=== PATIENT | male | born 1950 | race Caucasian/White ===

== ENCOUNTER 2023-01-21 19:43 | Outpatient (OUT) | payer MEDICARE, SELFPAY | END 2023-01-21 19:44 | PROVIDERS: PCP Family Medicine; Visit Provider Family Medicine | DX: G47.33 Obstructive sleep apnea (adult) (pediatric) (principal); I48.92 Unspecified atrial flutter | CPT/HCPCS: 95811 ==

== ENCOUNTER 2023-03-18 14:09 | Outpatient (OUT) | payer MEDICARE, SELFPAY ==
[2023-03-18 14:37] LABS: Anion Gap 11.2; BUN Creatinine Ratio 10.2; Carbon Dioxide 25.9 mmol/L (21.0-32.0); Chloride 101 mmol/L (98-107); Estimated GFR (African America >60 (>=60); Estimated GFR (Non-African Ame 55 (>=60); Glucose 219 mg/dL (74-106); Potassium 4.1 mmol/L (3.5-5.1); Sodium 134 mmol/L (136-145)
== END 2023-03-18 14:10 | disposition home or self-care (01) ==
LOC: LAB 14:12
PROVIDERS: PCP Family Medicine; Visit Provider Nurse Practitioner
DX: I48.0 Paroxysmal atrial fibrillation (principal)
CPT/HCPCS: 36415; 80048

== ENCOUNTER 2023-04-30 10:40 | Emergency (ER) | payer MEDICARE, SELFPAY ==
[2023-04-30 10:44] VITALS: BP 166/87; PULSE 102; RESP 20; TEMP 37.1; O2SAT 96; BMI 32.3
--- NOTE | 2023-04-30 10:47 | XR_ITS ---
The [address] [address] Patient Name: MELVI DAVIES MRN: [id number] date: 1950 Sex: M Assigned Patient Location: ER Current Patient Location: ER Accession/Order Number: [id number] Exam Date: 04/30/2023 10:55 Report Date: 04/30/2023 11:30 At the request of: YFN SARKAR Procedure: XR ribs LT min 3V w CXR1V EXAMINATION: XR ribs LT min 3V w CXR1V HISTORY: fall ; left rib pain since falling 5 days ago COMPARISON: No relevant comparison available. FINDINGS: LUNGS: No significant pulmonary parenchymal abnormalities. PLEURA: No pneumothorax, effusion, or pleural thickening. MEDIASTINUM: No visible mass or adenopathy. CARDIAC: No cardiomegaly or cardiac silhouette abnormality. RIBS: No appreciable fracture or lesion. OTHER: Negative. XR/XR ribs LT min 3V w CXR1V IMPRESSION: 1. No appreciable rib fracture. 2. No acute cardiopulmonary process. Electronically authenticated by: FUAD TYLER Date: 04/30/2023 11:30
--- NOTE | 2023-04-30 10:50 | ED.GENADUL1 ---
HPI - General Adult General Chief complaint: Extremity Injury, Upper Stated complaint: POSS BROKEN/BRUISED RIBS ON L SIDE Time Seen by Provider: 04/30/23 10:42 Source: patient Mode of arrival: walk-in History of Present Illness HPI narrative: 72-year-old male presents for left-sided rib pain. Five days ago he fell and landed on this area. He didn't hit his head and has no shoulder or arm pain. He points to the inferior anterior lateral rib region. No abdominal pain. He is not short of breath. Related Data Home Medications Medication Instructions Recorded Confirmed diltiazem HCl 120 mg 120 mg PO QAM 04/30/23 04/30/23 capsule,extended release 24 hr empagliflozin 10 mg tablet 10 mg PO DAILY 04/30/23 04/30/23 (Jardiance) flecainide 50 mg tablet 50 mg PO BID 04/30/23 04/30/23 glimepiride 4 mg tablet 4 mg PO DAILY 04/30/23 04/30/23 hydralazine 50 mg tablet 100 mg PO BID 04/30/23 04/30/23 isosorbide mononitrate 30 mg 30 mg PO QAM 04/30/23 04/30/23 tablet,extended release 24 hr olmesartan 20 mg tablet 20 mg PO DAILY 04/30/23 04/30/23 pantoprazole 40 mg tablet,delayed 40 mg PO DAILY 04/30/23 04/30/23 release sitagliptin phosphate 100 mg 100 mg PO DAILY 04/30/23 04/30/23 tablet (Januvia) warfarin 5 mg tablet 5 mg PO .COMPLEX 04/30/23 04/30/23 warfarin 7.5 mg tablet 7.5 mg PO QWEEK 04/30/23 04/30/23 Allergies Allergy/AdvReac Type Severity Reaction Status Date / Time ciprofloxacin [From Cipro] Allergy Severe Verified 04/30/23 10:43 Qhzwsbc-DTU-ZqW Reductase Allergy Severe Verified 04/30/23 10:43 Inhibitor Review of Systems ROS Narrative A ten point review of systems is negative except as noted above. Exam Narrative Exam Narrative: Nurses note and vital signs reviewed and patient is not hypoxic. General: The patient appears well and in no apparent distress. Patient is resting comfortably on cart. Skin: Warm, dry, no pallor noted. There is no rash noted. Head: Normocephalic, atraumatic Eye: Normal conjunctiva, no drainage Ears, Nose, Mouth, and Throat: oral mucosa is moist. Nares patent. Cardiovascular: irregularly irregular Respiratory: Patient is in no distress, no accessory muscle use, lungs are clear to auscultation, no wheezing, rales or rhonchi Back: non-tender, including cervical thoracic and lumbar spines GI: nontender including left upper quadrant Musculoskeletal: he has tenderness to the inferior anterolateral chest area. No crepitus bruise or abrasion. Neurological: A&O, normal speech Psychiatric: Cooperative Constitutional Vital Signs, click to edit/add: Last Vital Signs Temp 98.7 F 04/30/23 10:44 Pulse 102 H 04/30/23 10:44 Resp 04/30/23 10:44 BP 166/87 H 04/30/23 10:44 Pulse Ox 96 04/30/23 10:44 O2 Del Method Room Air 04/30/23 10:44 Course Vital Signs Vital signs: Vital Signs Temperature 98.7 F 04/30/23 10:44 Pulse Rate 102 H 04/30/23 10:44 Respiratory Rate 04/30/23 10:44 Blood Pressure 166/87 H 04/30/23 10:44 Pulse Oximetry 96 04/30/23 10:44 Oxygen Delivery Method Room Air 04/30/23 10:44 Temperature 98.7 F 04/30/23 10:44 Pulse Rate 102 H 04/30/23 10:44 Respiratory Rate 04/30/23 10:44 Blood Pressure 166/87 H 04/30/23 10:44 Pulse Oximetry 96 04/30/23 10:44 Oxygen Delivery Method Room Air 04/30/23 10:44 Medical Decision Making MDM Narrative Medical decision making narrative: x-rays per radiologist showed no rib fracture or pneumothorax and he is discharged home. He was instructed to take Tylenol for pain. Treatment diagnosis and follow-up were discussed with the patient. Differential Diagnosis Differential Diagnosis: rib fracture, rib contusion, pneumothorax Imaging Data rib x-rays: Radiologist's impression: Procedure: XR ribs LT min 3V w CXR1V EXAMINATION: XR ribs LT min 3V w CXR1V HISTORY: fall ; left rib pain since falling 5 days ago COMPARISON: No relevant comparison available. FINDINGS: LUNGS: No significant pulmonary parenchymal abnormalities. PLEURA: No pneumothorax, effusion, or pleural thickening. MEDIASTINUM: No visible mass or adenopathy. CARDIAC: No cardiomegaly or cardiac silhouette abnormality. RIBS: No appreciable fracture or lesion. OTHER: Negative. IMPRESSION: 1. No appreciable rib fracture. 2. No acute cardiopulmonary process. Electronically authenticated by: FUAD TYLER Date: 04/30/2023 11:30 Discharge Plan Discharge Chief Complaint: Extremity Injury, Upper Clinical Impression: Contusion of rib Patient Disposition: Home, Self-Care Time of Disposition Decision: 11:37 Condition: Good Mode of Transportation: Private Vehicle Prescriptions / Home Meds: No Action diltiazem HCl 120 mg capsule,extended release 24hr 120 mg PO QAM Jardiance 10 mg tablet 10 mg PO DAILY flecainide 50 mg tablet 50 mg PO BID glimepiride 4 mg tablet 4 mg PO DAILY hydralazine 50 mg tablet 100 mg PO BID isosorbide mononitrate 30 mg tablet extended release 24 hr 30 mg PO QAM olmesartan 20 mg tablet 20 mg PO DAILY pantoprazole 40 mg tablet,delayed release (DR/EC) 40 mg PO DAILY Januvia 100 mg tablet 100 mg PO DAILY warfarin 5 mg tablet 5 mg PO .COMPLEX Rx Instructions: 5 mg orally 6 days a week; Sun, Mon, Tu, Wed, Fri, Sat warfarin 7.5 mg tablet 7.5 mg PO QWEEK Patient Comments: every Rx Instructions: every Instructions: Rib Contusion (ED) Stand Alone Forms: Portal Instructions Referrals: Robin Estevez MD [Primary Care Provider] - 1 week
== END 2023-04-30 11:48 | disposition home or self-care (01) ==
PROVIDERS: Emergency Provider Emergency Medicine; PCP Family Medicine
DX: S20.212A Contusion of left front wall of thorax, initial encounter (principal); W19.XXXA Unspecified fall, initial encounter; Z79.899 Other long term (current) drug therapy; Z79.01 Long term (current) use of anticoagulants
CPT/HCPCS: 71101; 99283

== ENCOUNTER 2023-08-27 04:20 | Observation (INO) | payer MEDICARE, SELFPAY ==
[2023-08-27] VITALS (89 sets, daily range): BP systolic 87–147; BP diastolic 56–91; PULSE 68–148; RESP 9–28; TEMP 36.4–37.1; O2SAT 89–100; BMI 35.7; BMI 36.6
--- NOTE | 2023-08-27 04:30 | PC.NURSE ---
Pt presents to ER for a racing heart Pt states this started around midnight-1am Pt states he has a history of a-fib and believes he is in a-fib Pt is pink, warm, and dry A&Ox4 , laughing, joking, and appears in no distress When placed on the monitor pt shows sinus tach in the 140's Pt does not believe that he is not in a-fib, pt states when he was at home he wore a pulse ox that went from 144-26 Vagal maneuvers perfomed with no success EKG, IV, and labs obtained
--- NOTE | 2023-08-27 05:02 | XR_ITS ---
The [address] [address] Patient Name: MELVI DAVIES MRN: [id number] date: 1950 Sex: M Assigned Patient Location: ED.MAIN Current Patient Location: ED.MAIN Accession/Order Number: [id number] Exam Date: 08/27/2023 05:30 Report Date: 08/27/2023 06:29 At the request of: AYANNA SHAFER Procedure: XR chest 1V EXAM: XR chest 1V HISTORY: tachycardia COMPARISON: Chest x-ray, 08/21/2022. TECHNIQUE: AP upright portable chest x-ray. FINDINGS: The heart, mediastinum and pulmonary vascularity are within normal limits. The lungs are well expanded and clear. The bony thorax is intact. XR/XR chest 1V IMPRESSION: Nonacute chest. No significant change. Electronically authenticated by: BETTINA PHILLIPS Date: 08/27/2023 06:29
--- NOTE | 2023-08-27 05:02 | ECG_ITS ---
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
--- NOTE | 2023-08-27 05:16 | ED.GENADUL1 ---
HPI - General Adult General Chief complaint: Chest Pain Stated complaint: chest pain light headed Time Seen by Provider: 08/27/23 04:46 Source: patient Mode of arrival: Wheelchair Limitations: no limitations History of Present Illness HPI narrative: patient has past history of A. Fib. Presents complaining of feeling light headed and rapid heart beat since around midnight. He felt it was A. Fib and decided to come in . States one time at home his device recorded a slow heart rate in the 20s. No LOC, chest pain or nausea. Has mild headache. Can feel his heart racing in his chest . Does have history of TIA and CAD Related Data Home Medications Medication Instructions Recorded Confirmed diltiazem HCl 120 mg 120 mg PO QAM 04/30/23 08/27/23 capsule,extended release 24 hr empagliflozin 10 mg tablet 10 mg PO DAILY 04/30/23 08/27/23 (Jardiance) flecainide 50 mg tablet 50 mg PO BID 04/30/23 08/27/23 glimepiride 4 mg tablet 4 mg PO DAILY 04/30/23 08/27/23 hydralazine 50 mg tablet 100 mg PO BID 04/30/23 08/27/23 isosorbide mononitrate 30 mg 30 mg PO QAM 04/30/23 04/30/23 tablet,extended release 24 hr olmesartan 20 mg tablet 20 mg PO DAILY 04/30/23 08/27/23 pantoprazole 40 mg tablet,delayed 40 mg PO DAILY 04/30/23 04/30/23 release sitagliptin phosphate 100 mg 100 mg PO DAILY 04/30/23 08/27/23 tablet (Januvia) rivaroxaban 2.5 mg tablet (Xarelto) 2.5 mg PO BID 08/27/23 08/27/23 Allergies Allergy/AdvReac Type Severity Reaction Status Date / Time ciprofloxacin [From Cipro] Allergy Severe Verified 08/27/23 04:34 Ywhqoqj-WGS-VzB Reductase Allergy Severe Verified 08/27/23 04:34 Inhibitor Review of Systems ROS Status of ROS 10 or more systems reviewed and unremarkable except as noted in history and below PFSH PFSH Social History Smoking status: Former smoker Exam Constitutional Vital Signs, click to edit/add: Last Vital Signs Temp 98.7 F 08/27/23 04:29 Pulse 145 H 08/27/23 06:20 Resp 14 08/27/23 06:20 BP 88/56 L 08/27/23 06:15 Pulse Ox 95 08/27/23 06:20 O2 Del Method Room Air 08/27/23 04:29 Common normals: no apparent distress, average body habitus, oriented x3, no limitations, healthy appearing, alert and well nourished [facility] Common normals: normocephalic and head/scalp atraumatic Eye Common normals: EOMs intact bilaterally and conjunctivae normal Respiratory Common normals: normal respiratory effort, no retractions, no use of accessory muscles and clear to auscultation bilaterally Cardio Common normals: S1 normal heart sound Rate: tachycardic GI Common normals: Normal to inspection, nondistended, normoactive bowel sounds present, soft to palpation and non-tender Extremity Common normals: normal to inspection and full ROM Neuro Common normals: oriented x3, CN's II-XII intact bilaterally, moves all extremities and no focal motor deficits Psych Appearance: grossly normal Course Vital Signs Vital signs: Vital Signs Temperature 98.7 F 08/27/23 04:29 Pulse Rate 141 H 08/27/23 04:29 Respiratory Rate 18 08/27/23 04:29 Blood Pressure 121/75 08/27/23 04:29 Pulse Oximetry 96 08/27/23 04:29 Oxygen Delivery Method Room Air 08/27/23 04:29 Temperature 98.7 F 08/27/23 04:29 Pulse Rate 145 H 08/27/23 06:20 Respiratory Rate 14 08/27/23 06:20 Blood Pressure 88/56 L 08/27/23 06:15 Pulse Oximetry 95 08/27/23 06:20 Oxygen Delivery Method Room Air 08/27/23 04:29 Medical Decision Making [facility] Narrative Medical decision making narrative: patient presents complaining of tachycardia. Concerned he might be in A. fib again. Past history of diabetes, A. Fib, TIA and CAD. Denies chest pain. States he feels a little light headed. EKG and monitor with sinus tach. cxray per my preliminary review is unremarkable. D-dimer and first troponin neg. Did order metoprolol for his tachycardia but was held because his BP declined to 88 systolic. Patient asymptomatic other than sense of his heart racing. IV saline ordered. Discussed with Dr Back and will plan obs admission as long as 2nd Troponin is neg. Lab Data Labs: Lab Results 08/27/23 Range/Units 04:40 WBC 10.6 (4.0-11.0) 10^3/uL RBC 5.80 (4.70-6.10) 10^6/uL Hgb 16.9 (14.0-18.0) g/dL Hct 52.0 (42.0-54.0) % MCV 89.7 (80.0-94.0) fL MCH 29.1 (25.9-34.0) pg MCHC 32.5 (29.9-35.2) g/dL RDW 14.9 (11.0-15.0) % Plt Count 244 (150-450) 10^3/uL MPV 11.3 (9.5-13.5) fL Neut % (Auto) 80.0 H (43.0-75.0) % Lymph % (Auto) 9.9 L (20.5-60.0) % [place] % (Auto) 6.3 (1.7-12.0) % Eos % (Auto) 2.2 (0.9-7.0) % Baso % (Auto) 0.7 (0.2-2.0) % Neut # (Auto) 8.5 H (1.4-6.5) 10^3/uL Lymph # (Auto) 1.1 L (1.2-3.8) 10^3/uL [place] # (Auto) 0.7 (0.3-0.8) 10^3/uL Eos # (Auto) 0.2 (0.0-0.7) 10^3/uL Baso # (Auto) 0.1 (0.0-0.1) 10^3/uL Abs Immat Gran (auto) 0.10 H (0.00-0.03) 10^3/uL Imm/Tot Granulo (auto) 0.9 H (0.0-0.5) % D-Dimer <0.19 (<=0.59) mg/L FEU Sodium 135 L (136-145) mmol/L Potassium 4.2 (3.5-5.1) mmol/L Chloride 100 (98-107) mmol/L Carbon Dioxide 22.5 (21.0-32.0) mmol/L Anion Gap 16.7 BUN 21.0 H (7.0-18.0) mg/dL Creatinine 1.64 H (0.70-1.30) mg/dL Est GFR ( Amer) 50 L (>=60) Est GFR (Non-Af Amer) 41 L (>=60) BUN/Creatinine Ratio 12.8 Glucose 238 H (74-106) mg/dL Calcium 9.2 (8.5-10.1) mg/dL Troponin I High Sens 12.1 (4.0-76.1) pg/mL Discharge Plan Discharge Chief Complaint: Chest Pain Clinical Impression: Tachycardia, Hypotension, Dehydration Patient Disposition: Admitted as Observation Prescriptions / Home Meds: No Action diltiazem HCl 120 mg capsule,extended release 24hr 120 mg PO QAM Jardiance 10 mg tablet 10 mg PO DAILY flecainide 50 mg tablet 50 mg PO BID glimepiride 4 mg tablet 4 mg PO DAILY hydralazine 50 mg tablet 100 mg PO BID isosorbide mononitrate 30 mg tablet extended release 24 hr 30 mg PO QAM olmesartan 20 mg tablet 20 mg PO DAILY pantoprazole 40 mg tablet,delayed release (DR/EC) 40 mg PO DAILY Januvia 100 mg tablet 100 mg PO DAILY Xarelto 2.5 mg tablet 2.5 mg PO BID Referrals: Robin Estevez MD [Primary Care Provider] - 1 week
[2023-08-27 05:33] LABS: Basophils Absolute Auto 0.1 10^3/uL (0.0-0.1); Basophils Percent Auto 0.7 % (0.2-2.0); Eosinophils Absolute Auto 0.2 10^3/uL (0.0-0.7); Eosinophils Percent Auto 2.2 % (0.9-7.0); Hemoglobin 16.9 g/dL (14.0-18.0); Immature Granulocytes Pct Auto 0.9 % (0.0-0.5); Lymphocytes Absolute Auto 1.1 10^3/uL (1.2-3.8); Lymphocytes Percent Auto 9.9 % (20.5-60.0); Mean Corpuscular HGB Conc 32.5 g/dL (29.9-35.2); Mean Corpuscular Hemoglobin 29.1 pg (25.9-34.0); Mean Corpuscular Volume 89.7 fL (80.0-94.0); Mean Platelet Volume 11.3 fL (9.5-13.5); Monocytes Absolute Auto 0.7 10^3/uL (0.3-0.8); Monocytes Percent Auto 6.3 % (1.7-12.0); Neutrophils Absolute Auto 8.5 10^3/uL (1.4-6.5); Platelet Count 244 10^3/uL (150-450); Red Cell Distribution Width 14.9 % (11.0-15.0); White Blood Count 10.6 10^3/uL (4.0-11.0)
[2023-08-27 05:58] LABS: Anion Gap 16.7; BUN Creatinine Ratio 12.8; Calcium 9.2 mg/dL (8.5-10.1); Carbon Dioxide 22.5 mmol/L (21.0-32.0); Chloride 100 mmol/L (98-107); Estimated GFR (African America 50 (>=60); Estimated GFR (Non-African Ame 41 (>=60); Glucose 238 mg/dL (74-106); Potassium 4.2 mmol/L (3.5-5.1); Sodium 135 mmol/L (136-145); Troponin I High Sensitivity 12.1 pg/mL (4.0-76.1)
[2023-08-27 06:05] LABS: D Dimer <0.19 mg/L FEU (<=0.59)
--- NOTE | 2023-08-27 06:23 | PC.NURSE ---
Per Dr. Bray via phone, this nurse is to hold the Metoprolol and give the pt 1 liter fluid bolus
[2023-08-27] MEDS: 0.9 % SODIUM CHLORIDE 1,000 ML 1000 ML IV (06:35)
--- NOTE | 2023-08-27 07:38 | P.HP_ITS ---
H&P: HPI History of Present Illness Chief complaint: chest pain light headed Narrative: Patient presented to the emergency room with increasing heart rate. [place] like he was in a is atrial fibrillation like he has been in the past. He was not to undergo stopped on his flecainide. In ER patient is resting fairly comfortably. No dyspnea. Denies chest pain or shortness of breath. Is tachycardic. Fairly regular some looks either more sinus or could be a flutter. Patient will be admitted to ICU Review of Systems ROS Status of ROS 10 or more systems reviewed and unremark able except as noted in h istory and below PFSH PFS Social History Smoking status: Former smoker Meds Home Medications and Allergies Home Medications Medication Instructions Recorded Confirmed Type diltiazem HCl 120 mg 120 mg PO QAM 04/30/23 08/27/23 History capsule,extended release 24 hr empagliflozin 10 mg tablet 10 mg PO DAILY 04/30/23 08/27/23 History (Jardiance) flecainide 50 mg tablet 50 mg PO BID 04/30/23 08/27/23 History glimepiride 4 mg tablet 4 mg PO DAILY 04/30/23 08/27/23 History hydralazine 50 mg tablet 100 mg PO BID 04/30/23 08/27/23 History isosorbide mononitrate 30 mg 30 mg PO QAM 04/30/23 04/30/23 History tablet,extended release 24 hr olmesartan 20 mg tablet 20 mg PO DAILY 04/30/23 08/27/23 History pantoprazole 40 mg tablet,delayed 40 mg PO DAILY 04/30/23 04/30/23 History release sitagliptin phosphate 100 mg 100 mg PO DAILY 04/30/23 08/27/23 History tablet (Januvia) rivaroxaban 2.5 mg tablet (Xarelto) 2.5 mg PO BID 08/27/23 08/27/23 History Allergies Allergy/AdvReac Type Severity Reaction Status Date / Time ciprofloxacin [From Cipro] Allergy Severe Verified 08/27/23 04:34 Cwuckpo-DGT-GxK Reductase Allergy Severe Verified 08/27/23 04:34 Inhibitor Exam Constitutional Vital Signs, click to edit/add: Last Vital Signs Temp 98.7 F 08/27/23 04:29 Pulse 134 H 08/27/23 07:00 Resp 24 08/27/23 07:00 BP 100/76 08/27/23 07:00 Pulse Ox 100 08/27/23 07:00 O2 Del Method Room Air 08/27/23 04:29 Documenting provider has reviewed patient's vital signs: yes Common normals: no apparent distress Respiratory Common normals: normal respiratory effort, no retractions and clear to auscultation bilaterally Cardio Common normals: regular rhythm; irregular rate Rate: tachycardic GI Common normals: Normal to inspection, nondistended, normoactive bowel sounds present Extremity Common normals: normal to inspection and full ROM Results Labs Labs: Short CBC 08/27/23 Range/Units 04:40 WBC 10.6 (4.0-11.0) 10^3/uL Hgb 16.9 (14.0-18.0) g/dL Hct 52.0 (42.0-54.0) % Plt Count 244 (150-450) 10^3/uL BMP 08/27/23 04:40 Sodium 135 L Potassium 4.2 Chloride 100 Carbon Dioxide 22.5 BUN 21.0 H Creatinine 1.64 H Glucose 238 H Calcium 9.2 Assessment and Plan Assessment and Plan (1) Dehydration: (2) Tachycardia: Plan Tachycardia in a patient with pain history of atrial fibrillation. Anticoagulated with Xarelto. Plan is to give Cardizem IV bolus in ER and see if his heart rate slows down with that but admit patient to ICU. Consult to cardiology. Check echocardiogram. Start patient on his flecainide from before as well as short acting Cardizem 4 times daily. Check cardiac markers. Needs him, thyroid pending. Acg-crsqdfl-gklvljtbi diabetes mellitus-insulin sliding scale GERD-continue with home medication Hypertension-continue with home medications Mild dehydration with acute elevation in BUN and creatinine and mild hyponatremia-IV fluids. Monitor closely. Watch for any signs of fluid overload Greater than 50% chance patient be discharged tomorrow so maintain patient observation status.
[2023-08-27 07:42] LABS: Troponin I High Sensitivity 24.7 pg/mL (4.0-76.1)
[2023-08-27] MEDS: DILTIAZEM HCL 25 MG/5 ML VIAL 10 MG IV (07:42)
[2023-08-27] MEDS: LACTATED RINGER'S SOLUTION 1,000 ML 100 ML IV ×2 (07:43→17:52)
--- NOTE | 2023-08-27 07:46 | CA_ITS ---
Patient Name: MELVI DAVIES MR#: [id number] : 1950 Exam Date: 08/27/2023 Ordering Doctor: DR Robin Estevez . ECHOCARDIOGRAM REPORT PROCEDURE: CA ECHO DOPPLER COMPLETE INDICATIONS: palpitations, Tachycardia COMPARISON: None. DESCRIPTION: COMPLETE ECHOCARDIOGRAM Real-time transthoracic echocardiography with 2D, M-mode, spectral and color flow Doppler performed. QUALITY: Technical quality was adequate. LEFT VENTRICLE: Normal chamber size. Mild concentric left ventricular hypertrophy. LV EF: Global left ventricular systolic function is hyperdynamic; visually estimated ejection fraction 65 to 70%. No wall motion abnormalities. DIASTOLIC: Diastolic function is indeterminate. ATRIAL SEPTUM: Poorly seen. LEFT ATRIUM: Mild dilatation. RIGHT ATRIUM: Mild dilatation. RIGHT VENTRICLE: Normal chamber size. Normal right ventricular systolic function. TRICUSPID VALVE: Normal mobility and thickness. No stenosis with trivial regurgitation. No evidence of pulmonary hypertension. RVSP 17mmHg MITRAL VALVE: Normal mobility and thickness. No evidence of mitral valve stenosis. There is no mitral annular calcification. Trivial mitral regurgitation. AORTIC VALVE: Normal trileaflet appearance. Mildly calcified aortic valve. Mildly diminished mobility. No evidence of aortic valve stenosis. No aortic regurgitation. AORTIC ROOT: Normal diameter and appearance. PULMONIC VALVE: Normal thickness and mobility. No stenosis. Trivial regurgitation. PERICARDIUM: Anterior free space; trivial effusion versus fat pad. IVC: Collapses with inspirations. Normal size. CONCLUSION: 1. Global left ventricular systolic function is hyperdynamic; visually estimated ejection fraction is 65 to 70% 2. Mildly increased left ventricular wall thickness 3. The right ventricle is normal in size and systolic function 4. Biatrial enlargement 5. Diastolic function is indeterminate 6. No significant valvular abnormalities 7. Anterior free space; trivial effusion versus fat pad Adult Echocardiography Procedure Report Left Ventricle LVEDD (3.7 - 5.6 cm): 4.43 cm LVESD (2.2 - 4.0 cm): 2.94 cm LVIVS thickness (0.6 - 1.2 cm): 1.29 cm LVPW thickness (0.5 - 1.0 cm): 1.21 cm e': 0.09 m/s E - e': 7.03 LVOT Max Gradient: 3.31 mm[Hg] LVOT Area (cm2): 0.91 m/s Peak Velocity (LVOT): 0.91 m/s Mean Velocity (LVOT): 0.60 m/s LVOT Diameter 1.94 cm Left Ventricular Ejection Fraction: 66.09 % Left Atrium LA Volume Index (2D A2C): 37.27 ml/m2 Left Atrium Systolic Dimension: 2.87 cm Mitral Valve MV E to A Ratio: 1.29 Mitral Valve A-Wave Peak Velocity: 0.50 m/s Mitral Valve E-Wave Peak Velocity: 0.64 m/s Right Ventricle RV Internal Diastolic Dimension: 3.49 cm Aorta AO Root Diam: 2.49 cm Ascending Ao Diam: 3.61 cm Aortic Valve AoV Area (Peak Santhosh): 2.16 cm2, 2.16 cm2 AoV Area (VTI): 2.23 cm2, 2.23 cm2 Peak Velocity(Antegrade Flow): 1.25 m/s Peak Gradient(Antegrade Flow): 6.23 mm[Hg] Mean Velocity(Antegrade Flow): 0.97 m/s Mean Gradient(Antegrade Flow): 3.94 mm[Hg] Velocity Time Integral: 24.07 cm Tricuspid Valve Peak Velocity (Regurgitant Flow): 1.35 m/s, 1.57 m/s, 1.84 m/s Pulmonic Valve Peak Velocity: 0.90 m/s Peak Gradient: 3.23 mm[Hg] Right Atrium Right Atrium Systolic Pressure: 55.03 ml, 55.03 ml Dictated by: Flory Jerez M.D. on 08/27/2023 at 17:17 Approved by: Flory Jerez M.D. on 08/27/2023 at 17:20
[2023-08-27] MEDS: ACETAMINOPHEN 500 MG TABLET 1000 MG PO (07:49)
[2023-08-27 08:25] LABS: Free T3 2.91 pg/mL (2.18-3.98)
[2023-08-27 08:26] LABS: Alanine Aminotransferase 23 U/L (16-63); Albumin Globulin Ratio 0.7; Albumin Level 2.9 g/dL (3.4-5.0); Alkaline Phosphatase 48 U/L (46-116); Aspartate Amino Transferase 11 U/L (15-37); Bilirubin Direct 0.2 mg/dL (0.0-0.2); Bilirubin Total 0.5 mg/dL (0.2-1.0); Globulin 4.3 g/dL; Magnesium 2.2 mg/dL (1.8-2.4); Thyroid Stimulating Hormone 3.985 uIU/mL (0.358-3.740); Total Protein 7.2 g/dL (6.4-8.2)
--- NOTE | 2023-08-27 09:02 | ECG_ITS ---
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
[2023-08-27 09:21] LABS: Glucometer 165 mg/dL (74-106)
[2023-08-27] MEDS: DILTIAZEM HCL 60 MG TABLET PO ×4 (10:07→22:00)
--- NOTE | 2023-08-27 10:36 | PC.NURSE ---
This nurse called by ICU nurse and asked to chart off the normal saline ordered at 0635 and metoprolol. this nurse witnessed rn shift mgr nurse scan and hang normal saline bolus and metoprolol was not given due to blood pressures being too low. this nurse signed off the metoprolol not being given as it was held and signed off saline bolus. pharmacy did not verify medications prior to rn shift mgr nurses leaving, regardless of multiple calls to pharmacy made by night nurses
--- NOTE | 2023-08-27 10:45 | SWNOTE1 ---
SW met with pt to review medicare observation, [place], form. Pt voiced understanding and did not have any questions. Pt signed form, original given to pt and copy placed on chart. Pt has no needs at discharge. Pt's daughter was in room during assessment as well.
[2023-08-27] MEDS: OMEPRAZOLE 40 MG CAPSULE.DR PO (11:42)
[2023-08-27 11:43] LABS: Glucometer 229 mg/dL (74-106)
[2023-08-27] MEDS: INSULIN ASPART 300 UNIT/3 ML PEN SUBQ ×2 (12:00→22:05)
[2023-08-27 12:22] LABS: Troponin I High Sensitivity 57.3 pg/mL (4.0-76.1)
[2023-08-27 12:52] LABS: Bilirubin Urine NEGATIVE (NEGATIVE); Blood Urine NEGATIVE (NEGATIVE); Clarity Urine CLEAR (CLEAR); Color Urine LT. YELLOW (YELLOW); Glucose Urine UA >=1000 mg/dL (NEGATIVE); Ketones Urine TRACE mg/dL (NEGATIVE); Leukocyte Esterase Urine TRACE (NEGATIVE); Nitrite Urine NEGATIVE (NEGATIVE); Protein Urine NEGATIVE (NEG/TRACE); Urobilinogen Urine 0.2 EU/dL (0.2-1.0)
[2023-08-27 13:19] LABS: Urine Microscopic Indicated YES
[2023-08-27 13:24] LABS: Bacteria Urine TRACE #/HPF (NONE SEEN)
[2023-08-27 13:25] LABS: Cast Seen? NONE SEEN #/LPF (NONE SEEN); Crystals Seen? None Seen #/HPF (None Seen); Mucus Urine NONE SEEN (NONE SEEN); Squamous Epithelial Cell Urine RARE #/LPF (NONE/RARE); Urine Culture Indicated NO
--- NOTE | 2023-08-27 15:05 | P.CN_ITS ---
<Statement entered by CIRILO ROTH - 09/03/23 07:06> This documentation has been reviewed and approved. Consult Note: HPI Data of Consult Patient: known to practice within the last 3 years Consult date: 08/27/23 Requesting Physician: Robin Estevez MD Primary Care Provider: Robin Estevez MD Consult Narrative Reason for consult: Intermittent SVT, Known h/o A fib Narrative: 72 yo male well known to Cardiology for PMH: Paroxysmal A fib on Xarelto anticoagulation, HTN, MELVIN with Cpap, Prostate CA, TIA, and CKD- CR typically remains baseline 1.3-1.4. Pt presented to ED for fast heart rate, dizziness that felt like a fib. Pt was given IV fluid bolus and cardizem IV in ED of which he converted into sinus rhythm. RN at bedside states that he has remained in SR since arriving to the unit, vitals remain stable. Currently pt denied chest pain, SOB, orthopnea, or any recent illness, fever, chills. Daughter and son are at bedside. Pt is KALISPEL. cc:: CC: Robin Estevez MD Review of Systems ROS Status of ROS 10 or more systems reviewed and unremark able except as noted in history and below Constitutional Denies: fever or chills Cardiovascular Denies: chest pain, edema, lightheadedness, shortness of breath with exertion or shortness of breath when lying down Respiratory Denies: shortness of breath or cough [facility] Medical History (Updated 08/27/23 @ 15:54 by REBECCA BLACK) Hypertension ?I10 - Essential (primary) hypertension (ICD-10) Diabetes ?E11.9 - Type 2 diabetes mellitus without complications (ICD-10) History of radiation therapy ?Z92.3 - Personal history of irradiation (ICD-10) Prostate cancer ?C61 - Malignant neoplasm of prostate (ICD-10) Afib ?I48.91 - Unspecified atrial fibrillation (ICD-10) TIA (transient ischemic attack) ?G45.9 - Transient cerebral ischemic attack, unspecified (ICD-10) Surgical History (Updated 08/27/23 @ 08:38 by Rina Aguilar RN) H/O prostatectomy ?Z90.79 - Acquired absence of other genital organ(s) (ICD-10) Social History Smoking status: Former smoker Highest level of school completed/degree received: Associate degree: occupational, technical, vocational program Meds Home Medications and Allergies Home Medications Medication Instructions Recorded Confirmed Type diltiazem HCl 120 mg 120 mg PO QAM 04/30/23 08/27/23 History capsule,extended release 24 hr empagliflozin 10 mg tablet 10 mg PO DAILY 04/30/23 08/27/23 History (Jardiance) flecainide 50 mg tablet 50 mg PO BID 04/30/23 08/27/23 History glimepiride 4 mg tablet 4 mg PO DAILY 04/30/23 08/27/23 History hydralazine 50 mg tablet 100 mg PO BID 04/30/23 08/27/23 History olmesartan 20 mg tablet 20 mg PO DAILY 04/30/23 08/27/23 History sitagliptin phosphate 100 mg 100 mg PO DAILY 04/30/23 08/27/23 History tablet (Januvia) rivaroxaban 20 mg tablet (Xarelto) 20 mg PO QPM 08/27/23 08/27/23 History Allergies Allergy/AdvReac Type Severity Reaction Status Date / Time ciprofloxacin [From Cipro] Allergy Severe Verified 08/27/23 08:36 Bacmciu-RQT-NuZ Reductase Allergy Severe Verified 08/27/23 08:36 Inhibitor adhesive tape Allergy Mild Redness of Verified 08/27/23 08:36 Skin Exam Constitutional Vital Signs, click to edit/add: Last Vital Signs Temp 97.8 F 08/27/23 11:37 Pulse 89 08/27/23 12:30 Resp 18 08/27/23 12:02 BP 121/85 08/27/23 12:02 Pulse Ox 95 08/27/23 12:00 O2 Del Method Room Air 08/27/23 08:10 Common normals: no apparent distress, oriented x3, no limitations, healthy appearing and alert General appearance: cooperative and comfortable Orientation/consciousness: Yes awake HENMT Common normals: normocephalic and head/scalp atraumatic Respiratory Common normals: normal respiratory effort, no use of accessory muscles and clear to auscultation bilaterally Effort & inspection: able to speak in complete sentences Auscultation: clear to auscultation bilaterally Cardio Common normals: no JVD, regular rate, regular rhythm, S1 normal heart sound, S2 normal heart sound, no gallops, no murmurs, no rub and peripheral pulses 2+ throughout Peripheral pulses: radial pulses present, posterior tibial pulses present and dorsalis pedis pulses present Extremity Common normals: normal to inspection, normal capillary refill and no clubbing, cyanosis or edema Neuro Common normals: oriented x3, CN's II-XII intact bilaterally and moves all extremities Psych Common normals: mental status grossly normal, thought process normal, cooperative, affect normal and speech normal Insight: insight good Judgement: judgment good Other: Pt is KALISPEL Results Labs Labs: Short CBC 08/27/23 Range/Units 04:40 WBC 10.6 (4.0-11.0) 10^3/uL Hgb 16.9 (14.0-18.0) g/dL Hct 52.0 (42.0-54.0) % Plt Count 244 (150-450) 10^3/uL BMP 08/27/23 04:40 Sodium 135 L Potassium 4.2 Chloride 100 Carbon Dioxide 22.5 BUN 21.0 H Creatinine 1.64 H Glucose 238 H Calcium 9.2 Liver Function 08/27/23 Range/Units 07:15 Total Bilirubin 0.5 (0.2-1.0) mg/dL Direct Bilirubin 0.2 (0.0-0.2) mg/dL AST 11 L (15-37) U/L ALT 23 (16-63) U/L Alkaline Phosphatase 48 (46-116) U/L Albumin 2.9 L (3.4-5.0) g/dL Urine 08/27/23 Range/Units 12:25 Urine Color Lt. yellow (YELLOW) Urine Clarity Clear (CLEAR) Urine pH 6.0 (5.0-9.0) Ur Specific [place] 1.010 (1.005-1.025) Urine Protein Negative (NEG/TRACE) mg/dL Urine Glucose (UA) >=1000 A (NEGATIVE) mg/dL Pulse Oximetry Attestation: I have reviewed the pertinent pulse oximetry results. ECG Attestation: ?I have reviewed the pertinent ECG results. ECG interpretation date: 08/27/23 Interpretation: Intervals [place] Rate: 86 P: 54 MD: 188 QRS: 13 QRSD: 86 T: 23 QT: 378 QTc: 421 Interpretive Statements 1100 Sinus rhythm 9110 normal ECG No previous ECG available for comparison Imaging Echocardiogram: Attestation: I have reviewed the pertinent imaging results. My impression: 12/03/22 Echo LVSF is hyperdynamic- EF 65-70% No significant wall motion abnormalities RV size and systolic function normal No significant valvulkar abnormalities Lexiscan stress test: Attestation: I have reviewed the pertinent imaging results. My impression: 12/24/2022 Lexiscan Normal lexiscan stress test without EKG evidence of ischemia. Myocardial perfusion is normal. Assessment and Plan Assessment and Plan (1) Dehydration: Assessment and Plan: managed by primary service (2) Tachycardia: Assessment and Plan: Currently resolved after IV fluid bolus and IV cardizem bolus Remains on Cardizem 60 mg qid Was on Cardizem 120 mg daily at home (3) Paroxysmal A-fib: Assessment and Plan: [id number]= 5 Age, HTN, DM, Stroke Remains on xarelto anticoagulation- Reduce dose to Xarelto 15 mg (if Cr Cl < 51 for renal dosing.)Pts Cr Clearance modified for overweight pt = 46 ml/min- Recommend continue cardizem 120 mg daily tomorrow, stop short acting cardizem and resume flecanide 50 mg po bid Monitor renal function F/U with Dr Shannon- EP as scheduled outpt. (4) Acute kidney injury superimposed on CKD: Assessment and Plan: Primary service managing (5) Hypertension: Assessment and Plan: Currently well controlled Renal function slightly elevated today- continue to monitor Continue all medications- olmesartan, hydralazine and cardizem Qualifiers: Hypertension type: renovascular hypertension Qualified Code(s): I15.0 - Renovascular hypertension Plan as above in Assessment Rebecca Black [facility] Cardiology
[2023-08-27] MEDS: FLECAINIDE ACETATE 50 MG TABLET PO (16:05)
[2023-08-27 16:18] LABS: Troponin I High Sensitivity 49.2 pg/mL (4.0-76.1)
[2023-08-27 17:04] LABS: Glucometer 120 mg/dL (74-106)
[2023-08-27] MEDS: RIVAROXABAN 10 MG TABLET 15 MG PO (21:59)
[2023-08-27 22:10] LABS: Glucometer 262 mg/dL (74-106)
[2023-08-28] VITALS (28 sets, daily range): BP systolic 108–150; BP diastolic 67–93; PULSE 65–87; RESP 10–45; TEMP 36.4–36.6; O2SAT 91–98
[2023-08-28] MEDS: LACTATED RINGER'S SOLUTION 1,000 ML 100 ML IV (03:28)
[2023-08-28 05:14] LABS: Basophils Absolute Auto 0.1 10^3/uL (0.0-0.1); Basophils Percent Auto 0.7 % (0.2-2.0); Eosinophils Absolute Auto 0.2 10^3/uL (0.0-0.7); Eosinophils Percent Auto 2.3 % (0.9-7.0); Hematocrit 44.6 % (42.0-54.0); Hemoglobin 14.3 g/dL (14.0-18.0); Immature Granulocytes Abs Auto 0.06 10^3/uL (0.00-0.03); Immature Granulocytes Pct Auto 0.8 % (0.0-0.5); Lymphocytes Absolute Auto 0.6 10^3/uL (1.2-3.8); Lymphocytes Percent Auto 8.3 % (20.5-60.0); Mean Corpuscular HGB Conc 32.1 g/dL (29.9-35.2); Mean Corpuscular Hemoglobin 28.5 pg (25.9-34.0); Mean Corpuscular Volume 88.8 fL (80.0-94.0); Monocytes Absolute Auto 0.5 10^3/uL (0.3-0.8); Monocytes Percent Auto 6.4 % (1.7-12.0); Neutrophils Absolute Auto 6.1 10^3/uL (1.4-6.5); Neutrophils Percent Auto 81.5 % (43.0-75.0); Platelet Count 174 10^3/uL (150-450); Red Blood Count 5.02 10^6/uL (4.70-6.10); Red Cell Distribution Width 14.9 % (11.0-15.0); White Blood Count 7.5 10^3/uL (4.0-11.0)
[2023-08-28 05:49] LABS: Alanine Aminotransferase 23 U/L (16-63); Albumin Globulin Ratio 0.6; Albumin Level 2.7 g/dL (3.4-5.0); Alkaline Phosphatase 45 U/L (46-116); Anion Gap 13.3; Aspartate Amino Transferase 13 U/L (15-37); BUN Creatinine Ratio 12.8; Bilirubin Total 0.5 mg/dL (0.2-1.0); Calcium 8.3 mg/dL (8.5-10.1); Carbon Dioxide 22.6 mmol/L (21.0-32.0); Chloride 98 mmol/L (98-107); Estimated GFR (African America >60 (>=60); Estimated GFR (Non-African Ame 56 (>=60); Globulin 4.2 g/dL; Glucose 208 mg/dL (74-106); Potassium 3.9 mmol/L (3.5-5.1); Sodium 130 mmol/L (136-145); Total Protein 6.9 g/dL (6.4-8.2)
[2023-08-28] MEDS: FLECAINIDE ACETATE 50 MG TABLET PO (05:53)
[2023-08-28] MEDS: DILTIAZEM HCL 60 MG TABLET PO (05:55)
[2023-08-28] MEDS: OMEPRAZOLE 40 MG CAPSULE.DR PO (05:55)
--- NOTE | 2023-08-28 07:19 | ECG_ITS ---
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
--- NOTE | 2023-08-28 07:36 | P.DS_ITS ---
DS: Providers Provider Date of admission: 08/27/23 06:34 Primary care physician: Robin Estevez MD Consults: 08/27/23 07:08 Occupational Therapy Eval and Treat Routine Reason for consultation: Ambulatory dysfunction/weakness Physical Therapy Eval and Treat Routine Reason for consultation: Ambulatory dysfunction/weakness 08/27/23 07:46 Consult to Cardiology Routine Reason for consultation: tachycardia Has provider been notified: No DS: Diagnosis Discharge Diagnosis (1) Dehydration: (2) Tachycardia: (3) Paroxysmal A-fib: (4) Acute kidney injury superimposed on CKD: (5) Hypertension: Qualifiers: Hypertension type: renovascular hypertension Qualified Code(s): I15.0 - Renovascular hypertension Plan Tachycardia in a patient with pain history of atrial fibrillation. Eal-hoxnrcd-puekzfoaf diabetes mellitus - poorly controilled GERD Hypertension mild Protein calorie malnutrition DS: Summary Hospital Course Hospital Course: Patient presented to the emergency room with increasing heart rate. In ER found to have sinus tachycardia. Could have been underlying flutter with a rate but it was not consistent with atrial fibrillation with the consistency of the QRS interval. Unable to control in ER with IV fluid resuscitation. Metoprolol. Patient was admitted to the ICU. Given IV dose of Cardizem. And started on p.o. Cardizem. Patient tolerated that well and did improve his heart rate into the 70s to 80s. He was stable overnight other than some mild sleep apnea hypoxia. Echocardiogram was unremarkable. Recommendation from cardiology was to restart his flecainide. Will maintain a consistent dose of the Cardizem at 120. Patient stable this morning we will discharge patient home improving condition. Medications see list. Follow-up with me in the office next week for his poorly controlled diabetes mellitus and moderate protein calorie malnutrition. See cardiology next week as well. Time Spent with Patient Time attestation: Total time spent providing and/or coordinating discharge services: Exam Constitutional Vital Signs, click to edit/add: Last Vital Signs Temp 97.8 F 08/28/23 03:40 Pulse 73 08/28/23 06:00 Resp 16 08/28/23 03:48 BP 150/93 H 08/28/23 05:55 Pulse Ox 94 L 08/28/23 06:00 O2 Del Method Nasal Cannula 08/28/23 04:28 O2 Flow Rate 1 08/28/23 04:28 Common normals: no apparent distress, oriented x3, no limitations, healthy appearing and alert General appearance: cooperative and comfortable Orientation/consciousness: Yes awake HENMS Common normals: normocephalic and head/scalp atraumatic Respiratory Common normals: normal respiratory effort, no use of accessory muscles and clear to auscultation bilaterally Effort & inspection: able to speak in complete sentences Auscultation: clear to auscultation bilaterally Cardio Common normals: no JVD, regular rate, regular rhythm and no murmurs Peripheral pulses: radial pulses present GI Common normals: Normal to inspection, nondistended, normoactive bowel sounds present Extremity Common normals: normal to inspection Neuro Common normals: oriented x3, CN's II-XII intact bilaterally and moves all extremities Psych Common normals: mental status grossly normal, thought process normal, cooperative, affect normal and speech normal Insight: insight good Judgement: judgment good Other: Pt is U[place]ER [place] DS: Data Data Completed and Pending Labs on day of discharge: Labs from last 24 hours 08/28/23 08/27/23 08/27/23 03:52 22:04 17:03 WBC 7.5 RBC 5.02 Hgb 14.3 Hct 44.6 MCV 88.8 MCH 28.5 MCHC 32.1 RDW 14.9 Plt Count 174 MPV 11.0 Neut % (Auto) 81.5 H Lymph % (Auto) 8.3 L [place] % (Auto) 6.4 Eos % (Auto) 2.3 Baso % (Auto) 0.7 Neut # (Auto) 6.1 Lymph # (Auto) 0.6 L [place] # (Auto) 0.5 Eos # (Auto) 0.2 Baso # (Auto) 0.1 Abs Immat Gran (auto) 0.06 H Imm/Tot Granulo (auto) 0.8 H Sodium 130 L Potassium 3.9 Chloride 98 Carbon Dioxide 22.6 Anion Gap 13.3 BUN 16.0 Creatinine 1.25 Est GFR ( Amer) >60 Est GFR (Non-Af Amer) 56 L BUN/Creatinine Ratio 12.8 Glucose 208 H Calcium 8.3 L Magnesium Total Bilirubin 0.5 Direct Bilirubin AST 13 L ALT 23 Alkaline Phosphatase 45 L Troponin I High Sens NT-Pro-B Natriuret Pep Total Protein 6.9 Albumin 2.7 L Globulin 4.2 Albumin/Globulin Ratio 0.6 TSH Thyroxine (T4) Free T3 Urine Color Urine Clarity Urine pH Ur Specific [place] Urine Protein Urine Glucose (UA) Urine Ketones Urine Occult Blood Urine Nitrite Urine Bilirubin Urine Urobilinogen Ur Leukocyte Esterase Urine RBC Urine WBC Ur Squamous Epith Cells Urine Crystals Urine Bacteria Urine Casts Urine Mucus Ur Culture Indicated? POC Glucose 262 H 120 H 08/27/23 08/27/23 08/27/23 15:55 12:25 12:00 WBC RBC Hgb Hct MCV MCH MCHC RDW Plt Count MPV Neut % (Auto) Lymph % (Auto) [place] % (Auto) Eos % (Auto) Baso % (Auto) Neut # (Auto) Lymph # (Auto) [place] # (Auto) Eos # (Auto) Baso # (Auto) Abs Immat Gran (auto) Imm/Tot Granulo (auto) Sodium Potassium Chloride Carbon Dioxide Anion Gap BUN Creatinine Est GFR ( Amer) Est GFR (Non-Af Amer) BUN/Creatinine Ratio Glucose Calcium Magnesium Total Bilirubin Direct Bilirubin AST ALT Alkaline Phosphatase Troponin I High Sens 49.2 57.3 NT-Pro-B Natriuret Pep Total Protein Albumin Globulin Albumin/Globulin Ratio TSH Thyroxine (T4) Free T3 Urine Color Lt. yellow Urine Clarity Clear Urine pH 6.0 Ur Specific [place] 1.010 Urine Protein Negative Urine Glucose (UA) >=1000 A Urine Ketones Trace A Urine Occult Blood Negative Urine Nitrite Negative Urine Bilirubin Negative Urine Urobilinogen 0.2 Ur Leukocyte Esterase Trace A Urine RBC 2-5 A Urine WBC 2-5 A Ur Squamous Epith Cells Rare Urine Crystals None seen Urine Bacteria Trace A Urine Casts None seen Urine Mucus None seen Ur Culture Indicated? No POC Glucose 08/27/23 08/27/23 08/27/23 11:41 09:20 07:15 WBC RBC Hgb Hct MCV MCH MCHC RDW Plt Count MPV Neut % (Auto) Lymph % (Auto) [place] % (Auto) Eos % (Auto) Baso % (Auto) Neut # (Auto) Lymph # (Auto) [place] # (Auto) Eos # (Auto) Baso # (Auto) Abs Immat Gran (auto) Imm/Tot Granulo (auto) Sodium Potassium Chloride Carbon Dioxide Anion Gap BUN Creatinine Est GFR ( Amer) Est GFR (Non-Af Amer) BUN/Creatinine Ratio Glucose Calcium Magnesium 2.2 Total Bilirubin 0.5 Direct Bilirubin 0.2 AST 11 L ALT 23 Alkaline Phosphatase 48 Troponin I High Sens 24.7 NT-Pro-B Natriuret Pep 569.0 Total Protein 7.2 Albumin 2.9 L Globulin 4.3 Albumin/Globulin Ratio 0.7 TSH 3.985 H Thyroxine (T4) 9.40 Free T3 2.91 Urine Color Urine Clarity Urine pH Ur Specific [place] Urine Protein Urine Glucose (UA) Urine Ketones Urine Occult Blood Urine Nitrite Urine Bilirubin Urine Urobilinogen Ur Leukocyte Esterase Urine RBC Urine WBC Ur Squamous Epith Cells Urine Crystals Urine Bacteria Urine Casts Urine Mucus Ur Culture Indicated? POC Glucose 229 H 165 H Discharge Plan Discharge Disposition: Home, Self-Care Condition: Fair Discharge Medications: Continued diltiazem HCl 120 mg capsule,extended release 24hr 120 mg PO QAM Jardiance 10 mg tablet 10 mg PO DAILY flecainide 50 mg tablet 50 mg PO BID glimepiride 4 mg tablet 4 mg PO DAILY hydralazine 50 mg tablet 100 mg PO BID olmesartan 20 mg tablet 20 mg PO DAILY Januvia 100 mg tablet 100 mg PO DAILY Xarelto 20 mg tablet 20 mg PO QPM Rx Instructions: must administer with evening meal Activity Restrictions/Additional Instructions: Check to see if additional labs should be ordered with upcoming blood work. Forms: Portal Instructions Follow Up Appointments: Follow up with Dr. Fawn Ayala 09/30/2023 at 1420.
[2023-08-28] MEDS: DILTIAZEM HCL 120 MG CAP.ER.24H PO (08:00)
--- NOTE | 2023-08-28 08:00 | ECG_ITS ---
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
[2023-08-28] MEDS: INSULIN ASPART 300 UNIT/3 ML PEN SUBQ (08:02)
--- NOTE | 2023-08-29 10:11 | CM.DCFOLLOWU ---
Person spoke with: patient How are you feeling? well How is your pain? no pain Did you understand your discharge instructions? yes Do you have any questions about your discharge instructions? no Were you given any prescriptions at discharge? no Were you able to get your prescriptions filled? N/A Do you understand how to take your medications as ordered? yes Do you have any questions about your follow up appointment and do you plan to keep your follow up appointment? no questios, reviewed f/u appointments with pt Is there anything else that you would like to discuss? no Questions/Comments/Concerns/Other: n/a
== END 2023-08-28 10:24 | disposition home or self-care (01) ==
LOC: ER 06:38 → ICU 08:02
PROVIDERS: Internal Medicine; Admitting Provider Family Medicine; Emergency Provider Internal Medicine; PCP Family Medicine; Visit Provider Family Medicine
DX: R00.0 Tachycardia, unspecified (principal); E86.0 Dehydration; I48.0 Paroxysmal atrial fibrillation; I25.10 Atherosclerotic heart disease of native coronary artery without angina pectoris; E11.65 Type 2 diabetes mellitus with hyperglycemia; E11.22 Type 2 diabetes mellitus with diabetic chronic kidney disease; N17.9 Acute kidney failure, unspecified; E44.0 Moderate protein-calorie malnutrition; Z68.36 Body mass index [BMI] 36.0-36.9, adult; I12.9 Hypertensive chronic kidney disease with stage 1 through stage 4 chronic kidney disease, or unspecified chronic kidney disease; N18.2 Chronic kidney disease, stage 2 (mild); K21.9 Gastro-esophageal reflux disease without esophagitis; E87.1 Hypo-osmolality and hyponatremia; R79.89 Other specified abnormal findings of blood chemistry; G47.33 Obstructive sleep apnea (adult) (pediatric); I95.9 Hypotension, unspecified; Z86.73 Personal history of transient ischemic attack (TIA), and cerebral infarction without residual deficits; Z79.899 Other long term (current) drug therapy; Z79.01 Long term (current) use of anticoagulants; Z87.891 Personal history of nicotine dependence; Z85.46 Personal history of malignant neoplasm of prostate; Z92.3 Personal history of irradiation; Z90.79 Acquired absence of other genital organ(s)
CPT/HCPCS: 36415; 71045; 80048; 80053; 80076; 81001; 82948; 83735; 83880; 84436; 84443; 84481; 84484; 85025; 85378; 93005; 93306; 94761; 96361; 96374; 97165; 99285; G0378

== ENCOUNTER 2023-10-08 09:31 | Outpatient (OUT) | payer MEDICARE, SELFPAY ==
[2023-10-08 09:56] LABS: Basophils Percent Auto 0.5 % (0.2-2.0); Eosinophils Absolute Auto 0.3 10^3/uL (0.0-0.7); Eosinophils Percent Auto 3.8 % (0.9-7.0); Hematocrit 51.1 % (42.0-54.0); Hemoglobin 16.3 g/dL (14.0-18.0); Immature Granulocytes Abs Auto 0.09 10^3/uL (0.00-0.03); Lymphocytes Absolute Auto 0.8 10^3/uL (1.2-3.8); Lymphocytes Percent Auto 9.6 % (20.5-60.0); Mean Corpuscular HGB Conc 31.9 g/dL (29.9-35.2); Mean Corpuscular Hemoglobin 28.9 pg (25.9-34.0); Mean Corpuscular Volume 90.6 fL (80.0-94.0); Mean Platelet Volume 10.2 fL (9.5-13.5); Monocytes Absolute Auto 0.6 10^3/uL (0.3-0.8); Monocytes Percent Auto 6.7 % (1.7-12.0); Neutrophils Absolute Auto 6.9 10^3/uL (1.4-6.5); Neutrophils Percent Auto 78.4 % (43.0-75.0); Platelet Count 229 10^3/uL (150-450); Red Blood Count 5.64 10^6/uL (4.70-6.10); Red Cell Distribution Width 14.6 % (11.0-15.0); White Blood Count 8.8 10^3/uL (4.0-11.0)
[2023-10-08 13:20] LABS: Estimated Average Glucose 194 mg/dL; Glycohemoglobin A1C 8.4 % (4.5-6.2)
[2023-10-08 13:28] LABS: Alanine Aminotransferase 42 U/L (16-63); Albumin Globulin Ratio 0.7; Albumin Level 3.4 g/dL (3.4-5.0); Alkaline Phosphatase 57 U/L (46-116); Anion Gap 13.2; Aspartate Amino Transferase 22 U/L (15-37); BUN Creatinine Ratio 11.8; Bilirubin Total 0.6 mg/dL (0.2-1.0); Calcium 9.2 mg/dL (8.5-10.1); Carbon Dioxide 24.6 mmol/L (21.0-32.0); Chloride 99 mmol/L (98-107); Chol HDL Ratio 4.2; Cholesterol 148 mg/dL (<=200); Estimated GFR (African America 54 (>=60); Estimated GFR (Non-African Ame 45 (>=60); Globulin 4.9 g/dL; Glucose 151 mg/dL (74-106); HDL Cholesterol 35 mg/dL (40-60); Potassium 3.8 mmol/L (3.5-5.1); Sodium 133 mmol/L (136-145); Thyroid Stimulating Hormone 2.435 uIU/mL (0.358-3.740); Total Protein 8.3 g/dL (6.4-8.2); Triglycerides 93 mg/dL (<=150); VLDL CHOLESTEROL 18.6 mg/dL
[2023-10-09 04:07] LABS: PSA, Free <0.02 ng/mL; Prostate Specific Ag <0.1 ng/mL (0.0-4.0)
== END 2023-10-08 09:32 | disposition home or self-care (01) ==
LOC: LAB 09:32
PROVIDERS: PCP Family Medicine; Visit Provider Family Medicine
DX: G47.33 Obstructive sleep apnea (adult) (pediatric) (principal); I48.0 Paroxysmal atrial fibrillation; E11.9 Type 2 diabetes mellitus without complications; E78.5 Hyperlipidemia, unspecified; Z12.12 Encounter for screening for malignant neoplasm of rectum; Z12.5 Encounter for screening for malignant neoplasm of prostate; I11.0 Hypertensive heart disease with heart failure
CPT/HCPCS: 36415; 80053; 80061; 83036; 83880; 84153; 84154; 84436; 84443; 84481; 85025

== ENCOUNTER 2023-10-15 07:53 | Outpatient (OUT) | payer MEDICARE, SELFPAY ==
--- OUTSIDE RECORDS SUMMARY | 2023-10-15 07:56 | XMS_ITS | CCD ---
Author Name Unknown Address [address] [place] [address] Organization [facility] Care Team Providers Care Intermediate Frame Tender Name Role Phone Unavailable Primary Care Provider Unavailabl e DEVINETTOlivia, SUBRAHMANYAM Consulting Unavail able OSKAR PINA Attending Unavailable VAUGHN KAYE Consulting Unavailable Pearl Estevez MD Primary Care Provider [phone] Melvi Kulkarni Jr. Unavailable Adrienne Mckoy MD, Surinder Unavailable Pearl Estevez MD Primary Care Provider [phone] Melvi Kulkarni Jr. Unavailable Adrienne Mckoy MD, Surinder Unavailable MALLORIE Hay, DR KANG Admitting Unavailable HOY ., DR KANG Attending Unavailable HOY ., DR KANG Consulting Unavailable HOY ., DR KANG Primary Care Unavailable HOY ., DR KANG Primary Care Unavailable HOY ., DR KANG Admitting Unavailable HOY ., DR KANG Attending Unavailable HOY ., DR KANG Consulting Unavailable HOY ., DR KANG Primary Care Unavailable HOY ., DR KANG Admitting Unavailable HOY ., DR KANG Attending Unavailable HOY ., DR KANG Consulting Unavailable MARKER ., DR RODRIGUEZ Attending Unavailable MARKER ., DR RODRIGUEZ Consulting Unavailable MARKER ., DR RODRIGUEZ Admitting Unavailable HOY ., DR KANG Primary Care Unavailable XAVIER .JONATHAN Admitting Unavailable JAYSON, DR FUAD Mariee Consulting Unavailable HOY ., DR KANG Primary Care Unavailable XAVIER ., JONATHAN Attending Unavailable XAVIER ., JONATHAN Consulting Unavailable AYLINY ., DR KANG Primary Care Unavailable HOY ., DR KANG Admitting Unavailable HOY ., DR KANG Attending Unavailable HOY ., DR KANG Consulting Unavailable Pearl Estevez MD Primary Care Provider Shad Carrington, Melvi Tramaine Unavailable Surinder Llanos MD Unavailable SERVICE, JOBST Referring Unavailable PEARL ESTEVEZ Primary Care Unavailable SARABJIT TURNER Attending Unavailable SARABJIT TURNER Attending Unavailable SILVIA NASH Attending Unavailable SILVIA NASH Attending Unavailable PEARL ESTEVEZ M Primary Care Unavailable PEARL ESTEVEZ M Primary Care Unavailable SURINDER MCKOY Attending Unavailable SURINDER MCKOY Referring Unavailable PEARL ESTEVEZ M Primary Care Unavailable BROOKLYNSURINDER MCKEON Referring Unavailable MINDA FORRESTEK Attending Unavailable PEARL ESTEVEZ M Primary Care Unavailable PEARL ESTEVEZ Primary Care Unavailable ADRIANE APOLINAR Attending Unavailable PEARL ESTEVEZ Primary Care Unavailable Allergies Allergy Classification Reported Allergen(s) Allergy Type Date of Onset Reaction(s) Facility (9 sources) Ciprofloxacin; Translations: [CIPROFLOXACIN] Drug Allergy 8 Mental Status Change [facility] (10 sources) Desonide; Translations: [DESONIDE] Drug Allergy 6 Unknown [facility] (5 sources) HMG-CoA reductase inhibitor; Translations: [GVASSZC-IQP-NHE REDUCTASE INHIBITORS] Drug Allergy 6 Other: See Comments [facility] (9 sources) Lactose; Translations: [LACTOSE] Drug Allergy 6 Unknown [facility] (4 sources) HMG-CoA reductase inhibitor Drug Allergy 6 Other: See Comments [facility] (1 source) black walnut pollen extract Drug Allergy 6 [facility] (1 source) Ciprofloxacin Drug Allergy 3 [facility] (1 source) Lactose Drug Allergy 6 [facility] (1 source) atorvastatin; Translations: [ATORVASTATIN] Drug Allergy 1 [facility] Medications Current Medications Medication Drug Class(es) Dates Sig (Normalized) Sig (Original) aspirin 81 mg chewable tablet (1 source) Platelet Aggregation Inhibitor, Nonsteroidal Anti-inflammatory Drug Start: 07-03-2019 aspirin chewable tablet 81 mg lisinopril 10 mg oral tablet (1 source) Angiotensin Converting Enzyme Inhibitor take 1 tablet by mouth once daily lisinopril (PRINIVIL;ZESTRIL ) 10 MG tablet Take 10 mg by mouth daily 0 Active 1000 ml sodium chloride 9 mg/ml injection (2 sources) Start: 07-03-2019 0.9 % sodium chloride infusion Start: 07-03-2019 End: 07-03-2019 0.9 % sodium chloride bolus Completed/Discontinued Medications Medication Drug Class(es) Dates Sig (Normalized) Sig (Original) acetaminophen 32 mg/ml / chlorpheniramine maleate 0.2 mg/ml / dextromethorphan hydrobromide 1 mg/ml oral suspension (5 sources) Histamine-1 Receptor Antagonist, Uncompetitive L-nkljvt-S-aspartat e Receptor Antagonist, Sigma-1 Agonist End: 01-28-2023 Chlorpheniram-DM- Acetaminophen 1-5-160 mg/5 mL susp Take by mouth at bedtime as needed. 0 01/28/2023 Discontinued (Course of therapy completed) Comment on above: Take by mouth at bed time as needed. cholecalciferol 0.025 mg oral capsule (5 sources) Vitamin D End: 01-28-2023 take 1 capsule by mouth once daily Cholecalciferol, Vitamin D3, 25 mcg (1,000 unit) cap Indications: Prostate cancer (HCC) Take 2,000 Units by mouth once daily. 0 01/28/2023 Discontinued (Course of therapy completed) Cholecalciferol, Vitamin D3, (VITAMIN D) 1,000 unit cap Indications: Prostate cancer (HCC) Take 2,000 Units by mouth once daily. 0 Active Comment on above: Take 2,000 Units by mouth once daily. dilTIAZem hydrochloride 30 mg oral tablet (7 sources) Calcium Channel Roxana Start: 05-04-2019 take 2 tablets by mouth three times daily diltiazem (CARDIZEM) 30 mg tablet Take 60 mg by mouth three times daily. 0 05/04/2019 Active take 1 tablet by mouth four time s daily diltiazem (CARDIZEM) 30 MG tablet Take 30 mg by mouth 4 times daily 0 Active Comment on above: Take 60 mg by mouth three times daily. empagliflozin 10 mg oral tablet (6 sources) Sodium-Glucose Cotransporter 2 Inhibitor take 1 tablet by mouth once daily at breakfast empagliflozin (JARDIANCE) 10 mg tablet Take 10 mg by mouth daily with breakfast. 0 Active Comment on above: Take 10 mg by mouth daily with breakfast. flecainide acetate 50 mg oral tablet (2 sources) Antiarrhythmic take 1 tablet by mouth twice daily flecainide (TAMBOCOR) 50 mg tablet Take 50 mg by mouth twice daily. 0 Active Comment on above: Take 50 mg by mouth twice daily. glimepiride 4 mg oral tablet (6 sources) Sulfonylurea Start: glimepiride (AMARYL) 4 mg tablet hydrALAZINE hydrochloride 50 mg oral tablet (6 sources) Arteriolar Vasodilator take 1 tablet by mouth three times daily hydrALAZINE (APRESOLINE) 50 mg tablet Indications: Prostate cancer (HCC) Take 50 mg by mouth three times daily. 0 Active Comment on above: Take 50 mg by mouth three times daily. hyoscyamine sulfate 0.125 mg sublingual tablet (5 sources) Start: End: take 1 tablet under the tongue four times daily as needed hyoscyamine sublingual (LEVSIN SL) 0.[address] 1 (ONE) TABLET UNDER THE TONGUE FOUR TIMES DAILY NEEDED 0 02/20/2021 01/28/2023 Discontinued (Course of therapy completed) Comment on above: PLACE 1 (ONE) TABLET UNDER THE TONGUE FOUR TIMES DAILY NEEDED Iohexol (1 source) Radiographic Contrast Agent Start: End: iohexol (OMNIPAQUE 350) solution 90 mL 24 hr isosorbide mononitrate 30 mg extended release oral tablet (6 sources) Nitrate Vasodilator take 1 tablet by mouth once daily, then take 1 tablet by mouth every twenty-four hours isosorbide mononitrate ER (IMDUR) 30 mg 24 hr tablet Take 30 mg by mouth once daily. 0 Active Comment on above: Take 30 mg by mouth once daily. Loperamide (5 sources) Opioid Agonist End: loperamide HCl (IMODIUM A-D ORAL) Take by mouth as needed. 0 01/28/2023 Discontinued (Course of therapy completed) loperamide HCl ( IMODIUM A-D ORAL) Take by mouth as needed. 0 Active Comment on above: Take by mouth as nee ded. 100 ml magnesium sulfate 10 mg/ml injection (1 source) Start: End: magnesium sulfate 1 g in dextrose 5% 100 mL IVPB metFORMIN hydrochloride 500 mg oral tablet (5 sources) Biguanide Start: End: metFORMIN (GLUCOPHAGE) 500 mg tablet Indications: Prostate cancer (HCC) 0 07/26/2018 01/28/2023 Discontinued (Discontinued by another Health Care Provider) olmesartan medoxomil 20 mg oral tablet (6 sources) Angiotensin 2 Receptor Roxana Start: take 1 tablet by mouth once daily olmesartan (BENICAR) 20 mg tablet Take 20 mg by mouth once daily. 0 04/25/2021 Active Comment on above: Take 20 mg by mouth once daily. pioglitazone 15 mg oral tablet (5 sources) Peroxisome Proliferator Receptor alpha Agonist, Peroxisome Proliferator Receptor gamma Agonist, Thiazolidinedione Start: End: 023 take 1 tablet by mouth once daily pioglitazone (ACTOS) 15 mg tablet Take 15 mg by mouth once daily. 0 04/30/2019 01/28/2023 Discontinued (Course of therapy completed) Comment on above: Take 15 mg by mouth once daily. SITagliptin 100 mg oral tablet (6 sources) Dipeptidyl Peptidase 4 Inhibitor Start: JANUVIA 100 mg tablet warfarin sodium 5 mg oral tablet (6 sources) Vitamin K Antagonist Start: take 1-1.5 tablets by mouth once daily warfarin (COUMADIN) 5 mg tablet TAKE 1-1.5 TABLETS BY MOUTH DAILY As directed by Gomez APPLE.] 0 05/04/2021 Active Comment on above: TAKE 1-1.5 TABLETS B Y MOUTH DAILY As directed by Gomez VALADEZ.] Problems Active Problems Problem Classification Problem Date Documented Da te Episodic/Chronic Cancer of prostate (11 sources) Malignant tumor of prostate; Translations: [Malignant neoplasm of prostate] Onset: 07-30-2018 Chronic Cancer of prostate (1 source) Personal history of malignant neoplasm of prostate; Translations: [PERSONAL HX MALIG NEOPLASM PROSTATE] Onset: 11-18-2022 Episodic Cardiac dysrhythmias (11 sources) Paroxysmal atrial fibrillation; Translations: [Unspecified atrial fibrillation] Onset: 08-23-2022 Chronic Cardiac dysrhythmias (7 sources) Tachycardia, unspecified; Translations: [Palpitations] Onset: 08-21-2022 Episodic Diabetes mellitus without complication (1 source) Type 2 diabetes mellitus without complications; Translations: [TYPE 2 DM WITHOUT COMPLICATIONS] Onset: 11-18-2022 Chronic Disorders of lipid metabolism (1 source) Hyperlipidemia, unspecified; Translations: [HYPERLIPIDEMIA UNSPECIFIED] Onset: 09-17-2022 Chronic Essential hypertension (3 sources) Essential (primary) hypertension; Translations: [ESSENTIAL PRIMARY HYPERTENSION] Onset: 11-18-2022 Chronic Hyperplasia of prostate (1 source) Benign prostatic hyperplasia without lower urinary tract symptoms; Translations: [BENIGN PROSTATIC HYPRPLASIA WO LUTS] Onset: 09-17-2022 Chronic Other aftercare (2 sources) intermediate frame tender (current) use of anticoagulants; Translations: [INTERMEDIATE CURRNT USE ANTICOAGULANTS] Onset: 11-18-2022 Episodic Other aftercare (1 source) Other senior living (current) drug therapy; Translations: [OTH INTERMEDIATE CURRENT DRUG THERAPY] Onset: 11-18-2022 Episodic Other aftercare (1 source) Encounter for therapeutic drug level monitoring; Translations: [Encounter for therapeutic drug level monitoring] Onset: 08-29-2023 Episodic Other gastrointestinal disorders (1 source) Irritable bowel syndrome without diarrhea; Translations: [IRRITABLE BOWEL SYND W/O DIARRHEA] Onset: 11-18-2022 Chronic Other hematologic conditions (1 source) Secondary polycythemia; Translations: [Secondary polycythemia] 06-23-2023 Episodic Residual codes; unclassified (1 source) Obstructive sleep apnea syndrome; Translations: [Obstructive sleep apnea (adult) (pediatric)] 06-23-2023 Chronic Residual codes; unclassified (1 source) Acquired absence of other genital organ(s); Translations: [ACQUIRED ABSENCE OTH GENITAL ORGANS] Onset: 11-18-2022 Episodic Syncope (1 source) Syncope and collapse; Translations: [Syncope and collapse] Episodic Transient cerebral ischemia (2 sources) Transient cerebral ischemic attack, unspecified; Translations: [Transient cerebral ischemic attack, unspecified] Onset: 12-27-2022 Chronic Unclassified (1 source) CONTACT W/AND (SUSP) EXPOS COVID-19; Translations: [CONTACT W/AND (SUSP) EXPOS COVID-19] Onset: 08-23-2022 Unclassified (2 sources) Other persistent atrial fibrillation; Translations: [Other persistent atrial fibrillation] Onset: 01-09-2023 Past or Other Problems Problem Classification Problem Date Documented Da te Episodic/Chronic Diabetes mellitus without complication (1 source) Other abnormal glucose; Translations: [OTHER ABNORMAL GLUCOSE] Onset: 09-17-2022 Episodic Other aftercare (1 source) intermediate frame tender (current) use of aspirin; Translations: [FIELD SERVICE TECH CURRENT USE OF ASPIRIN] Onset: 08-23-2022 Episodic Other aftercare (1 source) intermediate frame tender (current) use of oral hypoglycemic drugs; Translations: [INTERMEDIATE USE ORAL HYPOGLYCEMIC DX] Onset: 08-23-2022 Episodic Other liver diseases (1 source) Abnormal levels of other serum enzymes; Translations: [ABNORMAL LEVELS OTHER SERUM ENZYMES] Onset: 08-23-2022 Episodic Other lower respiratory disease (5 sources) Dyspnea, unspecified; Translations: [DYSPNEA UNSPECIFIED] Onset: 07-10-2022 Episodic Other screening for suspected conditions (not mental disorders or infectious disease) (7 sources) Raised prostate specific antigen; Translations: [Rising PSA following treatment for malignant neoplasm of prostate] Onset: 06-12-2020 06-12-2020 Episodic Screening and history of mental health and substance abuse codes (1 source) Personal history of nicotine dependence; Translations: [PERSONAL HISTORY OF NICOTINE DEPEND] Onset: 08-23-2022 Episodic Results Test Name Value Interpretation Reference Range Facility CBC W Auto Differential pane l (Bld)on 10-10-2023 Basophils (Bld) [#/Vol] 0.05 10*3/uL Normal <0.11 [facility] Comment on above: Order Comment: Speci men Type: BLOOD SPECIMEN Ordering Facility: [facility] Address: [address] [place] [address] Performed By: #### 5 7021-8, 12683-9 #### [facility] CLIA [id number] [address] [place] [address] 32417 Basophils/100 WBC (Bld) 0.6 % Normal [facility] Comment on above: Order Comment: Speci men Type: BLOOD SPECIMEN Ordering Facility: [facility] Address: [address] [place] [address] Performed By: #### 5 7021-8, 74565-5 #### [facility] CLIA [id number] [address] [place] [address] 23375 Differential cell count method Nom (Bld) Auto Normal [facility] Comment on above: Order Comment: Speci men Type: BLOOD SPECIMEN Ordering Facility: [facility] Address: [address] [place] [address] Performed By: #### 5 7021-8, 11740-3 #### [facility] CLIA [id number] [address] [place] [address] 62597 Eosinophils (Bld) [#/Vol] 0.37 10*3/uL Normal <0.46 [facility] Comment on above: Order Comment: Speci men Type: BLOOD SPECIMEN Ordering Facility: [facility] Address: [address] [place] [address] Performed By: #### 5 7021-8, 87679-1 #### [facility] CLIA [id number] [address] [place] [address] 23611 Eosinophils/100 WBC (Bld) 4.6 % Normal [facility] Comment on above: Order Comment: Speci men Type: BLOOD SPECIMEN Ordering Facility: [facility] Address: [address] [place] [address] Performed By: #### 5 7021-8, 33527-9 #### [facility] CLIA [id number] [address] [place] [address] 49550 Erythrocyte distribution width (RBC) [Ratio] 15.0 % Normal 11.5-15.0 [facility] Comment on above: Order Comment: Speci men Type: BLOOD SPECIMEN Ordering Facility: [facility] Address: [address] [place] [address] Performed By: #### 5 7021-8, 07685-8 #### [facility] CLIA [id number] [address] [place] [address] 95821 Hematocrit (Bld) [Volume fraction] 50.4 % Normal 39.0-51.0 [facility] Comment on above: Order Comment: Speci men Type: BLOOD SPECIMEN Ordering Facility: [facility] Address: [address] [id number] Performed By: #### 5 7021-8, 18213-3 #### [facility] CLIA [id number] [address] [place] [address] 51855 Hemoglobin (Bld) [Mass/Vol] 16.5 g/dL Normal 13.0-17.0 [facility] Comment on above: Order Comment: Speci men Type: BLOOD SPECIMEN Ordering Facility: [facility] Address: [address] [place] [address] Performed By: #### 5 7021-8, 72529-4 #### [facility] CLIA [id number] [address] [place] [address] 87106 Immature granulocytes (Bld) [#/Vol] 0.05 10*3/uL Normal <0.10 [facility] Comment on above: Order Comment: Speci men Type: BLOOD SPECIMEN Ordering Facility: [facility] Address: [address] [place] [address] Performed By: #### 5 7021-8, 93342-1 #### [facility] CLIA [id number] [address] [place] [address] 02944 Immature granulocytes/100 WBC (Bld) 0.6 % Normal [facility] Comment on above: Order Comment: Speci men Type: BLOOD SPECIMEN Ordering Facility: [facility] Address: [address] [place] [address] Performed By: #### 5 7021-8, 34465-4 #### [facility] CLIA [id number] [address] [place] [address] 22095 Lymphocytes (Bld) [#/Vol] 0.86 10*3/uL Low 1.00-4.00 [facility] Comment on above: Order Comment: Speci men Type: BLOOD SPECIMEN Ordering Facility: [facility] Address: [address] [place] [address] Performed By: #### 5 7021-8, 16711-4 #### [facility] CLIA [id number] [address] [place] [address] 61669 Lymphocytes/100 WBC (Bld) 10.7 % Normal [facility] Comment on above: Order Comment: Speci men Type: BLOOD SPECIMEN Ordering Facility: [facility] Address: [address] [place] [address] Performed By: #### 5 7021-8, 63566-4 #### [facility] CLIA [id number] [address] [place] [address] 99654 MCH (RBC) [Entitic mass] 29.1 pg Normal 26.0-34.0 [facility] Comment on above: Order Comment: Speci men Type: BLOOD SPECIMEN Ordering Facility: [facility] Address: [address] [place] [address] Performed By: #### 5 7021-8, 65063-9 #### [facility] CLIA [id number] [address] [place] [address] 32718 MCHC (RBC) [Mass/Vol] 32.7 g/dL Normal 30.5-36.0 [facility] Comment on above: Order Comment: Speci men Type: BLOOD SPECIMEN Ordering Facility: [facility] Address: [address] [place] [address] Performed By: #### 5 7021-8, 51961-1 #### [facility] CLIA [id number] [address] [place] [address] 69462 MCV (RBC) [Entitic vol] 88.9 fL Normal 80.0-100.0 [facility] Comment on above: Order Comment: Speci men Type: BLOOD SPECIMEN Ordering Facility: [facility] Address: [address] [place] [address] Performed By: #### 5 7021-8, 72925-5 #### [facility] CLIA [id number] [address] [place] [address] 14766 Monocytes (Bld) [#/Vol] 0.55 10*3/uL Normal <0.87 [facility] Comment on above: Order Comment: Speci men Type: BLOOD SPECIMEN Ordering Facility: [facility] Address: [address] [place] [address] Performed By: #### 5 7021-8, 82776-1 #### [facility] CLIA [id number] [address] [place] [address] 83898 Monocytes/100 WBC (Bld) 6.8 % Normal [facility] Comment on above: Order Comment: Speci men Type: BLOOD SPECIMEN Ordering Facility: [facility] Address: [address] [place] [address] Performed By: #### 5 7021-8, 10309-5 #### [facility] CLIA [id number] [address] [place] [address] 64623 Neutrophils (Bld) [#/Vol] 6.16 10*3/uL Normal 1.45-7.50 [facility] Comment on above: Order Comment: Speci men Type: BLOOD SPECIMEN Ordering Facility: [facility] Address: [address] [place] [address] Performed By: #### 5 7021-8, 68871-7 #### [facility] CLIA [id number] [address] [place] [address] 04872 Neutrophils/100 WBC (Bld) 76.7 % Normal [facility] Comment on above: Order Comment: Speci men Type: BLOOD SPECIMEN Ordering Facility: [facility] Address: [address] [place] [address] Performed By: #### 5 7021-8, 73322-5 #### [facility] CLIA [id number] [address] [place] [address] 73031 Nucleated RBC (Bld) [#/Vol] 10*3/uL Normal <0.01 [facility] Comment on above: Order Comment: Speci men Type: BLOOD SPECIMEN Ordering Facility: [facility] Address: [address] [place] [id number] Performed By: #### 5 7021-8, 50283-1 #### [facility] CLIA [id number] [address] [place] [address], [place] [address] Nucleated RBC/100 WBC (Bld) [Ratio] 0.0 /100 WBC Normal [facility] Comment on above: Order Comment: Speci men Type: BLOOD SPECIMEN Ordering Facility: [facility] Address: [address] [place] [address] Performed By: #### 5 7021-8, 05286-1 #### [facility] CLIA [id number] [address] [place] [address] 42561 Platelet mean volume (Bld) [Entitic vol] 10.9 fL Normal 9.0-12.7 [facility] Comment on above: Order Comment: Speci men Type: BLOOD SPECIMEN Ordering Facility: [facility] Address: [address] [place] [address] Performed By: #### 5 7021-8, 10969-4 #### [facility] CLIA [id number] [address] [place] [address] 08967 Platelets (Bld) [#/Vol] 210 10*3/uL Normal 150-400 [facility] Comment on above: Order Comment: Speci men Type: BLOOD SPECIMEN Ordering Facility: [facility] Address: [address] [place] [address] Performed By: #### 5 7021-8, 57408-3 #### [facility] CLIA [id number] [address] [place] [address] 17126 RBC (Bld) [#/Vol] 5.67 10*6/uL Normal 4.20-6.00 [facility] Comment on above: Order Comment: Speci men Type: BLOOD SPECIMEN Ordering Facility: [facility] Address: [address] [place] [address] Performed By: #### 5 7021-8, 05459-5 #### [facility] CLIA [id number] [address] [place] [address] 01439 WBC (Bld) [#/Vol] 8.04 10*3/uL Normal 3.70-11.00 [facility] Comment on above: Order Comment: Speci men Type: BLOOD SPECIMEN Ordering Facility: [facility] Address: [address] [place] [address] Performed By: #### 5 7021-8, 20914-0 #### [facility] CLIA [id number] [address] [place] [address] 52505 CNOVSPon 10-10-2023 CNOVSP Visit (SP) Office (H EMASA) MELVI DAVIES ([id number]) 1950 M Date Time Provider Department 10/10/23 9:30 AM APOLINAR FORREST During your visit today, we recorded the following information about you: Temperature Pulse Respiration Blood pressure 97.4 degrees 95/minute 18/minute 101/58 Weight Height 102.7 kg 1.702 m Apolinar Forrest MD 10/11/2023 6:05 AM Signed NAME: Melvi Davies CLINIC NO.: [id number] DATE OF SERVICE: [facility] 20[facility] Some elements in this clinic note that are critical to medical decision making have been carefully reviewed and included from a prior clinic note dated: June 23, 2023 (Adriane) Referring Provider: Pearl Estevez MD Additional Clinicians involved in Melvi Davies's care: CC: here for follow up ASSESSMENT: 72 year old gentleman with Prostatectomy for [place] 7 (4+3) prostate cancer 05/2016. Began Lupron in June 2018 for rising PSA to 1.57. CT imaging of the time showed concern for L1 and/or L2 bony disease. Not conclusive though. Continued Lupron through August 2019. I do not have good PSA documentation except in January 2019 seems his PSA was responding nicely with a value of 0.10. Unfortunately, he was unable to tolerate Lupron and is reluctant to try it again. 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 Noted that his H/H was increasing saw him 3 months to reassess - which now shows improvement and reflects regular use of CPAP. PLAN: Labs in 6 months, include PSA RTC same day to assess polycythemia Patient is not interested in Lupron due to side effects. - Would consider Orgovyx in future if needed. - ____ HPI: CASE HISTORY: Reverse Chronological Order 03/2021 - current: Coumadin 03/2021 - Mild CVA - recovered 02/02/2021 - Completed salvage RT 06/2018 - 08/2018 Lupron - stopped due to intolerance caused by arrhythmias and syncope. 06/2018 - PSA Rising 1.57 05/2016 - prostatectomy GL 7 (4+3) Updated Visit, October 10, 2023: Raulito returns today. He is due to have ablation, but is trying to find a [facility] location that works for him. He had PSA done on 2 days ago at [place], they called him to report it looks good. Daily CPAP use is apparent on his labs. 2 of his younger brothers have , another just had an MT. His nephew also passed of heart issues. He also spoke about his late 's passing many years ago but appreciated her care at [facility]. Updated Visit, June 23, 2023: Raulito returns today for a follow up. He is feeling tired because of his intolerance to his current CPAP settings. Has sleep apnea and has a CPAP, but is having trouble with the mask, because of that it appears it is affecting his oxygenation reflecting in his elevated H/H. No evidence of recurrent prostate cancer. PSA is 0. He reports a prior hx of smoking. He is still taking coumadin for his prior stroke. Updated Visit, June 24, 2022: 06/17/2022 PSA < 0.02. No complaints. No needs for intervention. Follows with Dr. Estevez for kidney disease Continues coumadin - for CVA in 03/2021 Updated Visit, December 24, 2021: Doing well. Still on coumadin and has no issues with his prior CVA Kidneys may need evaluation - defer to PCP Started Jardiance - blood sugars are better PSA remains suppressed. Updated Visit, August 23, 2021: Feels well and is doing well overall. PSA continues to decline. No other issues. PSA remains suppressed. Updated Visit, May 17, 2021: Raulito is 70 yo returns today for prostate cancer with rising PSA s/p radiation for local control. Patient is intolerant to androgen suppression and so we elected RT for disease control. PSA is responding very well. PSA is reduced to 0.04 ng/mL. Completed Radiaiton 02/02/2021. Recovering from a mild stroke in March 2021 and has fully recovered. Is now anticoagulated with Coumadin and is managed at a coumadin clinic. Updated Visit, December 14, 2020: Raulito is doing well and has started Radiation to the prostatic bed for rising PSA. Has completed both COVID-19 vaccination. Is doing alright. He has completed 4 doses of 39 scheduled fractions. Updated Visit, June 12, 2020: Raulito is 69 yo and really struggled with his prior treatment with Lupron Depot. He describes having issues with accelerated heart rate and passing out. His blood pressure s now normalized and he is doing well after discontinuing his Lupron. 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 Updated Visit, March 13, 2020: Raulito is 69 years old and presents today to transition his care to my service. He has prostate cancer [place]'s 4+3 = 7. He has had a prostatectomy in May 2016 and had a PSA rise in June 2018. He was started on (more content not included)... Normal [facility] Comprehensive metabolic 2000 panelon 10-10-2023 Albumin [Mass/Vol] 4.1 g/dL Normal 3.9-4.9 [facility] Comment on above: Order Comment: Speci men Type: BLOOD SPECIMEN Ordering Facility: [facility] Address: [address] [place] [address] Performed By: #### 2 4323-8 #### [facility] CLIA [id number] [address] [place] [address]269 ALP [Catalytic activity/Vol] 62 U/L Normal 38-113 [facility] Comment on above: Order Comment: Speci men Type: BLOOD SPECIMEN Ordering Facility: [facility] Address: [address] [id number] Performed By: #### 2 4323-8 #### [facility] CLIA [id number] [address] [place] [address] ALT [Catalytic activity/Vol] 27 U/L Normal 10-54 [facility] Comment on above: Order Comment: Speci men Type: BLOOD SPECIMEN Ordering Facility: [facility] Address: [address] [id number] Performed By: #### 2 4323-8 #### [facility] CLIA [id number] [address] [place] [address]377 Anion gap [Moles/Vol] 13 mmol/L Normal 9-18 [facility] Comment on above: Order Comment: Speci men Type: BLOOD SPECIMEN Ordering Facility: [facility] Address: [address] [place] [address] Performed By: #### 2 4323-8 #### [facility] CLIA [id number] [address] [place] [address]43 AST [Catalytic activity/Vol] 15 U/L Normal 14-40 [facility] Comment on above: Order Comment: Speci men Type: BLOOD SPECIMEN Ordering Facility: [facility] Address: [address] [place] [address] Performed By: #### 2 4323-8 #### [facility] CLIA [id number] [address] [place] [address]462 Bilirubin [Mass/Vol] 0.6 mg/dL Normal 0.2-1.3 [facility] Comment on above: Order Comment: Speci men Type: BLOOD SPECIMEN Ordering Facility: [facility] Address: [address] [place] [address] Performed By: #### 2 4323-8 #### [facility] CLIA [id number] [address] [place] [address]682 Calcium [Mass/Vol] 10.0 mg/dL Normal 8.5-10.2 [facility] Comment on above: Order Comment: Speci men Type: BLOOD SPECIMEN Ordering Facility: [facility] Address: [address] [place] [address] Performed By: #### 2 4323-8 #### [facility] CLIA [id number] [address] [place] [address] Chloride [Moles/Vol] 101 mmol/L Normal 97-105 [facility] Comment on above: Order Comment: Speci men Type: BLOOD SPECIMEN Ordering Facility: [facility] Address: [address] [place] [address] Performed By: #### 2 4323-8 #### [facility] CLIA [id number] [address] [place] [address] 21801 CO2 [Moles/Vol] 24 mmol/L Normal 22-30 [facility] Comment on above: Order Comment: Speci men Type: BLOOD SPECIMEN Ordering Facility: [facility] Address: [address] [place] [address] Performed By: #### 2 4323-8 #### [facility] CLIA [id number] [address] [place] [address]63 Creatinine [Mass/Vol] 1.62 mg/dL High 0.73-1.22 [facility] Comment on above: Order Comment: Speci men Type: BLOOD SPECIMEN Ordering Facility: [facility] Address: [address] [place] [address] Performed By: #### 2 4323-8 #### [facility] CLIA [id number] [address] [place] [address] Creatinine and Glomerular filtration rate.predicted panel (S/P/Bld) 44 mL/min/1.73m??? Low >=60 [facility] Comment on above: Order Comment: Speci men Type: BLOOD SPECIMEN Ordering Facility: [facility] Address: [address] [place] [address] Result Comment: Bren mated Glomerular Filtration Rate (eGFR) is calculated using the 2020 CKD-EPI creatinine equation. This equation utilizes serum creatinine, sex, and age as parameters. The creatinine assay has traceable calibration to isotope dilution-mass spectrometry. Refer to KDIGO guidelines for clinical interpretation. In patients with unstable renal function, e.g. those with acute kidney injury, the eGFR may not accurately reflect actual GFR. Performed By: #### 2 4323-8 #### [facility] CLIA [id number] [address] [place] [address] 10421 Glucose [Mass/Vol] 248 mg/dL High 74-99 [facility] Comment on above: Order Comment: Specepifanio cassidy Type: BLOOD SPECIMEN Ordering Facility: [facility] Address: [address] [place] [address] Result Comment: The [place] Diabetes Association (ADA) provides guidance for cutoff values for fasting glucose and random glucose. The ADA defines fasting as no caloric intake for at least 8 hours. Fasting plasma glucose results between 100 to 125 mg/dL indicate increased risk for diabetes (prediabetes). Fasting plasma glucose results greater than or equal to 126 mg/dL meet the criteria for diagnosis of diabetes. In the absence of unequivocal hyperglycemia, results should be confirmed by repeat testing. In a patient with classic symptoms of hyperglycemia or hyperglycemic crisis, random plasma glucose results greater than or equal to 200 mg/dL meet the criteria for diagnosis of diabetes. Reference: Standards of Medical Care in Diabetes 2016, [place] [employer] Association. Diabetes Care. 2016.39(Suppl 1). Performed By: #### 2 4323-8 #### [facility] CLIA [id number] [address] [place] [address]322 Potassium [Moles/Vol] 4.9 mmol/L Normal 3.7-5.1 [facility] Comment on above: Order Comment: Delmar cassidy Type: BLOOD SPECIMEN Ordering Facility: [facility] Address: [address] [place] [address] Performed By: #### 2 4323-8 #### [facility] CLIA [id number] [address] [place] [address] Protein [Mass/Vol] 7.8 g/dL Normal 6.3-8.0 [facility] Comment on above: Order Comment: Speci men Type: BLOOD SPECIMEN Ordering Facility: [facility] Address: [address] [place] [address] Performed By: #### 2 4323-8 #### [facility] CLIA [id number] [address] [place] [address] Sodium [Moles/Vol] 138 mmol/L Normal 136-144 [facility] Comment on above: Order Comment: Speci men Type: BLOOD SPECIMEN Ordering Facility: [facility] Address: [address] [place] [address] Performed By: #### 2 4323-8 #### [facility] CLIA [id number] [address] [place] [address]1127 Urea nitrogen [Mass/Vol] 13 mg/dL Normal 9-24 [facility] Comment on above: Order Comment: Speci men Type: BLOOD SPECIMEN Ordering Facility: [facility] Address: [address] [place] [address] Performed By: #### 2 4323-8 #### [facility] CLIA [id number] [address] [place] [address]26 EPO SerPl-aCncon 10-10-2023 Erythropoietin (EPO) Qn 19.5 mIU/mL High 2.6-18.5 [facility] Comment on above: Order Comment: Speci men Type: BLOOD SPECIMEN Ordering Facility: [facility] Address: [address] [place] [address] Performed By: #### 1 5061-5 #### [facility] CLIA [id number] [address] [place], [place] [address]K [id number] [place] [address] [place] Retics #on 10-10-2023 Reticulocytes (Bld) [#/Vol] 0.29468 10*3/uL High 0.018-0.100 [facility] Comment on above: Order Comment: Speci men Type: BLOOD SPECIMEN Ordering Facility: [facility] Address: [address] [place] [address] Performed By: #### 5 7021-8, 70755-9 #### [facility] CLIA [id number] [address] [place] [address] Reticulocytes (Bld) [#/Vol]o n 10-10-2023 Reticulocytes/100 RBC (Bld) 2.5 % High 0.4-2.0 [facility] Comment on above: Order Comment: Speci men Type: BLOOD SPECIMEN Ordering Facility: [facility] Address: [facility] [place] [address] Performed By: #### 5 7021-8, 49087-1 #### [facility] CLIA [id number] [address] [place] [address] Prep for Procedureon 024 Prep for Procedure [id number] Ghassan Davies 1950 Date Provider Department Center 10/03/2023 Marielena-[facility] LAB OR HeartVAS Family History Problem Relation Age of Onset Heart attack Brother Family Status - Relation Status Age at Brother Normal [facility] Office Visiton 09-30-2023 Follow-up visit [id number] Ghassan Davies E 1950 Date Provider Department Center 09/30/2023 SARABJIT TOSCANO Family History Problem Relation Age of Onset Heart attack Brother Family Status - Relation Status Age at Brother Level of Service:73403 [place] OFFICE/OUTPATIENT ESTABLISHED HIGH MDM 40 MIN Normal [facility] Office Visiton 07-15-2023 Follow-up visit [id number] Ghassan Davies E 1950 M Date Provider Department Center 07/15/2023 SARABJIT TOSCANO Family History Problem Relation Age of Onset Heart attack Brother Family Status - Relation Status Age at Brother Level of Service:13878 [place] OFFICE/OUTPATIENT NEW MODERATE MDM 45-59 MINUTES Normal [facility] CNOVSPon 06-23-2023 CNOVSP Visit (SP) Office (H EMASA) MELVI DAVIES ([id number]) 1950 M Date Time Provider Department 06/23/23 2:00 PM APOLINAR FORREST During your visit today, we recorded the following information about you: Temperature Pulse Respiration Blood pressure 97 degrees 98/minute 16/minute 133/81 Weight Height 104.9 kg 1.702 m Apolinar Forrest MD 06/23/2023 7:48 PM Signed NAME: Melvi Davies CLINIC NO.: [id number] DATE OF SERVICE: June 23, 2023 (bradyalta) Some elements in this clinic note that are critical to medical decision making have been carefully reviewed and included from a prior clinic note dated: June 24, 2022 (Adriane) Referring Provider: Pearl Estevez MD Additional Clinicians involved in Melvi Davies's care: CC: here for follow up ASSESSMENT: 72 year old gentleman with Prostatectomy for Carlos 7 (4+3) prostate cancer 05/2016. Began Lupron in June 2018 for rising PSA to 1.57. CT imaging of the time showed concern for L1 and/or L2 bony disease. Not conclusive though. Continued Lupron through August 2019. I do not have good PSA documentation except in January 2019 seems his PSA was responding nicely with a value of 0.10. Unfortunately, he was unable to tolerate Lupron and is reluctant to try it again. 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 Noted that his H/H is increasing would like to see him in 3 months to reassess. PLAN: 1. Labs in 3 months 2. RTC same day to assess polycythemia 3. Patient is not interested in Lupron due to side effects. - Would consider Orgovyx in future if needed. CASE HISTORY: 03/2021 - current: Coumadin 03/2021 Mild CVA - recovered 02/02/2021 Completed salvage RT 06/2018 - 08/2018 Lupron - stopped due to intolerance caused by arrhythmias and syncope. 06/2018 PSA Rising 1.57 05/2016 prostatectomy GL 7 (4+3) HPI: Updated Visit, June 23, 2023: Raulito returns today for a follow up. He is feeling tired because of his intolerance to his current CPAP settings. Has sleep apnea and has a CPAP, but is having trouble with the mask, because of that it appears it is affecting his oxygenation reflecting in his elevated H/H. No evidence of recurrent prostate cancer. PSA is 0. He reports a prior hx of smoking. He is still taking coumadin for his prior stroke. Updated Visit, June 24, 2022: 06/17/2022 PSA < 0.02. No complaints. No needs for intervention. Follows with Dr. Estevez for kidney disease Continues coumadin - for CVA in 03/2021 Updated Visit, December 24, 2021: Doing well. Still on coumadin and has no issues with his prior CVA Kidneys may need evaluation - defer to PCP Started Jardiance - blood sugars are better PSA remains suppressed. Updated Visit, August 23, 2021: Feels well and is doing well overall. PSA continues to decline. No other issues. PSA remains suppressed. Updated Visit, May 17, 2021: Raulito is 70 yo returns today for prostate cancer with rising PSA s/p radiation for local control. Patient is intolerant to androgen suppression and so we elected RT for disease control. PSA is responding very well. PSA is reduced to 0.04 ng/mL. Completed Radiaiton 02/02/2021. Recovering from a mild stroke in March 2021 and has fully recovered. Is now anticoagulated with Coumadin and is managed at a coumadin clinic. Updated Visit, December 14, 2020: Raulito is doing well and has started Radiation to the prostatic bed for rising PSA. Has completed both COVID-19 vaccination. Is doing alright. He has completed 4 doses of 39 scheduled fractions. Updated Visit, June 12, 2020: Raulito is 69 yo and really struggled with his prior treatment with Lupron Depot. He describes having issues with accelerated heart rate and passing out. His blood pressure s now normalized and he is doing well after discontinuing his Lupron. 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 Updated Visit, March 13, 2020: Raulito is 69 years old and presents today to transition his care to my service. He has prostate cancer Carlos's 4+3 = 7. He has had a prostatectomy in May 2016 and had a PSA rise in June 2018. He was started on Lupron and had been on Lupron which he couldn't tolerate lupron due to arrhythmias - so he stopped in August after he fainted and needed to be hospitalized. Continue monitoring. He is open to taking lupron again in the future if needed but in smaller doses using a monthly Depo instead of a longer-term depot. Now he is on cardizem for Aflutter. Having some hot flashes and shotrness of breath. He is on eloquis as well but he is switching to pradaxa. REVIEW OF SYSTEMS Per HPI and otherwise negative by full review of organ systems. ECOG PERFORMANCE STATUS: 0 PHYSICAL EXAMINATION: Vitals: BP 133/81[recheck[ Pulse 98 Tem (more content not included)... Normal [facility] CBC W Auto Differential pane l (Bld)on 06-16-2023 Basophils (Bld) [#/Vol] 0.05 10*3/uL Normal <0.11 [facility] Comment on above: Order Comment: Speci men Type: BLOOD SPECIMEN Ordering Facility: [facility] Address: [address] [place] [address] Performed By: #### 5 7021-8 #### [facility] CLIA [id number] [address] [place] [address]8913 Basophils/100 WBC (Bld) 0.6 % Normal [facility] Comment on above: Order Comment: Speci men Type: BLOOD SPECIMEN Ordering Facility: [facility] Address: [address] [place] [address] Performed By: #### 5 7021-8 #### [facility] CLIA [id number] [address] [place] [address]35 Differential cell count method Nom (Bld) Auto Normal [facility] Comment on above: Order Comment: Speci men Type: BLOOD SPECIMEN Ordering Facility: [facility] Address: [address] [place] [address] Performed By: #### 5 7021-8 #### [facility] CLIA [id number] [address] [place] [address]1251 Eosinophils (Bld) [#/Vol] 0.24 10*3/uL Normal <0.46 [facility] Comment on above: Order Comment: Speci men Type: BLOOD SPECIMEN Ordering Facility: [facility] Address: [address] [place] [address] Performed By: #### 5 7021-8 #### [facility] CLIA [id number] [address] [place] [address]5561 Eosinophils/100 WBC (Bld) 2.9 % Normal [facility] Comment on above: Order Comment: Speci men Type: BLOOD SPECIMEN Ordering Facility: [facility] Address: [address] [place] [address] Performed By: #### 5 7021-8 #### [facility] CLIA [id number] [address] [place] [address]31 Erythrocyte distribution width (RBC) [Ratio] 15.5 % High 11.5-15.0 [facility] Comment on above: Order Comment: Speci men Type: BLOOD SPECIMEN Ordering Facility: [facility] Address: [address] [place] [address] Performed By: #### 5 7021-8 #### [facility] CLIA [id number] [address] [place] [address] 15963 Hematocrit (Bld) [Volume fraction] 53.9 % High 39.0-51.0 [facility] Comment on above: Order Comment: Speci men Type: BLOOD SPECIMEN Ordering Facility: [facility] Address: [address] [place] [address] Performed By: #### 5 7021-8 #### [facility] CLIA [id number] [address] [place] [address]56 Hemoglobin (Bld) [Mass/Vol] 17.2 g/dL High 13.0-17.0 [facility] Comment on above: Order Comment: Speci men Type: BLOOD SPECIMEN Ordering Facility: [facility] Address: [address] [place] [address] Performed By: #### 5 7021-8 #### [facility] CLIA [id number] [address] [place] [address] Immature granulocytes (Bld) [#/Vol] 0.07 10*3/uL Normal <0.10 [facility] Comment on above: Order Comment: Speci men Type: BLOOD SPECIMEN Ordering Facility: [facility] Address: [address] [place] [address] Performed By: #### 5 7021-8 #### [facility] CLIA [id number] [address] [place] [address]131 Immature granulocytes/100 WBC (Bld) 0.9 % Normal [facility] Comment on above: Order Comment: Speci men Type: BLOOD SPECIMEN Ordering Facility: [facility] Address: [address] [place] [address] Performed By: #### 5 7021-8 #### [facility] CLIA [id number] [address] [place] [address] 68816 Lymphocytes (Bld) [#/Vol] 0.85 10*3/uL Low 1.00-4.00 [facility] Comment on above: Order Comment: Speci men Type: BLOOD SPECIMEN Ordering Facility: [facility] Address: [address] [place] [address] Performed By: #### 5 7021-8 #### [facility] CLIA [id number] [address] [place] [address] 14931 Lymphocytes/100 WBC (Bld) 10.4 % Normal [facility] Comment on above: Order Comment: Speci men Type: BLOOD SPECIMEN Ordering Facility: [facility] Address: [address] [place] [address] Performed By: #### 5 7021-8 #### [facility] CLIA [id number] [address] [place] [address] 93971 MCH (RBC) [Entitic mass] 28.5 pg Normal 26.0-34.0 [facility] Comment on above: Order Comment: Speci men Type: BLOOD SPECIMEN Ordering Facility: [facility] Address: [address] [place] [address] Performed By: #### 5 7021-8 #### [facility] CLIA [id number] [address] [place] [address] 21934 MCHC (RBC) [Mass/Vol] 31.9 g/dL Normal 30.5-36.0 [facility] Comment on above: Order Comment: Speci men Type: BLOOD SPECIMEN Ordering Facility: [facility] Address: [address] [place] [address] Performed By: #### 5 7021-8 #### [facility] CLIA [id number] [address] [place] [address] 97754 MCV (RBC) [Entitic vol] 89.4 fL Normal 80.0-100.0 [facility] Comment on above: Order Comment: Speci men Type: BLOOD SPECIMEN Ordering Facility: [facility] Address: [address] [place] [address] Performed By: #### 5 7021-8 #### [facility] CLIA [id number] [address] [place] [address] 72345 Monocytes (Bld) [#/Vol] 0.50 10*3/uL Normal <0.87 [facility] Comment on above: Order Comment: Speci men Type: BLOOD SPECIMEN Ordering Facility: [facility] Address: [address] [place] [address] Performed By: #### 5 7021-8 #### [facility] CLIA [id number] [address] [place] [address] 09131 Monocytes/100 WBC (Bld) 6.1 % Normal [facility] Comment on above: Order Comment: Speci men Type: BLOOD SPECIMEN Ordering Facility: [facility] Address: [address] [place] [address] Performed By: #### 5 7021-8 #### [facility] CLIA [id number] [address] [place] [address] 28943 Neutrophils (Bld) [#/Vol] 6.50 10*3/uL Normal 1.45-7.50 [facility] Comment on above: Order Comment: Speci men Type: BLOOD SPECIMEN Ordering Facility: [facility] Address: [address] [place] [address] Performed By: #### 5 7021-8 #### [facility] CLIA [id number] [address] [place] [address] 29432 Neutrophils/100 WBC (Bld) 79.1 % Normal [facility] Comment on above: Order Comment: Speci men Type: BLOOD SPECIMEN Ordering Facility: [facility] Address: [address] [place] [address] Performed By: #### 5 7021-8 #### [facility] CLIA [id number] [address] [place] [address] 98052 Nucleated RBC (Bld) [#/Vol] 10*3/uL Normal <0.01 [facility] Comment on above: Order Comment: Speci men Type: BLOOD SPECIMEN Ordering Facility: [facility] Address: [address] [place] [address] Performed By: #### 5 7021-8 #### [facility] CLIA [id number] [address] [place] [address] 93168 Nucleated RBC/100 WBC (Bld) [Ratio] 0.0 /100 WBC Normal [facility] Comment on above: Order Comment: Speci men Type: BLOOD SPECIMEN Ordering Facility: [facility] Address: [address] [place] [address] Performed By: #### 5 7021-8 #### [facility] CLIA [id number] [address] [place] [address] 28884 Platelet mean volume (Bld) [Entitic vol] 10.6 fL Normal 9.0-12.7 [facility] Comment on above: Order Comment: Speci men Type: BLOOD SPECIMEN Ordering Facility: [facility] Address: [address] [place] [address] Performed By: #### 5 7021-8 #### [facility] CLIA [id number] [address] [place] [address] 12873 Platelets (Bld) [#/Vol] 193 10*3/uL Normal 150-400 [facility] Comment on above: Order Comment: Speci men Type: BLOOD SPECIMEN Ordering Facility: [facility] Address: [address] [place], [place] [address] Performed By: #### 5 7021-8 #### [facility] CLIA [id number] [address] [place] [address] 81104 RBC (Bld) [#/Vol] 6.03 10*6/uL High 4.20-6.00 [facility] Comment on above: Order Comment: Speci men Type: BLOOD SPECIMEN Ordering Facility: [facility] Address: [address] [place] [address] Performed By: #### 5 7021-8 #### [facility] CLIA [id number] [address] [place] [address] 84523 WBC (Bld) [#/Vol] 8.21 10*3/uL Normal 3.70-11.00 [facility] Comment on above: Order Comment: Speci men Type: BLOOD SPECIMEN Ordering Facility: [facility] Address: [address] [place] [address] Performed By: #### 5 7021-8 #### [facility] CLIA [id number] [address] [place] [address] 08349 Comprehensive metabolic 2000 panelon 06-16-2023 Albumin [Mass/Vol] 4.3 g/dL Normal 3.9-4.9 [facility] Comment on above: Order Comment: Speci men Type: BLOOD SPECIMEN Ordering Facility: [facility] Address: [address] [place] [address] Performed By: #### 2 4323-8 #### [facility] CLIA [id number] [address] [place] [address] 45245 ALP [Catalytic activity/Vol] 65 U/L Normal 38-113 [facility] Comment on above: Order Comment: Speci men Type: BLOOD SPECIMEN Ordering Facility: [facility] Address: [address] [id number] Performed By: #### 2 4323-8 #### [facility] CLIA [id number] [address] [place] [address] 54895 ALT [Catalytic activity/Vol] 19 U/L Normal 10-54 [facility] Comment on above: Order Comment: Speci men Type: BLOOD SPECIMEN Ordering Facility: [facility] Address: [address] [place] [address] Performed By: #### 2 4323-8 #### [facility] CLIA [id number] [address] [place] [address] 88415 Anion gap [Moles/Vol] 15 mmol/L Normal 9-18 [facility] Comment on above: Order Comment: Speci men Type: BLOOD SPECIMEN Ordering Facility: [facility] Address: [address] [place] [address] Performed By: #### 2 4323-8 #### [facility] CLIA [id number] [address] [place] [address] 24873 AST [Catalytic activity/Vol] 14 U/L Normal 14-40 [facility] Comment on above: Order Comment: Speci men Type: BLOOD SPECIMEN Ordering Facility: [facility] Address: [address] [place] [address] Performed By: #### 2 4323-8 #### [facility] CLIA [id number] [address] [place] [address] 49830 Bilirubin [Mass/Vol] 0.4 mg/dL Normal 0.2-1.3 [facility] Comment on above: Order Comment: Speci men Type: BLOOD SPECIMEN Ordering Facility: [facility] Address: [address] [place] [address] Performed By: #### 2 4323-8 #### [facility] CLIA [id number] [address] [place] [address] 13299 Calcium [Mass/Vol] 9.7 mg/dL Normal 8.5-10.2 [facility] Comment on above: Order Comment: Speci men Type: BLOOD SPECIMEN Ordering Facility: [facility] Address: [address] [place] [address] Performed By: #### 2 4323-8 #### [facility] CLIA [id number] [address] [place] [address] 52108 Chloride [Moles/Vol] 101 mmol/L Normal 97-105 [facility] Comment on above: Order Comment: Speci men Type: BLOOD SPECIMEN Ordering Facility: [facility] Address: [address] [place] [address] Performed By: #### 2 4323-8 #### [facility] CLIA [id number] [address] [place] [address] 59875 CO2 [Moles/Vol] 19 mmol/L Low 22-30 [facility] Comment on above: Order Comment: Speci men Type: BLOOD SPECIMEN Ordering Facility: [facility] Address: [address] [place] [address] Performed By: #### 2 4323-8 #### [facility] CLIA [id number] [address] [place] [address] 34354 Creatinine [Mass/Vol] 1.46 mg/dL High 0.73-1.22 [facility] Comment on above: Order Comment: Speci men Type: BLOOD SPECIMEN Ordering Facility: [facility] Address: [address] [place] [address] Performed By: #### 2 4323-8 #### [facility] CLIA [id number] [address] [place] [address] 56948 Creatinine and Glomerular filtration rate.predicted panel (S/P/Bld) 50 mL/min/1.73m??? Low >=60 [facility] Comment on above: Order Comment: Speci men Type: BLOOD SPECIMEN Ordering Facility: [facility] Address: [address] [place] [address] Result Comment: Bren mated Glomerular Filtration Rate (eGFR) is calculated using the 2020 CKD-EPI creatinine equation. This equation utilizes serum creatinine, sex, and age as parameters. The creatinine assay has traceable calibration to isotope dilution-mass spectrometry. Refer to KDIGO guidelines for clinical interpretation. In patients with unstable renal function, e.g. those with acute kidney injury, the eGFR may not accurately reflect actual GFR. Performed By: #### 2 4323-8 #### [facility] CLIA [id number] [address] [place] [address] 56950 Glucose [Mass/Vol] 267 mg/dL High 74-99 [facility] Comment on above: Order Comment: Speci men Type: BLOOD SPECIMEN Ordering Facility: [facility] Address: [address] [place] [address] Result Comment: The [place] Diabetes Association (ADA) provides guidance for cutoff values for fasting glucose and random glucose. The ADA defines fasting as no caloric intake for at least 8 hours. Fasting plasma glucose results between 100 to 125 mg/dL indicate increased risk for diabetes (prediabetes). Fasting plasma glucose results greater than or equal to 126 mg/dL meet the criteria for diagnosis of diabetes. In the absence of unequivocal hyperglycemia, results should be confirmed by repeat testing. In a patient with classic symptoms of hyperglycemia or hyperglycemic crisis, random plasma glucose results greater than or equal to 200 mg/dL meet the criteria for diagnosis of diabetes. Reference: Standards of Medical Care in Diabetes 2016, [place] [employer]. Diabetes Care. 2016.39(Suppl 1). Performed By: #### 2 4323-8 #### [facility] CLIA [id number] [address] [place] [address] 59853 Potassium [Moles/Vol] 4.8 mmol/L Normal 3.7-5.1 [facility] Comment on above: Order Comment: Delmar cassidy Type: BLOOD SPECIMEN Ordering Facility: [facility] Address: [address] [place] [address] Performed By: #### 2 4323-8 #### [facility] CLIA [id number] [address] [place] [address] 75659 Protein [Mass/Vol] 7.9 g/dL Normal 6.3-8.0 [facility] Comment on above: Order Comment: Delmar cassidy Type: BLOOD SPECIMEN Ordering Facility: [facility] Address: [address] [place] [address] Performed By: #### 2 4323-8 #### [facility] CLIA [id number] [address] [place] [address] Sodium [Moles/Vol] 135 mmol/L Low 136-144 [facility] Comment on above: Order Comment: Speci men Type: BLOOD SPECIMEN Ordering Facility: [facility] Address: [address] [place] [address] Performed By: #### 2 4323-8 #### [facility] CLIA [id number] [address] [place] [address] 36777 Urea nitrogen [Mass/Vol] 15 mg/dL Normal 9-24 [facility] Comment on above: Order Comment: Speci men Type: BLOOD SPECIMEN Ordering Facility: [facility] Address: [address] [place] [address] Performed By: #### 2 4323-8 #### [facility] CLIA [id number] [address] [place], [place] [id number] PSA [facility] 06-16-2023 Prostate specific Ag [Mass/Vol] ng/mL Normal <2.60 [facility] Comment on above: Order Comment: Speci men Type: BLOOD SPECIMEN Ordering Facility: [facility] Address: [address] [place] [address] Result Comment: Tota l PSA test methodology used is the Electrochemiluminescence Immunoassay by [employer]. Total PSA values by differing methodologies cannot be interchanged. Performed By: #### 2 857-1 #### [facility] CLIA [id number] [address] [address] [address] [id number] [address] [place] Office Visiton 03-11-2023 Follow-up visit [id number] Ghassan Davies 1950 M Date Provider Department Center 03/11/2023 Yon-SILVIA [facility] Family History Problem Relation Age of Onset Heart attack Brother Family Status - Relation Status Age at Brother Level of Service:72270 [place] OFFICE/OUTPATIENT ESTABLISHED MOD MDM 30-39 MIN Normal [facility] CNOVon 01-20-2023 CNOV Office Visit (RADTSA ) MELVI DAVIES ([id number]) 1950 M Date Time Provider Department 01/20/23 10:00 AM SURINDER MCKOY During your visit today, we recorded the following information about you: Temperature Pulse Respiration Blood pressure 97.6 degrees 103/minute 18/minute 122/84 Weight 100.8 kg Surinder Mckoy MD 01/28/2023 1:25 PM Signed Radiation Oncology - Follow Up Note PATIENT NAME: Melvi Davies PATIENT DIAGNOSIS/PATIENT IDENTIFICATION: Mr. Davies is a 71 year gentleman diagnosed with Stage IIC, [id number], adenocarcinoma of the prostate s/p RP; GS 4+3=7, PSA 10.6 ng/mL (+SM, -EPE, -SVI, -LVSI/LN, + PNI) after RP and LN biopsy on 06/05/[address] Kulkarni. Post prostatectomy PSA remained detectable and denia to a value of 1.68 ng/mL on 07/13/2018. At that point staging work-up with CT abdomen pelvis and bone scan was negative and he met with Dr. Zarco and was placed on androgen deprivation therapy with Lupron. There was biochemical response and his PSA decreased to undetectable however Lupron was discontinued after one year due to poor tolerance including possible arrhythmia (afib?). His PSA has since been rising to a current value of 0.30 ng/mL on 09/07/2020 with negative staging workup and was referred for salvage radiation therapy by Dr. Forrest for an attempt at local control prior to consideration of re-initiating systemic therapy. He completed course of salvage radiation therapy to to the prostate bed and pelvic lymph nodes on 02/02/2021 (7020 cGy in 39 fractions). INTERVAL HISTORY/ROS: Mr. Davies returns to clinic today for routine follow-up approximately two years after the completion of his radiation treatments and one year since his last visit on 12/24/2021. In the interim, he has been following with Dr. Forrest for his ADT as well as PSA surveillance. Today he denies any burning/discomfort with urination and notes nocturia 2-3 times. He has occasional leakage which is unchanged and is not using any pads. He reports no difficulty with straining or starting his stream and feels that his stream is overall stronger. He reports regular bowel movements without diarrhea or pain or blood. He does note fatigue with good appetite and hydration and stable weight. His IPSS score today is 6/35 and LUCIA score of NA/25. His most recent PSA drawn 06/2022 continues to remain undetectable at <0.02 ng/mL. He does note having some discomfort in the area of his right testicle for the past few days and recalls no injury or trauma to the area. He does not feel that they are swollen or hard. He has also been following with his cardiology team regarding his A-fib. He notes occasional shortness of breath but otherwise denies any recent fevers, chills, headaches, difficulty with speech/swallowing, abdominal pain, nausea, vomiting, change in bowel/urinary habits, difficulty with gait/balance, recent falls, etc. The remainder of the review of systems was performed and was otherwise noncontributory. ALLERGIES ALLERGIES Allergen Reactions Ciprofloxacin Mental Status Change Desonide Unknown Lactose Unknown Pftrsty-Wlk-Bdq Red* Other: See Comments MEDICATIONS: Current Outpatient Medications: flecainide (TAMBOCOR) 50 mg tablet empagliflozin (JARDIANCE) 10 mg tablet isosorbide mononitrate ER (IMDUR) 30 mg 24 hr tablet JANUVIA 100 mg tablet warfarin (COUMADIN) 5 mg tablet olmesartan (BENICAR) 20 mg tablet diltiazem (CARDIZEM) 30 mg tablet glimepiride (AMARYL) 4 mg tablet hydrALAZINE (APRESOLINE) 50 mg tablet Fzpyesnsnxpue-ER-Rrugdzqtry hen 1-5-160 mg/5 mL susp hyoscyamine sublingual (LEVSIN SL) 0.125 mg loperamide HCl (IMODIUM A-D ORAL) pioglitazone (ACTOS) 15 mg tablet metFORMIN (GLUCOPHAGE) 500 mg tablet Cholecalciferol, Vitamin D3, 25 mcg (1,000 unit) cap PHYSICAL EXAM: GENERAL: elderly gentleman sitting in chair in no acute distress. VITALS: BP 122/84 Pulse 103 Temp 97.6 Resp 18 Wt 222 lb 3.2 oz (100.8kg) SpO2 97% KPS: 80 HEENT: NC/AT, anicteric sclera HEART: S1S2 LUNGS: non-labored breathing ABDOMEN: soft MUSCULOSKELETAL: no peripheral edema, moves all extremities. NEURO: no focal deficit; AANDO X3. PELVIC: declined ASSESSMENT AND PLAN: Mr. Daveis is a 71 year gentleman diagnosed with Stage IIC, [id number], adenocarcinoma of the prostate s/p RP; GS 4+3=7, PSA 10.6 ng/mL (+SM, -EPE, -SVI, -LVSI/LN, + PNI) after RP and LN biopsy on 06/05/[address] Kulkarni. Post prostatectomy PSA remained detectable and denia to a value of 1.68 ng/mL on 07/13/2018. At that point staging work-up with CT abdomen pelvis and bone scan was negative and he met with Dr. Zarco and was placed on androgen deprivation therapy with Lupron. There was biochemical response and his PSA decreased to undetectable however Lupron was discontinued after one year due to poor lissette (more content not included)... Normal [facility] 01-01-2023 Refill [id number] SholaGhassan wilkins 1950 M Date Provider Department Center 01/01/2023 SILVIA BRYAN No family history on file Reason for Visit and Comments: Med Refill [[id number]] Normal [facility] Office Visiton 12-27-2022 Follow-up visit [id number] Ghassan Davies 1950 M Date Provider Department Center 12/27/2022 SILVIA BRYAN No family history on file Level of Service:74615 [place] OFFICE/OUTPATIENT NEW MODERATE MDM 45-59 MINUTES Reason for Visit and Comments: Establish Care [42] Normal [facility] ECHOCARDIO M/2D COMPLETEon 0 12-03-2022 ECHOCARDIO M/2D COMPLETE Patient: MELVI DAVIES Exam Date: 12/03/2022 : 1950 Gender:M Ordering : DR PEARL ESTEVEZ . Admission #: [id number] Family : Order #: [id number] CLICK HERE TO VIEW EXAM ECHOCARDIOGRAM REPORT PROCEDURE: CARDIO PULMONARY ECHOCARDIO M/2D COMP INDICATIONS: Paroxysmal Atrial fibrillation COMPARISON: None. DESCRIPTION: COMPLETE ECHOCARDIOGRAM Real-time transthoracic echocardiography with 2D, M-mode, spectral and color flow Doppler performed. QUALITY: Technical quality was adequate. LEFT VENTRICLE: Normal chamber size. Thickened septal wall. LV EF: Global left ventricular systolic function is hyperdynamic; visually estimated ejection fraction 65 to 70%. No significant wall motion abnormalities. DIASTOLIC: Normal diastolic function. ATRIAL SEPTUM: Inadequately seen. LEFT ATRIUM: Normal chamber size. RIGHT ATRIUM: Normal chamber size. RIGHT VENTRICLE: Normal chamber size. Normal right ventricular systolic function. TRICUSPID VALVE: Normal mobility and thickness. No stenosis with trivial regurgitation. No evidence of pulmonary hypertension. RVSP 18mmHg MITRAL VALVE: Normal mobility and thickness. No mitral valve prolapse. No evidence of mitral valve stenosis. There is no mitral annular calcification. Trivial mitral regurgitation. AORTIC VALVE: Normal trileaflet appearance. Mildly calcified aortic valve. Normal leaflet mobility. No evidence of aortic valve stenosis. No aortic regurgitation. AORTIC ROOT: Normal diameter and appearance. PULMONIC VALVE: Normal thickness and mobility. No stenosis. No regurgitation. PERICARDIUM: Anterior free space; trivial effusion versus fat pad. IVC: Collapses with inspirations. Normal size. CONCLUSION: Global left ventricular systolic function is hyperdynamic; visually estimated ejection fraction is 65 to 70%. No significant wall motion abnormalities. The right ventricle is normal in size and systolic function. No significant valvular abnormalities. Anterior free space; trivial effusion versus fat pad. Adult Echocardiography Procedure Report Left Ventricle LVEDD (3.7 - 5.6 cm): 4.11 cm LVESD (2.2 - 4.0 cm): 2.60 cm LVIVS thickness (0.6 - 1.2 cm): 1.42 cm LVPW thickness (0.5 - 1.0 cm): 1.05 cm e': 0.08 m/s E - e': 5.45 LVOT Max Gradient: 3.20 mm[Hg] Peak Velocity (LVOT): 0.89 m/s Mean Velocity (LVOT): 0.69 m/s LVOT Diameter 2.58 cm Left Ventricular Ejection Fraction: 67.06 %, 67.06 % Left Atrium LA Volume Index (2D A2C): 49.61 ml, 49.61 ml Left Atrium Systolic Dimension: 3.17 cm Mitral Valve MV E to A Ratio: 0.58 Mitral Valve A-Wave Peak Velocity: 0.80 m/s Mitral Valve E-Wave Peak Velocity: 0.46 m/s Right Ventricle RV Internal Diastolic Dimension: 3.69 cm Aorta AO Root Diam: 3.30 cm Ascending Ao Diam: 3.09 cm Aortic Valve AoV Area (Peak Tavo): 3.32 cm2, 3.32 cm2 AoV Area (VTI): 3.38 cm2, 3.38 cm2 Peak Velocity(Antegrade Flow): 1.40 m/s Peak Gradient(Antegrade Flow): 7.89 mm[Hg] Mean Velocity(Antegrade Flow): 0.95 m/s Mean Gradient(Antegrade Flow): 4.09 mm[Hg] Velocity Time Integral: 26.64 cm Tricuspid Valve Peak Velocity (Regurgitant Flow): 1.92 m/s, 1.75 m/s Peak Velocity: 0.54 m/s Pulmonic Valve Mean Gradient: 2.25 mm[Hg] Mean Velocity: 0.70 m/s Peak Velocity: 1.05 m/s, 0.89 m/s Peak Gradient: 3.13 mm[Hg], 4.38 mm[Hg] Right Atrium Right Atrium Systolic Pressure: 41.35 ml, 41.35 ml Dictated by: Flory Jerez M.D. on 12/04/2022 at 09:51 Approved by: Flory Jerez M.D. on 12/04/2022 at 09:55 Normal [facility] CBC AUTO DIFFon 11-15-2022 BASO # 0.1 103/ul Normal 0.0-0.1 [facility] Comment on above: Performed By: #### [facility] #### [facility] [address] [place] [address] Dr. Jack Sapp Basophils/100 WBC (Bld) 0.6 % Normal 0.2-2.0 [facility] Comment on above: Performed By: #### C VDTBH #### [facility] [address] [place] [address] Dr. Jack Sapp EO # 0.5 103/ul Normal 0.0-0.7 [facility] Comment on above: Performed By: #### C VDTBH #### [facility] [address] [place] [address] Dr. Jack Sapp Eosinophils/100 WBC (Bld) 4.0 % Normal 0.9-7.0 [facility] Comment on above: Performed By: #### C VDTBH #### [facility] [address] [place] [address] Dr. Jack Sapp Erythrocyte distribution width (RBC) [Ratio] 16.6 % Critically high 11.0-15.0 [facility] Comment on above: Performed By: #### C VDTBH #### [facility] [address] [place] [address] Dr. Jack Sapp Hematocrit (Bld) [Volume fraction] 54.3 % Critically high 42.0-54.0 [facility] Comment on above: Performed By: #### C VDTBH #### [facility] [address] [place] [address] Dr. Jack Sapp Hemoglobin (Bld) [Mass/Vol] 18.2 g/dL Critically high 14.0-18.0 [facility] Comment on above: Performed By: #### C VDTBH #### [facility] [address] [place] [address] Dr. Jack Sapp IG # 0.07 10e3/ul Critically high 0.00-0.03 [facility] Comment on above: Performed By: #### C VDTBH #### [facility] [address] [place] [address] Dr. Jack Sapp IG % 0.6 % Critically high 0.0-0.5 [facility] Comment on above: Performed By: #### C VDTBH #### [facility] [address] [place] [address] Dr. Jack Sapp LYMPH # 1.3 103/ul Normal 1.2-3.8 [facility] Comment on above: Performed By: #### C VDTBH #### [facility] [address] [place] [address] Dr. Jack Sapp Lymphocytes/100 WBC (Bld) 10.9 % Critically low 20.5-60.0 [facility] Comment on above: Performed By: #### C VDTBH #### [facility] [address] [place] [address] Dr. Jack Sapp MANUAL DIFF REQ NO Normal [facility] Comment on above: Performed By: #### C VDTBH #### [facility] [address] [place] [address] Dr. Jack Sapp MCH (RBC) [Entitic mass] 29.3 pg Normal 25.9-34.0 [facility] Comment on above: Performed By: #### C VDTBH #### [facility] [address] [place] [address] Dr. Jack Sapp MCHC (RBC) [Mass/Vol] 33.5 g/dL Normal 29.9-35.2 [facility] Comment on above: Performed By: #### C VDTBH #### [facility] [address] [place] [address] Dr. Jack Sapp MCV (RBC) [Entitic vol] 87.4 fL Normal 80.0-94.0 [facility] Comment on above: Performed By: #### C VDTBH #### [facility] [address] [place] [address] Dr. Jack Sapp MONO # 0.9 103/ul Critically high 0.3-0.8 [facility] Comment on above: Performed By: #### C VDTBH #### [facility] [address] [place] [address] Dr. Jack Sapp Monocytes/100 WBC (Bld) 7.5 % Normal 1.7-12.0 [facility] Comment on above: Performed By: #### C VDTBH #### [facility] [address] [place] [address] Dr. Jack Sapp NEUT # 9.4 103/ul Critically high 1.4-6.5 [facility] Comment on above: Performed By: #### C VDTBH #### [facility] [address] [place] [address] Dr. Jack Sapp Neutrophils/100 WBC (Bld) 76.4 % Critically high 43.0-75.0 [facility] Comment on above: Performed By: #### C VDTBH #### [facility] [address] [place] [address] Dr. Jack Sapp Platelet mean volume (Bld) [Entitic vol] 10.7 fL Normal 9.5-13.5 [facility] Comment on above: Performed By: #### C VDTBH #### [facility] [address] [place] [address] Dr. Jack Sapp PLT 273 103/ul Normal 150-450 [facility] Comment on above: Performed By: #### C SANDRATBH #### [facility] [address] [place] [address] Dr. Jack Sapp RBC 6.21 106/ul Critically high 4.70-6.10 [facility] Comment on above: Performed By: #### C VDTBH #### [facility] [address] [place] [address] Dr. Jack Sapp WBC 12.3 103/ul Critically high 4.0-11.0 [facility] Comment on above: Performed By: #### C VDTBH #### [facility] [address] [place] [address] Dr. Jack Sapp PROF 14(COMP METB)on 023 Albumin [Mass/Vol] 3.3 g/dL Critically low 3.4-5.0 [facility] Comment on above: Performed By: #### H STROPN #### [facility] [address] [place] [address] Dr. Jack Sapp Albumin/Globulin [Mass ratio] 0.7 {ratio} Normal [facility] Comment on above: Performed By: #### H LAPN #### [facility] [address] [place] [address] Dr. Jack Sapp ALP [Catalytic activity/Vol] 85 U/L Normal 46-116 [facility] Comment on above: Performed By: #### H STROPN #### [facility] [address] [address] [address] Jack Sapp ALT [Catalytic activity/Vol] 21 U/L Normal 16-63 [facility] Comment on above: Performed By: #### H STROPN #### [facility] [address] [address] [address] Jack Sapp Anion gap [Moles/Vol] 19.5 mmol/L Normal [facility] Comment on above: Performed By: #### H STROPN #### [facility] [address] [address] [address] Jack Sapp Bilirubin [Mass/Vol] 0.3 mg/dL Normal 0.2-1.0 [facility] Comment on above: Performed By: #### H STROPN #### [facility] [address] [address] [address] Jack Sapp Calcium [Mass/Vol] 9.1 mg/dL Normal 8.5-10.1 [facility] Comment on above: Performed By: #### H STROPN #### [facility] [address] [address] [address] Jack Sapp Chloride [Moles/Vol] 98 mmol/L Normal 98-107 [facility] Comment on above: Performed By: #### H STROPN #### [facility] [address] [address] [address] Jack Sapp CO2 [Moles/Vol] 20.7 mmol/L Critically low 21.0-32.0 [facility] Comment on above: Performed By: #### H STROPN #### [facility] [address] [address] [address] Jack Sapp Creatinine [Mass/Vol] 1.42 mg/dL Critically high 0.70-1.30 [facility] Comment on above: Performed By: #### H STROPN #### [facility] [address] [address] [address] Jack Sapp EGFR-AF GREEK 59 mL/min/1.73m2 Critically low >=60 [facility] Comment on above: Performed By: #### H STROPN #### [facility] [address] [address] [address] Jack Sapp EGFR-NON AF GREEK 49 mL/min/1.73m2 Critically low >=60 [facility] Comment on above: Performed By: #### H STROPN #### [facility] [address] [address] [address] Jack Sapp Globulin (S) [Mass/Vol] 5.0 g/dL Normal [facility] Comment on above: Performed By: #### H STROPN #### [facility] [address] [address] [address] Jack Sapp Glucose [Mass/Vol] 235 mg/dL Critically high 74-[address] [facility] Comment on above: Performed By: #### H STROPN #### [facility] [address] [address] [address] Jack Sapp Potassium [Moles/Vol] 4.2 mmol/L Normal 3.5-5.1 [facility] Comment on above: Performed By: #### H STROPN #### [facility] [address] [place] [address] Dr. Jack Sapp Protein [Mass/Vol] 8.3 g/dL Critically high 6.4-8.[address] [facility] Comment on above: Performed By: #### H STROPN #### [facility] [address] [place] [address] Dr. Jack Sapp Sodium [Moles/Vol] 134 mmol/L Critically low 136-145 [facility] Comment on above: Performed By: #### H STROPN #### [facility] [address] [address] [address] Jack Sapp Urea nitrogen [Mass/Vol] 11.0 mg/dL Normal 7.0-18.0 [facility] Comment on above: Performed By: #### H STROPN #### [facility] [address] [place] [address] Dr. Jack Sapp Urea nitrogen/Creatinine [Mass ratio] 7.7 mg/mg Normal [facility] Comment on above: Performed By: #### H STROPN #### [facility] [address] [place] [address] Dr. Jack Sapp PROTIMEon 11-15-2022 INR Coag (PPP) [Relative time] 3.08 {INR} Normal [facility] Comment on above: Performed By: #### P T, PTT #### [facility] [address] [place] [address] Dr. Jack Sapp INR GUIDELINES SEE BELOW Normal [facility] Comment on above: Result Comment: MEDARDO RED INR: 2.0 - 3.0 CONDITIONS NOT LISTED BELOW 2.5 - 3.5 FOR PROSTHETIC HEART VALVE REPLACEMENT 2.5 - 3.5 RECURRENT THROMBOSIS Performed By: #### P T, PTT #### [facility] [address] [place] [address] Dr. Jack Sapp PT Coag (PPP) [Time] 30.6 s Critically high 9.0-11.6 [facility] Comment on above: Performed By: #### P T, PTT #### [facility] [address] [place] [address] Dr. Jack Sapp PTTon 11-15-2022 aPTT Coag (Bld) [Time] 44.1 s Critically high 22.3-36.2 [facility] Comment on above: Performed By: #### P T, PTT #### [facility] [address] [place] [address] Dr. Jack Sapp TROPONIN, HIGH SENSITIVITYon 11-15-2022 HSTROP 9.5 pg/mL Normal 4.0-76.1 [facility] Comment on above: Result Comment: CUT- OFF POINTS HAVE BEEN ESTABLISHED BASED ON THE FOURTH UNIVERSAL DEFINITIONS OF MYOCARDIAL INFARCTION. THE UPPER REFERENCE LIMIT (URL) OF TROPONIN, DEFINED THE 99TH PERCENTILE OF cTnI DISTRIBUTION IN A REFERENCE POPULATION, HAS BEEN CONFIRMED THE DECISION THRESHOLD FOR MT DIAGNOSIS. Performed By: #### H STROPN #### [facility] [address] [place] [address] Dr. Jack Sapp INSULINon 09-12-2022 Insulin 69.3 uIU/mL Critically high 2.6-24.9 [facility] Comment on above: Performed By: #### I NSULIN #### [facility] [address] [address] [address] Jack Sapp CBC AUTO DIFFon 09-11-2022 BASO # 0.1 103/ul Normal 0.0-0.1 [facility] Comment on above: Performed By: #### H STROPN #### [facility] [address] [place] [address] Dr. Jack Sapp Basophils/100 WBC (Bld) 0.6 % Normal 0.2-2.0 [facility] Comment on above: Performed By: #### H STROPN #### [facility] [address] [place] [address] Dr. Jack Sapp EO # 0.3 103/ul Normal 0.0-0.7 [facility] Comment on above: Performed By: #### H STROPN #### [facility] [address] [place] [address] Dr. Jack Sapp Eosinophils/100 WBC (Bld) 3.3 % Normal 0.9-7.0 [facility] Comment on above: Performed By: #### H STROPN #### [facility] [address] [place] [address] Dr. Jack Sapp Erythrocyte distribution width (RBC) [Ratio] 16.2 % Critically high 11.0-15.0 [facility] Comment on above: Performed By: #### H STROPN #### [facility] [address] [place] [address] Dr. Jack Sapp Hematocrit (Bld) [Volume fraction] 52.7 % Normal 42.0-54.0 [facility] Comment on above: Performed By: #### H STROPN #### [facility] [address] [place] [address] Dr. Jack Sapp Hemoglobin (Bld) [Mass/Vol] 16.8 g/dL Normal 14.0-18.0 [facility] Comment on above: Performed By: #### H STROPN #### [facility] [address] [address] [address] Jack Sapp IG # 0.06 10e3/ul Critically high 0.00-0.03 [facility] Comment on above: Performed By: #### H STROPN #### [facility] [address] [address] [address] Jack Sapp IG % 0.7 % Critically high 0.0-0.5 [facility] Comment on above: Performed By: #### H STROPN #### [facility] [address] [address] [address] Jack Sapp LYMPH # 0.6 103/ul Critically low 1.2-3.8 [facility] Comment on above: Performed By: #### H STROPN #### [facility] [address] [place] [address] Dr. Jack Sapp Lymphocytes/100 WBC (Bld) 6.9 % Critically low 20.5-60.0 [facility] Comment on above: Performed By: #### H STROPN #### [facility] [address] [place] [address] Dr. Jack Sapp MANUAL DIFF REQ NO Normal [facility] Comment on above: Performed By: #### H STROPN #### [facility] [address] [place] [address] Dr. Jack Sapp MCH (RBC) [Entitic mass] 28.7 pg Normal 25.9-34.0 [facility] Comment on above: Performed By: #### H STROPN #### [facility] [address] [address] [address] Jack Sapp MCHC (RBC) [Mass/Vol] 31.9 g/dL Normal 29.9-35.2 [facility] Comment on above: Performed By: #### H STROPN #### [facility] [address] [place] [address] Dr. Jack Sapp MCV (RBC) [Entitic vol] 89.9 fL Normal 80.0-94.0 [facility] Comment on above: Performed By: #### H STROPN #### [facility] [address] [address] [address] Jack Sapp MONO # 0.5 103/ul Normal 0.3-0.8 [facility] Comment on above: Performed By: #### H STROPN #### [facility] [address] [address] [address] Jack Sapp Monocytes/100 WBC (Bld) 6.0 % Normal 1.7-12.0 [facility] Comment on above: Performed By: #### H STROPN #### [facility] [address] [address] [address] Jack Sapp NEUT # 7.4 103/ul Critically high 1.4-6.5 [facility] Comment on above: Performed By: #### H STROPN #### [facility] [address] [place] [address] Dr. Jack Sapp Neutrophils/100 WBC (Bld) 82.5 % Critically high 43.0-75.0 [facility] Comment on above: Performed By: #### H STROPN #### [facility] [address] [place] [address] Dr. Jack Sapp Platelet mean volume (Bld) [Entitic vol] 10.4 fL Normal 9.5-13.5 [facility] Comment on above: Performed By: #### H STROPN #### [facility] [address] [place] [address] Dr. Jack Sapp PLT 211 103/ul Normal 150-450 [facility] Comment on above: Performed By: #### H STROPN #### [facility] [address] [place] [address] Dr. Jack Sapp RBC 5.86 106/ul Normal 4.70-6.10 [facility] Comment on above: Performed By: #### H STROPN #### [facility] [address] [place] [address] Dr. Jack Sapp WBC 9.0 103/ul Normal 4.0-11.0 [facility] Comment on above: Performed By: #### H STROPN #### [facility] [address] [address] [address] Jack Sapp GLYCOHEMOGLOBIN A1Con 2022 ADA RECOMMENDATION SEE BELOW Normal [facility] Comment on above: Result Comment: ADA RECOMMENDED LIMIT 4.0 - 6.0 ADA THERAPEUTIC TARGET < 7.0 ACTION SUGGESTED > 7.0 Performed By: #### H STROPN #### [facility] [address] [address] [address] Jack Sapp Glucose [Mass/Vol] 163 mg/dL Normal [facility] Comment on above: Performed By: #### H STROPN #### [facility] [address] [address] [address] Jack Sapp HbA1c (Bld) [Mass fraction] 7.3 % Critically high 4.5-6.2 [facility] Comment on above: Performed By: #### H STROPN #### [facility] [address] [place] [address] Dr. Jack Sapp LIPID PROFILEon 09-11-2022 CHOL-HDL RATIO NORM SEE BELOW Normal [facility] Comment on above: Result Comment: 3.3 - 4.4 LOW RISK 4.4 - 7.1 AVERAGE RISK 7.1 - 11.0 MODERATE RISK >11.0 HIGH RISK Performed By: #### C VDTBH #### [facility] [address] [place] [address] Dr. Jack Sapp Cholesterol [Mass/Vol] 163 mg/dL Normal <=200 [facility] Comment on above: Performed By: #### C VDTBH #### [facility] [address] [place] [address] Dr. Jack Sapp Cholesterol in HDL [Mass/Vol] 32 mg/dL Critically low 40-60 [facility] Comment on above: Performed By: #### C VDTBH #### [facility] [address] [place] [address] Dr. Jack Sapp Cholesterol in LDL [Mass/Vol] 109.2 mg/dL Normal [facility] Comment on above: Performed By: #### C VDTBH #### [facility] [address] [place] [address] Dr. Jack Sapp Cholesterol.total/C holesterol in HDL [Mass ratio] 5.1 {ratio} Normal [facility] Comment on above: Performed By: #### C VDTBH #### [facility] [address] [address] [address] Jack Sapp HDL NORMAL > or = 60 mg/dl - LO W CARDIOVASCULAR RISK <40 mg/dl - HIGH CARDIOVASCULAR RISK Normal [facility] Comment on above: Performed By: #### C VDTBH #### [facility] [address] [address] [address] Jack Sapp LDL CALC NORMAL SEE BELOW Normal [facility] Comment on above: Result Comment: <100 mg/dl OPTIMAL 100 - 129 mg/dl NEAR OR ABOVE OPTIMAL 130 - 159 mg/dl BORDERLINE HIGH 160 - 189 mg/dl HIGH >190 mg/dl VERY HIGH Performed By: #### C VDTBH #### [facility] [address] [address] [address] Jack Sapp Triglyceride [Mass/Vol] 109 mg/dL Normal <=150 [facility] Comment on above: Performed By: #### C VDTBH #### [facility] [address] [address] [address] Jack Sapp VLDL CALC 21.8 mg/dL Normal [facility] Comment on above: Performed By: #### C VDTBH #### [facility] [address] [address] [address] Jack Sapp PROF 14(COMP METB)on 023 Albumin [Mass/Vol] 3.4 g/dL Normal 3.4-5.0 [facility] Comment on above: Performed By: #### C VDTBH #### [facility] [address] [address] [address] Jack Sapp Albumin/Globulin [Mass ratio] 0.7 {ratio} Normal [facility] Comment on above: Performed By: #### C VDTBH #### [facility] [address] [address] [address] Jack Sapp ALP [Catalytic activity/Vol] 58 U/L Normal 46-116 [facility] Comment on above: Performed By: #### C VDTBH #### [facility] [address] [address] [address] Jack Sapp ALT [Catalytic activity/Vol] 28 U/L Normal 16-63 [facility] Comment on above: Performed By: #### C VDTBH #### [facility] [address] [address] [address] Jack Sapp Anion gap [Moles/Vol] 15.6 mmol/L Normal [facility] Comment on above: Performed By: #### C VDTBH #### [facility] [address] [address] [address] Jack Sapp AST [Catalytic activity/Vol] 17 U/L Normal 15-37 [facility] Comment on above: Performed By: #### C VDTBH #### [facility] [address] [address] [address] Jack Sapp Bilirubin [Mass/Vol] 0.6 mg/dL Normal 0.2-1.0 [facility] Comment on above: Performed By: #### C VDTBH #### [facility] [address] [address] [address] Jack Sapp Calcium [Mass/Vol] 9.2 mg/dL Normal 8.5-10.1 [facility] Comment on above: Performed By: #### C VDTBH #### [facility] [address] [address] [address] Jack Sapp Chloride [Moles/Vol] 101 mmol/L Normal 98-107 [facility] Comment on above: Performed By: #### C VDTBH #### [facility] [address] [address] [address] Jack Sapp CO2 [Moles/Vol] 23.8 mmol/L Normal 21.0-32.0 [facility] Comment on above: Performed By: #### C VDTBH #### [facility] [address] [address] [address] Jack Sapp Creatinine [Mass/Vol] 1.39 mg/dL Critically high 0.70-1.30 [facility] Comment on above: Performed By: #### C VDTBH #### [facility] [address] [address] [address] Jack Sapp EGFR-AF GREEK >60 Normal >=60 [facility] Comment on above: Performed By: #### C VDTBH #### [facility] [address] [address] [address] Jack Sapp EGFR-NON AF GREEK 50 mL/min/1.73m2 Critically low >=60 [facility] Comment on above: Performed By: #### C VDTBH #### [facility] [address] [address] [address] Jack Sapp Globulin (S) [Mass/Vol] 4.6 g/dL Normal [facility] Comment on above: Performed By: #### C VDTBH #### [facility] [address] [address] [address] Jack Sapp Glucose [Mass/Vol] 142 mg/dL Critically high 74-[address] [facility] Comment on above: Performed By: #### C VDTBH #### [facility] [address] [address] [address] Jack Sapp Potassium [Moles/Vol] 4.4 mmol/L Normal 3.5-5.1 [facility] Comment on above: Performed By: #### C VDTBH #### [facility] [address] [address] [address] Jack Sapp Protein [Mass/Vol] 8.0 g/dL Normal 6.4-8.2 [facility] Comment on above: Performed By: #### C VDTBH #### [facility] [address] [address] [address] Jack Sapp Sodium [Moles/Vol] 136 mmol/L Normal 136-145 [facility] Comment on above: Performed By: #### C VDTBH #### [facility] [address] [address] [address] Jack Sapp Urea nitrogen [Mass/Vol] 16.0 mg/dL Normal 7.0-18.0 [facility] Comment on above: Performed By: #### C VDTBH #### [facility] [address] [place] [address] Dr. Jack Sapp Urea nitrogen/Creatinine [Mass ratio] 11.5 mg/mg Normal [facility] Comment on above: Performed By: #### C VDTBH #### [facility] [address] [place] [address] Dr. Jack Sapp URIC ACID SERUMon 09-11-2022 Urate [Mass/Vol] 6.2 mg/dL Normal 3.5-7.2 [facility] Comment on above: Performed By: #### C VDTBH #### [facility] [address] [place] [address] Dr. Jack Sapp ACETONE SERUMon 08-21-2022 ACETONE Negative Normal NEGATIVE [facility] Comment on above: Performed By: #### H STROPN #### [facility] [address] [place] [address] Dr. Jack Sapp BNPon 08-21-2022 Natriuretic peptide B (Bld) [Mass/Vol] 405.0 pg/mL Normal <=900.0 [facility] Comment on above: Performed By: #### C MP, CMADM, BNP, TSH #### [facility] [address] [place] [address] Dr. Jack Sapp CARDIAC LISSETH ADMITon 023 CK [Catalytic activity/Vol] 57 U/L Normal 39-308 [facility] Comment on above: Performed By: #### C MP, CMADM, BNP, TSH #### [facility] [address] [place] [address] Dr. Jack Sapp CK.MB [Mass/Vol] 1.12 ng/mL Normal <=3.60 [facility] Comment on above: Performed By: #### C MP, CMADM, BNP, TSH #### [facility] [address] [place] [address] Dr. Jack Sapp HSTROP 55.9 pg/mL Normal 4.0-76.1 [facility] Comment on above: Result Comment: CUT- OFF POINTS HAVE BEEN ESTABLISHED BASED ON THE FOURTH UNIVERSAL DEFINITIONS OF MYOCARDIAL INFARCTION. THE UPPER REFERENCE LIMIT (URL) OF TROPONIN, DEFINED THE 99TH PERCENTILE OF cTnI DISTRIBUTION IN A REFERENCE POPULATION, HAS BEEN CONFIRMED THE DECISION THRESHOLD FOR MT DIAGNOSIS. Performed By: #### C MP, CMADM, BNP, TSH #### [facility] [address] [place] [address] Dr. Jack Sapp BELEN 79 ng/mL Normal 16-96 [facility] Comment on above: Performed By: #### C MP, CMADM, BNP, TSH #### [facility] [address] [place] [address] Dr. Jack Sapp CBC AUTO DIFFon 08-21-2022 BASO # 0.1 103/ul Normal 0.0-0.1 [facility] Comment on above: Performed By: #### C VDTBH #### [facility] [address] [place] [address] Dr. Jack Sapp Basophils/100 WBC (Bld) 0.5 % Normal 0.2-2.0 [facility] Comment on above: Performed By: #### C VDTBH #### [facility] [address] [place] [address] Dr. Jack Sapp EO # 0.2 103/ul Normal 0.0-0.7 [facility] Comment on above: Performed By: #### C VDTBH #### [facility] [address] [place] [address] Dr. Jack Sapp Eosinophils/100 WBC (Bld) 1.4 % Normal 0.9-7.0 [facility] Comment on above: Performed By: #### C VDTBH #### [facility] [address] [place] [address] Dr. Jack Sapp Erythrocyte distribution width (RBC) [Ratio] 17.2 % Critically high 11.0-15.0 [facility] Comment on above: Performed By: #### C VDTBH #### [facility] [address] [place] [address] Dr. Jack Sapp Hematocrit (Bld) [Volume fraction] 52.9 % Normal 42.0-54.0 [facility] Comment on above: Performed By: #### C VDTBH #### [facility] [address] [place] [address] Dr. Jack Sapp Hemoglobin (Bld) [Mass/Vol] 17.2 g/dL Normal 14.0-18.0 [facility] Comment on above: Performed By: #### C VDTBH #### [facility] [address] [place] [address] Dr. Jack Sapp IG # 0.10 10e3/ul Critically high 0.00-0.03 [facility] Comment on above: Performed By: #### C VDTBH #### [facility] [address] [place] [address] Dr. Jack Sapp IG % 0.9 % Critically high 0.0-0.5 [facility] Comment on above: Performed By: #### C VDTBH #### [facility] [address] [place] [address] Dr. Jack Sapp LYMPH # 0.9 103/ul Critically low 1.2-3.8 [facility] Comment on above: Performed By: #### C VDTBH #### [facility] [address] [place] [address] Dr. Jack Sapp Lymphocytes/100 WBC (Bld) 8.4 % Critically low 20.5-60.0 [facility] Comment on above: Performed By: #### C VDTBH #### [facility] [address] [place] [address] Dr. Jack Sapp MANUAL DIFF REQ NO Normal [facility] Comment on above: Performed By: #### C VDTBH #### [facility] [address] [place] [address] Dr. Jack Sapp MCH (RBC) [Entitic mass] 28.1 pg Normal 25.9-34.0 [facility] Comment on above: Performed By: #### C VDTBH #### [facility] [address] [place] [address] Dr. Jack Sapp MCHC (RBC) [Mass/Vol] 32.5 g/dL Normal 29.9-35.2 [facility] Comment on above: Performed By: #### C VDTBH #### [facility] [address] [place] [address] Dr. Jack Sapp MCV (RBC) [Entitic vol] 86.4 fL Normal 80.0-94.0 [facility] Comment on above: Performed By: #### C VDTBH #### [facility] [address] [place] [address] Dr. Jack Sapp MONO # 0.7 103/ul Normal 0.3-0.8 [facility] Comment on above: Performed By: #### C VDTBH #### [facility] [address] [place] [address] Dr. Jack Sapp Monocytes/100 WBC (Bld) 5.9 % Normal 1.7-12.0 [facility] Comment on above: Performed By: #### C VDTBH #### [facility] [address] [place] [address] Dr. Jack Sapp NEUT # 9.2 103/ul Critically high 1.4-6.[address] [facility] Comment on above: Performed By: #### C VDTBH #### [facility] [address] [place] [address] Dr. Jack Sapp Neutrophils/100 WBC (Bld) 82.9 % Critically high 43.0-75.0 [facility] Comment on above: Performed By: #### C VDTBH #### [facility] [address] [place] [address] Dr. Jack Sapp Platelet mean volume (Bld) [Entitic vol] 11.3 fL Normal 9.5-13.5 [facility] Comment on above: Performed By: #### C VDTBH #### [facility] [address] [place] [address] Dr. Jack Sapp PLT 243 103/ul Normal 150-450 [facility] Comment on above: Performed By: #### C VDTBH #### [facility] [address] [place] [address] Dr. Jack Sapp RBC 6.12 106/ul Critically high 4.70-6.10 [facility] Comment on above: Performed By: #### C VDTBH #### [facility] [address] [place] [address] Dr. Jack Sapp WBC 11.1 103/ul Critically high 4.0-11.0 [facility] Comment on above: Performed By: #### C VDTBH #### [facility] [address] [place] [address] Dr. Jack Sapp Covid-19 PCR ([facility])on 08-11 SARS-CoV-2 (COVID-19) RNA NADINE+probe Ql (Unsp spec) Not detected Normal NOT DETECTED [facility] Comment on above: Result Comment: When diagnostic testing is negative, the possibility of a false negative should be considered in the context of a patient's recent exposures and the presence of clinical signs and symptoms consistent with SARS-CoV-2. This test is not yet approved or cleared by the [place] FDA. When there are no FDA-approved or cleared tests available, and other criteria are met, FDA can make tests available under an emergency access mechanism called an Emergency Use Authorization (EUA). The EUA for this test is supported by the [place] of Health and Human Service's declaration that circumstances exist to justify the emergency use of in vitro diagnostics for the detection and/or diagnosis of the virus that causes COVID-19. This EUA will remain in effect for the duration of the COVID-19 declaration justifying emergency of IVDs, unless it is terminated or revoked by the FDA (after which the test may no longer be used). Performed By: #### C VDTB #### [facility] [address] [place] [address] Dr. Jack Sapp INFLUENZA A AND B AGon 08-21 INFLUANEGH SEE BELOW Normal [facility] Comment on above: Result Comment: Nega tive for Flu A protein angiten. Infection due to Flu A cannot be ruled out. Flu A angiten in the sample may be below the detection limit of the test. Performed By: #### C VDTBH #### [facility] [address] [place] [address] Dr. Jack Sapp [facility] SEE BELOW Normal [facility] Comment on above: Result Comment: Nega tive for Flu B protein antigen. Infection due to Flu B cannot be ruled out. Flu B antigen in the sample may be below the detection limit of the test. Performed By: #### C VDTBH #### [facility] [address] [place] [address] Dr. Jack Sapp INFLUENZA A AG Negative Normal NEGATIVE SEE COMMENT [facility] Comment on above: Performed By: #### C VDTBH #### [facility] [address] [place] [address] Dr. Jack Sapp INFLUENZA B AG Negative Normal NEGATIVE SEE COMMENT [facility] Comment on above: Performed By: #### C VDTBH #### [facility] [address] [place] [address] Dr. Jack Sapp POINT OF CARE GLUCOSEon 08-11 Glucose [Mass/Vol] 178 mg/dL Critically high 74-[address] [facility] Comment on above: Performed By: #### C VDTBH #### [facility] [address] [place] [address] Dr. Jack Sapp PROF 14(COMP METB)on 023 Albumin [Mass/Vol] 3.3 g/dL Critically low 3.4-5.0 [facility] Comment on above: Performed By: #### C MP, CMADM, BNP, TSH #### [facility] [address] [place] [address] Dr. Jack Sapp Albumin/Globulin [Mass ratio] 0.8 {ratio} Normal [facility] Comment on above: Performed By: #### C MP, CMADM, BNP, TSH #### [facility] [address] [place] [address] Dr. Jack Sapp ALP [Catalytic activity/Vol] 64 U/L Normal 46-116 [facility] Comment on above: Performed By: #### C MP, CMADM, BNP, TSH #### [facility] [address] [place] [address] Dr. Jack Sapp ALT [Catalytic activity/Vol] 25 U/L Normal 16-63 [facility] Comment on above: Performed By: #### C MP, CMADM, BNP, TSH #### [facility] [address] [place] [address] Dr. Jack Sapp Anion gap [Moles/Vol] 17.1 mmol/L Normal [facility] Comment on above: Performed By: #### C MP, CMADM, BNP, TSH #### [facility] [address] [place] [address] Dr. Jack Sapp AST [Catalytic activity/Vol] 20 U/L Normal 15-37 [facility] Comment on above: Performed By: #### C MP, CMADM, BNP, TSH #### [facility] [address] [place] [address] Dr. Jack Sapp Bilirubin [Mass/Vol] 0.7 mg/dL Normal 0.2-1.0 [facility] Comment on above: Performed By: #### C MP, CMADM, BNP, TSH #### [facility] [address] [place] [address] Dr. Jack Sapp Calcium [Mass/Vol] 9.8 mg/dL Normal 8.5-10.1 [facility] Comment on above: Performed By: #### C MP, CMADM, BNP, TSH #### [facility] [address] [place] [address] Dr. Jack Sapp Chloride [Moles/Vol] 99 mmol/L Normal 98-107 [facility] Comment on above: Performed By: #### C MP, CMADM, BNP, TSH #### [facility] [address] [place] [address] Dr. Jack Sapp CO2 [Moles/Vol] 20.2 mmol/L Critically low 21.0-32.0 [facility] Comment on above: Performed By: #### C MP, CMADM, BNP, TSH #### [facility] [address] [place] [address] Dr. Jack Sapp Creatinine [Mass/Vol] 1.46 mg/dL Critically high 0.70-1.30 [facility] Comment on above: Performed By: #### C MP, CMADM, BNP, TSH #### [facility] [address] [place] [address] Dr. Jack Sapp EGFR-AF GREEK 57 mL/min/1.73m2 Critically low >=60 [facility] Comment on above: Performed By: #### C MP, CMADM, BNP, TSH #### [facility] [address] [place] [address] Dr. Jack Sapp EGFR-NON AF GREEK 47 mL/min/1.73m2 Critically low >=60 [facility] Comment on above: Performed By: #### C MP, CMADM, BNP, TSH #### [facility] [address] [place] [address] Dr. Jack Sapp Globulin (S) [Mass/Vol] 4.4 g/dL Normal [facility] Comment on above: Performed By: #### C MP, CMADM, BNP, TSH #### [facility] [address] [place] [address] Dr. Jack Sapp Glucose [Mass/Vol] 184 mg/dL Critically high 74-106 [facility] Comment on above: Performed By: #### C MP, CMADM, BNP, TSH #### [facility] [address] [place] [address] Dr. Jack Sapp Potassium [Moles/Vol] 4.3 mmol/L Normal 3.5-5.1 [facility] Comment on above: Performed By: #### C MP, CMADM, BNP, TSH #### [facility] [address] [place] [address] Dr. Jack Sapp Protein [Mass/Vol] 7.7 g/dL Normal 6.4-8.2 [facility] Comment on above: Performed By: #### C MP, CMADM, BNP, TSH #### [facility] [address] [place] [address] Dr. Jack Sapp Sodium [Moles/Vol] 132 mmol/L Critically low 136-145 [facility] Comment on above: Performed By: #### C MP, CMADM, BNP, TSH #### [facility] [address] [place] [address] Dr. Jack Sapp Urea nitrogen [Mass/Vol] 16.0 mg/dL Normal 7.0-18.0 [facility] Comment on above: Performed By: #### C MP, CMADM, BNP, TSH #### [facility] [address] [place] [address] Dr. Jack Sapp Urea nitrogen/Creatinine [Mass ratio] 11.0 mg/mg Normal [facility] Comment on above: Performed By: #### C MP, CMADM, BNP, TSH #### [facility] [address] [place] [address] Dr. Jack Sapp PROTIMEon 08-21-2022 INR Coag (PPP) [Relative time] 2.34 {INR} Normal [facility] Comment on above: Performed By: #### C VDTBH #### [facility] [address] [place] [address] Dr. Jack Sapp INR GUIDELINES SEE BELOW Normal [facility] Comment on above: Result Comment: MEDARDO RED INR: 2.0 - 3.0 CONDITIONS NOT LISTED BELOW 2.5 - 3.5 FOR PROSTHETIC HEART VALVE REPLACEMENT 2.5 - 3.5 RECURRENT THROMBOSIS Performed By: #### C VDTBH #### [facility] [address] [place] [address] Dr. Jack Sapp PT Coag (PPP) [Time] 23.6 s Critically high 9.0-11.6 [facility] Comment on above: Performed By: #### C VDTBH #### [facility] [address] [place] [address] Dr. Jack Sapp PTTon 08-21-2022 aPTT Coag (Bld) [Time] 41.6 s Critically high 22.3-36.2 [facility] Comment on above: Performed By: #### C VDTBH #### [facility] [address] [place] [address] Dr. Jack Sapp TROPONIN, HIGH SENSITIVITYon 08-21-2022 HSTROP 136.8 pg/mL Critically high 4.0-76.1 [facility] Comment on above: Result Comment: CUT- OFF POINTS HAVE BEEN ESTABLISHED BASED ON THE FOURTH UNIVERSAL DEFINITIONS OF MYOCARDIAL INFARCTION. THE UPPER REFERENCE LIMIT (URL) OF TROPONIN, DEFINED THE 99TH PERCENTILE OF cTnI DISTRIBUTION IN A REFERENCE POPULATION, HAS BEEN CONFIRMED THE DECISION THRESHOLD FOR MT DIAGNOSIS. Performed By: #### H STROPN #### [facility] [address] [place], [place] [address] Dr. Jack Sapp TSHon 08-21-2022 TSH 6.745 uIU/mL Critically high 0.358-3.740 [facility] Comment on above: Performed By: #### C MP, CMADM, BNP, TSH #### [facility] [address] [place], [place] [address] Dr. Jack Sapp XR CHEST 1 Von 08-21-2022 XR CHEST 1 V EXAMINATION: XR CHES T 1 V HISTORY: CHEST PAIN, UNSPECIFIED , weakness, diaphoresis COMPARISON: XR chest 04/20/2021 FINDINGS: LUNGS: No significant pulmonary parenchymal abnormalities. VASCULATURE: No increased pulmonary vasculature. PLEURA: No pneumothorax, effusion, or pleural thickening. CARDIAC: No cardiomegaly or cardiac silhouette abnormality. MEDIASTINUM: No visible mass or adenopathy. BONES: No fracture or visible bone lesion. OTHER: Negative. IMPRESSION: 1. No acute cardiopulmonary process. Stable chest. Electronically authenticated by: FUAD TYLER Date: 2022-08-21 11:46 Normal [facility] Covid-19 PCR (CVDTB)on 06-13 SARS-CoV-2 (COVID-19) RNA NADINE+probe Ql (Unsp spec) Not detected Normal NOT DETECTED [facility] Comment on above: Result Comment: When diagnostic testing is negative, the possibility of a false negative should be considered in the context of a patient's recent exposures and the presence of clinical signs and symptoms consistent with SARS-CoV-2. This test is not yet approved or cleared by the [place] FDA. When there are no FDA-approved or cleared tests available, and other criteria are met, FDA can make tests available under an emergency access mechanism called an Emergency Use Authorization (EUA). The EUA for this test is supported by the [place] of Health and Human Service's declaration that circumstances exist to justify the emergency use of in vitro diagnostics for the detection and/or diagnosis of the virus that causes COVID-19. This EUA will remain in effect for the duration of the COVID-19 declaration justifying emergency of IVDs, unless it is terminated or revoked by the FDA (after which the test may no longer be used). Performed By: #### C VDTB #### [facility] [address] [place] [address] Dr. Jack Sapp INFLUENZA A AND B AGon 07-10 INFLUENZA A AG Negative Normal NEGATIVE SEE COMMENT [facility] Comment on above: Performed By: #### H STROPN #### [facility] [address] [place] [address] Dr. Jack Sapp INFLUENZA B AG Negative Normal NEGATIVE SEE COMMENT [facility] Comment on above: Performed By: #### H STROPN #### [facility] [address] [place] [address] Dr. Jack Sapp INTERNAL CONTROLS Within Normal Limits Normal Wi thin Normal Limits [facility] Comment on above: Performed By: #### H STROPN #### [facility] [address] [place] [address] Dr. Jack Sapp Consultation Noteon 02-21-20 Consultation Note [id number]:127 [facility] Consultation Noteon 11-14-19 Consultation Note [id number]#[id number]:127 [facility] Provider Letteron 11-01-2020 Provider Letter (Inserted Image. Ivana ble to display) November 01, 2020 MELVI DAVIES [address] [place] [address] MELVI DAVIES 1950 Dear Melvi, This letter is to inform you due to non-compliance the providers of [facility], [facility]/ [facility] will no longer be responsible for your routine medical care. Emergency care only will be provided for the thirty (30) days following this letter. During this time period we suggest that you find another physician for your medical needs. A listing of area physicians can be found on [facility]'s website at [email or web address] or you may contact your health plan. We will be glad to forward your records to your new physician as long as we receive a signed release of records form. Sincerely, Dr. Melvi Kulkarni [facility] [address] [place] [address] [facility] Patient Correspondenceon Patient Correspondence [id number]:127 [facility] Patient Letter FTMCon 2020 Patient Letter [facility] (Inserted Image. Ivana ble to display) August 24, 2020 MELVI DAVIES [address] [facility] [address] [facility] [place] [address] MELVI DAVIES 1950 Dear Melvi, I am corresponding to you by certified mail because you have a medical condition known as prostate cancer which requires routine follow up. You did not show for your appointment on 02-21-21. We have made attempts to reach you to reschedule your appointment with no success. Please contact my office at your earliest convenience and we will gladly reschedule your appointment. I cannot be responsible for your uroligical care if you do not follow up with me as recommended. Sincerely, Dr. Melvi Kulkarni [facility] [address] [place] [address] [facility] Consultation Noteon 08-15-19 Consultation Note [id number]#[id number]:127 [facility] Consultation Note [id number]#[id number]:127 [facility] Consultation Noteon 05-15-20 Consultation Note [id number]#[id number]:127 [facility] CBC WITH AUTO DIFFERENTIALon 07-03-2019 Basophils (Bld) [#/Vol] 0.05 10*3/uL [facility] [place] [place] Basophils/100 WBC (Bld) 1 % 0 - 2 % [place] Differential Type NOT REPORTED [place] Eosinophils (Bld) [#/Vol] 0.12 10*3/uL [place] Eosinophils/100 WBC (Bld) 1 % 1 - 4 % [place] Erythrocyte distribution width (RBC) [Ratio] 12.8 % 11.8 - 14.4 % [place] Hematocrit (Bld) [Volume fraction] 46.6 % 40.7 - 50.3 % [place] Hemoglobin (Bld) [Mass/Vol] 15.4 g/dL 13 - 17 g/dL [place] Immature granulocytes (Bld) [#/Vol] 0.07 10*3/uL [place] Immature granulocytes (Bld) [#/Vol] 1 % High 0 [place] Interpretation and review of laboratory results Abnormal [place] Lymphocytes (Bld) [#/Vol] 1.06 10*3/uL Low [place] Lymphocytes/100 WBC (Bld) 10 % Low 24 - 43 % [place] MCH (RBC) [Entitic mass] 30.7 pg 25.2 - 33.5 pg [place] MCHC (RBC) [Mass/Vol] 33.0 g/dL 28.4 - 34.8 g/dL [place] MCV (RBC) [Entitic vol] 92.8 fL 82.6 - 102.9 fL [place] Monocytes (Bld) [#/Vol] 0.84 10*3/uL [place] Monocytes/100 WBC (Bld) 8 % 3 - 12 % [place] Platelet mean volume (Bld) [Entitic vol] 11.8 fL 8.1 - 13.5 fL [place] Platelets (Bld) [#/Vol] 216 10*3/uL [place] Platelets (Bld) [#/Vol] NOT REPORTED [place] RBC (Bld) [#/Vol] 5.02 10*6/uL 4.21 - 5.7 7 m/uL [place] RBC morphology finding Nom (Bld) NOT REPORTED [place] Segmented neutrophils/100 WBC (Bld) 79 % High 36 - 65 % [place] Segs Absolute 8.20 High [place] WBC (Bld) [#/Vol] 0.0 10*3/uL 0.0 per 10 0 WBC [place] WBC (Bld) [#/Vol] 10.3 10*3/uL [place] WBC Morphology NOT REPORTED [place] CBC with Diffon 07-03-2019 Abs. Basophil 0.05 k/uL Normal 0.00-0.20 [facility] Comment on above: Performed By: #### C DP, CP #### [place] [address] Maori Physiotherapist: Tramaine Prcotor MD Abs.Imm.Granulocyte 0.07 k/uL Normal 0.00-0.30 [facility] Comment on above: Performed By: #### C DP, CP #### [place] [address] [place] Physiotherapist: Tramaine Proctor MD Abs.Neutrophil (Seg) 8.20 k/uL High 1.50-8.10 [facility] Comment on above: Performed By: #### C DP, CP #### [place] [address] [place] Physiotherapist: Tramaine Proctor MD Basophils/100 WBC (Bld) 1 % Normal 0-2 [facility] Comment on above: Performed By: #### C DP, CP #### [place] [address] [place] Physiotherapist: Tramaine Proctor MD Eosinophils (Bld) [#/Vol] 0.12 10*3/uL Normal 0.00-0.44 [facility] Comment on above: Performed By: #### C DP, CP #### [place] [address] Maori Physiotherapist: Tramaine Proctor MD Eosinophils/100 WBC (Bld) 1 % Normal 1-4 [facility] Comment on above: Performed By: #### C DP, CP #### [place] [address] Ma[place] Physiotherapist: Tramaine Proctor MD Erythrocyte distribution width (RBC) [Ratio] 12.8 % Normal 11.8-14.4 [facility] Comment on above: Performed By: #### C DP, CP #### [place] [address] [place] Physiotherapist: Tramaine Proctor MD Hematocrit (Bld) [Volume fraction] 46.6 % Normal 40.7-50.3 [facility] Comment on above: Performed By: #### C DP, CP #### [place] [address] [place] Physiotherapist: Tramaine Proctor MD Hemoglobin (Bld) [Mass/Vol] 15.4 g/dL Normal 13.0-17.0 [facility] Comment on above: Performed By: #### C DP, CP #### [place] [address] Ma[place] Physiotherapist: Tramaine Proctor MD Immature granulocytes (Bld) [#/Vol] 1 % High 0 [facility] Comment on above: Performed By: #### C DP, CP #### [place] [address] Ma[place] Physiotherapist: Tramaine Proctor MD Lymphocytes (Bld) [#/Vol] 1.06 10*3/uL Low 1.10-3.70 [facility] Comment on above: Performed By: #### C DP, CP #### [address] [place] [address] [place]ori Physiotherapist: Tramaine Proctor MD Lymphocytes/100 WBC (Bld) 10 % Low 24-43 [facility] Comment on above: Performed By: #### C DP, CP #### [address] [address] [place]ori Physiotherapist: Tramaine Proctor MD MCH (RBC) [Entitic mass] 30.7 pg Normal 25.2-33.5 [facility] Comment on above: Performed By: #### C DP, CP #### [address] [address] [place]ori Physiotherapist: Tramaine Proctor MD MCHC (RBC) [Mass/Vol] 33.0 g/dL Normal 28.4-34.8 [facility] Comment on above: Performed By: #### C DP, CP #### [address] [address] [place]ori Physiotherapist: Tramaine Proctor MD MCV (RBC) [Entitic vol] 92.8 fL Normal 82.6-102.9 [facility] Comment on above: Performed By: #### C DP, CP #### [address] [address] [place]ori Physiotherapist: Tramaine Proctor MD Monocytes (Bld) [#/Vol] 0.84 10*3/uL Normal 0.10-1.20 [facility] Comment on above: Performed By: #### C DP, CP #### [address] [address] [place]ori Physiotherapist: Tramaine Proctor MD Monocytes/100 WBC (Bld) 8 % Normal 3-12 [facility] Comment on above: Performed By: #### C DP, CP #### [address] [address] [place]ori Physiotherapist: Tramaine Proctor MD Neutrophil (Seg) 79 % High 36-65 [facility] Comment on above: Performed By: #### C DP, CP #### [address] [address] [place]ori Physiotherapist: Tramaine Proctor MD NRBC Automated 0.0 per 100 WBC Normal 0.0 [facility] Comment on above: Performed By: #### C DP, CP #### [address] [address] [place]ori Physiotherapist: Tramaine Proctor MD Platelet mean volume (Bld) [Entitic vol] 11.8 fL Normal 8.1-13.5 [facility] Comment on above: Performed By: #### C DP, CP #### [address] [address] [place]ori Physiotherapist: Tramaine Proctor MD Platelets (Bld) [#/Vol] 216 10*3/uL Normal 138-453 [facility] Comment on above: Performed By: #### C DP, CP #### [address] [address] [place]ori Physiotherapist: Tramaine Proctor MD RBC (Bld) [#/Vol] 5.02 10*6/uL Normal 4.21-5.77 [facility] Comment on above: Performed By: #### C DP, CP #### [address] [address] [place]ori Physiotherapist: Tramaine Proctor MD WBC (Bld) [#/Vol] 10.3 10*3/uL Normal 3.5-11.3 [facility] Comment on above: Performed By: #### C DP, CP #### [address] [address] [place]ori Physiotherapist: Tramaine Proctor MD Auto Diff Performed NOT REPORTED Normal [facility] Comment on above: Performed By: #### C DP, CP #### [facility] [address] [place] [address] [place] Physiotherapist: Tramaine Proctor MD Platelets (Bld) [#/Vol] NOT REPORTED Normal [facility] Comment on above: Performed By: #### C DP, CP #### [facility] [address] [place] [address] [place] Physiotherapist: Tramaine Proctor MD RBC morphology finding Nom (Bld) NOT REPORTED Normal [facility] Comment on above: Performed By: #### C DP, CP #### [facility] [address] [place] [address] [place] Physiotherapist: Tramaine Proctor MD WBC Morphology NOT REPORTED Normal [facility] Comment on above: Performed By: #### C DP, CP #### [facility] [address] [place] [address] [place]ori Physiotherapist: Tramaine Proctor MD CT HEAD WO CONTRASTon 2018 CT HEAD WO CONTRAST EXAMINATION: CT OF THE HEAD WITHOUT CONTRAST 07/03/2019 11:00 am TECHNIQUE: CT of the head was performed without the administration of intravenous contrast. Dose modulation, iterative reconstruction, and/or weight based adjustment of the mA/kV was utilized to reduce the radiation dose to as low as reasonably achievable. COMPARISON: None. HISTORY: ORDERING SYSTEM PROVIDED HISTORY: syncope TECHNOLOGIST PROVIDED HISTORY: syncope FINDINGS: BRAIN/VENTRICLES: There is no acute intracranial hemorrhage, mass effect or midline shift. No abnormal extra-axial fluid collection. The burnett-white differentiation is maintained without evidence of an acute infarct. There is no evidence of hydrocephalus. ORBITS: The visualized portion of the orbits demonstrate no acute abnormality. SINUSES: The visualized paranasal sinuses and mastoid air cells demonstrate no acute abnormality. SOFT TISSUES/SKULL: No acute abnormality of the visualized skull or soft tissues. IMPRESSION: No acute intracranial abnormality. Interpreted by: Micki Butler MD Signed by: Micki Butler MD 07/03/19 Final result Normal [facility] No acute intracrania l abnormality. [facility], ID EXAMINATION: CT OF T HE HEAD WITHOUT CONTRAST 07/03/2019 11:00 am TECHNIQUE: CT of the head was performed without the administration of intravenous contrast. Dose modulation, iterative reconstruction, and/or weight based adjustment of the mA/kV was utilized to reduce the radiation dose to as low as reasonably achievable. COMPARISON: None. HISTORY: ORDERING SYSTEM PROVIDED HISTORY: syncope TECHNOLOGIST PROVIDED HISTORY: syncope FINDINGS: BRAIN/VENTRICLES: There is no acute intracranial hemorrhage, mass effect or midline shift. No abnormal extra-axial fluid collection. The burnett-white differentiation is maintained without evidence of an acute infarct. There is no evidence of hydrocephalus. ORBITS: The visualized portion of the orbits demonstrate no acute abnormality. SINUSES: The visualized paranasal sinuses and mastoid air cells demonstrate no acute abnormality. SOFT TISSUES/SKULL: No acute abnormality of the visualized skull or soft tissues. [facility] ID [place], [facility] Incoming R adiant Results From [employer] - 07/03/2019 11:35 AM EST EXAMINATION: CT OF THE HEAD WITHOUT CONTRAST 07/03/2019 11:00 am TECHNIQUE: CT of the head was performed without the administration of intravenous contrast. Dose modulation, iterative reconstruction, and/or weight based adjustment of the mA/kV was utilized to reduce the radiation dose to as low as reasonably achievable. COMPARISON: None. HISTORY: ORDERING SYSTEM PROVIDED HISTORY: syncope TECHNOLOGIST PROVIDED HISTORY: syncope FINDINGS: BRAIN/VENTRICLES: There is no acute intracranial hemorrhage, mass effect or midline shift. No abnormal extra-axial fluid collection. The burnett-white differentiation is maintained without evidence of an acute infarct. There is no evidence of hydrocephalus. ORBITS: The visualized portion of the orbits demonstrate no acute abnormality. SINUSES: The visualized paranasal sinuses and mastoid air cells demonstrate no acute abnormality. SOFT TISSUES/SKULL: No acute abnormality of the visualized skull or soft tissues. IMPRESSION: No acute intracranial abnormality. [employer], ID CTA HEAD NECK W CONTRASTon 1 09-02-2018 EXAMINATION: CTA OF THE HEAD AND NECK WITH CONTRAST 07/03/2019 11:01 am TECHNIQUE: CTA of the head and neck was performed with the administration of intravenous contrast. Multiplanar reformatted images are provided for review. MIP images are provided for review. Stenosis of the internal carotid arteries measured using NASCET criteria. Dose modulation, iterative reconstruction, and/or weight based adjustment of the mA/kV was utilized to reduce the radiation dose to as low as reasonably achievable. COMPARISON: Noncontrast CT head from earlier today HISTORY: ORDERING SYSTEM PROVIDED HISTORY: syncope TECHNOLOGIST PROVIDED HISTORY: syncope Reason for Exam: fall Acuity: Unknown Type of Exam: Unknown FINDINGS: CTA NECK: AORTIC ARCH/ARCH VESSELS: No dissection or arterial injury. No significant stenosis of the brachiocephalic or subclavian arteries. CAROTID ARTERIES: No dissection, arterial injury, or hemodynamically significant stenosis by NASCET criteria. VERTEBRAL ARTERIES: There is left dominance of the vertebral arteries. No dissection, arterial injury, or significant stenosis. SOFT TISSUES: There is bronchial wall thickening, likely related to small airway disease or bronchiolitis. There is mild ground-glass attenuation at the lung apices, likely related to underdistention versus pneumonitis. There are mildly prominent mediastinal lymph nodes, likely reactive. No cervical lymphadenopathy. There is mild prominence of the bilateral palatine tonsils, likely reactive. No acute abnormality of the salivary and thyroid glands. BONES: No acute osseous abnormality. CTA HEAD: ANTERIOR CIRCULATION: No significant stenosis of the intracranial internal carotid, anterior cerebral, or middle cerebral arteries. No aneurysm. POSTERIOR CIRCULATION: There is left dominance of the vertebral arteries. There is hypoplastic right vertebral artery with partial occlusion in the proximal to mid V4 segment. There is 40% focal stenosis at the origin of the left [employer]. There is 30% focal stenosis in the P1 segment of the right [employer]. No significant stenosis of the left vertebral, or basilar cerebral arteries. No aneurysm. OTHER: No dural venous sinus thrombosis on this non-dedicated study. BRAIN: No mass effect or midline shift. No extra-axial fluid collection. 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 The burnett-white differentiation is maintained. [facility] Left dominance of th e vertebral arteries. 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 40% focal stenosis at the origin of the left [employer]. 30% focal stenosis in the P1 segment of the right [employer]. No acute abnormality or flow-limiting stenosis in the remainder of the major arteries of the head and neck. [facility] ID [place], [place] Incoming R adiant Results From [employer] - 07/03/2019 12:15 PM EST EXAMINATION: CTA OF THE HEAD AND NECK WITH CONTRAST 07/03/2019 11:01 am TECHNIQUE: CTA of the head and neck was performed with the administration of intravenous contrast. Multiplanar reformatted images are provided for review. MIP images are provided for review. Stenosis of the internal carotid arteries measured using NASCET criteria. Dose modulation, iterative reconstruction, and/or weight based adjustment of the mA/kV was utilized to reduce the radiation dose to as low as reasonably achievable. COMPARISON: Noncontrast CT head from earlier today HISTORY: ORDERING SYSTEM PROVIDED HISTORY: syncope TECHNOLOGIST PROVIDED HISTORY: syncope Reason for Exam: fall Acuity: Unknown Type of Exam: Unknown FINDINGS: CTA NECK: AORTIC ARCH/ARCH VESSELS: No dissection or arterial injury. No significant stenosis of the brachiocephalic or subclavian arteries. CAROTID ARTERIES: No dissection, arterial injury, or hemodynamically significant stenosis by NASCET criteria. VERTEBRAL ARTERIES: There is left dominance of the vertebral arteries. No dissection, arterial injury, or significant stenosis. SOFT TISSUES: There is bronchial wall thickening, likely related to small airway disease or bronchiolitis. There is mild ground-glass attenuation at the lung apices, likely related to underdistention versus pneumonitis. There are mildly prominent mediastinal lymph nodes, likely reactive. No cervical lymphadenopathy. There is mild prominence of the bilateral palatine tonsils, likely reactive. No acute abnormality of the salivary and thyroid glands. BONES: No acute osseous abnormality. CTA HEAD: ANTERIOR CIRCULATION: No significant stenosis of the intracranial internal carotid, anterior cerebral, or middle cerebral arteries. No aneurysm. POSTERIOR CIRCULATION: There is left dominance of the vertebral arteries. There is hypoplastic right vertebral artery with partial occlusion in the proximal to mid V4 segment. There is 40% focal stenosis at the origin of the left [employer]. There is 30% focal stenosis in the P1 segment of the right [employer]. No significant stenosis of the left vertebral, or basilar cerebral arteries. No aneurysm. OTHER: No dural venous sinus thrombosis on this non-dedicated study. BRAIN: No mass effect or midline shift. No extra-axial fluid collection. 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 The burnett-white differentiation is maintained. IMPRESSION: Left dominance of the vertebral arteries. 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 40% focal stenosis at the origin of the left [employer]. 30% focal stenosis in the P1 segment of the right [employer]. No acute abnormality or flow-limiting stenosis in the remainder of the major arteries of the head and neck. [facility], [place] CTA HEAD W CON AND CTA NECK W CONon 07-03-2019 CTA HEAD W CON AND CTA NECK W CON EXAMINATION: CTA OF THE HEAD AND NECK WITH CONTRAST 07/03/2019 11:01 am TECHNIQUE: CTA of the head and neck was performed with the administration of intravenous contrast. Multiplanar reformatted images are provided for review. MIP images are provided for review. Stenosis of the internal carotid arteries measured using NASCET criteria. Dose modulation, iterative reconstruction, and/or weight based adjustment of the mA/kV was utilized to reduce the radiation dose to as low as reasonably achievable. COMPARISON: Noncontrast CT head from earlier today HISTORY: ORDERING SYSTEM PROVIDED HISTORY: syncope TECHNOLOGIST PROVIDED HISTORY: syncope Reason for Exam: fall Acuity: Unknown Type of Exam: Unknown FINDINGS: CTA NECK: AORTIC ARCH/ARCH VESSELS: No dissection or arterial injury. No significant stenosis of the brachiocephalic or subclavian arteries. CAROTID ARTERIES: No dissection, arterial injury, or hemodynamically significant stenosis by NASCET criteria. VERTEBRAL ARTERIES: There is left dominance of the vertebral arteries. No dissection, arterial injury, or significant stenosis. SOFT TISSUES: There is bronchial wall thickening, likely related to small airway disease or bronchiolitis. There is mild ground-glass attenuation at the lung apices, likely related to underdistention versus pneumonitis. There are mildly prominent mediastinal lymph nodes, likely reactive. No cervical lymphadenopathy. There is mild prominence of the bilateral palatine tonsils, likely reactive. No acute abnormality of the salivary and thyroid glands. BONES: No acute osseous abnormality. CTA HEAD: ANTERIOR CIRCULATION: No significant stenosis of the intracranial internal carotid, anterior cerebral, or middle cerebral arteries. No aneurysm. POSTERIOR CIRCULATION: There is left dominance of the vertebral arteries. There is hypoplastic right vertebral artery with partial occlusion in the proximal to mid V4 segment. There is 40% focal stenosis at the origin of the left [employer]. There is 30% focal stenosis in the P1 segment of the right [employer]. No significant stenosis of the left vertebral, or basilar cerebral arteries. No aneurysm. OTHER: No dural venous sinus thrombosis on this non-dedicated study. BRAIN: No mass effect or midline shift. No extra-axial fluid collection. 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 The burnett-white differentiation is maintained. IMPRESSION: Left dominance of the vertebral arteries. 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 40% focal stenosis at the origin of the left [employer]. 30% focal stenosis in the P1 segment of the right [employer]. No acute abnormality or flow-limiting stenosis in the remainder of the major arteries of the head and neck. Interpreted by: Joselito Wagoner MD Signed by: Joselito Wagoner MD 07/03/19 Final result Normal [facility] Comp Metabolic Profon 2018 (cont.) Normal [facility] Comment on above: Result Comment: Aver age GFR for 70 or more years old: 75 mL/min/1.73sq m Chronic Kidney Disease: <60 mL/min/1.73sq m Kidney failure: <15 mL/min/1.73sq m eGFR calculated using average adult body mass. Additional eGFR calculator available at: http://www.[employer]/multiple_crcl_2011.htm Performed By: #### C DP, CP #### [facility] [address] [place] [address] Maori Physiotherapist: Tramaine Proctor MD Albumin [Mass/Vol] 3.5 g/dL Normal 3.5-5.2 [facility] Comment on above: Performed By: #### C DP, CP #### [facility] [address] [place] [address] Maori Physiotherapist: Tramaine Proctor MD Albumin/Globulin [Mass ratio] 1.0 {ratio} Normal 1.0-2.5 [facility] Comment on above: Performed By: #### C DP, CP #### [facility] [address] [place] [address] Maori Physiotherapist: Tramaine Proctor MD Alkaline Phos 54 U/L Normal 40-129 [facility] Comment on above: Performed By: #### C DP, CP #### [facility] [address] [place] [address] Maori Physiotherapist: Tramaine Proctor MD ALT [Catalytic activity/Vol] 41 U/L Normal 5-41 [facility] Comment on above: Performed By: #### C DP, CP #### [address] [address] Maori Physiotherapist: Tramaine Proctor MD Anion gap [Moles/Vol] 14 mmol/L Normal 9-17 [facility] Comment on above: Performed By: #### C DP, CP #### [address] [address] Maori Physiotherapist: Tramaine Proctor MD AST [Catalytic activity/Vol] 27 U/L Normal <40 [facility] Comment on above: Performed By: #### C DP, CP #### [address] [address] Maori Physiotherapist: Tramaine Proctor MD Bilirubin Ql (U) 0.41 mg/dL Normal 0.3-1.2 [facility] Comment on above: Performed By: #### C DP, CP #### [address] [address] Maori Physiotherapist: Tramaine Proctor MD Calcium [Mass/Vol] 9.2 mg/dL Normal 8.6-10.4 [facility] Comment on above: Performed By: #### C DP, CP #### [address] [address] Maori Physiotherapist: Tramaine Proctor MD Chloride [Moles/Vol] 101 mmol/L Normal 98-107 [facility] Comment on above: Performed By: #### C DP, CP #### [facility] [address] [place] [address] Maori Physiotherapist: Tramaine Proctor MD CO2 [Moles/Vol] 19 mmol/L Low 20-31 [facility] Comment on above: Performed By: #### C DP, CP #### [facility] [address] [place] [address] Maori Physiotherapist: Tramaine Proctor MD Creatinine [Mass/Vol] 1.49 mg/dL High 0.70-1.20 [facility] Comment on above: Performed By: #### C DP, CP #### [facility] [address] [place] [address] Maori Physiotherapist: Tramaine Proctor MD GFR, Amer 57 mL/min Low >60 [facility] Comment on above: Performed By: #### C DP, CP #### [address] [address] Maori Physiotherapist: Tramaine Proctor MD GFR,non Amer 47 mL/min Low >60 [facility] Comment on above: Performed By: #### C DP, CP #### [address] [address] Maori Physiotherapist: Tramaine Proctor MD Glucose [Mass/Vol] 260 mg/dL High 70-99 [facility] Comment on above: Performed By: #### C DP, CP #### [address] [address] Maori Physiotherapist: Tramaine Proctor MD Potassium [Moles/Vol] 4.6 mmol/L Normal 3.7-5.3 [facility] Comment on above: Performed By: #### C DP, CP #### [address] [address] Maori Physiotherapist: Tramaine Proctor MD Protein [Mass/Vol] 7.0 g/dL Normal 6.4-8.3 [facility] Comment on above: Performed By: #### C DP, CP #### [address] [address] Maori Physiotherapist: rTamaine Proctor MD Sodium [Moles/Vol] 134 mmol/L Low 135-144 [facility] Comment on above: Performed By: #### C DP, CP #### [facility] [address] [place] [address] Maori Physiotherapist: Tramaine Proctor MD Urea nitrogen [Mass/Vol] 17 mg/dL Normal 04-02 [facility] Comment on above: Performed By: #### C DP, CP #### [facility] [address] [place] [address] Maori Physiotherapist: Tramaine Proctor MD BUN/CRE Ratio NOT REPORTED Normal 04-30 [facility] Comment on above: Performed By: #### C DP, CP #### [facility] [address] [place] [address] Maori Physiotherapist: Tramaine Proctor MD Staging: NOT REPORTED Normal [facility] Comment on above: Performed By: #### C DP, CP #### [facility] [address] [place] [address] Maori Physiotherapist: Tramaine Proctor MD Comprehensive Metabolic [facility] 07-03-2019 Albumin [Mass/Vol] 3.5 g/dL 3.5 - 5.2 g/dL [place], [place] Albumin/Globulin [Mass ratio] 1.0 {ratio} [place] ALP [Catalytic activity/Vol] 54 U/L 40 - 129 U/L [place] ALT [Catalytic activity/Vol] 41 U/L 5 - 41 U/L [place] Anion gap [Moles/Vol] 14 mmol/L 9 - 17 mmol/L [place] AST [Catalytic activity/Vol] 27 U/L <40 [place] Bilirubin Ql (U) 0.41 mg/dL 0.3 - 1.2 mg/dL [place] Bun/Cre Ratio NOT REPORTED [place] Calcium [Mass/Vol] 9.2 mg/dL 8.6 - 10. 4 mg/dL [place] Chloride [Moles/Vol] 101 mmol/L 98 - 107 mmol/L [place] CO2 [Moles/Vol] 19 mmol/L Low 20 - 31 mmol/L [place] Creatinine [Mass/Vol] 1.49 mg/dL High 0.7 - 1.2 mg/dL [place] GFR 57 mL/min Low >60 [place] GFR Non- 47 mL/min Low >60 [place] GFR/1.73 sq M predicted among non-blacks MDRD (S/P/Bld) [Vol rate/Area] NOT REPORTED [place] GFR/1.73 sq M predicted among non-blacks MDRD (S/P/Bld) [Vol rate/Area] [place] Comment on above: Average GFR for 70 o r more years old: 75 mL/min/1.73sq m Chronic Kidney Disease: <60 mL/min/1.73sq m Kidney failure: <15 mL/min/1.73sq m eGFR calculated using average adult body mass. Additional eGFR calculator available at: http://www.[employer]/multiple_crcl_2012.htm Glucose [Mass/Vol] 260 mg/dL High 70 - 99 mg/dL [place] Interpretation and review of laboratory results Abnormal [place] Potassium [Moles/Vol] 4.6 mmol/L 3.7 - 5.3 mmol/L [place] Protein [Mass/Vol] 7.0 g/dL 6.4 - 8.3 g/dL [place] Sodium [Moles/Vol] 134 mmol/L Low 135 - 144 mmol/L [place] Urea nitrogen [Mass/Vol] 17 mg/dL 8 - 23 mg/dL [place] MRI BRAIN WO CONTRASTon 06-12 MRI BRAIN WO CONTRAST EXAMINATION: MRI OF THE BRAIN WITHOUT CONTRAST 07/03/2019 5:28 pm TECHNIQUE: Multiplanar multisequence MRI of the brain was performed without the administration of intravenous contrast. COMPARISON: CT head neck 07/03/2019 HISTORY: ORDERING SYSTEM PROVIDED HISTORY: r/o posterior stroke TECHNOLOGIST PROVIDED HISTORY: r/o posterior stroke FINDINGS: INTRACRANIAL STRUCTURES/VENTRICLES: There is no acute infarct. No mass effect or midline shift. No evidence of an acute intracranial hemorrhage. Mild generalized involutional change brain parenchyma identified prominence of the ventricles and sulci.. Mild periventricular subcortical T2 prolongation identified nonspecific but suggestive chronic microvascular disease. Chronic linear focus of gliosis identified left cerebellar hemisphere. Chronic lacune infarct identified right lentiform nucleus. The sellar/suprasellar regions appear unremarkable. Loss of flow void right V4 segment of the vertebral artery. ORBITS: The visualized portion of the orbits demonstrate no acute abnormality. SINUSES: The visualized paranasal sinuses and mastoid air cells are well aerated. BONES/SOFT TISSUES: The bone marrow signal intensity appears normal. The soft tissues demonstrate no acute abnormality. IMPRESSION: Mild involutional changes and chronic small ischemic disease. No acute stroke, midline shift or mass effect. 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 Loss of flow void right vertebral artery. Interpreted by: Channing Brown MD Signed by: Channing Brown MD 07/03/19 Final result Normal [facility] Mild involutional ch anges and chronic small ischemic disease. No acute stroke, midline shift or mass effect. 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 Loss of flow void right vertebral artery. [facility]: MRI OF THE BRAIN WITHOUT CONTRAST 07/03/2019 5:28 pm TECHNIQUE: Multiplanar multisequence MRI of the brain was performed without the administration of intravenous contrast. COMPARISON: CT head neck 07/03/2019 HISTORY: ORDERING SYSTEM PROVIDED HISTORY: r/o posterior stroke TECHNOLOGIST PROVIDED HISTORY: r/o posterior stroke FINDINGS: INTRACRANIAL STRUCTURES/VENTRICLES: There is no acute infarct. No mass effect or midline shift. No evidence of an acute intracranial hemorrhage. Mild generalized involutional change brain parenchyma identified prominence of the ventricles and sulci.. Mild periventricular subcortical T2 prolongation identified nonspecific but suggestive chronic microvascular disease. Chronic linear focus of gliosis identified left cerebellar hemisphere. Chronic lacune infarct identified right lentiform nucleus. The sellar/suprasellar regions appear unremarkable. Loss of flow void right V4 segment of the vertebral artery. ORBITS: The visualized portion of the orbits demonstrate no acute abnormality. SINUSES: The visualized paranasal sinuses and mastoid air cells are well aerated. BONES/SOFT TISSUES: The bone marrow signal intensity appears normal. The soft tissues demonstrate no acute abnormality. [facility] [facility] [place], [place] Incoming R adiant Results From [employer] - 07/03/2019 6:07 PM EST EXAMINATION: MRI OF THE BRAIN WITHOUT CONTRAST 07/03/2019 5:28 pm TECHNIQUE: Multiplanar multisequence MRI of the brain was performed without the administration of intravenous contrast. COMPARISON: CT head neck 07/03/2019 HISTORY: ORDERING SYSTEM PROVIDED HISTORY: r/o posterior stroke TECHNOLOGIST PROVIDED HISTORY: r/o posterior stroke FINDINGS: INTRACRANIAL STRUCTURES/VENTRICLES: There is no acute infarct. No mass effect or midline shift. No evidence of an acute intracranial hemorrhage. Mild generalized involutional change brain parenchyma identified prominence of the ventricles and sulci.. Mild periventricular subcortical T2 prolongation identified nonspecific but suggestive chronic microvascular disease. Chronic linear focus of gliosis identified left cerebellar hemisphere. Chronic lacune infarct identified right lentiform nucleus. The sellar/suprasellar regions appear unremarkable. Loss of flow void right V4 segment of the vertebral artery. ORBITS: The visualized portion of the orbits demonstrate no acute abnormality. SINUSES: The visualized paranasal sinuses and mastoid air cells are well aerated. BONES/SOFT TISSUES: The bone marrow signal intensity appears normal. The soft tissues demonstrate no acute abnormality. IMPRESSION: Mild involutional changes and chronic small ischemic disease. No acute stroke, midline shift or mass effect. 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 Loss of flow void right vertebral artery. [facility] [place], [place] Urinalysis w/ Microon 2018 ----- Normal [facility] Comment on above: Performed By: #### U AMIC #### [employer] [address] [place] [address] Maori Physiotherapist: Tramaine Proctor MD Acetoacetic Acid,Ur Negative Normal NEG [facility] Comment on above: Performed By: #### U AMIC #### [employer] [address] [place] [address] Maori Physiotherapist: Tramaine Proctor MD Bilirubin, SemiQt,Ur Negative Normal NEG [facility] Comment on above: Performed By: #### U AMIC #### [employer] [facility] [place] [address] Maori Physiotherapist: Tramaine Madoff, MD Casts LM.LPF (Urine sed) [#/Area] 2 TO 5 HYALINE Normal 0-8 [facility] Comment on above: Result Comment: Refe rence range defined for non-centrifuged specimen. Performed By: #### U AMIC #### [address] [address] Maori Physiotherapist: Tramaine Proctor MD Color (U) YELLOW Normal YEL [facility] Comment on above: Performed By: #### U AMIC #### [address] [address] Maori Physiotherapist: Tramaine Proctor MD Epithelial cells LM.HPF (Urine sed) [#/Area] 0 TO 2 Normal 0-5 [facility] Comment on above: Performed By: #### U AMIC #### [address] [address] Maori Physiotherapist: Tramaine Proctor MD Glucose Ql (U) TRACE Abnormal NEG [facility] Comment on above: Performed By: #### U AMIC #### [address] [address] Maori Physiotherapist: Tramaine Proctor MD Hemoglobin, Ur Negative Normal NEG [facility] Comment on above: Performed By: #### U AMIC #### [address] [address] Maori Physiotherapist: Tramaine Proctor MD Leukocyte esterase Test strip Ql (U) Negative Normal NEG [facility] Comment on above: Performed By: #### U AMIC #### [address] [address] Maori Physiotherapist: Tramaine Proctor MD Nitrite,Ur Negative Normal NEG [facility] Comment on above: Performed By: #### U AMIC #### [address] [address] Maori Physiotherapist: Tramaine Proctor MD pH (U) 5.0 [pH] Normal 5.0-8.0 [facility] Comment on above: Performed By: #### U AMIC #### [address] [address] Maori Physiotherapist: Tramaine Proctor MD Protein Ql (U) Negative Normal NEG [facility] Comment on above: Performed By: #### U AMIC #### [address] [address] Maori Physiotherapist: Tramaine Proctor MD RBC (U) [#/Vol] 2 TO 5 Normal 0-4 [facility] Comment on above: Result Comment: Refe rence range defined for non-centrifuged specimen. Performed By: #### U AMIC #### [address] [address] Maori Physiotherapist: Tramaine Proctor MD Specific gravity (U) [Rel density] 1.043 High 1.005-1.030 [facility] Comment on above: Performed By: #### U AMIC #### [address] [address] Maori Physiotherapist: Tramaine Proctor MD Turbidity CLEAR Normal CLEAR [facility] Comment on above: Performed By: #### U AMIC #### [address] [address] Maori Physiotherapist: Tramaine Proctor MD Urobilinogen,Ur Normal Normal NORM [facility] Comment on above: Performed By: #### U AMIC #### [address] [address] Maori Physiotherapist: Tramaine Proctor MD WBC (U) [#/Vol] 2 TO 5 Normal 0-5 [facility] Comment on above: Performed By: #### U AMIC #### [address] [address] Maori Physiotherapist: Tramaine Proctor MD Amorphous sediment LM Ql (Urine sed) NOT REPORTED Normal NONE [facility] Comment on above: Performed By: #### U AMIC #### [address] [address] Maori Physiotherapist: Tramaine Proctor MD Bacteria LM.HPF (Urine sed) [#/Area] NOT REPORTED Normal [facility] Comment on above: Performed By: #### U AMIC #### [address] [address] Maori Physiotherapist: Tramaine Proctor MD Crystals LM Nom (Urine sed) NOT REPORTED Normal [facility] Comment on above: Performed By: #### U AMIC #### [address] [address] Maori Physiotherapist: Tramaine Proctor MD Epithelial, Renal NOT REPORTED Normal 0 [facility] Comment on above: Performed By: #### U AMIC #### [address] [address] Maori Physiotherapist: Tramaine Proctor MD Mucus Strands NOT REPORTED Normal [facility] Comment on above: Performed By: #### U AMIC #### [address] [address] Maori Physiotherapist: Tramaine Proctor MD Other Observations NOT REPORTED Normal NREQ [facility] Comment on above: Performed By: #### U AMIC #### [address] [address] Maori Physiotherapist: Tramaine Proctor MD Trichomonas NOT REPORTED Normal [facility] Comment on above: Performed By: #### U AMIC #### [address] [address] Maori Physiotherapist: Tramaine Proctor MD Yeast LM Ql (Urine sed) NOT REPORTED Normal NONE [facility] Comment on above: Performed By: #### U [facility] #### [facility] [address] [place] [address] Maori Physiotherapist: Tramaine Proctor MD Urinalysis with microscopico n 07-03-2019 Amorphous, UA NOT REPORTED None [facility], [place] Bacteria, UA NOT REPORTED None [facility], [place] Bilirubin Urine Negative NEGATIVE [facility] [place] Casts UA 2 TO 5 HYALINE Refer ence range defined for non-centrifuged specimen. [facility] [place] Color, UA YELLOW YELLOW [facility] [place] Crystals UA NOT REPORTED None /HPF [facility] [place] Epithelial Cells UA 0 TO 2 [facility] [place] Glucose, Ur TRACE Abnormal NEGATIVE [place], [place] Interpretation and review of laboratory results Abnormal [place] Ketones Ql (U) Negative NEGATIVE [place] Leukocyte esterase Test strip Ql (U) Negative NEGATIVE [facility] [place] Mucus, UA NOT REPORTED None [place] Nitrite, Urine Negative NEGATIVE [place] Other Observations UA NOT REPORTED NOT REQ. [facility] [place] pH, UA 5.0 [place] Protein (U) [Mass/Vol] Negative NEGATIVE [place] RBC (U) [#/Vol] 2 TO 5 [place] Comment on above: Reference range defi john for non-centrifuged specimen. Renal Epithelial, Urine NOT REPORTED 0 /HPF [facility] [place] Specific [place], UA 1.043 High [place] Trichomonas, UA NOT REPORTED None [facility] [place] Turbidity UA CLEAR CLEAR [place] Urine Hgb Negative NEGATIVE [place] Urobilinogen, Urine Normal Normal [facility] [place] WBC, UA 2 TO 5 [facility] [place] Yeast, UA NOT REPORTED None [facility] [place] - [facility] [place] XR CHEST (2 VW)on 07-03-2019 XR CHEST (2 VW) EXAMINATION: TWO XRAY VIEWS OF THE CHEST 07/03/2019 10:10 am COMPARISON: None. HISTORY: ORDERING SYSTEM PROVIDED HISTORY: trauma TECHNOLOGIST PROVIDED HISTORY: trauma Reason for Exam: passed out, no chest complaints FINDINGS: The lungs are without acute focal process. There is no effusion or pneumothorax. The cardiomediastinal silhouette is mildly enlarged. The osseous structures are without acute process. IMPRESSION: No acute process. Mild cardiomegaly. Interpreted by: Micki Butler MD Signed by: Micki Butler MD 07/03/19 Final result Normal [facility] XR CHEST STANDARD (2 VW)on 09-02-2018 No acute process. Mi ld cardiomegaly. [place], [place], [facility] Incoming R adiant Results From [employer] - 07/03/2019 10:24 AM EST EXAMINATION: TWO XRAY VIEWS OF THE CHEST 07/03/2019 10:10 am COMPARISON: None. HISTORY: ORDERING SYSTEM PROVIDED HISTORY: trauma TECHNOLOGIST PROVIDED HISTORY: trauma Reason for Exam: passed out, no chest complaints FINDINGS: The lungs are without acute focal process. There is no effusion or pneumothorax. The cardiomediastinal silhouette is mildly enlarged. The osseous structures are without acute process. IMPRESSION: No acute process. Mild cardiomegaly. [place] EXAMINATION: TWO XRA Y VIEWS OF THE CHEST 07/03/2019 10:10 am COMPARISON: None. HISTORY: ORDERING SYSTEM PROVIDED HISTORY: trauma TECHNOLOGIST PROVIDED HISTORY: trauma Reason for Exam: passed out, no chest complaints FINDINGS: The lungs are without acute focal process. There is no effusion or pneumothorax. The cardiomediastinal silhouette is mildly enlarged. The osseous structures are without acute process. [place] Vital Signs Date Time Vital Sign Value Performing Clinician Facility 06-23-2023 13:51-0500 Diastolic blood pressure 81 mm[Hg] Apolinar Forrest MD Work Phone: [facility] 06-23-2023 13:51-0500 Systolic blood pressure 133 mm[Hg] Apolinar Forrest MD Work Phone: [facility] 06-23-2023 13:47-0500 Body height 170.2 cm Apolinar Forrest MD Work Phone: [facility] 06-23-2023 13:47-0500 Body temperature 97 [degF] Apolinar Forrest MD Work Phone: [facility] 06-23-2023 13:47-0500 Body weight 104.87 kg Apolinar Forrest MD Work Phone: [facility] 06-23-2023 13:47-0500 Heart rate 98 /min Apolinar Forrest MD Work Phone: [facility] 06-23-2023 13:47-0500 Respiratory rate 16 /min Apolinar Forrest MD Work Phone: [facility] 06-23-2023 13:47-0500 SaO2% (BldA) [Mass fraction] 93 % Apolinar Forrets MD Work Phone: [facility] 01-20-2023 09:25-0400 Body temperature 97.59 [degF] Surinder Mckoy MD Work Phone: [facility] 01-20-2023 09:25-0400 Body weight 100.79 kg Surinder Mckoy MD Work Phone: [facility] 01-20-2023 09:25-0400 Diastolic blood pressure 84 mm[Hg] Surinder Mckoy MD Work Phone: [facility] 01-20-2023 09:25-0400 Heart rate 103 /min Surinder Mckoy MD Work Phone: [facility] 01-20-2023 09:25-0400 Respiratory rate 18 /min Surinder Mckoy MD Work Phone: [facility] 01-20-2023 09:25-0400 SaO2% (BldA) [Mass fraction] 97 % Surinder Mckoy MD Work Phone: [facility] 01-20-2023 09:25-0400 Systolic blood pressure 122 mm[Hg] Surinder Mckoy MD Work Phone: [facility] 06-24-2022 14:15-0500 Body height 170.2 cm Apolinar Forrest MD Work Phone: [facility] 06-24-2022 14:15-0500 Body temperature 97 [degF] Apolinar Forrest MD Work Phone: [facility] 06-24-2022 14:15-0500 Body weight 102.69 kg Apolinar Forrest MD Work Phone: [facility] 06-24-2022 14:15-0500 Diastolic blood pressure 96 mm[Hg] Apolinar Forrest MD Work Phone: [facility] 06-24-2022 14:15-0500 Heart rate 111 /min Apolinar Forrest MD Work Phone: [facility] 06-24-2022 14:15-0500 Respiratory rate 16 /min Apolinar Forrest MD Work Phone: [facility] 06-24-2022 14:15-0500 SaO2% (BldA) [Mass fraction] 97 % Apolinar Forrest MD Work Phone: [facility] 06-24-2022 14:15-0500 Systolic blood pressure 140 mm[Hg] Apolinar Forrest MD Work Phone: [facility] 12-24-2021 14:14-0400 Body temperature 97.59 [degF] Surinder Mckoy MD Work Phone: [facility] 12-24-2021 14:14-0400 Body weight 101.15 kg Surinder Mckoy MD Work Phone: [facility] 12-24-2021 14:14-0400 Diastolic blood pressure 78 mm[Hg] Surinder Mckoy MD Work Phone: [facility] 12-24-2021 14:14-0400 Heart rate 105 /min Surinder Mckoy MD Work Phone: [facility] 12-24-2021 14:14-0400 Respiratory rate 18 /min Surinder Mckoy MD Work Phone: [facility] 12-24-2021 14:14-0400 Systolic blood pressure 122 mm[Hg] Surinder Mckoy MD Work Phone: [facility] 12-24-2021 13:24-0400 Body height 170.2 cm Apolinar Forrest MD Work Phone: [facility] 12-24-2021 13:24-0400 Body temperature 97.59 [degF] Apolinar Forrest MD Work Phone: [facility] 12-24-2021 13:24-0400 Body weight 101.15 kg Apolinar Forrest MD Work Phone: [facility] 12-24-2021 13:24-0400 Diastolic blood pressure 78 mm[Hg] Apolinar Forrest MD Work Phone: [facility] 12-24-2021 13:24-0400 Heart rate 105 /min Apolinar Forrest MD Work Phone: [facility] 12-24-2021 13:24-0400 Respiratory rate 18 /min Apolinar Forrest MD Work Phone: [facility] 12-24-2021 13:24-0400 SaO2% (BldA) [Mass fraction] 96 % Apolinar Forrest MD Work Phone: [facility] 12-24-2021 13:24-0400 Systolic blood pressure 122 mm[Hg] Apolinar Forrest MD Work Phone: [facility] 07-03-2019 16:46-0500 BP Diastolic 86 mm[Hg] [place] [facility] [place] 07-03-2019 16:46-0500 BP Systolic 143 mm[Hg] [place] [facility] [place] 07-03-2019 16:46-0500 Pulse (Heart Rate) 87 /min [place] [facility] 07-03-2019 16:46-0500 Pulse Oximetry 96 % [place] [facility] [place] 07-03-2019 09:07-0500 BMI (Body Mass Index) 33.45 kg/m2 Champ Vogel [facility] 07-03-2019 09:07-0500 Body Temperature 98.29 [degF] Champ Vogel [facility] [place] 07-03-2019 09:07-0500 Body weight 99.79 kg Champ Vogel [facility] [place] 07-03-2019 09:07-0500 Height 172.7 cm Champ Vogel [facility] [place] 07-03-2019 09:07-0500 Respiratory Rate 18 /min Champ Vogel [facility] [place] Encounters Encounter Date Encounter Type Care Provider Facility Start: 10-10-2023 End: 10-10-2023 ambulatory APOLINAR FORREST Facility:[facility] Start: 09-30-2023 End: 09-30-2023 ambulatory [facility] Start: 08-29-2023 End: 09-11-2023 ambulatory [facility] Start: 07-15-2023 End: 07-15-2023 ambulatory [facility] Start: 06-23-2023 End: 06-23-2023 ambulatory APOLINAR FORREST Facility:[facility] Start: 06-23-2023 End: 06-23-2023 Office outpatient visit 25 minutes Apolinar Forrest MD Work Phone: Hematology/Oncology Comment on above: Secondary polycythem ia (Primary Dx); MELVIN (obstructive sleep apnea); Prostate cancer (HCC) Start: 06-16-2023 End: 06-16-2023 ambulatory PEARL ESTEVEZ Facility:[facility] Start: 03-11-2023 End: 03-11-2023 ambulatory [facility] Start: 01-20-2023 End: 01-20-2023 ambulatory PEARL Fawn MALLORIE Facility:[facility] Start: 01-20-2023 End: 01-20-2023 Patient encounter procedure Surinder Mckoy MD Work Phone: Radiation Oncology Comment on above: Prostate cancer (HCC ) (Primary Dx) Start: 12-27-2022 End: 12-27-2022 ambulatory [facility] Start: 12-24-2022 End: 12-25-[address] PEARL ESTEVEZ . Facility:[facility] Start: 12-03-2022 End: 12-04-[address] PEARL ESTEVEZ . Facility:[facility] Start: 11-15-2022 End: 11-15-[address] MICHAEL GAMBINO . Facility:[facility] Start: 09-11-2022 End: 09-12-[address] PEARL ESTEVEZ . Facility:[facility] Start: 08-21-2022 End: 08-21-2022 ambulatory JONATHAN PARK . Facility:[facility] Start: 07-10-2022 End: 07-10-[address] PEARL ESTEVEZ . Facility:[facility] Start: 06-24-2022 End: 06-24-2022 ambulatory Apolinar Forrest MD Work Phone: Hematology/Oncology Comment on above: Prostate cancer (HCC ) (Primary Dx) Start: 06-24-2022 End: 06-24-2022 Patient encounter procedure Apolinar Forrest MD Work Phone: [facility] Start: 06-17-2022 Telephone encounter Apolinar massey MD Work Phone: Hematology/Oncology Comment on above: Lab Orders Start: 12-24-2021 End: 12-24-2021 ambulatory Apolinar Forrest MD Work Phone: Hematology/Oncology Comment on above: Prostate cancer (HCC ) (Primary Dx) Start: 12-24-2021 End: 12-24-2021 Patient encounter procedure Apolinar Forrest MD Work Phone: [facility] Comment on above: Prostate cancer (HCC ) (Primary Dx) Start: 07-03-2019 End: 07-03-2019 Emergency department patient visit HENRY HARRIS [facility] Start: 07-03-2019 End: 07-03-2019 Emergency department patient visit Champ Canada [facility] ED Comment on above: Syncope and collapse (Primary Dx) Procedures Date Procedure Procedure Detail Performing Clinician Start: 09-11-[address] MYRNA ESTEVEZ . Comment on above: Performed By: #### H [facility] #### [facility] [address] [address] [address] Jack Sapp Start: 12-24-2021 Adult depression scr eening assessment Apolinar Forrest MD Work Phone: Start: 04-02-2021 Lipid 1996 panel - S jailene or Plasma Apolinar Forrest MD Work Phone: Start: 07-03-2019 Mri brain brain stem w/o contrast material SUBRAHMANYAM CHODISETTY Start: 07-03-2019 ORTHOSTATIC BLOOD NV ESSURE AND PULSE SUBRAHMANYAM CHODISETTY Start: 07-03-2019 IP CONSULT TO SUPERVISOR [employer] [facility] SUBRAHMANYAM CHODISETTY Start: 07-03-2019 Mri brain brain stem w/o contrast material Sunshine Thomas Work Phone: Start: 07-03-2019 Urnls dip stick/tabl et reagent auto microscopy SUBRAHMANYAM CHODISETTY Start: 07-03-2019 ORTHOSTATIC BLOOD NV ESSURE AND PULSE SUBRAHMANYAM CHODISETTY Start: 07-03-2019 Urnls dip stick/tabl et reagent auto microscopy Ren Burger Work Phone: Start: 07-03-2019 IP CONSULT TO NEUROLOGY SUBRAHMANYAM CHODISETTY Start: 07-03-2019 Ct angiography head w/contrast/noncontrast SUBRAHMANYAM CHODISETTY Start: 07-03-2019 Ct head/brain w/o co ntrast material SUBRAHMANYAM CHODISETTY Start: 07-03-2019 Blood count complete auto&auto difrntl wbc SUBRAHMANYAM CHODISETTY Start: 07-03-2019 Comprehensive metabo lic panel SUBRAHMANYAM CHODISETTY Start: 07-03-2019 Ecg routine ecg w/le ast 12 lds w/i&r SUBRAHMANYAM CHODISETTY Start: 07-03-2019 Ct angiography neck w/contrast/noncontrast Ren Burger Work Phone: Start: 07-03-2019 Ct head/brain w/o co ntrast material Ren Burger Work Phone: Start: 07-03-2019 Radiologic exam ches t 2 views Ren Burger Work Phone: Start: 07-03-2019 Blood count complete auto&auto difrntl wbc Ren Burger Work Phone: Start: 07-03-2019 Comprehensive metabo lic panel Ren Burger Work Phone: Plan of Treatment Date Care Activity Detail Author Start: 06-16-2026 Diabetes Screening Diabetes Screenin g [facility] Start: 04-02-2026 Lipid 1996 panel - S jailene or Plasma Lipid Screening [facility] Start: 04-02-2026 LIPID SCREEN LIPID SCREEN [facility] Start: 12-20-2024 DIABETES SCREEN DIABETES SCREEN [facility] Start: 06-23-2024 End: 06-23-2024 CBC W Auto Differential panel - Blood CBC + DIFF Lab Routine Prostate cancer (HCC) Expected: 06/23/2024 (Approximate), Expires: 06/23/2024 [facility] Work Phone: Comment on above: Expected: 06/23/2024 (Approximate), Expires: 06/23/2024 Start: 06-23-2024 End: 06-23-2024 Comprehensive metabolic 2000 panel - Serum or Plasma COMP METABOLIC PANEL Lab Routine Prostate cancer (HCC) Expected: 06/23/2024 (Approximate), Expires: 06/23/2024 [facility] Work Phone: Comment on above: Expected: 06/23/2024 (Approximate), Expires: 06/23/2024 Start: 06-23-2024 End: 09-22-2024 Prostate specific Ag [Mass/volume] in Serum or Plasma PSA/PROSTSPECAG DIAG Lab Routine Prostate cancer (HCC) Expected: 06/23/2024 (Approximate), Expires: 09/22/2024 [facility] Work Phone: Comment on above: Expected: 06/23/2024 (Approximate), Expires: 09/22/2024 Start: 09-23-2023 End: 06-23-2024 CBC W Auto Differential panel - Blood CBC + DIFF Lab Routine Secondary polycythemia MELVIN (obstructive sleep apnea) Expected: 09/23/2023 (Approximate), Expires: 06/23/2024 [facility] Work Phone: Comment on above: Expected: 09/23/2023 (Approximate), Expires: 06/23/2024 Start: 09-23-2023 End: 06-23-2024 Comprehensive metabolic 2000 panel - Serum or Plasma COMP METABOLIC PANEL Lab Routine Secondary polycythemia MELVIN (obstructive sleep apnea) Expected: 09/23/2023 (Approximate), Expires: 06/23/2024 [facility] Work Phone: Comment on above: Expected: 09/23/2023 (Approximate), Expires: 06/23/2024 Start: 09-23-2023 End: 12-23-2023 Erythropoietin (EPO) [Units/volume] in Serum or Plasma ERYTHROPOIETIN/EPO Lab Routine Secondary polycythemia MELVIN (obstructive sleep apnea) Expected: 09/23/2023 (Approximate), Expires: 12/23/2023 [facility] Work Phone: Comment on above: Expected: 09/23/2023 (Approximate), Expires: 12/23/2023 Start: 09-23-2023 End: 12-23-2023 RETIC COUNT RETIC COUNT Lab Routine Secondary polycythemia MELVIN (obstructive sleep apnea) Expected: 09/23/2023 (Approximate), Expires: 12/23/2023 [facility] Work Phone: Comment on above: Expected: 09/23/2023 (Approximate), Expires: 12/23/2023 Start: 06-24-2023 End: 06-24-2023 CBC W Auto Differential panel - Blood CBC + DIFF Lab Routine Prostate cancer (HCC) Expected: 06/24/2023 (Approximate), Expires: 06/24/2023 [facility] Work Phone: Comment on above: Expected: 06/24/2023 (Approximate), Expires: 06/24/2023 Start: 06-24-2023 End: 06-24-2023 Comprehensive metabolic 2000 panel - Serum or Plasma COMP METABOLIC PANEL Lab Routine Prostate cancer (HCC) Expected: 06/24/2023 (Approximate), Expires: 06/24/2023 [facility] Work Phone: Comment on above: Expected: 06/24/2023 (Approximate), Expires: 06/24/2023 Start: 06-24-2023 End: 08-24-2023 Prostate specific Ag [Mass/volume] in Serum or Plasma PSA/PROSTSPECAG DIAG Lab Routine Prostate cancer (HCC) Expected: 06/24/2023 (Approximate), Expires: 08/24/2023 [facility] Work Phone: Comment on above: Expected: 06/24/2023 (Approximate), Expires: 08/24/2023 Start: 04-11-2023 Covid-19 Vaccine () Covid-19 Vaccine () [facility] Start: 04-11-2023 Influenza vaccination Influenza Vacc ine (#1) [facility] Start: 01-31-2023 End: 04-02-2023 Prostate specific Ag [Mass/volume] in Serum or Plasma PSA/PROSTSPECAG DIAG Lab Routine Prostate cancer (HCC) Expected: 01/31/2023 (Approximate), Expires: 04/02/2023 [facility] Work Phone: Comment on above: Expected: 01/31/2023 (Approximate), Expires: 04/02/2023 Start: 12-24-2022 Adult depression screening assessment DEPRESSION SCREENING [facility] Start: 08-11-2022 ADVANCE DIRECTIVE DISCUSSION ADVANCE DIRECTIVE DISCUSSION [facility] Start: 08-11-2022 DEPRESSION ASSESSMENT DEPRESSION ASS ESSMENT [facility] Start: 04-11-2022 Influenza vaccination INFLUENZ A (Season Ended) [facility] Start: 10-23-2021 COVID-19 VACCINE (4 - Booster for Moderna series) COVID-19 VACCINE (4 - Booster for Moderna series) [facility] Start: 08-20-2021 COVID-19 VACCINE (4 - Booster for Moderna series) COVID-19 VACCINE (4 - Booster for Moderna series) [facility] Start: 08-11-2021 ADVANCE DIRECTIVE DISCUSSION ADVANCE DIRECTIVE DISCUSSION [facility] Start: 08-11-2021 DEPRESSION ASSESSMENT DEPRESSION ASS ESSMENT [facility] Start: 07-03-2019 Annual Wellness Visi t (AWV) Annual Wellness Visit (AWV) [place], [place] Start: 04-11-2019 Influenza vaccination Flu vaccine (# 1) [place] Start: 07-23-2018 Pneumococcal Vaccine : 65+ (2 - PPSV23 or PCV20) Pneumococcal Vaccine: 65+ (2 - PPSV23 or PCV20) [facility] Start: 07-23-2018 PNEUMOCOCCAL: 65+ (2 - PPSV23 if available, else PCV20) PNEUMOCOCCAL: 65+ (2 - PPSV23 if available, else PCV20) [facility] Start: 07-23-2018 PNEUMOCOCCAL: 65+ (2 - PPSV23 or PCV20) PNEUMOCOCCAL: 65+ (2 - PPSV23 or PCV20) [facility] Start: 2013 Pneumococcal 65+ yea rs Vaccine (1 of 1 - PPSV23) Pneumococcal 65+ years Vaccine (1 of 1 - PPSV23) [place], [place] Start: 2013 PNEUMOVAX AGE 65 AND OVER WITH 5YR LOOKBACK (#1) PNEUMOVAX AGE 65 AND OVER WITH 5YR LOOKBACK (#1) [facility] Start: 2008 RSV Vaccine (1 - 1-d ose 60+ series) RSV Vaccine (1 - 1-dose 60+ series) [facility] Start: 1998 Colon cancer screen colonoscopy Colon cancer screen colonoscopy [place], [place] Start: 1998 Shingles Vaccine (1 of 2) Shingles Vaccine (1 of 2) [place] Start: 1998 SHINGRIX VACCINE (1 of 2) SHINGRIX VACCINE (1 of 2) [facility] Start: 1993 COLOGUARD (FIT-DNA) COLOGUARD (FIT-D NA) [facility] Start: 1993 Colonoscopy COLONOSCOPY [facility] Start: 1993 COLORECTAL CANCER SCREENING COLORECTAL CANCER SCREENING [facility] Start: [address] COLONOGRAPHY [facility] Start: 1993 FECAL OCCULT BLOOD FECAL OCCULT BLOO D [facility] Start: 1993 [facility] Start: 1988 Diabetes screen Diabetes screen [place], [place] Start: 1988 Lipid screen Lipid screen [place], [place] Start: 11-15-1967 Urine microalbumin profile [facility] Start: 1966 HEPATITIS C SCREENING HEPATITIS C SC DARIUS [facility] Start: 11-15-1959 DTaP/Tdap/Td vaccine (1 - Tdap) DTaP/Tdap/Td vaccine (1 - Tdap) [place] Start: 1948 ABDOMINAL AORTIC ANEURYSM SCREENING ABDOMINAL AORTIC ANEURYSM SCREENING [facility] Start: 1948 Creatinine monitoring Creatinine mon itoring [place], [place] Start: 1948 Hepatitis C screen Hepatitis C mary carmene n [place], [place] Start: 1948 Potassium monitoring Potassium monit oring [facility] Immunizations Immunization Date Immunization Notes Care Provider Fa cili 06-12-2022 influenza virus vacc ine, unspecified formulation Apolinar Forrest MD Work Phone: [facility] 11-01-2020 COVID-19 vaccine, fu ll dose (MODERNA) Apolinar Forrest MD Work Phone: [facility] 10-05-2020 COVID-19 vaccine, fu ll dose (MODERNA) Apolinar Forrest MD Work Phone: [facility] 05-31-2020 Seasonal trivalent influenza vaccine, adjuvanted, preservative free Apolinar Forrest MD Work Phone: [facility] 07-23-2017 influenza virus vacc ine, unspecified formulation Apolinar Forrest MD Work Phone: [facility] 07-23-2017 pneumococcal conjuga te vaccine, 13 valent Apolinar Forrest MD Work Phone: [facility] Payers Date Payer Category Payer Medicare MEDICARE MEDICAR E PART A AND B [id number] 2014-Present [phone] [place] [address] xxxxxxxxxxx [id number] 2013 Medicare MEDICARE MEDICAR E A AND B [id number] 2013-Present [phone] [place] [address] Medicare [id number] 2013 Medicare MEDICARE MEDICAR E A AND B [id number] 2013-Present [phone] [place] [address] Medicare [id number] 1959 Medicare [id number] 1948 Unknown [id number] 1948 Unknown [id number] 1948 Unknown [id number] 1948 Unknown [id number] 1948 Unknown [id number] 1948 Unknown [id number] 1948 Unknown [id number] 1948 Unknown [id number] Social History Date Type Detail Facility Start: 07-03-[facility] [place] Start: 1950 Sex Assigned At Not on file [place] Start: 07-30-2018 End: 06-24-2022 Tobacco smoking status NHIS Ex-smoker [facility] Start: 07-30-2018 End: 06-24-2022 Tobacco use and exposure Smokeless tobacco non-user [facility] Start: 12-24-2021 End: 06-24-2022 Alcohol intake Current non-drinker of alcohol (finding) [facility] Start: 12-14-2021 End: 06-24-2022 Exposure to SARS-CoV-2 (event) Not sure [facility] History of tobacco use Current smoker [facility] History of tobacco use Passive smoker [facility] Start: 06-24-2022 End: 01-20-2023 History of Social function [facility] Start: 06-24-2022 End: 01-20-2023 Tobacco use panel [facility] Adult Depression Screening Assessment 0 [facility] Clinical Notes 12-24-2021 to 10-10-2023 Patient InstructionsApolinar Forrest MD - 06/23/2023 2:00 PM Jennifer Mckoy MD - 01/20/2023 1:15 PM EDTPatient InstructionsApolinar Forrest MD - 06/24/2022 2:00 PM EST Note Date & Type Note Facility 10-10-2023 Note HNO ID: [id number] Author: APOLINAR FORRSET MD Service: ? Author Type: Physician Type: Progress Notes Filed: 10/11/2023 06:05 Note Text: NAME: Melvi Davies CLINIC NO.: [id number] DATE OF SERVICE: October 10, 2023 (Adriane) Some elements in this clinic note that are critical to medical decision making have been carefully reviewed and included from a prior clinic note dated: June 23, 2023 (Adriane) Referring Provider: Pearl Estevez MD Additional Clinicians involved in Melvi Davies's care: CC: here for follow up ASSESSMENT: 72 year old gentleman with Prostatectomy for [place] 7 (4+3) prostate cancer 05/2016. Began Lupron in June 2018 for rising PSA to 1.57. CT imaging of the time showed concern for L1 and/or L2 bony disease. Not conclusive though. Continued Lupron through August 2019. I do not have good PSA documentation except in January 2019 seems his PSA was responding nicely with a value of 0.10. Unfortunately, he was unable to tolerate Lupron and is reluctant to try it again. 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 Noted that his H/H was increasing saw him 3 months to reassess - which now shows improvement and reflects regular use of CPAP. PLAN: Labs in 6 months, include PSA RTC same day to assess polycythemia Patient is not interested in Lupron due to side effects. - Would consider Orgovyx in future if needed. ___ HPI: CASE HISTORY: Reverse Chronological Order 03/2021 - current: Coumadin 03/2021 - Mild CVA - recovered 02/02/2021 - Completed salvage RT 06/2018 - 08/2018 Lupron - stopped due to intolerance caused by arrhythmias and syncope. 06/2018 - PSA Rising 1.57 05/2016 - prostatectomy GL 7 (4+3) Updated Visit, October 10, 2023: Raulito returns today. He is due to have ablation, but is trying to find a [facility] location that works for him. He had PSA done on 2 days ago at [place], they called him to report it looks good. Daily CPAP use is apparent on his labs. 2 of his younger brothers have , another just had an MT. His nephew also passed of heart issues. He also spoke about his late 's passing many years ago but appreciated her care at [facility]. Updated Visit, June 23, 2023: Raulito returns today for a follow up. He is feeling tired because of his intolerance to his current CPAP settings. Has sleep apnea and has a CPAP, but is having trouble with the mask, because of that it appears it is affecting his oxygenation reflecting in his elevated H/H. No evidence of recurrent prostate cancer. PSA is 0. He reports a prior hx of smoking. He is still taking coumadin for his prior stroke. Updated Visit, June 24, 2022: 06/17/2022 PSA < 0.02. No complaints. No needs for intervention. Follows with Dr. Estevez for kidney disease Continues coumadin - for CVA in 03/2021 Updated Visit, December 24, 2021: Doing well. Still on coumadin and has no issues with his prior CVA Kidneys may need evaluation - defer to PCP Started Jardiance - blood sugars are better PSA remains suppressed. Updated Visit, August 23, 2021: Feels well and is doing well overall. PSA continues to decline. No other issues. PSA remains suppressed. Updated Visit, May 17, 2021: Raulito is 70 yo returns today for prostate cancer with rising PSA s/p radiation for local control. Patient is intolerant to androgen suppression and so we elected RT for disease control. PSA is responding very well. PSA is reduced to 0.04 ng/mL. Completed Radiaiton 02/02/2021. Recovering from a mild stroke in March 2021 and has fully recovered. Is now anticoagulated with Coumadin and is managed at a coumadin clinic. Updated Visit, December 14, 2020: Raulito is doing well and has started Radiation to the prostatic bed for rising PSA. Has completed both COVID-19 vaccination. Is doing alright. He has completed 4 doses of 39 scheduled fractions. Updated Visit, June 12, 2020: Raulito is 69 yo and really struggled with his prior treatment with Lupron Depot. He describes having issues with accelerated heart rate and passing out. His blood pressure s now normalized and he is doing well after discontinuing his Lupron. 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 Updated Visit, March 13, 2020: Raulito is 69 years old and presents today to transition his care to my service. He has prostate cancer [place]'s 4+3 = 7. He has had a prostatectomy in May 2016 and had a PSA rise in June 2018. He was started on Lupron and had been on Lupron which he couldn't tolerate lupron due to arrhythmias - so he stopped in August after he fainted and needed to be hospitalized. Continue monitoring. He is open to taking lupron again in the future if needed but in smaller doses using a monthly Depo instead of a longer-term depot. (more content not included)... [facility] 09-30-2023 Note [facility] Electrophysiology Consult Note: [facility] Reason for visit: afib 09/30/23 Patient here to discuss possible afib ablation per Kellen Black CNP. She saw him as inpatient consult recently when he was in Afib/flutter with RVR. Says he's taking flecainide once daily. Denies chest pain, SOB, palpitations, lightheadedness/syncope, and bleeding on Xarelto. HPI: Melvi Davies is a 72 y.o. year old with past medical history of prostate cancer, TIA.with recent A-fib from August 2022 went to [facility] and was treated with Cardizem and started on warfarin. He did not follow-up with his PCP had echo done and stress test ordered. He had a repeat ER visit/03/02 where he was treated again with Cardizem. He has been on max dose of Cardizem 300 mg a day and continues to have breakthrough episodes.He laos has prostate cancer he was given Lupron for Ca 2017, then had afib, stopped lurpon and continued to be on Eliquis but continued to have breakthrough episodes of A-fib. He has never been on an antiarrhythmic and has never been cardioverted. He was seen by [facility] and a stress test was done that was negative. So Flecanide was started at 50mg bid and not uptitrated due to BBB. He states he is actually had no side effects and has been feeling very well. He has no complaints of chest pain, shortness of breath, APARICIO, lightness, dizziness, palpitations, LE edema. ECG 03/11/23 Sinus rhythm QRS 120 01/07/23 SR normal qrs 12/27/22 sinus rhythm. PMH: Past Medical History: Diagnosis Date Abnormal ECG Arrhythmia Atrial fibrillation (CMS/HCC) Cancer (CMS/HCC) Diabetes mellitus (CMS/HCC) Sleep apnea Stroke (CMS/HCC) Patient Active Problem List Diagnosis Increasing prostate specific antigen (PSA) level after treatment for malignant neoplasm of prostate senior care (current) use of anticoagulants Obesity (BMI 30-39.9) Persistent atrial fibrillation (CMS/HCC) Prostate cancer (CMS/HCC) TIA (transient ischemic attack) MELVIN (obstructive sleep apnea) Benign hypertensive heart disease without congestive heart failure Paroxysmal atrial fibrillation (CMS/HCC) Essential hypertension PSH: Past Surgical History: Procedure Laterality Date PROSTATECTOMY SH: Social Determinants of Health Tobacco Use: Medium Risk (03/11/2023) Patient History Smoking Tobacco Use: Former Smokeless Tobacco Use: Never Passive Exposure: Not on file Alcohol Use: Not on file Financial Resource Strain: Not on file Food Insecurity: Not on file Transportation Needs: Not on file Physical Activity: Not on file Stress: Not on file Social Connections: Not on file Intimate Partner Violence: Not on file Depression: Not on file Housing Stability: Not on file Utilities: Not on file Allergies: Allergies Allergen Reactions Ciprofloxacin Other reaction(s): Mental Status Change Desonide Other reaction(s): Unknown Other reaction(s): Unknown Lactose Other reaction(s): Unknown Other reaction(s): Unknown Pbywseb-Jvx-Xrq Reductase Inhibitors Other Other reaction(s): Other (See Comments) Says right leg when numb with all statins Weight: 103kg Visit Vitals BP 116/70 (BP Location: Right arm, Patient Position: Sitting) Pulse 88 Ht 1.702 m (5' 7 ) Wt 103 kg (228 lb) SpO2 95% BMI 35.71 kg/m??? Smoking Status Former BSA 2.21 m??? Meds: Current Outpatient Medications on File Prior to Visit Medication Sig Dispense Refill dilTIAZem CD (Cardizem CD) 180 mg 24 hr capsule Take 180 mg by mouth in the morning. flecainide (Tambocor) 50 mg tablet Take 1 tablet (50 mg) by mouth in the morning and at bedtime. (Patient taking differently: Take 50 mg by mouth once daily as directed.) 60 tablet 11 glimepiride (Amaryl) 4 mg tablet Take 4 mg by mouth in the morning. hydrALAZINE (Apresoline) 50 mg tablet Take 100 mg by mouth in the morning and at bedtime. Januvia 100 mg tablet Take 100 mg by mouth in the morning. Jardiance 10 mg Take 10 mg by mouth in the morning. olmesartan (BENIcar) 20 mg tablet Take 20 mg by mouth in the morning. rivaroxaban (Xarelto) 20 mg tablet Take 1 tablet (20 mg) by mouth once daily as directed. Take with food. 100 tablet 3 dilTIAZem CD (Cardizem CD) 120 mg 24 hr capsule Take 1 capsule (120 mg) by mouth in the morning. 30 capsule 11 warfarin (Coumadin) 5 mg tablet Take 5 mg by mouth 1 (one) time. No current facility-administered medications on file prior to visit. ROS: Review of Systems HENT: Positive for hearing loss. Respiratory: Positive for cough and snoring. All other systems reviewed and are negative. Physical Exam: Constitutional General Appearance: well-nourished, well-developed, appears stated age Level of Distress: comfortable Psychiatric Mental Status: alert, normal affect Orientation: oriented to time, place, and person Insight: good judgement Eyes Lids and Conjunctivae: non-injected, no xanthelasma ENMT Ears: no lesions on external ear (more content not included)... [facility] 07-15-2023 Note [place] Electrophysiology Consult Note: [place] Reason for visit: afib HPI: Melvi Davies is a 72 y.o. year old with past medical history of prostate cancer, TIA.with recent A-fib from August 2022 went to [place] ER and was treated with Cardizem and started on warfarin. He did not follow-up with his PCP had echo done and stress test ordered. He had a repeat ER visit/03/02 where he was treated again with Cardizem. He has been on max dose of Cardizem 300 mg a day and continues to have breakthrough episodes.He laos has prostate cancer he was given Lupron for Ca 2017, then had afib, stopped lurpon and continued to be on Eliquis but continued to have breakthrough episodes of A-fib. He has never been on an antiarrhythmic and has never been cardioverted. He was seen by [facility] and a stress test was done that was negative. So Flecanide was started at 50mg bid and not uptitrated due to BBB. He states he is actually had no side effects and has been feeling very well. He has no complaints of chest pain, shortness of breath, APARICIO, lightness, dizziness, palpitations, LE edema. ECG 03/11/23 Sinus rhythm QRS 120 01/07/23 SR normal qrs 12/27/22 sinus rhythm. PMH: Past Medical History: Diagnosis Date Abnormal ECG Arrhythmia Atrial fibrillation (CMS/HCC) Cancer (CMS/HCC) Diabetes mellitus (CMS/HCC) Sleep apnea Stroke (CMS/HCC) Patient Active Problem List Diagnosis Increasing prostate specific antigen (PSA) level after treatment for malignant neoplasm of prostate intermediate frame tender (current) use of anticoagulants Obesity (BMI 30-39.9) Persistent atrial fibrillation (CMS/HCC) Prostate cancer (CMS/HCC) TIA (transient ischemic attack) MELVIN (obstructive sleep apnea) Benign hypertensive heart disease without congestive heart failure Paroxysmal atrial fibrillation (CMS/HCC) Essential hypertension PSH: Past Surgical History: Procedure Laterality Date PROSTATECTOMY SH: Social Determinants of Health Tobacco Use: Medium Risk (03/11/2023) Patient History Smoking Tobacco Use: Former Smokeless Tobacco Use: Never Passive Exposure: Not on file Alcohol Use: Not on file Financial Resource Strain: Not on file Food Insecurity: Not on file Transportation Needs: Not on file Physical Activity: Not on file Stress: Not on file Social Connections: Not on file Intimate Partner Violence: Not on file Depression: Not on file Housing Stability: Not on file Allergies: Allergies Allergen Reactions Ciprofloxacin Other reaction(s): Mental Status Change Desonide Other reaction(s): Unknown Other reaction(s): Unknown Lactose Other reaction(s): Unknown Other reaction(s): Unknown Njduqdz-Jdx-Tbm Reductase Inhibitors Other Other reaction(s): Other (See Comments) Says right leg when numb with all statins Weight: 102kg Visit Vitals BP 113/76 (BP Location: Left arm, Patient Position: Sitting) Pulse 91 Ht 1.702 m (5' 7 ) Wt 102 kg (224 lb) SpO2 95% BMI 35.08 kg/m??? Smoking Status Former BSA 2.2 m??? Meds: Current Outpatient Medications on File Prior to Visit Medication Sig Dispense Refill dilTIAZem CD (Cardizem CD) 120 mg 24 hr capsule Take 1 capsule (120 mg) by mouth in the morning. 30 capsule 11 flecainide (Tambocor) 50 mg tablet Take 1 tablet (50 mg) by mouth in the morning and at bedtime. 60 tablet 11 glimepiride (Amaryl) 4 mg tablet Take 4 mg by mouth in the morning. hydrALAZINE (Apresoline) 50 mg tablet Take 100 mg by mouth in the morning and at bedtime. Januvia 100 mg tablet Take 100 mg by mouth in the morning. Jardiance 10 mg Take 10 mg by mouth in the morning. olmesartan (BENIcar) 20 mg tablet Take 20 mg by mouth in the morning. warfarin (Coumadin) 5 mg tablet Take 5 mg by mouth 1 (one) time. No current facility-administered medications on file prior to visit. ROS: Review of Systems HENT: Positive for hearing loss. Respiratory: Positive for cough and snoring. All other systems reviewed and are negative. Physical Exam: Constitutional General Appearance: well-nourished, well-developed, appears stated age Level of Distress: comfortable Psychiatric Mental Status: alert, normal affect Orientation: oriented to time, place, and person Insight: good judgement Eyes Lids and Conjunctivae: non-injected, no xanthelasma ENMT Ears: no lesions on external ear Nose: no lesions on external nose Oropharynx: no cyanosis, no pallor Neck Neck: supple, trachea midline Carotid Arteries: bilateral normal upstroke, no bruits Jugular Veins: normal jugular venous pressure Thyroid: not enlarged Lungs Respiratory Effort: unlabored Chest Exam: normal curvature, no thoracic deformity Auscultation: clear, no wheezing, no rales, no rhonchi Cardiovascular Rate And Rhythm: regular Heart Sounds: normal S1, normal s2, no gallop Systolic Murmur: not heard Diastolic Murmur: not heard Extremities: no cyanosis, no edema, no peripheral signs of emboli (more content not included)... [facility] 06-23-2023 Note HNO ID: [id number] Author: Apolinar Forrest MD Service: ? Author Type: Physician Type: Progress Notes Filed: 06/23/2023 7:48 PM Note Text: NAME: Melvi Davies CLINIC NO.: [id number] DATE OF SERVICE: June 23, 2023 (Adriane) Some elements in this clinic note that are critical to medical decision making have been carefully reviewed and included from a prior clinic note dated: June 24, 2022 (Adriane) Referring Provider: Pearl Estevez MD Additional Clinicians involved in Melvi Davies's care: CC: here for follow up ASSESSMENT: 72 year old gentleman with Prostatectomy for [place] 7 (4+3) prostate cancer 05/2016. Began Lupron in June 2018 for rising PSA to 1.57. CT imaging of the time showed concern for L1 and/or L2 bony disease. Not conclusive though. Continued Lupron through August 2019. I do not have good PSA documentation except in January 2019 seems his PSA was responding nicely with a value of 0.10. Unfortunately, he was unable to tolerate Lupron and is reluctant to try it again. 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 Noted that his H/H is increasing would like to see him in 3 months to reassess. PLAN: 1. Labs in 3 months 2. RTC same day to assess polycythemia 3. Patient is not interested in Lupron due to side effects. - Would consider Orgovyx in future if needed. CASE HISTORY: 03/2021 - current: Coumadin 03/2021 Mild CVA - recovered 02/02/2021 Completed salvage RT 06/2018 - 08/2018 Lupron - stopped due to intolerance caused by arrhythmias and syncope. 06/2018 PSA Rising 1.57 05/2016 prostatectomy GL 7 (4+3) HPI: Updated Visit, June 23, 2023: Raulito returns today for a follow up. He is feeling tired because of his intolerance to his current CPAP settings. Has sleep apnea and has a CPAP, but is having trouble with the mask, because of that it appears it is affecting his oxygenation reflecting in his elevated H/H. No evidence of recurrent prostate cancer. PSA is 0. He reports a prior hx of smoking. He is still taking coumadin for his prior stroke. Updated Visit, June 24, 2022: 06/17/2022 PSA < 0.02. No complaints. No needs for intervention. Follows with Dr. Estevez for kidney disease Continues coumadin - for CVA in 03/2021 Updated Visit, December 24, 2021: Doing well. Still on coumadin and has no issues with his prior CVA Kidneys may need evaluation - defer to PCP Started Jardiance - blood sugars are better PSA remains suppressed. Updated Visit, August 23, 2021: Feels well and is doing well overall. PSA continues to decline. No other issues. PSA remains suppressed. Updated Visit, May 17, 2021: Raulito is 70 yo returns today for prostate cancer with rising PSA s/p radiation for local control. Patient is intolerant to androgen suppression and so we elected RT for disease control. PSA is responding very well. PSA is reduced to 0.04 ng/mL. Completed Radiaiton 02/02/2021. Recovering from a mild stroke in March 2021 and has fully recovered. Is now anticoagulated with Coumadin and is managed at a coumadin clinic. Updated Visit, December 14, 2020: Raulito is doing well and has started Radiation to the prostatic bed for rising PSA. Has completed both COVID-19 vaccination. Is doing alright. He has completed 4 doses of 39 scheduled fractions. Updated Visit, June 12, 2020: Raulito is 69 yo and really struggled with his prior treatment with Lupron Depot. He describes having issues with accelerated heart rate and passing out. His blood pressure s now normalized and he is doing well after discontinuing his Lupron. 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 Updated Visit, March 13, 2020: Raulito is 69 years old and presents today to transition his care to my service. He has prostate cancer [place]'s 4+3 = 7. He has had a prostatectomy in May 2016 and had a PSA rise in June 2018. He was started on Lupron and had been on Lupron which he couldn't tolerate lupron due to arrhythmias - so he stopped in August after he fainted and needed to be hospitalized. Continue monitoring. He is open to taking lupron again in the future if needed but in smaller doses using a monthly Depo instead of a longer-term depot. Now he is on cardizem for Aflutter. Having some hot flashes and shotrness of breath. He is on eloquis as well but he is switching to pradaxa. REVIEW OF SYSTEMS Per HPI and otherwise negative by full review of organ systems. ECOG PERFORMANCE STATUS: 0 PHYSICAL EXAMINATION: Vitals: BP 133/81[recheck[ Pulse 98 Temp (Src) 97 (Temporal) Resp 16 Ht 5' 7.008 (1.70m) Wt 231 lb 3.2 oz (104.9kg) SpO2 93% BMI 36.20 kg/(m2). Body surface area is 2.23 meters squared. Exam limited to gross visualization where appropriate. Gen.: This is an age-appropriate patient in no acute distress. Obese Head: Appears at (more content not included)... [facility] 06-23-2023 Instructions Adri Bray - 06/23/2023 2:22 PM EST 1. Labs in 3 months 2. RTC same day to assess polycythemia documented in this encounter [facility] 06-23-2023 History of Present illness Narrative Images from the original note were not included. NAME: Melvi Davies [facility] NO.: [id number] DATE OF SERVICE: June 23, 2023 (Adriane) Some elements in this clinic note that are critical to medical decision making have been carefully reviewed and included from a prior clinic note dated: June 24, 2022 (Adriane) Referring Provider: Pearl Estevez MD Additional Clinicians involved in Melvi Davies's care: CC: here for follow up ASSESSMENT: 72 year old gentleman with Prostatectomy for [place] 7 (4+3) prostate cancer 05/2016. Began Lupron in June 2018 for rising PSA to 1.57. CT imaging of the time showed concern for L1 and/or L2 bony disease. Not conclusive though. Continued Lupron through August 2019. I do not have good PSA documentation except in January 2019 seems his PSA was responding nicely with a value of 0.10. Unfortunately, he was unable to tolerate Lupron and is reluctant to try it again. 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 Noted that his H/H is increasing would like to see him in 3 months to reassess. PLAN: 1. Labs in 3 months 2. RTC same day to assess polycythemia 3. Patient is not interested in Lupron due to side effects. - Would consider Orgovyx in future if needed. CASE HISTORY: 03/2021 - current: Coumadin 03/2021 Mild CVA - recovered 02/02/2021 Completed salvage RT 06/2018 - 08/2018 Lupron - stopped due to intolerance caused by arrhythmias and syncope. 06/2018 PSA Rising 1.57 05/2016 prostatectomy GL 7 (4+3) HPI: Updated Visit, June 23, 2023: Raulito returns today for a follow up. He is feeling tired because of his intolerance to his current CPAP settings. Has sleep apnea and has a CPAP, but is having trouble with the mask, because of that it appears it is affecting his oxygenation reflecting in his elevated H/H. No evidence of recurrent prostate cancer. PSA is 0. He reports a prior hx of smoking. He is still taking coumadin for his prior stroke. Updated Visit, June 24, 2022: 06/17/2022 PSA < 0.02. No complaints. No needs for intervention. Follows with Dr. Estevez for kidney disease Continues coumadin - for CVA in 03/2021 Updated Visit, December 24, 2021: Doing well. Still on coumadin and has no issues with his prior CVA Kidneys may need evaluation - defer to PCP Started Jardiance - blood sugars are better PSA remains suppressed. Updated Visit, August 23, 2021: Feels well and is doing well overall. PSA continues to decline. No other issues. PSA remains suppressed. Updated Visit, May 17, 2021: Raulito is 70 yo returns today for prostate cancer with rising PSA s/p radiation for local control. Patient is intolerant to androgen suppression and so we elected RT for disease control. PSA is responding very well. PSA is reduced to 0.04 ng/mL. Completed Radiaiton 02/02/2021. Recovering from a mild stroke in March 2021 and has fully recovered. Is now anticoagulated with Coumadin and is managed at a coumadin clinic. Updated Visit, December 14, 2020: Raulito is doing well and has started Radiation to the prostatic bed for rising PSA. Has completed both COVID-19 vaccination. Is doing alright. He has completed 4 doses of 39 scheduled fractions. Updated Visit, June 12, 2020: Raulito is 69 yo and really struggled with his prior treatment with Lupron Depot. He describes having issues with accelerated heart rate and passing out. His blood pressure s now normalized and he is doing well after discontinuing his Lupron. 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 Updated Visit, March 13, 2020: Raulito is 69 years old and presents today to transition his care to my service. He has prostate cancer Carlos's 4+3 = 7. He has had a prostatectomy in May 2016 and had a PSA rise in June 2018. He was started on Lupron and had been on Lupron which he couldn't tolerate lupron due to arrhythmias - so he stopped in August after he fainted and needed to be hospitalized. Continue monitoring. He is open to taking lupron again in the future if needed but in smaller doses using a monthly Depo instead of a longer-term depot. Now he is on cardizem for Aflutter. Having some hot flashes and shotrness of breath. He is on eloquis as well but he is switching to pradaxa. REVIEW OF SYSTEMS Per HPI and otherwise negative by full review of organ systems. ECOG PERFORMANCE STATUS: 0 PHYSICAL EXAMINATION: Vitals: BP 133/81[recheck[ Pulse 98 Temp (Src) 97 (Temporal) Resp 16 Ht 5' 7.008 (1.70m) Wt 231 lb 3.2 oz (104.9kg) SpO2 93% BMI 36.20 kg/(m^2). Body surface area is 2.23 meters squared. Exam limited to gross visualization where appropriate. Gen.: This is an age-appropriate patient in no acute distress. Obese Head: Appears atraumatic with no visible lesions. Eyes: Pupils equally round and reactive to light, extraocular muscles are intact. Neck: Supple. Respiratory: Appears to be respiring comfortably. Neurologic: Nonfocal to gross visualization. Alert and oriented 3. Psychiatric: No evidence of inappropriate anxiety or depression. Skin: Visible areas of skin without rash, lesions, wounds or petechiae. ALLERGIES: ALLERGIES Allergen Reactions Ciprofloxacin Mental Status Change Desonide Unknown Lactose Unknown Ztyoqru-Vby-Lkz Red* Other: See Comments MEDICATIONS: flecainide (TAMBOCOR) 50 mg tablet Take 50 mg by mouth twice daily. empagliflozin (JARDIANCE) 10 mg tablet Take 10 mg by mouth daily with breakfast. isosorbide mononitrate ER (IMDUR) 30 mg 24 hr tablet Take 30 mg by mouth once daily. JANUVIA 100 mg tablet warfarin (COUMADIN) 5 mg tablet TAKE 1-1.5 TABLETS BY MOUTH DAILY [facility] olmesartan (BENICAR) 20 mg tablet Take 20 mg by mouth once daily. diltiazem (CARDIZEM) 30 mg tablet Take 60 mg by mouth three times daily. glimepiride (AMARYL) 4 mg tablet hydrALAZINE (APRESOLINE) 50 mg tablet Take 50 mg by mouth three times daily. LABORATORY VALUES: WBC (k/uL) Date Value 06/16/2023 8.21 RBC (m/uL) Date Value 06/16/2023 6.03 (H) Hemoglobin (g/dL) Date Value 06/16/2023 17.2 (H) Hematocrit (%) Date Value 06/16/2023 53.9 (H) MCV (fL) Date Value 06/16/2023 89.4 MCH (pg) Date Value 06/16/2023 28.5 MCHC (g/dL) Date Value 06/16/2023 31.9 RDW-CV (%) Date Value 06/16/2023 15.5 (H) Platelet Count (k/uL) Date Value 06/16/2023 193 MPV (fL) Date Value 06/16/2023 10.6 Glucose (mg/dL) Date Value 06/16/2023 267 (H) BUN (mg/dL) Date Value 06/16/2023 15 Creatinine (mg/dL) Date Value 06/16/2023 1.46 (H) Sodium (mmol/L) Date Value 06/16/2023 135 (L) Potassium (mmol/L) Date Value 06/16/2023 4.8 Chloride (mmol/L) Date Value 06/16/2023 101 CO2 (mmol/L) Date Value 06/16/2023 19 (L) Protein, Total (g/dL) Date Value 06/16/2023 7.9 Albumin (g/dL) Date Value 06/16/2023 4.3 Calcium, Total (mg/dL) Date Value 06/16/2023 9.7 Alkaline Phosphatase (U/L) Date Value 06/16/2023 65 Bilirubin, Total (mg/dL) Date Value 06/16/2023 0.4 AST (U/L) Date Value 06/16/2023 14 ALT (U/L) Date Value 06/16/2023 19 PSA (ng/mL) Date Value 06/16/2023 <0.02 06/17/2022 <0.02 12/20/2021 <0.02 08/17/2021 <0.02 05/10/2021 0.04 12/06/2020 0.64 11/13/2020 0.58 09/07/2020 0.30 DIAGNOSIS: (D75.1) Secondary polycythemia (primary encounter diagnosis) Plan: CBC + DIFF, COMP METABOLIC PANEL, RETIC COUNT, ERYTHROPOIETIN/EPO (G47.33) MELVIN (obstructive sleep apnea) Plan: CBC + DIFF, COMP METABOLIC PANEL, RETIC COUNT, ERYTHROPOIETIN/EPO (C61) Prostate cancer (HCC) Plan: PSA/PROSTSPECAG DIAG, CBC + DIFF, COMP METABOLIC PANEL PAST MEDICAL HISTORY Diagnosis Date Cancer (HCC) Prostate Ca Diabetes (HCC) History of fractured vertebra Lactose intolerance PAST SURGICAL HISTORY Procedure Laterality Date RADICAL PROSTATECTOMY 06/2016 Social History Tobacco Use Smoking status: Former Passive exposure: Past Smokeless tobacco: Never Vaping Use Vaping Use: Never used Substance Use Topics Alcohol use: No Drug use: Not Currently FAMILY HISTORY Problem Relation Age of Onset Cancer Mother from lymphoma Cancer Paternal Uncle stomach cancer- cause of I spent a total of 30 minutes on the date of the service which included preparing to see the patient, [id number] patient care, completing clinical documentation, performing a medically appropriate examination, counseling and educating the patient/family/caregiver, ordering medications, tests, or procedures, independently interpreting results (not separately reported), communicating results to the patient/family/caregiver, and care coordination (not separately reported). Apolinar Forrest MD, [place], [place] Scribe Attestation: This note was scribed by Adri Bray on June 23, 2023 under the direction and supervision of Dr. Apolinar Forrest. I attest that all of the information documented is correct to the best of my knowledge. Provider Attestation: I, Apolinar Forrest MD, attest that all information documented by the above scribe is correct, and was supervised by me and under my direction. CC: MD Surinder Branch MD documented in this encounter [facility] 03-11-2023 Note [place] Electrophysiology Consult Note Reason for visit: afib, on flecainide 50mg bid, questions about med side effects HPI: here for follow up to discuss medication side effects He was recently started on flecainide 50mg BID for afib He states he is actually had no side effects and has been feeling very well. He has no complaints of chest pain, shortness of breath, APARICIO, lightness, dizziness, palpitations, LE edema. ECG 03/11/23 Sinus rhythm QRS 120 01/07/23 SR normal qrs 12/27/22 HPI: Melvi Davies is a 72 y.o. year old with past medical history of prostate cancer, TIA. he has recent A-fib from August 2022 went to [place] [facility] and was treated with Cardizem and started on warfarin. He did not follow-up with his PCP had echo done and stress test ordered. He had a repeat ER visit/03/02 where he was treated again with Cardizem. He has been on max dose of Cardizem 300 mg a day and continues to have breakthrough episodes. prostate cancer he was given Lupron for Ca 2017, then had afib, stopped lurpon and continued to be on Eliquis but continued to have breakthrough episodes of A-fib. He has never been on an antiarrhythmic and has never been cardioverted. ECG today sinus rhythm. PMH: No past medical history on file. Patient Active Problem List Diagnosis Increasing prostate specific antigen (PSA) level after treatment for malignant neoplasm of prostate senior care (current) use of anticoagulants Obesity (BMI 30-39.9) Persistent atrial fibrillation (CMS/HCC) Prostate cancer (CMS/HCC) TIA (transient ischemic attack) MELVIN (obstructive sleep apnea) Benign hypertensive heart disease without congestive heart failure PSH: No past surgical history on file. SH: Social Determinants of Health Tobacco Use: Not on file Alcohol Use: Not on file Financial Resource Strain: Not on file Food Insecurity: Not on file Transportation Needs: Not on file Physical Activity: Not on file Stress: Not on file Social Connections: Not on file Intimate Partner Violence: Not on file Depression: Not on file Housing Stability: Not on file Allergies: Allergies Allergen Reactions Ciprofloxacin Other reaction(s): Mental Status Change Desonide Other reaction(s): Unknown Other reaction(s): Unknown Lactose Other reaction(s): Unknown Other reaction(s): Unknown Letivjg-Tvv-Vwm Reductase Inhibitors Other Other reaction(s): Other (See Comments) Says right leg when numb with all statins Weight: No weight available There were no vitals taken for this visit. Meds: Current Outpatient Medications on File Prior to Visit Medication Sig Dispense Refill cholecalciferol (Vitamin D-3) 25 MCG (1000 UT) capsule Take 2,000 Units by mouth in the morning. dilTIAZem CD (Cardizem CD) 120 mg 24 hr capsule Take 1 capsule (120 mg) by mouth in the morning. 30 capsule 11 flecainide (Tambocor) 50 mg tablet Take 1 tablet (50 mg) by mouth in the morning and at bedtime. 60 tablet 11 glimepiride (Amaryl) 4 mg tablet Take 4 mg by mouth in the morning. hydrALAZINE (Apresoline) 50 mg tablet Take 100 mg by mouth in the morning and at bedtime. isosorbide mononitrate ER (Imdur) 30 mg 24 hr tablet Take 30 mg by mouth in the morning. Januvia 100 mg tablet Take 100 mg by mouth in the morning. Jardiance 10 mg Take 10 mg by mouth in the morning. olmesartan (BENIcar) 20 mg tablet Take 20 mg by mouth in the morning. warfarin (Coumadin) 5 mg tablet Take 5 mg by mouth 1 (one) time. No current facility-administered medications on file prior to visit. ROS: Cardio Basic Cardiovascular Symptoms: no lightheadedness, no leg edema, no syncope, no orthopnea, no PND, no claudication, Constitutional Constitutional: no fever, no night sweats, no significant weight gain, no significant weight loss, no exercise intolerance Eyes Eyes: no dry eyes, no irritation, no vision change ENMT Ears: no difficulty hearing, no ear pain Nose: no frequent nosebleeds, Mouth/Throat: no sore throat, no bleeding gums, no snoring, no dry mouth, no mouth ulcers, no oral abnormalities, no teeth problems Respiratory Respiratory: no cough, no wheezing, no coughing up blood, no sleep apnea Musculoskeletal Musculoskeletal: no muscle aches, no muscle weakness, joint pain+, no back pain, no swelling in the extremities Integumentary Skin no rash, no ulcer, no varicosities, no discoloration, no pruritus Neurologic Neurologic: no loss of consciousness, no weakness, no numbness, no seizures, no dizziness, no headaches Psychiatric Psych: no depression, feeling safe in relationship, no alcohol abuse, Hematologic/Lymphatic Hematologic/Lymphatic no swollen glands, no bruising Physical Exam: Constitutional General Appearance: well-nourished, well-developed, appears stated age Level of Distress: comfortable Psychiatric Mental Status: alert, normal affect Orientation (more content not included)... [facility] 03-11-2023 Note Patient here to disc uss side effects of his medications. He is now using a cpap for MELVIN. Denies chest pain, SOB, lightheadedness, and palpitations. Denies bleeding on warfarin. Says he feels good. Review of Systems HENT: Positive for hearing loss. Respiratory: Positive for cough and snoring. All other systems reviewed and are negative. [facility] 01-20-2023 Note HNO ID: [id number] Author: Surinder Mckoy MD Service: ? Author Type: Physician Type: Progress Notes Filed: 01/28/2023 1:25 PM Note Text: Radiation Oncology - Follow Up Note PATIENT NAME: Melvi Davies PATIENT DIAGNOSIS/PATIENT IDENTIFICATION: Mr. Davies is a 71 year gentleman diagnosed with Stage IIC, [id number], adenocarcinoma of the prostate s/p RP; GS 4+3=7, PSA 10.6 ng/mL (+SM, -EPE, -SVI, -LVSI/LN, + PNI) after RP and LN biopsy on 06/05/[address] Kulkarni. Post prostatectomy PSA remained detectable and ednia to a value of 1.68 ng/mL on 07/13/2018. At that point staging work-up with CT abdomen pelvis and bone scan was negative and he met with Dr. Zarco and was placed on androgen deprivation therapy with Lupron. There was biochemical response and his PSA decreased to undetectable however Lupron was discontinued after one year due to poor tolerance including possible arrhythmia (afib?). His PSA has since been rising to a current value of 0.30 ng/mL on 09/07/2020 with negative staging workup and was referred for salvage radiation therapy by Dr. Forrest for an attempt at local control prior to consideration of re-initiating systemic therapy. He completed course of salvage radiation therapy to to the prostate bed and pelvic lymph nodes on 02/02/2021 (7020 cGy in 39 fractions). INTERVAL HISTORY/ROS: Mr. Davies returns to clinic today for routine follow-up approximately two years after the completion of his radiation treatments and one year since his last visit on 12/24/2021. In the interim, he has been following with Dr. Forrest for his ADT as well as PSA surveillance. Today he denies any burning/discomfort with urination and notes nocturia 2-3 times. He has occasional leakage which is unchanged and is not using any pads. He reports no difficulty with straining or starting his stream and feels that his stream is overall stronger. He reports regular bowel movements without diarrhea or pain or blood. He does note fatigue with good appetite and hydration and stable weight. His IPSS score today is 6/35 and LUCIA score of NA/25. His most recent PSA drawn 06/2022 continues to remain undetectable at <0.02 ng/mL. He does note having some discomfort in the area of his right testicle for the past few days and recalls no injury or trauma to the area. He does not feel that they are swollen or hard. He has also been following with his cardiology team regarding his A-fib. He notes occasional shortness of breath but otherwise denies any recent fevers, chills, headaches, difficulty with speech/swallowing, abdominal pain, nausea, vomiting, change in bowel/urinary habits, difficulty with gait/balance, recent falls, etc. The remainder of the review of systems was performed and was otherwise noncontributory. ALLERGIES ALLERGIES Allergen Reactions Ciprofloxacin Mental Status Change Desonide Unknown Lactose Unknown Brmxait-Fob-Nby Red* Other: See Comments MEDICATIONS: Current Outpatient Medications: flecainide (TAMBOCOR) 50 mg tablet empagliflozin (JARDIANCE) 10 mg tablet isosorbide mononitrate ER (IMDUR) 30 mg 24 hr tablet JANUVIA 100 mg tablet warfarin (COUMADIN) 5 mg tablet olmesartan (BENICAR) 20 mg tablet diltiazem (CARDIZEM) 30 mg tablet glimepiride (AMARYL) 4 mg tablet hydrALAZINE (APRESOLINE) 50 mg tablet Mcgyaluddrpsg-FQ-Olailevonwofg 1-5-160 mg/5 mL susp hyoscyamine sublingual (LEVSIN SL) 0.125 mg loperamide HCl (IMODIUM A-D ORAL) pioglitazone (ACTOS) 15 mg tablet metFORMIN (GLUCOPHAGE) 500 mg tablet Cholecalciferol, Vitamin D3, 25 mcg (1,000 unit) cap PHYSICAL EXAM: GENERAL: elderly gentleman sitting in chair in no acute distress. VITALS: BP 122/84 Pulse 103 Temp 97.6 Resp 18 Wt 222 lb 3.2 oz (100.8kg) SpO2 97% KPS: 80 HEENT: NC/AT, anicteric sclera HEART: S1S2 LUNGS: non-labored breathing ABDOMEN: soft MUSCULOSKELETAL: no peripheral edema, moves all extremities. NEURO: no focal deficit; AANDO X3. PELVIC: declined ASSESSMENT AND PLAN: Mr. Davies is a 71 year gentleman diagnosed with Stage IIC, [id number], adenocarcinoma of the prostate s/p RP; GS 4+3=7, PSA 10.6 ng/mL (+SM, -EPE, -SVI, -LVSI/LN, + PNI) after RP and LN biopsy on 06/05/[address] Kulkarni. Post prostatectomy PSA remained detectable and denia to a value of 1.68 ng/mL on 07/13/2018. At that point staging work-up with CT abdomen pelvis and bone scan was negative and he met with Dr. Zarco and was placed on androgen deprivation therapy with Lupron. There was biochemical response and his PSA decreased to undetectable however Lupron was discontinued after one year due to poor tolerance including possible arrhythmia (afib?). His PSA has since been rising to a current value of 0.30 ng/mL on 09/07/2020 with negative staging workup and was referred for salvage radiation therapy by Dr. Forrest for an attempt at local control prior to consideration of re-initiatin (more content not included)... [facility] 01-20-2023 History of Present illness Narrative Radiation Oncology - Follow Up Note PATIENT NAME: Melvi Davies PATIENT DIAGNOSIS/PATIENT IDENTIFICATION: Mr. Davies is a 71 year gentleman diagnosed with Stage IIC, [id number], adenocarcinoma of the prostate s/p RP; GS 4+3=7, PSA 10.6 ng/mL (+SM, -EPE, -SVI, -LVSI/LN, + PNI) after RP and LN biopsy on 06/05/[address] Kulkarni. Post prostatectomy PSA remained detectable and denia to a value of 1.68 ng/mL on 07/13/2018. At that point staging work-up with CT abdomen pelvis and bone scan was negative and he met with Dr. Zarco and was placed on androgen deprivation therapy with Lupron. There was biochemical response and his PSA decreased to undetectable however Lupron was discontinued after one year due to poor tolerance including possible arrhythmia (afib?). His PSA has since been rising to a current value of 0.30 ng/mL on 09/07/2020 with negative staging workup and was referred for salvage radiation therapy by Dr. Forrest for an attempt at local control prior to consideration of re-initiating systemic therapy. He completed course of salvage radiation therapy to to the prostate bed and pelvic lymph nodes on 02/02/2021 (7020 cGy in 39 fractions). INTERVAL HISTORY/ROS: Mr. Davies returns to clinic today for routine follow-up approximately two years after the completion of his radiation treatments and one year since his last visit on 12/24/2021. In the interim, he has been following with Dr. Forrest for his ADT as well as PSA surveillance. Today he denies any burning/discomfort with urination and notes nocturia 2-3 times. He has occasional leakage which is unchanged and is not using any pads. He reports no difficulty with straining or starting his stream and feels that his stream is overall stronger. He reports regular bowel movements without diarrhea or pain or blood. He does note fatigue with good appetite and hydration and stable weight. His IPSS score today is 6/35 and LUCIA score of NA/25. His most recent PSA drawn 06/2022 continues to remain undetectable at <0.02 ng/mL. He does note having some discomfort in the area of his right testicle for the past few days and recalls no injury or trauma to the area. He does not feel that they are swollen or hard. He has also been following with his cardiology team regarding his A-fib. He notes occasional shortness of breath but otherwise denies any recent fevers, chills, headaches, difficulty with speech/swallowing, abdominal pain, nausea, vomiting, change in bowel/urinary habits, difficulty with gait/balance, recent falls, etc. The remainder of the review of systems was performed and was otherwise noncontributory. ALLERGIES ALLERGIES Allergen Reactions Ciprofloxacin Mental Status Change Desonide Unknown Lactose Unknown Txqiidb-Pdp-Evf Red* Other: See Comments MEDICATIONS: Current Outpatient Medications: flecainide (TAMBOCOR) 50 mg tablet empagliflozin (JARDIANCE) 10 mg tablet isosorbide mononitrate ER (IMDUR) 30 mg 24 hr tablet JANUVIA 100 mg tablet warfarin (COUMADIN) 5 mg tablet olmesartan (BENICAR) 20 mg tablet diltiazem (CARDIZEM) 30 mg tablet glimepiride (AMARYL) 4 mg tablet hydrALAZINE (APRESOLINE) 50 mg tablet Itbqthylqslpb-YH-Yombrbvcqvkpa 1-5-160 mg/5 mL susp hyoscyamine sublingual (LEVSIN SL) 0.125 mg loperamide HCl (IMODIUM A-D ORAL) pioglitazone (ACTOS) 15 mg tablet metFORMIN (GLUCOPHAGE) 500 mg tablet Cholecalciferol, Vitamin D3, 25 mcg (1,000 unit) cap PHYSICAL EXAM: GENERAL: elderly gentleman sitting in chair in no acute distress. VITALS: BP 122/84 Pulse 103 Temp 97.6 Resp 18 Wt 222 lb 3.2 oz (100.8kg) SpO2 97% KPS: 80 HEENT: NC/AT, anicteric sclera HEART: S1S2 LUNGS: non-labored breathing ABDOMEN: soft MUSCULOSKELETAL: no peripheral edema, moves all extremities. NEURO: no focal deficit; A&O X3. PELVIC: declined ASSESSMENT AND PLAN: Mr. Davies is a 71 year gentleman diagnosed with Stage IIC, [id number], adenocarcinoma of the prostate s/p RP; GS 4+3=7, PSA 10.6 ng/mL (+SM, -EPE, -SVI, -LVSI/LN, + PNI) after RP and LN biopsy on 06/05/[address] Kulkarni. Post prostatectomy PSA remained detectable and denia to a value of 1.68 ng/mL on 07/13/2018. At that point staging work-up with CT abdomen pelvis and bone scan was negative and he met with Dr. Zarco and was placed on androgen deprivation therapy with Lupron. There was biochemical response and his PSA decreased to undetectable however Lupron was discontinued after one year due to poor tolerance including possible arrhythmia (afib?). His PSA has since been rising to a current value of 0.30 ng/mL on 09/07/2020 with negative staging workup and was referred for salvage radiation therapy by Dr. Forrest for an attempt at local control prior to consideration of re-initiating systemic therapy. He completed course of salvage radiation therapy to to the prostate bed and pelvic lymph nodes on 02/02/2021 (7020 cGy in 39 fractions). Mr. Davies is doing well from a radiation standpoint approximately 2 years out from the completion of his salvage treatment to the pelvis with stable urinary function. He continues on ADT under the care of Dr. Forrest and his most recent PSA from 06/2022 was undetectable. He has recently noted some right testicular discomfort but declined examination today as he wished to see if would resolve in a few more days. He was instructed to contact his primary care physician should it not improve/resolve. He will continue his ADT and PSA surveillance with Dr. Forrest and have an open follow-up with us here in the radiation medicine clinic. The patient is aware to contact the clinic should any questions or concerns arise. Thank you for allowing us to participate in the care of this patient. Signed by: Surinder Mckoy MD I spent a total of 20 minutes on the date of the service which included preparing to see the patient, ticx-qf-ohre patient care, and counseling and educating the patient/family/caregiver. This document has been created with the use of voice recognition technology. It may contain inaccuracies, misspellings, inaccurate syntax or inappropriate word context that are a result of the inadequacies/shortcomings of said technology/software. documented in this encounter [facility] 01-09-2023 Note - stable, managed pe r PCP - continue medications: Hydralazine 100 mg twice daily, Cardizem to 40 mg, olmesartan 20 mg, Imdur 30 mg [facility] 01-09-2023 Note - noted history from prior to his A-fib diagnosis [facility] 01-09-2023 Note - [id number] 4 for age, hypertension, history of TIA - he is on warfarin which is managed by Sonia - we will start flecainide 50 mg twice daily and reduce dose of Cardizem 120 mg daily - patient will follow-up 2 to 3 days after initiating for EKG to monitor for QRS [facility] 01-09-2023 Note -Used to wear CPAP a nd then had a ruptured eardrum - refuses ever tried again, I did discuss with him now with his A-fib diagnosis he should consider at least revisiting the sleep medicine team to review his CPAP settings and may be they can adjust it to where it is comfortable and less risk of rupture [facility] 12-27-2022 Note [facility] Electrophysiology Consult Note Reason for visit: New patient, referred by Dr. Estevez for A-fib HPI: Melvi Davies is a 72 y.o. year old with past medical history of prostate cancer, TIA. he has recent A-fib from August 2022 went to [place] [facility] and was treated with Cardizem and started on warfarin. He did not follow-up with his PCP had echo done and stress test ordered. He had a repeat ER visit/03/02 where he was treated again with Cardizem. He has been on max dose of Cardizem 300 mg a day and continues to have breakthrough episodes. prostate cancer he was given Lupron for Ca 2017, then had afib, stopped lurpon and continued to be on Eliquis but continued to have breakthrough episodes of A-fib. He has never been on an antiarrhythmic and has never been cardioverted. ECG today sinus rhythm. PMH: History reviewed. No pertinent past medical history. Patient Active Problem List Diagnosis Increasing prostate specific antigen (PSA) level after treatment for malignant neoplasm of prostate intermediate frame tender (current) use of anticoagulants Obesity (BMI 30-39.9) PAF (paroxysmal atrial fibrillation) (CMS/HCC) Prostate cancer (CMS/HCC) TIA (transient ischemic attack) PSH: History reviewed. No pertinent surgical history. SH: Social Determinants of Health Tobacco Use: Not on file Alcohol Use: Not on file Financial Resource Strain: Not on file Food Insecurity: Not on file Transportation Needs: Not on file Physical Activity: Not on file Stress: Not on file Social Connections: Not on file Intimate Partner Violence: Not on file Depression: Not on file Housing Stability: Not on file Allergies: Allergies Allergen Reactions Ciprofloxacin Other reaction(s): Mental Status Change Desonide Other reaction(s): Unknown Other reaction(s): Unknown Lactose Other reaction(s): Unknown Other reaction(s): Unknown Unjlydw-Lsv-Pur Reductase Inhibitors Other Other reaction(s): Other (See Comments) Says right leg when numb with all statins Weight: 101kg Visit Vitals BP 124/83 (BP Location: Left arm, Patient Position: Sitting, BP Cuff Size: Large adult) Pulse 104 Ht 1.702 m (5' 7 ) Wt 101 kg (223 lb) SpO2 96% BMI 34.93 kg/m??? BSA 2.19 m??? Meds: Current Outpatient Medications on File Prior to Visit Medication Sig Dispense Refill cholecalciferol (Vitamin D-3) 25 MCG (1000 UT) capsule Take 2,000 Units by mouth in the morning. dilTIAZem ER (Tiazac) 120 mg 24 hr capsule Take 120 mg by mouth in the morning. glimepiride (Amaryl) 4 mg tablet Take 4 mg by mouth in the morning. hydrALAZINE (Apresoline) 50 mg tablet Take 100 mg by mouth in the morning and at bedtime. isosorbide mononitrate ER (Imdur) 30 mg 24 hr tablet Take 30 mg by mouth in the morning. Januvia 100 mg tablet Take 100 mg by mouth in the morning. Jardiance 10 mg Take 10 mg by mouth in the morning. olmesartan (BENIcar) 20 mg tablet Take 20 mg by mouth in the morning. warfarin (Coumadin) 5 mg tablet Take 5 mg by mouth 1 (one) time. No current facility-administered medications on file prior to visit. ROS: Cardio Basic Cardiovascular Symptoms: no lightheadedness, no leg edema, no syncope, no orthopnea, no PND, no claudication, Constitutional Constitutional: no fever, no night sweats, no significant weight gain, no significant weight loss, no exercise intolerance Eyes Eyes: no dry eyes, no irritation, no vision change ENMT Ears: no difficulty hearing, no ear pain Nose: no frequent nosebleeds, Mouth/Throat: no sore throat, no bleeding gums, no snoring, no dry mouth, no mouth ulcers, no oral abnormalities, no teeth problems Respiratory Respiratory: no cough, no wheezing, no coughing up blood, no sleep apnea Musculoskeletal Musculoskeletal: no muscle aches, no muscle weakness, joint pain+, no back pain, no swelling in the extremities Integumentary Skin no rash, no ulcer, no varicosities, no discoloration, no pruritus Neurologic Neurologic: no loss of consciousness, no weakness, no numbness, no seizures, no dizziness, no headaches Psychiatric Psych: no depression, feeling safe in relationship, no alcohol abuse, Hematologic/Lymphatic Hematologic/Lymphatic no swollen glands, no bruising Physical Exam: Constitutional General Appearance: well-nourished, well-developed, appears stated age Level of Distress: comfortable Psychiatric Mental Status: alert, normal affect Orientation: oriented to time, place, and person Insight: good judgement Eyes Lids and Conjunctivae: non-injected, no xanthelasma ENMT Ears: no lesions on external ear Nose: no lesions on external nose Oropharynx: no cyanosis, no pallor Neck Neck: supple, trachea midline Carotid Arteries: bilateral normal upstroke, no bruits Jugular Veins: normal jugular venous pressure Thyroid: not enlarged Lungs Respiratory Effort: unlabored Chest Exam: normal curvature, no thoracic deformity Auscultation: clear, (more content not included)... [facility] 12-27-2022 Note Patient is here toda y to establish care regarding atrial fibrillation Review of Systems HENT: Positive for hearing loss. Cardiovascular: Positive for irregular heartbeat. Respiratory: Positive for cough and snoring. Neurological: Positive for dizziness and light-headedness. All other systems reviewed and are negative. [facility] 06-24-2022 Instructions Apolinar Forrest MD - 06/24/2022 2:30 PM EST 1. Labs in 12 months 2. RTC 1 week after to review 3. Patient is not interested in Lupron due to side effects. - Would consider Orgovyx in future if needed. documented in this encounter [facility] 06-24-2022 History of Present illness Narrative Images from the original note were not included. NAME: Melvi Davies [facility] NO.: [id number] DATE OF SERVICE: June 24, 2022 (Adriane) Some elements in this clinic note that are critical to medical decision making have been carefully reviewed and included from a prior clinic note dated: December 24, 2021 (Adriane) Referring Provider: Pearl Estevez MD Additional Clinicians involved in Melvi Shola's care: CC: here for follow up ASSESSMENT: 71 year old gentleman with Prostatectomy for [place] 7 (4+3) prostate cancer 05/2016. Began Lupron in June 2018 for rising PSA to 1.57. CT imaging of the time showed concern for L1 and/or L2 bony disease. Not conclusive though. Continued Lupron through August 2019. I do not have good PSA documentation except in January 2019 seems his PSA was responding nicely with a value of 0.10. Unfortunately, he was unable to tolerate Lupron and is reluctant to try it again. 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 PLAN: 1. Labs in 12 months 2. RTC 1 week after to review 3. Patient is not interested in Lupron due to side effects. - Would consider Orgovyx in future if needed. CASE HISTORY: 03/2021 - current: Coumadin 03/2021 Mild CVA - recovered 02/02/2021 Completed salvage RT 06/2018 - 08/2018 Lupron - stopped due to intolerance caused by arrhythmias and syncope. 06/2018 PSA Rising 1.57 05/2016 prostatectomy GL 7 (4+3) HPI: Updated Visit, June 24, 2022: 06/17/2022 PSA < 0.02. No complaints. No needs for intervention. Follows with Dr. Estevez for kidney disease Continues coumadin - for CVA in 03/2021 Updated Visit, December 24, 2021: Doing well. Still on coumadin and has no issues with his prior CVA Kidneys may need evaluation - defer to PCP Started Jardiance - blood sugars are better PSA remains suppressed. Updated Visit, August 23, 2021: Feels well and is doing well overall. PSA continues to decline. No other issues. PSA remains suppressed. Updated Visit, May 17, 2021: Raulito is 70 yo returns today for prostate cancer with rising PSA s/p radiation for local control. Patient is intolerant to androgen suppression and so we elected RT for disease control. PSA is responding very well. PSA is reduced to 0.04 ng/mL. Completed Radiaiton 02/02/2021. Recovering from a mild stroke in March 2021 and has fully recovered. Is now anticoagulated with Coumadin and is managed at a coumadin clinic. Updated Visit, December 14, 2020: Raulito is doing well and has started Radiation to the prostatic bed for rising PSA. Has completed both COVID-19 vaccination. Is doing alright. He has completed 4 doses of 39 scheduled fractions. Updated Visit, June 12, 2020: Raulito is 69 yo and really struggled with his prior treatment with Lupron Depot. He describes having issues with accelerated heart rate and passing out. His blood pressure s now normalized and he is doing well after discontinuing his Lupron. 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 Updated Visit, March 13, 2020: Raulito is 69 years old and presents today to transition his care to my service. He has prostate cancer [place]'s 4+3 = 7. He has had a prostatectomy in May 2016 and had a PSA rise in June 2018. He was started on Lupron and had been on Lupron which he couldn't tolerate lupron due to arrhythmias - so he stopped in August after he fainted and needed to be hospitalized. Continue monitoring. He is open to taking lupron again in the future if needed but in smaller doses using a monthly Depo instead of a longer-term depot. Now he is on cardizem for Aflutter. Having some hot flashes and shotrness of breath. He is on eloquis as well but he is switching to pradaxa. REVIEW OF SYSTEMS Per HPI and otherwise negative by full review of organ systems. ECOG PERFORMANCE STATUS: 0 PHYSICAL EXAMINATION: Vitals: BP 140/96 Pulse 111 Temp (Src) 97 (Temporal) Resp 16 Ht 5' 7.008 (1.70m) Wt 226 lb 6.4 oz (102.7kg) SpO2 97% BMI 35.45 kg/(m^2). Body surface area is 2.2 meters squared. Exam limited to gross visualization where appropriate due to COVID-19. Gen.: This is an age-appropriate patient in no acute distress. Head: Appears atraumatic with no visible lesions. Eyes: Pupils equally round and reactive to light, extraocular muscles are intact. Neck: Supple. Mouth: Masked. Respiratory: Appears to be respiring comfortably. Neurologic: Nonfocal to gross visualization. Alert and oriented 3. Psychiatric: No evidence of inappropriate anxiety or depression. Skin: Visible areas of skin without rash, lesions, wounds or petechiae. ALLERGIES: ALLERGIES Allergen Reactions Ciprofloxacin Mental Status Change Desonide Unknown Lactose Unknown Oqxelwy-Kxo-Byu Red* Other: See Comments MEDICATIONS: empagliflozin (JARDIANCE) 10 mg tablet Take 10 mg by mouth daily with breakfast. isosorbide mononitrate ER (IMDUR) 30 mg 24 hr tablet Take 30 mg by mouth once daily. JANUVIA 100 mg tablet warfarin (COUMADIN) 5 mg tablet TAKE 1-1.5 TABLETS BY MOUTH DAILY As directed by Gomez MT.] Ivprcppkvjuqr-IN-Agedaisdaburl 1-5-160 mg/5 mL susp Take by mouth at bedtime as needed. olmesartan (BENICAR) 20 mg tablet Take 20 mg by mouth once daily. hyoscyamine sublingual (LEVSIN SL) 0.[address] 1 (ONE) TABLET UNDER THE TONGUE FOUR TIMES DAILY NEEDED loperamide HCl (IMODIUM A-D ORAL) Take by mouth as needed. diltiazem (CARDIZEM) 30 mg tablet Take 60 mg by mouth three times daily. pioglitazone (ACTOS) 15 mg tablet Take 15 mg by mouth once daily. metFORMIN (GLUCOPHAGE) 500 mg tablet glimepiride (AMARYL) 4 mg tablet Cholecalciferol, Vitamin D3, (VITAMIN D) 1,000 unit cap Take 2,000 Units by mouth once daily. hydrALAZINE (APRESOLINE) 50 mg tablet Take 50 mg by mouth three times daily. LABORATORY VALUES: WBC (k/uL) Date Value 12/20/2021 6.85 RBC (m/uL) Date Value 12/20/2021 5.52 Hemoglobin (g/dL) Date Value 12/20/2021 16.1 Hematocrit (%) Date Value 12/20/2021 49.9 MCV (fL) Date Value 12/20/2021 90.4 MCH (pg) Date Value 12/20/2021 29.2 MCHC (g/dL) Date Value 12/20/2021 32.3 RDW-CV (%) Date Value 12/20/2021 14.5 Platelet Count (k/uL) Date Value 12/20/2021 209 MPV (fL) Date Value 12/20/2021 10.4 Glucose (mg/dL) Date Value 12/20/2021 155 (H) BUN (mg/dL) Date Value 12/20/2021 14 Creatinine (mg/dL) Date Value 12/20/2021 1.44 (H) Sodium (mmol/L) Date Value 12/20/2021 139 Potassium (mmol/L) Date Value 12/20/2021 4.3 Chloride (mmol/L) Date Value 12/20/2021 102 CO2 (mmol/L) Date Value 12/20/2021 26 Protein, Total (g/dL) Date Value 12/20/2021 7.7 Albumin (g/dL) Date Value 12/20/2021 4.1 Calcium, Total (mg/dL) Date Value 12/20/2021 9.9 Alkaline Phosphatase (U/L) Date Value 12/20/2021 55 Bilirubin, Total (mg/dL) Date Value 12/20/2021 0.3 AST (U/L) Date Value 12/20/2021 21 ALT (U/L) Date Value 12/20/2021 32 PSA (ng/mL) Date Value 06/17/2022 <0.02 12/20/2021 <0.02 08/17/2021 <0.02 05/10/2021 0.04 12/06/2020 0.64 11/13/2020 0.58 09/07/2020 0.30 DIAGNOSIS: (C61) Prostate cancer (HCC) (primary encounter diagnosis) Plan: PSA/PROSTSPECAG DIAG, CBC + DIFF, COMP METABOLIC PANEL PAST MEDICAL HISTORY Diagnosis Date Cancer (HCC) Prostate Ca Diabetes (HCC) History of fractured vertebra Lactose intolerance PAST SURGICAL HISTORY Procedure Laterality Date RADICAL PROSTATECTOMY 06/2016 Social History Tobacco Use Smoking status: Former Smokeless tobacco: Never Vaping Use Vaping Use: Never used Substance Use Topics Alcohol use: No FAMILY HISTORY Problem Relation Age of Onset Cancer Mother from lymphoma Cancer Paternal Uncle stomach cancer- cause of I spent a total of 25 minutes on the date of the service which included preparing to see the patient, [id number] patient care, completing clinical documentation, performing a medically appropriate examination, ordering medications, tests, or procedures, and independently interpreting results (not separately reported). Apolinar Forrest MD, [place], [place] CC: MD Surinder Branch MD documented in this encounter [facility] 06-17-2022 Miscellaneous Notes Patient has a lab appointment today (this afternoon) for his appointment next week, if you would like labs please place orders. It looks like there is a PSA from Dr. Mckoy. Christen Rucker MA documented in this encounter [facility] 12-24-2021 History of Present illness Narrative Images from the original note were not included. Radiation Oncology - Follow Up Note PATIENT NAME: Melvi Davies PATIENT DIAGNOSIS/PATIENT IDENTIFICATION: Mr. Davies is a 71 year gentleman diagnosed with Stage IIC, [id number], adenocarcinoma of the prostate s/p RP; GS 4+3=7, PSA 10.6 ng/mL (+SM, -EPE, -SVI, -LVSI/LN, + PNI) after RP and LN biopsy on 06/05/[address] Kulkarni. Post prostatectomy PSA remained detectable and denia to a value of 1.68 ng/mL on 07/13/2018. At that point staging work-up with CT abdomen pelvis and bone scan was negative and he met with Dr. Zarco and was placed on androgen deprivation therapy with Lupron. There was biochemical response and his PSA decreased to undetectable however Lupron was discontinued after one year due to poor tolerance including possible arrhythmia (afib?). His PSA has since been rising to a current value of 0.30 ng/mL on 09/07/2020 with negative staging workup and was referred for salvage radiation therapy by Dr. Forrest for an attempt at local control prior to consideration of re-initiating systemic therapy. He completed course of salvage radiation therapy to to the prostate bed and pelvic lymph nodes on 02/02/2021 (7020 cGy in 39 fractions). INTERVAL HISTORY/ROS: Mr. Davies returns to clinic today for routine follow-up approximately one year after the completion of his radiation treatments and four months since his last visit on 08/23/2021. In the interim, he reports feeling well clinically denies any burning/discomfort with urination and notes nocturia 1-2 times with no issues with urinary leakage or incontinence. He denies any diarrhea or nausea or skin irritation in the treatment area endorses good energy with fair appetite and hydration and stable weight. His IPSS score today is 2/35 with QOL N/A and LUCIA score of 1/25. His most recent PSA drawn last week on 12/20/2021 continues to remain undetectable at <0.02 ng/mL. He otherwise denies any recent fevers, chills, headaches, difficulty with speech/swallowing, shortness of breath, chest pain/palpitations, abdominal pain, nausea, vomiting, change in bowel/urinary habits, difficulty with gait/balance, recent falls, etc. The remainder of the review of systems was performed and was otherwise noncontributory. ALLERGIES ALLERGIES Allergen Reactions Ciprofloxacin Mental Status Change Desonide Unknown Lactose Unknown Xbkatys-Buf-Xle Red* Other: See Comments MEDICATIONS: Current Outpatient Medications: empagliflozin (JARDIANCE) 10 mg tablet isosorbide mononitrate ER (IMDUR) 30 mg 24 hr tablet JANUVIA 100 mg tablet warfarin (COUMADIN) 5 mg tablet Xkpkeuewkevzo-MF-Jduemkaovfkyh 1-5-160 mg/5 mL susp olmesartan (BENICAR) 20 mg tablet hyoscyamine sublingual (LEVSIN SL) 0.125 mg loperamide HCl (IMODIUM A-D ORAL) diltiazem (CARDIZEM) 30 mg tablet pioglitazone (ACTOS) 15 mg tablet metFORMIN (GLUCOPHAGE) 500 mg tablet glimepiride (AMARYL) 4 mg tablet Cholecalciferol, Vitamin D3, (VITAMIN D) 1,000 unit cap hydrALAZINE (APRESOLINE) 50 mg tablet PHYSICAL EXAM: GENERAL: elderly gentleman sitting in chair in no acute distress. VITALS: BP 122/78 Pulse 105 Temp 97.6 Resp 18 Wt 223 lb (101.2kg) KPS: 80 HEENT: NC/AT, anicteric sclera HEART: S1S2 LUNGS: non-labored breathing ABDOMEN: soft MUSCULOSKELETAL: no peripheral edema, moves all extremities. NEURO: no focal deficit; A&O X3. ASSESSMENT AND PLAN: Mr. Davies is a 71 year gentleman diagnosed with Stage IIC, [id number], adenocarcinoma of the prostate s/p RP; GS 4+3=7, PSA 10.6 ng/mL (+SM, -EPE, -SVI, -LVSI/LN, + PNI) after RP and LN biopsy on 06/05/[address] Kulkarni. Post prostatectomy PSA remained detectable and denia to a value of 1.68 ng/mL on 07/13/2018. At that point staging work-up with CT abdomen pelvis and bone scan was negative and he met with Dr. Zarco and was placed on androgen deprivation therapy with Lupron. There was biochemical response and his PSA decreased to undetectable however Lupron was discontinued after one year due to poor tolerance including possible arrhythmia (afib?). His PSA has since been rising to a current value of 0.30 ng/mL on 09/07/2020 with negative staging workup and was referred for salvage radiation therapy by Dr. Forrest for an attempt at local control prior to consideration of re-initiating systemic therapy. He completed course of salvage radiation therapy to to the prostate bed and pelvic lymph nodes on 02/02/2021 (7020 cGy in 39 fractions). Mr. Davies is doing well clinically approximately 1 year out from the completion of his salvage radiation treatment to the pelvis with stable urinary function. His most recent PSA drawn last week on 12/20/2021 continues to remain undetectable. I will plan to see him back in approximately 1 year with repeat PSA. The patient is aware to contact the clinic in the interim should any questions or concerns arise. Thank you for allowing us to participate in the care of this patient. Signed by: Surinder Mckoy MD I spent a total of 20 minutes on the date of the service which included preparing to see the patient, [id number] patient care and counseling and educating the patient/family/caregiver. This document has been created with the use of voice recognition technology. It may contain inaccuracies, misspellings, inaccurate syntax or inappropriate word context that are a result of the inadequacies/shortcomings of said technology/software. documented in this encounter [facility] 12-24-2021 History of Present illness Narrative Images from the original note were not included. NAME: Melvi Davies [facility] NO.: [id number] DATE OF SERVICE: December 24, 2021 Some elements in this clinic note that are critical to medical decision making have been carefully reviewed and included from a prior clinic note dated: August 25, 2021 Referring Provider: Pearl Estevez MD Additional Clinicians involved in Melvi Davies's care: CC: here for follow up ASSESSMENT: 70 yo gentleman with Prostatectomy for [place] 7 (4+3) prostate cancer 05/2016. Began Lupron in June 2018 for rising PSA to 1.57. CT imaging of the time showed concern for L1 and/or L2 bony disease. Not conclusive though. Continued Lupron through August 2019. I do not have good PSA documentation except in January 2019 seems his PSA was responding nicely with a value of 0.10. Unfortunately, he was unable to tolerate Lupron and is reluctant to try it again. 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 PLAN: 1. Labs in 6 months 2. RTC 1 week after to review 3. Patient is not interested in Lupron due to side effects. -Would consider Orgovyx in future if needed. CASE HISTORY: 03/2021 - current: Coumadin 03/2021 Mild CVA - recovered 02/02/2021 Completed salvage RT 06/2018 - 08/2018 Lupron - stopped due to intolerance caused by arrhythmias and syncope. 06/2018 PSA Rising 1.57 05/2016 prostatectomy GL 7 (4+3) HPI: Updated Visit, December 24, 2021: Doing well. Still on coumadin and has no issues with his prior CVA Kidneys may need evaluation - defer to PCP Started Jardiance - blood sugars are better PSA remains suppressed. Updated Visit, August 23, 2021: Feels well and is doing well overall. PSA continues to decline. No other issues. PSA remains suppressed. Updated Visit, May 17, 2021: Raulito is 70 yo returns today for prostate cancer with rising PSA s/p radiation for local control. Patient is intolerant to androgen suppression and so we elected RT for disease control. PSA is responding very well. PSA is reduced to 0.04 ng/mL. Completed Radiaiton 02/02/2021. Recovering from a mild stroke in March 2021 and has fully recovered. Is now anticoagulated with Coumadin and is managed at a coumadin clinic. Updated Visit, December 14, 2020: Raulito is doing well and has started Radiation to the prostatic bed for rising PSA. Has completed both COVID-19 vaccination. Is doing alright. He has completed 4 doses of 39 scheduled fractions. Updated Visit, June 12, 2020: Raulito is 69 yo and really struggled with his prior treatment with Lupron Depot. He describes having issues with accelerated heart rate and passing out. His blood pressure s now normalized and he is doing well after discontinuing his Lupron. 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 Updated Visit, March 13, 2020: Raulito is 69 years old and presents today to transition his care to my service. He has prostate cancer [place]'s 4+3 = 7. He has had a prostatectomy in May 2016 and had a PSA rise in June 2018. He was started on Lupron and had been on Lupron which he couldn't tolerate lupron due to arrhythmias - so he stopped in August after he fainted and needed to be hospitalized. Continue monitoring. He is open to taking lupron again in the future if needed but in smaller doses using a monthly Depo instead of a longer-term depot. Now he is on cardizem for Aflutter. Having some hot flashes and shotrness of breath. He is on eloquis as well but he is switching to pradaxa. REVIEW OF SYSTEMS Per HPI and otherwise negative by full review of organ systems. ECOG PERFORMANCE STATUS: 0 PHYSICAL EXAMINATION: Vitals: BP 122/78 Pulse 105 Temp (Src) 97.6 (Temporal) Resp 18 Ht 5' 7.008 (1.70m) Wt 223 lb (101.2kg) SpO2 96% BMI 34.92 kg/(m^2). Body surface area is 2.19 meters squared. Exam limited to gross visualization where appropriate due to COVID-19. Gen.: This is an age-appropriate patient in no acute distress. Head: Appears atraumatic with no visible lesions. Eyes: Pupils equally round and reactive to light, extraocular muscles are intact. Neck: Supple. Mouth: Masked. Respiratory: Appears to be respiring comfortably. Neurologic: Nonfocal to gross visualization. Alert and oriented 3. Psychiatric: No evidence of inappropriate anxiety or depression. Skin: Visible areas of skin without rash, lesions, wounds or petechiae. ALLERGIES: ALLERGIES Allergen Reactions Ciprofloxacin Mental Status Change Desonide Unknown Lactose Unknown Yxivahc-Vkb-Ltg Red* Other: See Comments MEDICATIONS: empagliflozin (JARDIANCE) 10 mg tablet Take 10 mg by mouth daily with breakfast. isosorbide mononitrate ER (IMDUR) 30 mg 24 hr tablet Take 30 mg by mouth once daily. JANUVIA 100 mg tablet warfarin (COUMADIN) 5 mg tablet TAKE 1-1.5 TABLETS BY MOUTH DAILY As directed by Gomez VALADEZ.] olmesartan (BENICAR) 20 mg tablet Take 20 mg by mouth once daily. glimepiride (AMARYL) 4 mg tablet Cholecalciferol, Vitamin D3, (VITAMIN D) 1,000 unit cap Take 2,000 Units by mouth once daily. hydrALAZINE (APRESOLINE) 50 mg tablet Take 50 mg by mouth three times daily. Vmeuddklppkmh-IT-Dajbyipgdlwre 1-5-160 mg/5 mL susp Take by mouth at bedtime as needed. hyoscyamine sublingual (LEVSIN SL) 0.[address] (ONE) TABLET UNDER THE TONGUE FOUR TIMES DAILY NEEDED loperamide HCl (IMODIUM A-D ORAL) Take by mouth as needed. diltiazem (CARDIZEM) 30 mg tablet Take 60 mg by mouth three times daily. pioglitazone (ACTOS) 15 mg tablet Take 15 mg by mouth once daily. metFORMIN (GLUCOPHAGE) 500 mg tablet LABORATORY VALUES: Hemoglobin (g/dL) Date Value 12/20/2021 16.1 08/17/2021 15.1 Hematocrit (%) Date Value 12/20/2021 49.9 08/17/2021 45.4 WBC (k/uL) Date Value 12/20/2021 6.85 08/17/2021 6.19 PSA (ng/mL) Date Value 12/20/2021 <0.02 08/17/2021 <0.02 05/10/2021 0.04 12/06/2020 0.64 11/13/2020 0.58 09/07/2020 0.30 DIAGNOSIS: (C61) Prostate cancer (HCC) (primary encounter diagnosis) PAST MEDICAL HISTORY Diagnosis Date Cancer (HCC) Prostate Ca Diabetes (HCC) History of fractured vertebra Lactose intolerance PAST SURGICAL HISTORY Procedure Laterality Date RADICAL PROSTATECTOMY 06/2016 Social History Tobacco Use Smoking status: Former Smoker Smokeless tobacco: Never Used Vaping Use Vaping Use: Never used Substance Use Topics Alcohol use: No Drug use: Not on file FAMILY HISTORY Problem Relation Age of Onset Cancer Mother from lymphoma Cancer Paternal Uncle stomach cancer- cause of Apolinar Forrest MD, CPE [facility] [place], [place] CC: Pearl Estevez MD [address] [facility] [id number] documented in this encounter [facility] Evaluation note Diagnosis Prostate cancer (HCC)- Primary Malignant neoplasm of prostate [facility] Prostate cancer (HCC)- Primary Malignant neoplasm of prostate documented [facility] Prostate cancer (HCC)- Primary Malignant neoplasm of prostate documented in this encounter [facility] Diagnosis Secondary polycythemia- Primary Polycythemia, secondary MELVIN (obstructive sleep apnea) Obstructive sleep apnea (adult) (pediatric) Prostate cancer (HCC) Malignant neoplasm of prostate documented in this encounter [facility] Discharge Instructions * Instructions* Ren Burger MD - 07/03/2019 Call today or tomorrow to follow up with PCP in 1 day Get up slowly; dangle your feet over the bed before standing up, do not stand up quickly. Return to the Emergency Department for blacking out, any headache, slurring of speech, loss of strength, excessive nausea or vomiting, any other care or concern. * Attachments The following attachments cannot be sent through Care Everywhere. * Fainting (Kazakh) documented in this encounter Assessments Diagnosis Syncope and collapse- Primary Advance Directives No Advanced Directives Records FoundDocuments on File Type Date Recorded Patient Field Education Director Expl anation Advance Directives and Living Will Power of Drafter Assistant Summary Purpose Family History No Family History Records FoundNo Family History Records FoundNo Family History Records FoundNo Family History Records FoundNo Family History Records FoundNo Family History Records Found Additional Source Comments Reason for Visit (unrecogniz ed section and content) Reason Comments Loss of Consciousness Reason Comments Prostate Cancer Reason Comments Lab Orders Reason Comments Prostate Cancer 6 month follow up Reason Comments Prostate Cancer 1 year follow up (unrecognized sect ion and content) No Status Records FoundNo Status Records FoundNo Status Records FoundNo Status Records FoundNo Status Records FoundNo Status Records Found INFORMATION SOURCE (unrecogn ized section and content) DATE CREATED AUTHOR 07/04/2019 [facility] DATE CREATED AUTHOR AUTHOR'S ORGANIZ ATION 02/21/2021 [facility] DATE CREATED AUTHOR AUTHOR'S ORGANIZ ATION 12/25/2022 [facility] DATE CREATED AUTHOR AUTHOR'S ORGANIZ ATION 09/14/2023 [facility] DATE CREATED AUTHOR AUTHOR'S ORGANIZ ATION 10/07/2023 [facility] DATE CREATED AUTHOR AUTHOR'S ORGANIZ ATION 10/14/2023 [facility] Source Comments (unrecognize d section and content) In the event this informatio n is protected by the Federal Confidentiality of Alcohol and Drug Abuse Patient Records regulations: The Federal rules restrict any use of the information to criminally investigate or prosecute any alcohol or drug abuse patient.[facility] the event this information is protected by the Federal Confidentiality of Alcohol and Drug Abuse Patient Records regulations: The Federal rules restrict any use of the information to criminally investigate or prosecute any alcohol or drug abuse patient.[facility] the event this information is protected by the Federal Confidentiality of Alcohol and Drug Abuse Patient Records regulations: The Federal rules restrict any use of the information to criminally investigate or prosecute any alcohol or drug abuse patient.[facility] the event this information is protected by the Federal Confidentiality of Alcohol and Drug Abuse Patient Records regulations: The Federal rules restrict any use of the information to criminally investigate or prosecute any alcohol or drug abuse patient.[facility] the event this information is protected by the Federal Confidentiality of Alcohol and Drug Abuse Patient Records regulations: The Federal rules restrict any use of the information to criminally investigate or prosecute any alcohol or drug abuse patient.[facility] the event this information is protected by the Federal Confidentiality of Alcohol and Drug Abuse Patient Records regulations: The Federal rules restrict any use of the information to criminally investigate or prosecute any alcohol or drug abuse patient.[facility] Care Teams (unrecognized sec tion and content) Intermediate Frame Tender Relationship Specialty Start Date End Date Pearl Estevez MD [address], [place] [id number] PCP - General Family Practice 07/23/18 Melvi Kulkarni Jr. [address] [place] [address] Kiln Transfer Operator Urology 08/25/19 Surinder Mckoy MD [address] [place] [address] Radiation Oncology 06/15/20 Intermediate Frame Tender Relationship Specialty Start Date End Date Pearl Estevez MD [address] [place] [address] PCP - General Family Medicine 07/23/18 Melvi Kulkarni Jr. [address] [place] [address] Kiln Transfer Operator Urology 08/25/19 Surinder Mckoy MD [address] [facility] [place] [address] Radiation Oncology 06/15/20 Intermediate Frame Tender Relationship Specialty Start Date End Date Pearl Estevez MD [address] [place] [address] PCP - General Family Medicine 07/23/18 Melvi Kulkarni Jr. [address] [place] [address] Kiln Transfer Operator Urology 08/25/19 Surinder Mckoy MD [address] [place] [address] Radiation Oncology 06/15/20 Intermediate Frame Tender Relationship Specialty Start Date End Date Pearl Estevez MD PCP - General Family Medicine 07/23/18 Melvi Kulkarni Jr. [address] [place] [address] Kiln Transfer Operator Urology 08/25/19 Surinder Mckoy MD [address] [facility] [place] [address] Radiation Oncology 06/15/20 Intermediate Frame Tender Relationship Specialty Start Date End Date Pearl Estevez MD PCP - General Family Medicine 07/23/18 Melvi Kulkarni Jr. [address] [place] [address] Kiln Transfer Operator Urology 08/25/19 Surinder Mckoy MD [address] [place] [address] [place] [address] Radiation Oncology 06/15/20 FOR RECORDS PERTAINING TO PATIENTS WHO ARE OR HAVE BEEN ENROLLED IN A CHEMICAL DEPENDENCY/SUBSTANCEABUSE PROGRAM, SOME INFORMATION MAY BE OMITTED. This clinical summary was aggregated from multiple sources. Caution should be exercised in using it in the provision of clinical care. This summary normalizes information from multiple sources, and as a consequence, information in this document may materially change the coding, format and clinical context of patient data. In addition, data may be omitted in some cases. CLINICAL DECISIONS SHOULD BE BASED ON THE PRIMARY CLINICAL RECORDS. [facility]. provides no warranty or guarantee of the accuracy or completeness of information in this document.
--- NOTE | 2023-10-15 08:05 | CT_ITS ---
The [address] [address] Patient Name: MELVI DAVIES MRN: [id number] date: 1950 Sex: M Assigned Patient Location: LAB Current Patient Location: LAB Accession/Order Number: [id number] Exam Date: 10/15/2023 08:28 Report Date: 10/15/2023 09:05 At the request of: SARABJIT TURNER Procedure: CT angio chest EXAMINATION: CT angio chest HISTORY: Persistent Atrial Fibrillation I48.19 COMPARISON: No relevant comparison available. TECHNIQUE: Multi-planar CT images were created with IV contrast. Axial, Coronal, and Sagittal images. Dose reduction techniques were achieved by using automated exposure control and/or adjustment of mA and/or kV according to patient size and/or use of iterative reconstruction technique. FINDINGS: LUNGS: No focal infiltrate. Minimal dependent groundglass opacities, atelectasis is favored PLEURA: No mass, effusion, or pneumothorax. VASCULATURE: Normal postcontrast opacification of the central pulmonary arterial tree with no filling defects to suggest a pulmonary embolus CINDY: Normal sized bilateral hilar lymph nodes, right greater than left MEDIASTINUM: No mass or adenopathy. CARDIAC: No enlargement or pericardial effusion. Moderate coronary atherosclerosis with coronary stents AORTA: No aortic aneurysm or dissection. Mild atherosclerosis CHEST WALL: No mass or axillary adenopathy. BONES: No bone lesion or fracture. LIMITED ABDOMEN: Diffuse hypoattenuation of the liver consistent with hepatic steatosis OTHER: Negative. CT/CT angio chest IMPRESSION: No central pulmonary thromboembolic disease Electronically authenticated by: CUAUHTEMOC HODGES Date: 10/15/2023 09:05
[2023-10-15 08:22] LABS: Estimated GFR (African America 49 (>=60); Estimated GFR (Non-African Ame 40 (>=60)
== END 2023-10-15 07:54 | disposition home or self-care (01) ==
LOC: LAB 07:53
PROVIDERS: PCP Family Medicine; Visit Provider Internal Medicine Cardiovascular Disease
DX: Z01.818 Encounter for other preprocedural examination (principal); I48.19 Other persistent atrial fibrillation
CPT/HCPCS: 36415; 71275; 82565; Q9966

== ENCOUNTER 2023-12-10 11:57 | Outpatient (OUT) | payer MEDICARE, SELFPAY ==
[2023-12-10 12:33] LABS: Basophils Absolute Auto 0.1 10^3/uL (0.0-0.1); Basophils Percent Auto 0.7 % (0.2-2.0); Eosinophils Absolute Auto 0.2 10^3/uL (0.0-0.7); Eosinophils Percent Auto 2.1 % (0.9-7.0); Hematocrit 49.5 % (42.0-54.0); Hemoglobin 16.2 g/dL (14.0-18.0); Immature Granulocytes Abs Auto 0.08 10^3/uL (0.00-0.03); Immature Granulocytes Pct Auto 0.8 % (0.0-0.5); Lymphocytes Absolute Auto 0.9 10^3/uL (1.2-3.8); Lymphocytes Percent Auto 8.3 % (20.5-60.0); Mean Corpuscular HGB Conc 32.7 g/dL (29.9-35.2); Mean Corpuscular Hemoglobin 28.8 pg (25.9-34.0); Mean Corpuscular Volume 88.1 fL (80.0-94.0); Mean Platelet Volume 10.8 fL (9.5-13.5); Monocytes Absolute Auto 0.7 10^3/uL (0.3-0.8); Monocytes Percent Auto 6.4 % (1.7-12.0); Neutrophils Absolute Auto 8.3 10^3/uL (1.4-6.5); Neutrophils Percent Auto 81.7 % (43.0-75.0); Platelet Count 232 10^3/uL (150-450); Red Blood Count 5.62 10^6/uL (4.70-6.10); Red Cell Distribution Width 14.8 % (11.0-15.0); White Blood Count 10.2 10^3/uL (4.0-11.0)
[2023-12-10 13:01] LABS: Anion Gap 15.8; Calcium 9.4 mg/dL (8.5-10.1); Carbon Dioxide 23.3 mmol/L (21.0-32.0); Chloride 98 mmol/L (98-107); Estimated GFR (African America 51 (>=60); Estimated GFR (Non-African Ame 42 (>=60); Glucose 281 mg/dL (74-106); Potassium 4.1 mmol/L (3.5-5.1); Sodium 133 mmol/L (136-145)
== END 2023-12-10 11:58 | disposition home or self-care (01) ==
LOC: LAB 12:02
PROVIDERS: PCP Family Medicine; Visit Provider Internal Medicine Cardiovascular Disease
DX: I48.19 Other persistent atrial fibrillation (principal)
CPT/HCPCS: 36415; 80048; 85025

== ENCOUNTER 2024-11-16 09:32 | Outpatient (OUT) | payer MEDICARE, SELFPAY ==
--- OUTSIDE RECORDS SUMMARY | 2024-11-16 09:45 | XMS_ITS | CCD ---
Author Organization [facility] Care Team Providers Care Electrical Systems Engineer Name Role Phone Unavailable Primary Care Provider Unavailabl e STEVEN, SUBRAHMANYAM Consulting Unavail able OSKAR PINA Attending Unavailable VAUGHN KAYE Consulting Unavailable Pearl Nobles MD Primary Care Provider [phone] Melvi Kulkarni Jr. Unavailable Adrienne Mckoy MD, Surinder Unavailable Paerl Nobles MD Primary Care Provider [phone] Melvi Kulkarni Jr. Unavailable Adrienne Mckoy MD, [...] KANG Primary Care Unavailable XAVIER ., JONATHAN Admitting Unavailable JAYSON, DR FUAD Mariee Consulting Unavailable HOY ., DR KANG Primary Care Unavailable XAVIER ., JONATHAN Attending Unavailable XAVIER ., JONATHAN Consulting Unavailable HOY ., DR KANG Primary Care Unavailable HOY ., DR KANG Admitting Unavailable HOY ., DR KANG Attending Unavailable HOY ., DR KANG Consulting Unavailable Pearl Nobles MD Primary Care Provider [phone] Melvi Kulkarni Jr. Unavailable Adrienne Mckoy MD, Surinder Unavailable SHAHNAZ, SHARONA Referring Unavailable ALFRED NOBLESLAS M Primary Care Unavailable Pearl Nobles MD Primary Care Provider [phone] AMY TENA Attending Unavailable YEU, SHANE Attending Unavailable YUE, SHANE Attending Unavailable YUE, SHANE Attending Unavailable YUE, SHANE Attending Unavailable GILBERT MARTÍNEZ Referring Unavailable YUE, SHANE Referring Unavailable YUE, SHANE Referring Unavailable YUE, SHANE Admitting Unavailable YUE, SHANE Attending Unavailable MICHAEL ROBLEDO Attending Unavailable Pearl Nobles MD Primary Care Provider [phone] Pearl Nobles MD Primary Care Provider [phone] ABHYANKAR, APOLINAR Referring Unavailable HOY, PEARL M Primary Care Unavailable ABHYANKAR, APOLINAR Attending Unavailable MALLORIE, PEARL M Primary Care Unavailable HOY, PEARL M Primary Care Unavailable HOY, PEARL M Primary Care Unavailable ABHYANKAR, APOLINAR Referring Unavailable ABHYANKAR, APOLINAR Attending Unavailable ABHYANKAR, APOLINAR Referring Unavailable HOY, PEARL M Primary Care Unavailable ABHYANKAR, APOLINAR Referring Unavailable ABHYANKAR, APOLINAR Attending Unavailable PEARL NOBLES M Primary Care Unavailable Allergies Allergy Classification Reported Allergen(s) Allergy Type Date of Onset Reaction(s) Facility (18 sources) Ciprofloxacin; Translations: [CIPROFLOXACIN] Drug Allergy 07-30-20 18 Mental Status Change, Hallucinations [facility] (17 sources) Desonide; Translations: [DESONIDE] Drug Allergy 06-05-20 16 Unknown [facility] (7 sources) HMG-CoA reductase inhibitor; Translations: [[id number] REDUCTASE INHIBITORS] Drug Allergy 05-21-20 16 Other: See Comments, Other [facility] (16 sources) Lactose; Translations: [LACTOSE] Drug Allergy 05-21-20 16 Unknown [facility] (11 sources) HMG-CoA reductase inhibitor Drug Allergy 05-21-20 16 Other: See Comments [facility] (1 source) black walnut pollen extract Drug Allergy 05-21-20 16 [facility] (1 source) Ciprofloxacin Drug Allergy 12-25-19 13 [facility] (1 source) Lactose Drug Allergy 05-21-20 16 [facility] (3 sources) atorvastatin; Translations: [ATORVASTATIN] Drug Allergy 04-02-20 21 Other (See Comments) [facility] (1 source) ADHESIVE TAPE-SILICONES; Translations: [ADHESIVE TAPE-SILICONES] Propensity to adverse reactions to drug (disorder) 12-11-19 [facility] Repository (2 sources) Desonide Allergy to substance 06-05-20 16 Unknown [facility] (2 sources) Lactose (non-medical use) Allergy to substance 05-21-20 16 Unknown [facility] (2 sources) metFORMIN Drug Allergy 04-15-[address] [facility] (2 sources) Wound Dressing Adhesive Drug Intolerance 12-11-[address] [facility] Medications Current Medications Medication Drug Class(es) Dates Sig (Normalized) Sig (Original) acetaminophen 32 mg/ml / chlorpheniramine maleate 0.2 mg/ml / dextromethorphan hydrobromide 1 mg/ml oral suspension (7 sources) Histamine-1 Receptor Antagonist, Uncompetitive X-wpbwcl-F-asparta te Receptor Antagonist, Sigma-1 Agonist End: 01-28-2023 fqxfjjwgowtld-WJ-zz etaminophen 1-5-160 mg/5 mL suspension Take by mouth as needed. 0 Active Comment on above: Take by mouth at bed time as needed. aspirin 81 mg chewable tablet (1 source) Platelet Aggregation Inhibitor, Nonsteroidal Anti-inflammatory Drug Start: 07-03-2019 aspirin chewable tablet 81 mg cephalexin 500 mg oral capsule (2 sources) Cephalosporin Antibacterial Start: 04-21-2021 take 1 capsule by mouth twice daily CEPHalexin (KEFLEX) 500 mg capsule Take 500 mg by mouth 2 (two) times a day. 0 04/21/2021 Active cholecalciferol 0.025 mg oral capsule (10 sources) Vitamin D take 1 capsule by mouth in the morning cholecalciferol (Vitamin D-3) 25 MCG (1000 UT) capsule Take 2,000 Units by mouth in the morning. Active End: 01-28-2023 take 1 capsule by mouth once daily cholecalciferol, vitamin D3, 25 mcg (1,000 unit) capsule Take 2,000 Units by mouth daily. 0 Active Cholecalciferol, Vitamin D3, (VITAMIN D) 1,000 unit cap Indications: Prostate cancer (HCC) Take 2,000 Units by mouth once daily. 0 Active Comment on above: Take 2,000 Units by mouth once daily. 24 hr dilTIAZem hydrochloride 180 mg extended release oral capsule (20 sources) Calcium Channel Roxana Start: 09-15-2023 take 1 capsule by mouth once dilTIAZem CD (CARDIZEM CD, CARTIA XT) 180 mg 24 hr capsule Take 1 capsule by mouth every afternoon. 09/15/2023 Active Start: 09-15-2023 dilTIAZem CD ( Cardizem CD) 180 MG 24 hr capsule 1 capsule 1 (one) time each day at the same time 09/15/2023 Active Start: 05-04-2019 End: 10-10-2023 take 2 tablets by mouth three times daily diltiazem (CARDIZEM) 30 mg tablet Take 60 mg by mouth three times daily. 0 05/04/2019 10/10/2023 Discontinued dilTIAZem (Cardi zem) 120 MG immediate release tablet Take 30 mg by mouth Active dilTIAZem (Cardi zem) 30 MG immediate release tablet Take 30 mg by mouth Active take 1 capsule by [facility] every twenty-four hours in the morning dilTIAZem (TIAZAC) 120 MG 24 hr capsule Take 1 capsule (120 mg total) by mouth in the morning. 0 Active Comment on above: Take 60 mg by mouth three times daily. Take 1 capsule by mo [facility] every afternoon. empagliflozin 25 mg oral tablet (15 sources) Sodium-Glucose Cotransporter 2 Inhibitor Start: take 1 tablet by mouth once JARDIANCE 25 mg tablet Take 1 tablet by mouth every afternoon. 10/08/2023 Active Start: 10-08-2023 empagliflozin (Jardiance) 25 MG 1 (one) time each day at the same time 10/08/2023 Active End: 10-10-2023 take 1 tablet by mouth once daily at breakfast empagliflozin (JARDIANCE) 10 mg tablet Take 10 mg by mouth daily with breakfast. 0 10/10/2023 Discontinued Comment on above: Take 10 mg by mouth daily with breakfast. Take [facility]. flecainide acetate 50 mg oral tablet (10 sources) Antiarrhythmic Start: 12-03-19 take 1 tablet by mouth twice daily flecainide (Tambocor) 50 MG tablet 1 tablet Orally twice daily 12/03/2023 Active Comment on above: Take 50 mg by mouth twice daily. glimepiride 4 mg oral tablet (14 sources) Sulfonylurea Start: 05-03-20 glimepiride (AMARYL) 4 mg tablet Indications: Prostate cancer (HCC) 05/03/2018 Active hydrALAZINE hydrochloride 50 mg oral tablet (15 sources) Arteriolar Vasodilator take 1 tablet by mouth three times daily hydrALAZINE (APRESOLINE) 50 mg tablet Indications: Prostate cancer (HCC) Take 50 mg by mouth three times daily. Active take 2 tablets by mouth twice da gurinder hydrALAZINE (Apresoline) 50 MG tablet 2 tablets Orally twice daily for 30 days Active take 1 tablet by mouth twice suzette ly hydrALAZINE (APRESOLINE) 50 mg tablet Take 50 mg by mouth 2 (two) times a day. 0 Active Comment on above: Take 50 mg by mouth three times daily. 24 hr isosorbide mononitrate 30 mg extended release oral tablet (13 sources) Nitrate Vasodilator take 1 tablet by mouth once daily, then take 1 tablet by mouth every twenty-four hours isosorbide mononitrate ER (IMDUR) 30 mg 24 hr tablet Take 30 mg by mouth once daily. Active Comment on above: Take 30 mg by mouth once daily. lisinopril 40 mg oral tablet (6 sources) Angiotensin Converting Enzyme Inhibitor lisinopril 40 MG tablet Take 40 mg by mouth Active take 1 tablet by mouth once elysia y lisinopril (PRINIVIL;ZESTRIL) 10 MG tablet Take 10 mg by mouth daily 0 Active loperamide hydrochloride 2 mg oral tablet (7 sources) Opioid Agonist take 1 tablet by mouth once as needed for diarrhea loperamide (IMODIUM A-D) 2 mg tablet Take 2 mg by mouth as needed for diarrhea. 0 Active End: 01-28-2023 loperamide HCl (IMODIUM A-D ORAL) Take by mouth as needed. 0 01/28/2023 Discontinued (Course of therapy completed) loperamide HCl ( IMODIUM A-D ORAL) Take by mouth as needed. 0 Active Comment on above: Take by mouth as nee ded. olmesartan medoxomil 20 mg oral tablet (11 sources) Angiotensin 2 Receptor Roxana Start: 1 take 1 tablet by mouth once daily olmesartan (BENICAR) 20 mg tablet Take 20 mg by mouth once daily. 04/25/2021 Active Comment on above: Take 20 mg by mouth once daily. rivaroxaban 20 mg oral tablet (5 sources) Factor Xa Inhibitor Start: 3 rivaroxaban (XARELTO) 20 mg tablet Take 20 mg by mouth. 07/15/2023 Active Comment on above: Take 20 mg by mouth. SITagliptin 100 mg oral tablet (13 sources) Dipeptidyl Peptidase 4 Inhibitor Start: 2 JANUVIA 100 mg tablet 08/22/2021 Active 1000 ml sodium chloride 9 mg/ml injection (2 sources) Start: 9 0.9 % sodium chloride infusion Start: 07-03-2019 End: 07-03-2019 0.9 % sodium chloride bolus warfarin sodium 5 mg oral tablet (13 sources) Vitamin K Antagonist Start: 05-04-2021 take 1-1.5 tablets by mouth once daily warfarin (COUMADIN) 5 mg tablet TAKE 1-1.5 TABLETS BY MOUTH DAILY As directed by Sharona VALADEZ.] 05/04/2021 Active Comment on above: TAKE 1-1.5 TABLETS BY MOUTH DAILY As dir ected by Sharona VALADEZ.] Completed/Discontinued Medications Medication Drug Class(es) Dates Sig (Normalized) Sig (Original) hyoscyamine sulfate 0.125 mg sublingual tablet (5 sources) Start: 02-20-2021 End: 01-28-2023 take 1 tablet under the tongue four times daily as needed hyoscyamine sublingual (LEVSIN SL) 0.[address] 1 (ONE) TABLET UNDER THE TONGUE FOUR TIMES DAILY NEEDED 0 02/20/2021 01/28/2023 Discontinued (Course of therapy completed) Comment on above: PLACE 1 (ONE) TABLET UNDER THE TONGUE FOUR TIMES DAILY NEEDED Iohexol (1 source) Radiographic Contrast Agent Start: 07-03-2019 End: 07-03-2019 iohexol (OMNIPAQUE 350) solution 90 mL 100 ml magnesium sulfate 10 mg/ml injection (1 source) Start: 07-03-2019 End: 07-03-2019 magnesium sulfate 1 g in dextrose 5% 100 mL IVPB metFORMIN hydrochloride 500 mg oral tablet (10 sources) Biguanide Start: 07-26-2018 End: 01-28-2023 metFORMIN (GLUCOPHAGE) 500 mg tablet Indications: Prostate cancer (HCC) 0 07/26/2018 01/28/2023 Discontinued (Discontinued by another Health Care Provider) pioglitazone 15 mg oral tablet (10 sources) Peroxisome Proliferator Receptor alpha Agonist, Peroxisome Proliferator Receptor gamma Agonist, Thiazolidinedione Start: 04-30-2019 End: 01-28-2023 take 1 tablet by mouth once daily pioglitazone (ACTOS) 15 mg tablet Take 15 mg by mouth once daily. 0 04/30/2019 01/28/2023 Discontinued (Course of therapy completed) Comment on above: Take 15 mg by mouth once daily. Problems Active Problems Problem Classification Problem Date Documented Da te Episodic/Chronic Cancer of prostate (19 sources) Malignant tumor of prostate; Translations: [Malignant neoplasm of prostate] Onset: 07-30-2018 Chronic Cancer of prostate (1 source) Personal history of malignant neoplasm of prostate; Translations: [PERSONAL HX MALIG NEOPLASM PROSTATE] Onset: 11-18-2022 Episodic Cardiac dysrhythmias (13 sources) Paroxysmal atrial fibrillation; Translations: [Unspecified atrial fibrillation] Onset: 04-02-2021 Resolved: 08-28-2023 Chronic Cardiac dysrhythmias (7 sources) Tachycardia, unspecified; Translations: [Palpitations] Onset: 08-21-2022 Episodic Chronic kidney disease (7 sources) Chronic kidney disease stage 3; Translations: [Stage 3 chronic kidney disease, unspecified whether stage 3a or 3b CKD] Onset: 10-10-2023 10-10-2023 Chronic Diabetes mellitus without complication (1 source) Type 2 diabetes mellitus without complications; Translations: [TYPE 2 DM WITHOUT COMPLICATIONS] Onset: 11-18-2022 Chronic Disorders of lipid metabolism (1 source) Hyperlipidemia, unspecified; Translations: [HYPERLIPIDEMIA UNSPECIFIED] Onset: 09-17-2022 Chronic Essential hypertension (1 source) Essential (primary) hypertension; Translations: [ESSENTIAL PRIMARY HYPERTENSION] Onset: 11-18-2022 Chronic Hyperplasia of prostate (1 source) Benign prostatic hyperplasia without lower urinary tract symptoms; Translations: [BENIGN PROSTATIC HYPRPLASIA WO LUTS] Onset: 09-17-2022 Chronic Hypertension with complications and secondary hypertension (2 sources) Hypertensive heart disease without heart failure; Translations: [Hypertensive heart disease without heart failure] Onset: 01-09-2023 Chronic Miscellaneous mental health disorders (4 sources) Primary insomnia; Translations: [Primary insomnia] Onset: 04-19-2024 04-19-2024 Chronic Other aftercare (2 sources) assisted (current) use of anticoagulants; Translations: [LONG-TERM CURRNT USE ANTICOAGULANTS] Onset: 11-18-2022 Episodic Other aftercare (1 source) Other chcf (current) drug therapy; Translations: [OTH LONG-TERM CURRENT DRUG THERAPY] Onset: 11-18-2022 Episodic Other aftercare (1 source) Encounter for therapeutic drug level monitoring; Translations: [Encounter for therapeutic drug level monitoring] Onset: 08-29-2023 Episodic Other gastrointestinal disorders (1 source) Irritable bowel syndrome without diarrhea; Translations: [IRRITABLE BOWEL SYND W/O DIARRHEA] Onset: 11-18-2022 Chronic Other hematologic conditions (9 sources) Secondary polycythemia; Translations: [Secondary polycythemia] Onset: 10-10-2023 06-23-2023 Episodic Other hematologic conditions (1 source) Red blood cell disorder; Translations: [Other abnormality of red blood cells] 04-06-2024 Episodic Other nutritional; endocrine; and metabolic disorders (2 sources) Body mass index 30+ - obesity; Translations: [Obesity, unspecified] Onset: 04-25-2021 04-25-2021 Chronic Residual codes; unclassified (12 sources) Obstructive sleep apnea syndrome; Translations: [Obstructive sleep apnea (adult) (pediatric)] Onset: 10-10-2023 06-23-2023 Chronic Residual codes; unclassified (4 sources) Hypersomnia; Translations: [Hypersomnia, unspecified] Onset: 04-19-2024 04-19-2024 Chronic Residual codes; unclassified (1 source) Acquired absence of other genital organ(s); Translations: [ACQUIRED ABSENCE OTH GENITAL ORGANS] Onset: 11-18-2022 Episodic Syncope (1 source) Syncope and collapse; Translations: [Syncope and collapse] Episodic Transient cerebral ischemia (2 sources) Transient cerebral ischemia; Translations: [Transient cerebral ischemic attack, unspecified] Onset: 04-01-2021 04-01-2021 Chronic Unclassified (1 source) CONTACT W/AND (SUSP) EXPOS COVID-19; Translations: [CONTACT W/AND (SUSP) EXPOS COVID-19] Onset: 08-23-2022 Unclassified (2 sources) Other persistent atrial fibrillation; Translations: [Other persistent atrial fibrillation] Onset: 07-15-2023 Past or Other Problems Problem Classification Problem Date Documented Da te Episodic/Chronic Diabetes mellitus without complication (1 source) Other abnormal glucose; Translations: [OTHER ABNORMAL GLUCOSE] Onset: 09-17-2022 Episodic Other aftercare (1 source) 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; Translations: [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 SYSTEMS PROGRAMMER CURRENT USE OF ASPIRIN] Onset: 08-23-2022 Episodic Other aftercare (1 source) 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 of oral hypoglycemic drugs; Translations: [SENIOR SYSTEMS PROGRAMMER USE ORAL HYPOGLYCEMIC DX] Onset: 08-23-2022 Episodic Other aftercare (2 sources) Long-term current use of anticoagulant; Translations: [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 of anticoagulants] Onset: 04-03-2021 Resolved: 08-28-2023 08-28-2023 Episodic Other liver diseases (1 source) Abnormal levels of other serum enzymes; Translations: [ABNORMAL LEVELS OTHER SERUM ENZYMES] Onset: 08-23-2022 Episodic Other lower respiratory disease (5 sources) Dyspnea, unspecified; Translations: [DYSPNEA UNSPECIFIED] Onset: 07-10-2022 Episodic Other lower respiratory disease (4 sources) Hypoxia; Translations: [Hypoxemia] Onset: 04-19-2024 04-15-2024 Episodic Other lower respiratory disease (4 sources) Snoring; Translations: [Snoring] Onset: 04-19-2024 04-19-2024 Episodic Other screening for suspected conditions (not mental disorders or infectious disease) (12 sources) Raised prostate specific antigen; Translations: [Rising PSA following treatment for malignant neoplasm of prostate] Onset: 06-12-2020 06-12-2020 Episodic Screening and history of mental health and substance abuse codes (1 source) Personal history of nicotine dependence; Translations: [PERSONAL HISTORY OF NICOTINE DEPEND] Onset: 08-23-2022 Episodic Results Test Name Value Interpretation Reference Range Facility CBC W Auto Differential pane l (Bld)on 10-06-2024 Basophils (Bld) [#/Vol] 0.04 10*3/uL Normal <0.11 [facility] Comment on above: Order Comment: Speci men Type: BLOOD SPECIMEN Ordering Facility: [facility] Address: [address] [place] [address] Performed By: #### 2 132-9, 2276-4, 2284-8, 53305-3 #### [facility] CLIA [id number] [address] [place] [address] [place] Basophils/100 WBC (Bld) 0.4 % Normal [facility] Comment on above: Order Comment: Speci men Type: BLOOD SPECIMEN Ordering Facility: [facility] Address: [address] [place] [address] Performed By: #### 2 132-9, 2276-4, 2284-8, 12169-2 #### [facility] CLIA [id number] [address] [place] [address] [place] Differential cell count method Nom (Bld) Auto Normal [facility] Comment on above: Order Comment: Speci men Type: BLOOD SPECIMEN Ordering Facility: [facility] Address: [address] [place] [address] Performed By: #### 2 132-9, 6-4, 4-8, 78070-5 #### [facility] CLIA [id number] [address] [place] [address] [place] Eosinophils (Bld) [#/Vol] 0.32 10*3/uL Normal <0.46 [facility] Comment on above: Order Comment: Speci men Type: BLOOD SPECIMEN Ordering Facility: [facility] Address: [address] [place] [address] Performed By: #### 2 132-9, 2276-4, 4-8, 78362-2 #### [facility] CLIA [id number] [address] [place] [address] [place] Eosinophils/100 WBC (Bld) 3.0 % Normal [facility] Comment on above: Order Comment: Speci men Type: BLOOD SPECIMEN Ordering Facility: [facility] Address: [address] [place] [address] Performed By: #### 2 132-9, 2276-4, 2284-8, 44366-1 #### [facility] CLIA [id number] [address] [place] [address] [place] Erythrocyte distribution width (RBC) [Ratio] 15.4 % High 11.5-15.0 [facility] Comment on above: Order Comment: Speci men Type: BLOOD SPECIMEN Ordering Facility: [facility] Address: [address] [place] [address] Performed By: #### 2 132-9, 2276-4, 2284-8, 83129-5 #### [facility] CLIA [id number] [address] [place] [address] [place] Hematocrit (Bld) [Volume fraction] 46.2 % Normal 39.0-51.0 [facility] Comment on above: Order Comment: Speci men Type: BLOOD SPECIMEN Ordering Facility: [facility] Address: [address] [place] [address] Performed By: #### 2 132-9, 2276-4, 2284-8, 19390-5 #### [facility] CLIA [id number] [address] [place] [address] [place] Hemoglobin (Bld) [Mass/Vol] 15.5 g/dL Normal 13.0-17.0 [facility] Comment on above: Order Comment: Speci men Type: BLOOD SPECIMEN Ordering Facility: [facility] Address: [address] [place] [address] Performed By: #### 2 132-9, 2276-4, 2284-8, 19183-7 #### [facility] CLIA [id number] [address] [place] [address] [place] Immature granulocytes (Bld) [#/Vol] 0.07 10*3/uL Normal <0.10 [facility] Comment on above: Order Comment: Speci men Type: BLOOD SPECIMEN Ordering Facility: [facility] Address: [address] [place] [address] Performed By: #### 2 132-9, 2276-4, 2284-8, 29620-7 #### [facility] CLIA [id number] [address] [place] [address] [place] Immature granulocytes/100 WBC (Bld) 0.7 % Normal [facility] Comment on above: Order Comment: Speci men Type: BLOOD SPECIMEN Ordering Facility: [facility] Address: [address] [place] [address] Performed By: #### 2 132-9, 2276-4, 2284-8, 09296-2 #### [facility] CLIA [id number] [address] [place] [address] [place] Lymphocytes (Bld) [#/Vol] 0.78 10*3/uL Low 1.00-4.00 [facility] Comment on above: Order Comment: Speci men Type: BLOOD SPECIMEN Ordering Facility: [facility] Address: [address] [place] [address] Performed By: #### 2 132-9, 2276-4, 2284-8, 91101-2 #### [facility] CLIA [id number] [address] [place] [address] [place] Lymphocytes/100 WBC (Bld) 7.4 % Normal [facility] Comment on above: Order Comment: Speci men Type: BLOOD SPECIMEN Ordering Facility: [facility] Address: [address] [place] [address] Performed By: #### 2 132-9, 2276-4, 2284-8, 75423-1 #### [facility] CLIA [id number] [address] [place] [address] [place] MCH (RBC) [Entitic mass] 29.1 pg Normal 26.0-34.0 [facility] Comment on above: Order Comment: Speci men Type: BLOOD SPECIMEN Ordering Facility: [facility] Address: [address] [place] [address] Performed By: #### 2 132-9, 2276-4, 2284-8, 22797-3 #### [facility] CLIA [id number] [address] [place] [address] [place] MCHC (RBC) [Mass/Vol] 33.5 g/dL Normal 30.5-36.0 [facility] Comment on above: Order Comment: Speci men Type: BLOOD SPECIMEN Ordering Facility: [facility] Address: [address] [place] [address] Performed By: #### 2 132-9, 2276-4, 2284-8, 80925-8 #### [facility] CLIA [id number] [address] [place] [address] [place] MCV (RBC) [Entitic vol] 86.7 fL Normal 80.0-100.0 [facility] Comment on above: Order Comment: Speci men Type: BLOOD SPECIMEN Ordering Facility: [facility] Address: [address] [place] [address] Performed By: #### 2 132-9, 2276-4, 2284-8, 97018-3 #### [facility] CLIA [id number] [address] [place] [address] [place] Monocytes (Bld) [#/Vol] 0.71 10*3/uL Normal <0.87 [facility] Comment on above: Order Comment: Speci men Type: BLOOD SPECIMEN Ordering Facility: [facility] Address: [address] [place] [address] Performed By: #### 2 132-9, 2276-4, 2284-8, 02293-6 #### [facility] CLIA [id number] [address] [place] [address] [place] Monocytes/100 WBC (Bld) 6.7 % Normal [facility] Comment on above: Order Comment: Speci men Type: BLOOD SPECIMEN Ordering Facility: [facility] Address: [address] [place] [address] Performed By: #### 2 132-9, 2276-4, 2284-8, 24294-9 #### [facility] [facility] CLIA [id number] [address] [place] [address] [place] Neutrophils (Bld) [#/Vol] 8.67 10*3/uL High 1.45-7.50 [facility] Comment on above: Order Comment: Speci men Type: BLOOD SPECIMEN Ordering Facility: [facility] Address: [address] [place] [address] Performed By: #### 2 132-9, 2276-4, 2284-8, 78301-7 #### [facility] CLIA [id number] [address] [place] [address] [place] Neutrophils/100 WBC (Bld) 81.8 % Normal [facility] Comment on above: Order Comment: Speci men Type: BLOOD SPECIMEN Ordering Facility: [facility] Address: [address] [place] [address] Performed By: #### 2 132-9, 2276-4, 2284-8, 86900-1 #### [facility] CLIA [id number] [address] [place] [address] [place] Nucleated RBC (Bld) [#/Vol] 10*3/uL Normal <0.01 [facility] Comment on above: Order Comment: Speci men Type: BLOOD SPECIMEN Ordering Facility: [facility] Address: [address] [place] [address] Performed By: #### 2 132-9, 2276-4, 2284-8, 84515-9 #### [facility] CLIA [id number] [address] [place] [address] [place] Nucleated RBC/100 WBC (Bld) [Ratio] 0.0 /100 WBC Normal [facility] Comment on above: Order Comment: Speci men Type: BLOOD SPECIMEN Ordering Facility: [facility] Address: [address] [place] [address] Performed By: #### 2 132-9, 2276-4, 2284-8, 80446-4 #### [facility] CLIA [id number] [address] [place] [address] [place] Platelet mean volume (Bld) [Entitic vol] 10.5 fL Normal 9.0-12.7 [facility] Comment on above: Order Comment: Speci men Type: BLOOD SPECIMEN Ordering Facility: [facility] Address: [address] [place] [address] Performed By: #### 2 132-9, 2276-4, 2284-8, 95584-5 #### [facility] CLIA [id number] [address] [place] [address] [place] Platelets (Bld) [#/Vol] 220 10*3/uL Normal 150-400 [facility] Comment on above: Order Comment: Speci men Type: BLOOD SPECIMEN Ordering Facility: [facility] Address: [address] [place] [address] Performed By: #### 2 132-9, 2276-4, 2284-8, 02955-3 #### [facility] CLIA [id number] [address] [place] [address] [place] RBC (Bld) [#/Vol] 5.33 10*6/uL Normal 4.20-6.00 [facility] Comment on above: Order Comment: Speci men Type: BLOOD SPECIMEN Ordering Facility: [facility] Address: [address] [place] [address] Performed By: #### 2 132-9, 2276-4, 2284-8, 66084-1 #### [facility] CLIA [id number] [address] [place] [address] [place] WBC (Bld) [#/Vol] 10.59 10*3/uL Normal 3.70-11.00 [facility] Comment on above: Order Comment: Speci men Type: BLOOD SPECIMEN Ordering Facility: [facility] Address: [address] [place] [address] Performed By: #### 2 132-9, 2276-4, 2284-8, 87391-9 #### [facility] CLIA [id number] [address] [place] [address] [facility] CNOVSPon 10-06-2024 CNOVSP Visit (SP) Office ( [facility]) MELVI DAVIES ([id number]) 1950 M Date Time Provider Department 10/06/24 10:20 AM APOLINAR FORREST During your visit today, we recorded the following information about you: Temperature Pulse Respiration Blood pressure 97.4 degrees 87/minute 16/minute 113/70 Weight 101 kg Apolinar Forrest MD 10/07/2024 1:14 PM Signed NAME: Melvi Davies CLINIC NO.: [id number] DATE OF SERVICE: October 06, 2024 ([place]) Some elements in this clinic note that are critical to medical decision making have been carefully reviewed and included from a prior clinic note dated: April 06, 2024 ([place]) Referring Provider: Pearl Nobles MD Additional Clinicians involved in Melvi Davies's care: Diagnosis: Prostate Cancer Polycythemia - secondary. ASSESSMENT: 73 year old gentleman with Prostatectomy for Carlos [...] and reflects regular use of CPAP. PLAN: Triage to call PSA results RTC in 6 months Labs 1 week prior Patient is not interested in Lupron due to side effects - Would consider Orgovyx in future if needed - ____ HPI: CASE HISTORY: Reverse Chronological Order 12/2023 - Cardiac ablation - now on Xarelto 08/2023 - Started Xarelto 03/2021-07/2023: Coumadin 03/2021 - Mild CVA - recovered 02/02/2021 - Completed salvage RT 06/2018-08/2018 - Lupron - stopped due to intolerance caused by arrhythmias and syncope 06/2018 - PSA Rising 1.57 05/2016 - Prostatectomy GL 7 (4+3) Updated Visit, October 06, 2024: Raulito returns for a follow up. H/H is stable within normal range. He remains compliant with his CPAP for 8-10 hours every night. PSA in 03/2024 was stable at <0.02 - today's result is pending. He denies any urinary complaints. He mentions he developed loose stools as a result of eating garlic while on Xarelto. His late had a heart transplant in 2001 at [facility], she in 2002. Updated Visit, April 06, 2024: Raulito did well with the ablation in December 2023. Continues to use his CPAP. H/H remains stable. Son is a [place] fan Interestingly his grandson is at [employer]. Updated Visit, October 10, 2023: Raulito returns today. He is due to have ablation, but is trying to find a [facility] location that works for him. He had PSA done on 2 days ago at [place], they called him to report it looks good. Daily CPAP use is apparent on his labs. 2 of his younger brothers have , another just had an [place]. His nephew also passed of heart issues. He also spoke about his late 's passing many years ago but appreciated her care at [facility]. Updated Visit, June 23, 2023: Raulito returns [...] No needs for intervention. Follows with Dr. Nobles for kidney disease Continues coumadin - for [...] COVID-19 vaccination. Is doing alright. He has comp (more content not included)... Normal [facility] Chantal 10-06-2024 AGGIE Telephone ([facility]) MELVI DAVIES ([id number]) 1950 M Date Time Provider Department 10/06/24 APOLINAR FORREST During your visit today, we recorded the following information about you: Jolie Anand 10/07/2024 8:56 AM Addendum Please call Don with Today's PSA level per Dr CONKLIN. Thank you Katya Hernandez RN 10/07/2024 9:09 AM Signed VM left with pt PSA result. Encouraged to call with any questions, concerns. We will see him back as scheduled in 6 months. Katya Hernandez RN Allergies As of Date: 10/06/2024 Noted Allergy Reaction CIPROFLOXACIN 07/30/2018 1 - Mental Status Change DESONIDE 06/05/2016 16 - Unknown LACTOSE 05/21/2016 16 - Unknown [id number] REDUCTASE INHIBIT*05/21/2016 14 - Other: See Comments Date Reviewed: 04/06/2024 Reviewed by: Ruby Brooke MA - Fully Assessed Reason for Visit: Results [95] Prescriptions as of 10/07/2024 - rivaroxaban (XARELTO) 20 mg tablet Take 20 mg by mouth. - dilTIAZem CD (CARDIZEM CD, CARTIA XT) 180 mg 24 hr capsule Take 1 capsule by mouth every afternoon. - JARDIANCE 25 mg tablet Take 1 tablet by mouth every afternoon. - flecainide (TAMBOCOR) 50 mg tablet Take 50 mg by mouth twice daily. - isosorbide mononitrate ER (IMDUR) 30 mg 24 hr tablet Take 30 mg by mouth once daily. - JANUVIA 100 mg tablet - warfarin (COUMADIN) 5 mg tablet TAKE 1-1.5 TABLETS BY MOUTH DAILY [facility].] - olmesartan (BENICAR) 20 mg tablet Take 20 mg by mouth once daily. - glimepiride (AMARYL) 4 mg tablet - hydrALAZINE (APRESOLINE) 50 mg tablet Take 50 mg by mouth three times daily. Problem List As Of Date 10/06/2024 Noted Resolved Prostate cancer (HCC) [C61] 07/30/2018 Increasing prostate specific antigen (PSA) leve*06/12/2020 Stage 3 chronic kidney disease, unspecified whe*10/10/2023 MELVIN (obstructive sleep apnea) [G47.33] 10/10/2023 Secondary polycythemia [D75.1] 10/10/2023 Encounter Status:Closed by KATYA HERNANDEZ on 10/07/24 Normal [facility] Comprehensive metabolic 2000 panelon 10-06-2024 Albumin [Mass/Vol] 3.8 g/dL Low 3.9-4.9 [facility] Comment on above: Order Comment: Speci men Type: BLOOD SPECIMEN Ordering Facility: [facility] Address: [address] [place] [address] Performed By: #### 2 132-9, 2276-4, 2284-8, 44119-9 #### [facility] CLIA [id number] [address] [place] [address] [place] ALP [Catalytic activity/Vol] 57 U/L Normal 38-113 [facility] Comment on above: Order Comment: Speci men Type: BLOOD SPECIMEN Ordering Facility: [facility] Address: [address] [place] [address] Performed By: #### 2 132-9, 2276-4, 2284-8, 27344-6 #### [facility] CLIA [id number] [address] [place] [address] [place] ALT [Catalytic activity/Vol] 19 U/L Normal 10-54 [facility] Comment on above: Order Comment: Speci men Type: BLOOD SPECIMEN Ordering Facility: [facility] Address: [address] [place] [address] Performed By: #### 2 132-9, 2276-4, 2284-8, 23452-4 #### [facility] CLIA [id number] [address] [place] [address] [place] Anion gap [Moles/Vol] 12 mmol/L Normal 8-15 [facility] Comment on above: Order Comment: Speci men Type: BLOOD SPECIMEN Ordering Facility: [facility] Address: [address] [place] [address] Performed By: #### 2 132-9, 2276-4, 2284-8, 70010-5 #### [facility] CLIA [id number] [address] [place] [address] [place] AST [Catalytic activity/Vol] 14 U/L Normal 14-40 [facility] Comment on above: Order Comment: Speci men Type: BLOOD SPECIMEN Ordering Facility: [facility] Address: [address] [place] [address] Performed By: #### 2 132-9, 2276-4, 2284-8, 40223-3 #### [facility] CLIA [id number] [address] [place] [address] [place] Bilirubin [Mass/Vol] 0.3 mg/dL Normal 0.2-1.3 [facility] Comment on above: Order Comment: Speci men Type: BLOOD SPECIMEN Ordering Facility: [facility] Address: [address] [place] [address] Performed By: #### 2 132-9, 2276-4, 2284-8, 09241-2 #### [facility] CLIA [id number] [address] [place] [address] [place] Calcium [Mass/Vol] 9.1 mg/dL Normal 8.5-10.2 [facility] Comment on above: Order Comment: Speci men Type: BLOOD SPECIMEN Ordering Facility: [facility] Address: [address] [place] [address] Performed By: #### 2 132-9, 2276-4, 2284-8, 29671-1 #### [facility] CLIA [id number] [address] [place] [address] [place] Chloride [Moles/Vol] 96 mmol/L Low 98-107 [facility] Comment on above: Order Comment: Speci men Type: BLOOD SPECIMEN Ordering Facility: [facility] Address: [address] [place] [address] Performed By: #### 2 132-9, 2276-4, 2284-8, 11111-2 #### [facility] CLIA [id number] [address] [place] [address] [place] CO2 [Moles/Vol] 21 mmol/L Low 22-30 [facility] Comment on above: Order Comment: Speci men Type: BLOOD SPECIMEN Ordering Facility: [facility] Address: [address] [place] [address] Performed By: #### 2 132-9, 2276-4, 2284-8, 43085-7 #### [facility] CLIA [id number] [address] [place] [address] [place] Creatinine [Mass/Vol] 1.44 mg/dL High 0.73-1.22 [facility] Comment on above: Order Comment: Speci men Type: BLOOD SPECIMEN Ordering Facility: [facility] Address: [address] [place] [address] Performed By: #### 2 132-9, 2276-4, 2284-8, 70318-8 #### [facility] CLIA [id number] [address] [place] [address] [place] Creatinine and Glomerular filtration rate.predicted panel (S/P/Bld) 51 mL/min/1.73m??? Low >=60 [facility] Comment on above: Order Comment: Speci men Type: BLOOD SPECIMEN Ordering Facility: [facility] Address: [address] [place] [address] Result Comment: Bren mated Glomerular Filtration Rate [...] reflect actual GFR. Performed By: #### 2 132-9, 2276-4, 2284-8, 18702-6 #### [facility] CLIA [id number] [address] [place] [address] [place] Glucose [Mass/Vol] 221 mg/dL High 74-99 [facility] Comment on above: Order Comment: Delmar cassidy Type: BLOOD SPECIMEN Ordering Facility: [facility] Address: [address] [place] [address] Result Comment: The [place] Diabetes Association (ADA) provides guidance for cutoff [...] Standards of Medical Care in Diabetes 2016, [place] [employer]. Diabetes Care. 2016.39(Suppl 1). Performed By: #### 2 132-9, 2276-4, 2284-8, 54350-8 #### [facility] CLIA [id number] [address] [place] [address] [place] Potassium [Moles/Vol] 4.1 mmol/L Normal 3.7-5.1 [facility] Comment on above: Order Comment: Delmar cassidy Type: BLOOD SPECIMEN Ordering Facility: [facility] Address: [address] [place] [address] Performed By: #### 2 132-9, 2276-4, 2284-8, 53357-2 #### [facility] CLIA [id number] [address] [place] [address] [place] Protein [Mass/Vol] 7.4 g/dL Normal 6.3-8.0 [facility] Comment on above: Order Comment: Delmar cassidy Type: BLOOD SPECIMEN Ordering Facility: [facility] Address: [address] [place], [place] [address] Performed By: #### 2 132-9, 2276-4, 2284-8, 75561-2 #### [facility] CLIA [id number] [address] [place] [address] [place] Sodium [Moles/Vol] 129 mmol/L Low 136-144 [facility] Comment on above: Order Comment: Speci men Type: BLOOD SPECIMEN Ordering Facility: [facility] Address: [address] [place] [address] Performed By: #### 2 132-9, 2276-4, 2284-8, 83378-0 #### [facility] CLIA [id number] [address] [place] [address] [place] Urea nitrogen [Mass/Vol] 21 mg/dL Normal 9-24 [facility] Comment on above: Order Comment: Speci men Type: BLOOD SPECIMEN Ordering Facility: [facility] Address: [address] [place] [address] Performed By: #### 2 132-9, 2276-4, 2284-8, 03718-7 #### [facility] CLIA [id number] [address] [place] [address] [place] Ferritin SerPl-mCncon 2024 Ferritin [Mass/Vol] 158.0 ng/mL Normal 30.3-565.7 [facility] Comment on above: Order Comment: Speci men Type: BLOOD SPECIMEN Ordering Facility: [facility] Address: [address] [place] [address] Performed By: #### 2 857-1 #### [facility] CLIA [id number] [address] [place] [address] [place] Iron and Iron binding capaci ty panelon 10-06-2024 Iron [Mass/Vol] 37 ug/dL Low 41-186 [facility] Comment on above: Order Comment: Speci men Type: BLOOD SPECIMEN Ordering Facility: [facility] Address: [address] [place] [address] Performed By: #### 2 857-1 #### [facility] CLIA [id number] [address] [place] [address] [place] Iron binding capacity [Mass/Vol] 318 ug/dL Normal 232-386 [facility] Comment on above: Order Comment: Speci men Type: BLOOD SPECIMEN Ordering Facility: [facility] Address: [address] [place] [address] Performed By: #### 2 857-1 #### [facility] CLIA [id number] [address] [place] [address] [place] Iron/TIBC [Molar ratio] 11.6 % Low 15.0-57.0 [facility] Comment on above: Order Comment: Speci men Type: BLOOD SPECIMEN Ordering Facility: [facility] Address: [address] [place] [address] Performed By: #### 2 857-1 #### [facility] CLIA [id number] [address] [place] [address] [place] [facility] Prostate specific Ag [Mass/Vol] ng/mL Normal <2.60 [facility] Comment on above: Order Comment: Speci men Type: BLOOD SPECIMEN Ordering Facility: [facility] Address: [address] [place] [address] Result Comment: Tota l PSA test methodology used is the Electrochemiluminescence Immunoassay by [employer]. Total PSA values by differing methodologies cannot be interchanged. Performed By: #### 2 857-1 #### [facility] CLIA [id number] [address] [place], [place] [id number] [place] Office Visiton 04-20-2024 Follow-up visit [id number] Ghassan Davies 1950 M Date Provider Department Center 04/20/2024 SHANE TOSCANO [facility] Family History Problem Relation Age of Onset Heart attack Brother Family Status - Relation Status Age at Brother Level of Service:26143 AL OFFICE/OUTPATIENT ESTABLISHED LOW MDM 20 MIN Normal [facility] CBC W Auto Differential pane l (Bld)on 04-06-2024 Basophils (Bld) [#/Vol] 0.04 10*3/uL Normal <0.11 [facility] Comment on above: Order Comment: Speci men Type: BLOOD SPECIMEN Ordering Facility: [facility] Address: [address] [place] [address] Performed By: #### 5 7021-8 #### [facility] CLIA [id number] [address] [place] [address]122 Basophils/100 WBC (Bld) 0.4 % Normal [facility] Comment on above: Order Comment: Speci men Type: BLOOD SPECIMEN Ordering Facility: [facility] Address: [address] [place] [address] Performed By: #### 5 7021-8 #### [facility] CLIA [id number] [address] [place] [address]29 Differential cell count method Nom (Bld) Auto Normal [facility] Comment on above: Order Comment: Speci men Type: BLOOD SPECIMEN Ordering Facility: [facility] Address: [address] [place] [address] Performed By: #### 5 7021-8 #### [facility] CLIA [id number] [address] [place] [address] 08607 Eosinophils (Bld) [#/Vol] 0.39 10*3/uL Normal <0.46 [facility] Comment on above: Order Comment: Speci men Type: BLOOD SPECIMEN Ordering Facility: [facility] Address: [address] [place] [address] Performed By: #### 5 7021-8 #### [facility] CLIA [id number] [address] [place] [address] 70145 Eosinophils/100 WBC (Bld) 3.6 % Normal [facility] Comment on above: Order Comment: Speci men Type: BLOOD SPECIMEN Ordering Facility: [facility] Address: [address] [place] [address] Performed By: #### 5 7021-8 #### [facility] CLIA [id number] [address] [place] [address]505 Erythrocyte distribution width (RBC) [Ratio] 15.2 % High 11.5-15.0 [facility] Comment on above: Order Comment: Speci men Type: BLOOD SPECIMEN Ordering Facility: [facility] Address: [address] [place] [address] Performed By: #### 5 7021-8 #### [facility] CLIA [id number] [address] [place] [address] 14927 Hematocrit (Bld) [Volume fraction] 48.6 % Normal 39.0-51.0 [facility] Comment on above: Order Comment: Speci men Type: BLOOD SPECIMEN Ordering Facility: [facility] Address: [address] [place] [address] Performed By: #### 5 7021-8 #### [facility] CLIA [id number] [address] [place] [address] 32044 Hemoglobin (Bld) [Mass/Vol] 16.4 g/dL Normal 13.0-17.0 [facility] Comment on above: Order Comment: Speci men Type: BLOOD SPECIMEN Ordering Facility: [facility] Address: [address] [place] [address] Performed By: #### 5 7021-8 #### [facility] CLIA [id number] [address] [place] [address] 93948 Immature granulocytes (Bld) [#/Vol] 0.09 10*3/uL Normal <0.10 [facility] Comment on above: Order Comment: Speci men Type: BLOOD SPECIMEN Ordering Facility: [facility] Address: [address] [place] [address] Performed By: #### 5 7021-8 #### [facility] CLIA [id number] [address] [place] [address] 37849 Immature granulocytes/100 WBC (Bld) 0.8 % Normal [facility] Comment on above: Order Comment: Speci men Type: BLOOD SPECIMEN Ordering Facility: [facility] Address: [address] [place] [address] Performed By: #### 5 7021-8 #### [facility] CLIA [id number] [address] [place] [address] 03999 Lymphocytes (Bld) [#/Vol] 1.01 10*3/uL Normal 1.00-4.00 [facility] Comment on above: Order Comment: Speci men Type: BLOOD SPECIMEN Ordering Facility: [facility] Address: [address] [place] [address] Performed By: #### 5 7021-8 #### [facility] CLIA [id number] [address] [place] [address] 71167 Lymphocytes/100 WBC (Bld) 9.4 % Normal [facility] Comment on above: Order Comment: Speci men Type: BLOOD SPECIMEN Ordering Facility: [facility] Address: [address] [place] [address] Performed By: #### 5 7021-8 #### [facility] CLIA [id number] [address] [place] [address] 86121 MCH (RBC) [Entitic mass] 28.9 pg Normal 26.0-34.0 [facility] Comment on above: Order Comment: Speci men Type: BLOOD SPECIMEN Ordering Facility: [facility] Address: [address] [place] [address] Performed By: #### 5 7021-8 #### [facility] CLIA [id number] [address] [place] [address] 70237 MCHC (RBC) [Mass/Vol] 33.7 g/dL Normal 30.5-36.0 [facility] Comment on above: Order Comment: Speci men Type: BLOOD SPECIMEN Ordering Facility: [facility] Address: [address] [place] [address] Performed By: #### 5 7021-8 #### [facility] CLIA [id number] [address] [place] [address] 83165 MCV (RBC) [Entitic vol] 85.7 fL Normal 80.0-100.0 [facility] Comment on above: Order Comment: Speci men Type: BLOOD SPECIMEN Ordering Facility: [facility] Address: [address] [place] [address] Performed By: #### 5 7021-8 #### [facility] CLIA [id number] [address] [place] [address] 50729 Monocytes (Bld) [#/Vol] 0.72 10*3/uL Normal <0.87 [facility] Comment on above: Order Comment: Speci men Type: BLOOD SPECIMEN Ordering Facility: [facility] Address: [address] [place] [address] Performed By: #### 5 7021-8 #### [facility] CLIA [id number] [address] [place] [address] 37884 Monocytes/100 WBC (Bld) 6.7 % Normal [facility] Comment on above: Order Comment: Speci men Type: BLOOD SPECIMEN Ordering Facility: [facility] Address: [address] [place] [address] Performed By: #### 5 7021-8 #### [facility] CLIA [id number] [address] [place] [address] 34177 Neutrophils (Bld) [#/Vol] 8.46 10*3/uL High 1.45-7.50 [facility] Comment on above: Order Comment: Speci men Type: BLOOD SPECIMEN Ordering Facility: [facility] Address: [address] [place] [address] Performed By: #### 5 7021-8 #### [facility] CLIA [id number] [address] [place] [address] 17273 Neutrophils/100 WBC (Bld) 79.1 % Normal [facility] Comment on above: Order Comment: Speci men Type: BLOOD SPECIMEN Ordering Facility: [facility] Address: [address] [place] [address], [place] [address] Performed By: #### 5 7021-8 #### [facility] CLIA [id number] [address] [place] [address] Nucleated RBC (Bld) [#/Vol] 10*3/uL Normal <0.01 [facility] Comment on above: Order Comment: Speci men Type: BLOOD SPECIMEN Ordering Facility: [facility] Address: [address] [place] [address] Performed By: #### 5 7021-8 #### [facility] CLIA [id number] [address] [place] [address] Nucleated RBC/100 WBC (Bld) [Ratio] 0.0 /100 WBC Normal [facility] Comment on above: Order Comment: Speci men Type: BLOOD SPECIMEN Ordering Facility: [facility] Address: [address] [place] [address] Performed By: #### 5 7021-8 #### [facility] CLIA [id number] [address] [place] [address] Platelet mean volume (Bld) [Entitic vol] 10.9 fL Normal 9.0-12.7 [facility] Comment on above: Order Comment: Speci men Type: BLOOD SPECIMEN Ordering Facility: [facility] Address: [address] [place] [address] Performed By: #### 5 7021-8 #### [facility] CLIA [id number] [address] [place] [address] Platelets (Bld) [#/Vol] 216 10*3/uL Normal 150-400 [facility] Comment on above: Order Comment: Speci men Type: BLOOD SPECIMEN Ordering Facility: [facility] Address: [address] [place] [address] Performed By: #### 5 7021-8 #### [facility] CLIA [id number] [address] [place] [address] RBC (Bld) [#/Vol] 5.67 10*6/uL Normal 4.20-6.00 [facility] Comment on above: Order Comment: Speci men Type: BLOOD SPECIMEN Ordering Facility: [facility] Address: [address] [place] [address] Performed By: #### 5 7021-8 #### [facility] CLIA [id number] [address] [place] [address] WBC (Bld) [#/Vol] 10.71 10*3/uL Normal 3.70-11.00 [facility] Comment on above: Order Comment: Speci men Type: BLOOD SPECIMEN Ordering Facility: [facility] Address: [address] [place] [address] Performed By: #### 5 7021-8 #### [facility] CLIA [id number] [address] [place] [address] CNOVSPon 04-06-2024 CNOVSP Visit (SP) Office ( EMA) KEKEMELVI HUERTA ([id number]) 1950 M Date Time Provider Department 04/06/24 10:15 AM APOLINAR FORREST During your visit today, we recorded the following information about you: Temperature Pulse Respiration Blood pressure 97.1 degrees 96/minute 16/minute 106/71 Weight Height 101.1 kg 1.702 m Apolinar Forrest MD 04/08/2024 12:40 PM Signed NAME: Melvi Davies CLINIC NO.: [id number] DATE OF SERVICE: April 06, 2024 ([place]) Some elements in this clinic note that are critical to medical decision making have been carefully reviewed and included from a prior clinic note dated: October 10, 2023 ([place]) Referring Provider: Pearl Nobles MD Additional Clinicians involved in Melvi Davies's care: Diagnosis: Prostate Cancer Polycythemia - secondary. ASSESSMENT: 73 year old gentleman with Prostatectomy for Tad 7 (4+3) prostate cancer 05/2016. Began Lupron [...] PLAN: Labs in 6 months, include PSA Triage to call PSA results Patient is not interested in Lupron due to side effects. - Would consider Orgovyx in future if needed. - ____ HPI: CASE HISTORY: Reverse Chronological Order December 2023 - cardiac ablation - now on Xarelto 08/2023 - started Xarelto 03/2021- 07/2023: Coumadin 03/2021 - Mild CVA - recovered 02/02/2021 - Completed salvage RT 06/2018 - 08/2018 Lupron - stopped due to intolerance caused by arrhythmias and syncope. 06/2018 - PSA Rising 1.57 05/2016 - prostatectomy GL 7 (4+3) Updated Visit, April 06, 2024: Raulito did well with the ablation in December 2023. Continues to use his CPAP. H/H remains stable. Son is a [place] fan Interestingly his grandson is at [employer]. Updated Visit, October 10, 2023: Raulito returns today. He is due to have ablation, but is trying to find a F location that works for him. He had PSA done on 2 days ago at [facility], they called him to report it looks good. Daily CPAP use is apparent on his labs. 2 of his younger brothers have , another just had an [place]. His nephew also passed of heart issues. He also spoke about his late 's passing many years ago but appreciated her care at [facility]. Updated Visit, June 23, 2023: Raulito returns [...] No needs for intervention. Follows with Dr. Nobles for kidney disease Continues coumadin - for [...] undergo Androgen suppression, I would recommend that h (more content not included)... Normal [facility] 04-06-2024 CNPN Telephone (NCCAP) MELVI DAVIES ([id number]) 1950 M Date Time Provider Department 04/06/24 APOLINAR FORREST NCCAP During your visit today, we recorded the following information about you: Rina Lerma 04/06/2024 10:49 AM Signed Katya Hernandez RN 04/07/2024 9:11 AM Signed Pt called with <0.02 PSA result. Pt denies any questions, needs or concerns at this time. Katya Hernandez RN Allergies As of Date: 04/06/2024 Noted Allergy Reaction CIPROFLOXACIN 07/30/2018 1 - Mental Status Change DESONIDE 06/05/2016 16 - Unknown LACTOSE 05/21/2016 16 - Unknown [id number] REDUCTASE INHIBIT*05/21/2016 14 - Other: See Comments Date Reviewed: 04/06/2024 Reviewed by: Ruby Brooke MA - Fully Assessed Reason for Visit: Results [95] Prescriptions as of 04/07/2024 - rivaroxaban (XARELTO) 20 mg tablet Take 20 mg by mouth. - dilTIAZem CD (CARDIZEM CD, CARTIA XT) 180 mg 24 hr capsule Take 1 capsule by mouth every afternoon. - JARDIANCE 25 mg tablet Take 1 tablet by mouth every afternoon. - flecainide (TAMBOCOR) 50 mg tablet Take 50 mg by mouth twice daily. - isosorbide mononitrate ER (IMDUR) 30 mg 24 hr tablet Take 30 mg by mouth once daily. - JANUVIA 100 mg tablet - warfarin (COUMADIN) 5 mg tablet TAKE 1-1.5 TABLETS BY MOUTH DAILY As [facility].] - olmesartan (BENICAR) 20 mg tablet Take 20 mg by mouth once daily. - glimepiride (AMARYL) 4 mg tablet - hydrALAZINE (APRESOLINE) 50 mg tablet Take 50 mg by mouth three times daily. Problem List As Of Date 04/06/2024 Noted Resolved Prostate cancer (HCC) [C61] 07/30/2018 Increasing prostate specific antigen (PSA) yonny*06/12/2020 Stage 3 chronic kidney disease, unspecified whe*10/10/2023 MELVIN (obstructive sleep apnea) [G47.33] 10/10/2023 Secondary polycythemia [D75.1] 10/10/2023 Encounter Status:Closed by KATYA HERNANDEZ on 04/07/24 Normal [facility] Comprehensive metabolic 2000 panelon 04-06-2024 Albumin [Mass/Vol] 4.0 g/dL Normal 3.9-4.9 [facility] Comment on above: Order Comment: Speci men Type: BLOOD SPECIMEN Ordering Facility: [facility] Address: [address] [place] [address] Performed By: #### 2 857-1 #### [facility] CLIA [id number] [address] [place] [address] [place] ALP [Catalytic activity/Vol] 64 U/L Normal 38-113 [facility] Comment on above: Order Comment: Speci men Type: BLOOD SPECIMEN Ordering Facility: [facility] Address: [address] [place] [address] Performed By: #### 2 857-1 #### [facility] CLIA [id number] [address] [place] [address] [place] ALT [Catalytic activity/Vol] 20 U/L Normal 10-54 [facility] Comment on above: Order Comment: Speci men Type: BLOOD SPECIMEN Ordering Facility: [facility] Address: [address] [place] [address] Performed By: #### 2 857-1 #### [facility] CLIA [id number] [address] [place] [address] [place] Anion gap [Moles/Vol] 11 mmol/L Normal 8-15 [facility] Comment on above: Order Comment: Speci men Type: BLOOD SPECIMEN Ordering Facility: [facility] Address: [address] [place], [place] [address] Performed By: #### 2 857-1 #### [facility] CLIA [id number] [address] [place] [address] [place] AST [Catalytic activity/Vol] 14 U/L Normal 14-40 [facility] Comment on above: Order Comment: Speci men Type: BLOOD SPECIMEN Ordering Facility: [facility] Address: [address] [place] [address] Performed By: #### 2 857-1 #### [facility] CLIA [id number] [address] [place] [address] [place] Bilirubin [Mass/Vol] 0.5 mg/dL Normal 0.2-1.3 [facility] Comment on above: Order Comment: Speci men Type: BLOOD SPECIMEN Ordering Facility: [facility] Address: [address] [place] [address] Performed By: #### 2 857-1 #### [facility] CLIA [id number] [address] [place] [address] [place] Calcium [Mass/Vol] 9.4 mg/dL Normal 8.5-10.2 [facility] Comment on above: Order Comment: Speci men Type: BLOOD SPECIMEN Ordering Facility: [facility] Address: [address] [place] [address] Performed By: #### 2 857-1 #### [facility] CLIA [id number] [address] [place] [address] [place] Chloride [Moles/Vol] 100 mmol/L Normal 98-107 [facility] Comment on above: Order Comment: Speci men Type: BLOOD SPECIMEN Ordering Facility: [facility] Address: [address] [place] [address] Performed By: #### 2 857-1 #### [facility] CLIA [id number] [address] [place] [address] [place] CO2 [Moles/Vol] 23 mmol/L Normal 22-30 [facility] Comment on above: Order Comment: Delmar cassidy Type: BLOOD SPECIMEN Ordering Facility: [facility] Address: [address] [place] [address] Performed By: #### 2 857-1 #### [facility] CLIA [id number] [address] [place] [address] [place] Creatinine [Mass/Vol] 1.49 mg/dL High 0.73-1.22 [facility] Comment on above: Order Comment: Lazaroi men Type: BLOOD SPECIMEN Ordering Facility: [facility] Address: [address] [place] [address] Performed By: #### 2 857-1 #### [facility] CLIA [id number] [address] [place] [address] [place] Creatinine and Glomerular filtration rate.predicted panel (S/P/Bld) 49 mL/min/1.73m??? Low >=60 [facility] Comment on above: Order Comment: Delmar cassidy Type: BLOOD SPECIMEN Ordering Facility: [facility] Address: [address] [place] [address] Result Comment: Bren mated Glomerular Filtration Rate [...] reflect actual GFR. Performed By: #### 2 857-1 #### [facility] CLIA [id number] [address] [place] [address] [place] Glucose [Mass/Vol] 172 mg/dL High 74-99 [facility] Comment on above: Order Comment: Lazaroi khanh Type: BLOOD SPECIMEN Ordering Facility: [facility] Address: [address] [id number] Result Comment: The [place] Diabetes Association (ADA) provides guidance for cutoff [...] Standards of Medical Care in Diabetes 2016, [place] [employer]. Diabetes Care. 2016.39(Suppl 1). Performed By: #### 2 857-1 #### [facility] CLIA [id number] [address] [place] [address] [place] Potassium [Moles/Vol] 4.8 mmol/L Normal 3.7-5.1 [facility] Comment on above: Order Comment: Speci men Type: BLOOD SPECIMEN Ordering Facility: [facility] Address: [address] [place] [address] Performed By: #### 2 857-1 #### [facility] CLIA [id number] [address] [place] [address] [place] Protein [Mass/Vol] 7.5 g/dL Normal 6.3-8.0 [facility] Comment on above: Order Comment: Speci men Type: BLOOD SPECIMEN Ordering Facility: [facility] Address: [address] [place] [address] Performed By: #### 2 857-1 #### [facility] CLIA [id number] [address] [place] [address] [place] Sodium [Moles/Vol] 134 mmol/L Low 136-144 [facility] Comment on above: Order Comment: Speci men Type: BLOOD SPECIMEN Ordering Facility: [facility] Address: [address] [place] [address] Performed By: #### 2 857-1 #### [facility] CLIA [id number] [address] [place] [address] [place] Urea nitrogen [Mass/Vol] 13 mg/dL Normal 9-24 [facility] Comment on above: Order Comment: Speci men Type: BLOOD SPECIMEN Ordering Facility: [facility] Address: [address] [place] [address] Performed By: #### 2 857-1 #### [facility] CLIA [id number] [address] [place] [address] [place] Ferritin SerPl-mCncon 2023 Ferritin [Mass/Vol] 361.0 ng/mL Normal 30.3-565.7 [facility] Comment on above: Order Comment: Speci men Type: BLOOD SPECIMEN Ordering Facility: [facility] Address: [address] [place] [address] Performed By: #### 2 132-9, 2276-4, 2284-8, 41347-9 #### [facility] CLIA [id number] [address] [place] [address] [place] Folate SerPl-mCncon 04-06-20 Folate [Mass/Vol] 10.2 ng/mL Normal >4.7 [facility] Comment on above: Order Comment: Speci men Type: BLOOD SPECIMEN Ordering Facility: [facility] Address: [address] [place] [address] Performed By: #### 2 132-9, 2276-4, 2284-8, 38894-9 #### [facility] CLIA [id number] [address] [place] [address] [place] Iron and Iron binding capaci ty panelon 04-06-2024 Iron [Mass/Vol] 57 ug/dL Normal 41-186 [facility] Comment on above: Order Comment: Speci men Type: BLOOD SPECIMEN Ordering Facility: [facility] Address: [address] [place] [address] Performed By: #### 2 132-9, 2276-4, 2284-8, 58990-2 #### [facility] CLIA [id number] [address] [place] [address] [place] Iron binding capacity [Mass/Vol] 294 ug/dL Normal 232-386 [facility] Comment on above: Order Comment: Speci men Type: BLOOD SPECIMEN Ordering Facility: [facility] Address: [address] [place] [address] Performed By: #### 2 132-9, 2276-4, 2284-8, 77265-2 #### [facility] CLIA [id number] [address] [place] [address] [place] Iron/TIBC [Molar ratio] 19.4 % Normal 15.0-57.0 [facility] Comment on above: Order Comment: Speci men Type: BLOOD SPECIMEN Ordering Facility: [facility] Address: [address] [place] [address] Performed By: #### 2 132-9, 2276-4, 2284-8, 48576-9 #### [facility] CLIA [id number] [address] [place] [address] [place] PSA SerPl-mCncon 04-06-2024 Prostate specific Ag [Mass/Vol] ng/mL Normal <2.60 [facility] Comment on above: Order Comment: Speci men Type: BLOOD SPECIMEN Ordering Facility: [facility] Address: [address] [place] [address] Result Comment: Tota l PSA test methodology used is the Electrochemiluminescence Immunoassay by [employer]. Total PSA values by differing methodologies cannot be interchanged. Performed By: #### 2 857-1 #### [facility] CLIA [id number] [address] [place] [address] [place] Vit B12 SerPl-mCncon 024 Cobalamin (Vitamin B12) [Mass/Vol] 338 pg/mL Normal 232-1245 [facility] Comment on above: Order Comment: Speci men Type: BLOOD SPECIMEN Ordering Facility: [facility] Address: [address] [place] [address] Performed By: #### 2 132-9, 2276-4, 2284-8, 15298-2 #### [facility] CLIA [id number] [address] [place] [id number] [facility] Follow-Upon 01-29-2024 Follow-Up [id number] Ghassan Davies 1950 M Date Provider Department Center 01/29/2024 120-MICHAEL ROBLEDO [facility] Family History Problem Relation Age of Onset Heart attack Brother Family Status - Relation Status Age at Brother Level of Service:90802 [place] POSTOP FOLLOW UP VISIT RELATED TO ORIGINAL PX [facility] Telephoneon 12-18-2023 Telephone [id number] Ghassan Davies 1950 M Date Provider Department Center 12/18/2023 [facility] Family History Problem Relation Age of Onset Heart attack Brother Family Status - Relation Status Age at Brother Reason for Visit and Comments: post afib ablation f/u [Other] [facility] ANESon 12-11-2023 ANES ------- Attestation signed by Venkatesh Andrea MD at 12/12/2023 12:12 PM I reviewed and agree with the above note. I spoke to and evaluated the patient myself and they are willing to proceed as planned. Venkatesh Andrea MD Patient: Melvi Davies Procedure Information Anesthesia Start Date/Time: 12/11/23827 Procedure: Ablation atrial fibrillation Location: [facility] 1 EP / [facility] (Cath) Providers: Shane Turner MD Relevant Problems Anesthesia (+) MELVIN (obstructive sleep apnea) (Endorses nocturnal CPAP use regularly) (-) History of anesthesia complications Cardio Activity: > 4 METs (+) Atrial fibrillation (CMS/HCC) (+) Essential hypertension (+) Paroxysmal atrial fibrillation (CMS/HCC) Endo (+) Type 2 diabetes mellitus, without long-term current use of insulin (CMS/HCC) (Pre-op fasting blood glucose 265) /Renal (+) Stage 3 chronic kidney disease (CMS/HCC) Neuro/Psych (+) TIA (transient ischemic attack) (Denies neurologic deficits) Circulatory (+) Benign hypertensive heart disease without congestive heart failure Endocrine/Metabolic (+) Obesity (BMI 30-39.9) Hematologic (+) Secondary polycythemia Encounter Date: 12/11/23 Electrocardiogram, 12-lead Result Value Ventricular Rate 89 Atrial Rate 89 AL Interval 168 QRS DURATION 98 QT Interval 408 QTC CALCULATION(BAZETT) 496 P Earleton 52 R-Earleton -13 T Wave Earleton 18 Impression Normal sinus rhythm Prolonged QT Abnormal ECG No previous ECGs available Confirmed by Nav FRANK, ERICA Acosta ([id number]) on 12/11/2023 9:34:38 AM Allergies Allergen Reactions ??? Adhesive Tape-Silicones ??? Ciprofloxacin Other reaction(s): Mental Status Change ??? Desonide Other reaction(s): Unknown Other reaction(s): Unknown ??? Lactose Other reaction(s): Unknown Other reaction(s): Unknown ??? Dchenhp-Zom-Xbk Reductase Inhibitors Other Other reaction(s): Other (See Comments) Says right leg when numb with all statins Clinical information reviewed: Tobacco Allergies Meds Med Hx Surg Hx Fam Hx Soc Hx Physical Exam Airway Mallampati: III TM distance: <3 FB Neck ROM: full Cardiovascular Rhythm: regular Rate: normal Dental (+) upper dentures Comments: Poor dentition with near total decay of few remaining teeth. Upper partial dentures. Pulmonary - normal exam Abdominal (+) obese Anesthesia Plan ASA 3 general (GETA with standard ASA monitors plus arterial catheter for hemodynamic monitoring and blood sampling) The patient is not a current smoker. Education provided regarding risk of obstructive sleep apnea. intravenous induction Postoperative administration of opioids is intended. Trial extubation is planned. Anesthetic plan and risks discussed with patient. Use of blood products discussed with patient who consented to blood products. Plan discussed with attending. Additional Equipment Requests Normal [facility] 12-11-2023 [facility] Electrophysiology Consult Note: [place] Reason for visit: afib 12/11/23 Pt here for Afib ablation. 09/30/23 Patient here to discuss possible afib ablation per Kellen Robledo CNP. She saw him as inpatient consult recently when he was in Afib/flutter with RVR. Says he's taking flecainide once daily. Denies chest pain, SOB, palpitations, lightheadedness/syncope, and bleeding on Xarelto. HPI: Melvi Davies is a 72 y.o. year old with past medical history of prostate cancer, TIA.with recent A-fib from August 2022 went to [facility] ER and was treated with Cardizem and [...] never been cardioverted. 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 [facility] NURSNOTEon 12-11-2023 NURSNOTE Discharge instructio ns given to patient and family. Discharge meds sent to patients pharmacy [facility] POCT GLUCOSE METER UNSOLICIT ED RESULTSon 12-11-2023 Glucose [Mass/Vol] 221 mg/dL High 70-105 [facility] Comment on above: Order Comment: Waive d Testing in the ED is performed under the ED CLIA certificate #[id number]. Result Comment: rtat e Performed By: #### L [id number] ####[facility] (BEAKER)[address] [place] [address] Glucose [Mass/Vol] 170 mg/dL High 70-105 [facility] Comment on above: Order Comment: Waive d Testing in the ED is performed under the ED CLIA certificate #[id number]. Result Comment: balt enhof Performed By: #### L [id number] ####[facility] (BEAKER)[address] [place] [address] Glucose [Mass/Vol] 204 mg/dL High 70-105 [facility] Comment on above: Order Comment: Waive d Testing in the ED is performed under the ED CLIA certificate #[id number]. Result Comment: liam enhof Performed By: #### L [id number] #### [facility] ([email or web address]) [address] [place] [address] Glucose [Mass/Vol] 265 mg/dL High 70-105 [facility] Comment on above: Order Comment: Waive d Testing in the ED is performed under the ED CLIA certificate #[id number]. Result Comment: [address] Performed By: #### L [id number] ####[facility] ([email or web address])[address] [place] [address] PROTIME-INRon 12-11-2023 INR IN PPP BY COAGULATION ASSAY 1.07 Normal 0.90-1.10 [facility] Comment on above: Result Comment: ACCC P RECOMMENDED INR FOR WARFARIN THERAPY CONDITION INR PROPHYLAXIS OF VENOUS THROMBOSIS 2-3 (HIGH-RISK SURGERY) TREATMENT OF VENOUS THROMBOSIS 2-3 TREATMENT OF PULMONARY EMBOLISM 2-3 PREVENTION OF SYSTEMIC EMBOLISM: 2-3 ACUTE MYOCARDIAL INFARCTION TISSUE HEART VALVES VALVULAR HEART DISEASE ATRIAL FIBRILLATION RECURRENT SYSTEMIC EMBOLISM MECHANICAL HEART VALVE 2.5-3.5 FROM: ORAL ANTICOAGULANTS. MECHANISM OF ACTION, CLINICAL EFFECTIVENESS, AND OPTIMAL THERAPEUTIC RANGE. CHEST 1995;108:231S-246S. Performed By: #### L [id number] #### [facility] ([email or web address]) [address] [place] [address] PROTHROMBIN TIME (PT) IN PPP BY COAGULATION ASSAY 14.0 Seconds Normal 12.3-14.8 [facility] Comment on above: Performed By: #### L [id number] #### [facility] (SHARRI) [address] [place] [address] Prep for Procedureon 024 Prep for Procedure [id number] Ghassan Davies 1950 M Date Provider Department Center 12/11/2023 [facility] Family History Problem Relation Age of Onset Heart attack Brother Family Status - Relation Status Age at Brother Normal [facility] Orders Onlyon 12-10-2023 Orders Only [id number] Ghassan Davies E 1950 M Date Provider Department Center 12/10/2023 1724-VIVIENNE BURGESS [facility] PAT ME Medical C Family History Problem Relation Age of Onset Heart attack Brother Family Status - Relation Status Age at Brother Normal [facility] [id number] 12-05-2023 [id number] ARRIVAL TIME 0630 [facility] HOLD ELIQUIS 12/08 MEDICATIONS TO TAKE DAY OF SURGERY WITH SIP OF WATER CARDIZEM HOLD VITAMINS AND SUPPLEMENTS 5 DAYS PRIOR TO PROCEDURE HOLD ALL ANTI INFLAMMATORIES ETC:MOTRIN, ADVIL, ALEVE, FOR 5 DAYS PRIOR TO PROCEDURE IF YOU ARE GOING HOME AFTER YOUR SURGERY OR PROCEDURE, FOR YOUR SAFETY, YOUR SURGERY WILL BE CANCELLED IF BOTH OF THE FOLLOWING ARE NOT AVAILABLE: An adult charter bus driver over the age of 18, that can receive information about your care after surgery, and drive you home. A responsible adult to stay with you for 24 hours in case of an emergency. Can be same as above. The highest risk of complications is within the first 24 hours after sedation/anesthesia. Nothing to eat or drink after midnight the night before surgery. This includes gum, candy, mints, and lozenges. No alcohol, marijuana, or tobacco products including vaping for 24 hours. Please brush your teeth; don't swallow the toothpaste or water. If you use dentures, wear them but do not use paste. Please leave any other removable dental hardware at home. Do not put in contact lenses. Do not wear perfume, make-up, nail bots[place], or lotions on the day of your surgery or procedure. Follow skin-prep/wipe instructions as below if required. Bring with you: *Insurance card *Photo ID *Medication list *Co-pay for visit/prescriptions If applicable: *Rescue inhalers *Green bracelet from lab *CPAP or BiPAP machine, if staying overnight *Any braces, splints, or equipment ordered preoperatively *Remote controls for implanted devices Leave at home: *Purse/Wallet/Wade- unless needed for co-pay *Cell phone (can leave with family/friend or place in locker if needed) *Jewelry (including piercings and wedding bands) *If not possible, ask the person who is waiting with you to keep them Children under the age of 12 will not be allowed into patient care areas. We will call you between 3pm and 4pm the day before your surgery to give you an arrival time. If you do not receive this call, have any questions, or need to make any changes, please call [phone]. Notify your surgeon if you develop any illness such as a cold, cough, fever, sore throat or vomiting between now and your surgery. Thank you for entrusting us with your care. [facility] Surgical Services Team Normal [facility] Office Visiton 11-25-2023 Follow-up visit [id number] Ghassan Davies 1950 M Date Provider Department Center 11/25/2023 SHANE TOSCANO CARD [facility] Family History Problem Relation Age of Onset Heart attack Brother Family Status - Relation Status Age at Brother Level of Service:61080 [place] OFFICE/OUTPATIENT ESTABLISHED HIGH MDM 40 MIN Normal [facility] CBC W Auto Differential pane l (Bld)on 10-10-2023 Basophils (Bld) [#/Vol] 0.05 10*3/uL Normal <0.11 [facility] Comment on above: Order Comment: Speci men Type: BLOOD SPECIMEN Ordering Facility: [facility] Address: [address] [place], [place] [address] Performed By: #### 2 857-1 #### [facility] CLIA [id number] [address] [place] [address] [place] Basophils/100 WBC (Bld) 0.6 % Normal [facility] Comment on above: Order Comment: Speci men Type: BLOOD SPECIMEN Ordering Facility: [facility] Address: [address] [place] [address] Performed By: #### 2 857-1 #### [facility] CLIA [id number] [address] [place] [address] [place] Differential cell count method Nom (Bld) Auto Normal [facility] Comment on above: Order Comment: Speci men Type: BLOOD SPECIMEN Ordering Facility: [facility] Address: [address] [place] [address] Performed By: #### 2 857-1 #### [facility] CLIA [id number] [address] [place] [address] [place] Eosinophils (Bld) [#/Vol] 0.37 10*3/uL Normal <0.46 [facility] Comment on above: Order Comment: Speci men Type: BLOOD SPECIMEN Ordering Facility: [facility] Address: [address] [place] [address] Performed By: #### 2 857-1 #### [facility] CLIA [id number] [address] [place] [address] [place] Eosinophils/100 WBC (Bld) 4.6 % Normal [facility] Comment on above: Order Comment: Speci men Type: BLOOD SPECIMEN Ordering Facility: [facility] Address: [address] [place] [address] Performed By: #### 2 857-1 #### [facility] CLIA [id number] [address] [place] [address] [place] Erythrocyte distribution width (RBC) [Ratio] 15.0 % Normal 11.5-15.0 [facility] Comment on above: Order Comment: Speci men Type: BLOOD SPECIMEN Ordering Facility: [facility] Address: [address] [place] [address] Performed By: #### 2 857-1 #### [facility] CLIA [id number] [address] [place] [address] [place] Hematocrit (Bld) [Volume fraction] 50.4 % Normal 39.0-51.0 [facility] Comment on above: Order Comment: Speci men Type: BLOOD SPECIMEN Ordering Facility: [facility] Address: [address] [place] [address] Performed By: #### 2 857-1 #### [facility] CLIA [id number] [address] [place] [address] [place] Hemoglobin (Bld) [Mass/Vol] 16.5 g/dL Normal 13.0-17.0 [facility] Comment on above: Order Comment: Speci men Type: BLOOD SPECIMEN Ordering Facility: [facility] Address: [address] [place] [address] Performed By: #### 2 857-1 #### [facility] CLIA [id number] [address] [place] [address] [place] Immature granulocytes (Bld) [#/Vol] 0.05 10*3/uL Normal <0.10 [facility] Comment on above: Order Comment: Speci men Type: BLOOD SPECIMEN Ordering Facility: [facility] Address: [address] [place] [address] Performed By: #### 2 857-1 #### [facility] CLIA [id number] [address] [place] [address] [place] Immature granulocytes/100 WBC (Bld) 0.6 % Normal [facility] Comment on above: Order Comment: Speci men Type: BLOOD SPECIMEN Ordering Facility: [facility] Address: [address] [place] [address] Performed By: #### 2 857-1 #### [facility] CLIA [id number] [address] [id number] [address] [place] Lymphocytes (Bld) [#/Vol] 0.86 10*3/uL Low 1.00-4.00 [facility] Comment on above: Order Comment: Speci men Type: BLOOD SPECIMEN Ordering Facility: [facility] Address: [address] [place] [address] Performed By: #### 2 857-1 #### [facility] CLIA [id number] [address] [place] [address] [place] Lymphocytes/100 WBC (Bld) 10.7 % Normal [facility] Comment on above: Order Comment: Speci men Type: BLOOD SPECIMEN Ordering Facility: [facility] Address: [address] [place] [address] Performed By: #### 2 857-1 #### [facility] CLIA [id number] [address] [place] [address] [place] MCH (RBC) [Entitic mass] 29.1 pg Normal 26.0-34.0 [facility] Comment on above: Order Comment: Speci men Type: BLOOD SPECIMEN Ordering Facility: [facility] Address: [address] [place] [address] Performed By: #### 2 857-1 #### [facility] CLIA [id number] [address] [place] [address] [place] MCHC (RBC) [Mass/Vol] 32.7 g/dL Normal 30.5-36.0 [facility] Comment on above: Order Comment: Speci men Type: BLOOD SPECIMEN Ordering Facility: [facility] Address: [address] [place] [address] Performed By: #### 2 857-1 #### [facility] CLIA [id number] [address] [place] [address] [place] MCV (RBC) [Entitic vol] 88.9 fL Normal 80.0-100.0 [facility] Comment on above: Order Comment: Speci men Type: BLOOD SPECIMEN Ordering Facility: [facility] Address: [address] [place] [address] Performed By: #### 2 857-1 #### [facility] CLIA [id number] [address] [place] [address] [place] Monocytes (Bld) [#/Vol] 0.55 10*3/uL Normal <0.87 [facility] Comment on above: Order Comment: Speci men Type: BLOOD SPECIMEN Ordering Facility: [facility] Address: [address] [place] [address] Performed By: #### 2 857-1 #### [facility] CLIA [id number] [address] [place] [address] [place] Monocytes/100 WBC (Bld) 6.8 % Normal [facility] Comment on above: Order Comment: Speci men Type: BLOOD SPECIMEN Ordering Facility: [facility] Address: [address] [place] [address] Performed By: #### 2 857-1 #### [facility] CLIA [id number] [address] [place] [address] [place] Neutrophils (Bld) [#/Vol] 6.16 10*3/uL Normal 1.45-7.50 [facility] Comment on above: Order Comment: Speci men Type: BLOOD SPECIMEN Ordering Facility: [facility] Address: [address] [place] [address] Performed By: #### 2 857-1 #### [facility] CLIA [id number] [address] [place] [address] [place] Neutrophils/100 WBC (Bld) 76.7 % Normal [facility] Comment on above: Order Comment: Speci men Type: BLOOD SPECIMEN Ordering Facility: [facility] Address: [address] [place] [address] Performed By: #### 2 857-1 #### [facility] CLIA [id number] [address] [place] [address] [place] Nucleated RBC (Bld) [#/Vol] 10*3/uL Normal <0.01 [facility] Comment on above: Order Comment: Speci men Type: BLOOD SPECIMEN Ordering Facility: [facility] Address: [address] [place] [address] Performed By: #### 2 857-1 #### [facility] CLIA [id number] [address] [place] [address] [place] Nucleated RBC/100 WBC (Bld) [Ratio] 0.0 /100 WBC Normal [facility] Comment on above: Order Comment: Speci men Type: BLOOD SPECIMEN Ordering Facility: [facility] Address: [address] [place] [address] Performed By: #### 2 857-1 #### [facility] CLIA [id number] [address] [place] [address] [place] Platelet mean volume (Bld) [Entitic vol] 10.9 fL Normal 9.0-12.7 [facility] Comment on above: Order Comment: Speci men Type: BLOOD SPECIMEN Ordering Facility: [facility] Address: [address] [place] [address] Performed By: #### 2 857-1 #### [facility] CLIA [id number] [address] [place] [address] [place] Platelets (Bld) [#/Vol] 210 10*3/uL Normal 150-400 [facility] Comment on above: Order Comment: Speci men Type: BLOOD SPECIMEN Ordering Facility: [facility] Address: [address] [place] [address] Performed By: #### 2 857-1 #### [facility] CLIA [id number] [address] [place] [address] [place] RBC (Bld) [#/Vol] 5.67 10*6/uL Normal 4.20-6.00 [facility] Comment on above: Order Comment: Speci men Type: BLOOD SPECIMEN Ordering Facility: [facility] Address: [address] [place] [address] Performed By: #### 2 857-1 #### [facility] CLIA [id number] [address] [place] [address] [place] WBC (Bld) [#/Vol] 8.04 10*3/uL Normal 3.70-11.00 [facility] Comment on above: Order Comment: Speci men Type: BLOOD SPECIMEN Ordering Facility: [facility] Address: [address] [place] [address] Performed By: #### 2 857-1 #### [facility] CLIA [id number] [address] [place] [address] [place] CNOVSPon 10-10-2023 CNOVSP Visit (SP) Office ( [facility]) MELVI DAVIES ([id number]) 1950 M Date Time Provider Department 10/10/23 9:30 AM APOLINAR FORREST During your visit today, we recorded the following information about you: Temperature Pulse Respiration Blood pressure 97.4 degrees 95/minute 18/minute 101/58 Weight Height 102.7 kg 1.702 m Apolinar Forrest MD 10/11/2023 6:05 AM Signed NAME: Melvi Davies CLINIC NO.: [id number] DATE OF SERVICE: October 10, 2023 ([place]) Some elements in this clinic note that are critical to medical decision making have been carefully reviewed and included from a prior clinic note dated: June 23, 2023 ([place]) Referring Provider: Pearl Nobles MD Additional Clinicians involved in Melvi Davies's [...] 7 (4+3) Updated Visit, October 10, 2023: Don returns today. He is due to have ablation, but is trying to find a [facility] location that works for him. He had PSA done on 2 days ago at [place], they called him to report it looks good. Daily CPAP use is apparent on his labs. 2 of his younger brothers have , another just had an [place]. His nephew also passed of heart issues. He also spoke about his late 's passing many years ago but appreciated her care at [facility]. Updated Visit, June 23, 2023: Don returns today for a follow up. He [...] No needs for intervention. Follows with Dr. Nobles for kidney disease Continues coumadin - for [...] to my service. He has prostate cancer Tad's 4+3 = 7. He has had a prostatectomy in May 2016 and had a PSA rise in June 2018. He was started on (more content not included)... Normal [facility] metabolic 2000 panelon 10-10-2023 Albumin [Mass/Vol] 4.1 g/dL Normal 3.9-4.9 [facility] Comment on above: Order Comment: Speci men Type: BLOOD SPECIMEN Ordering Facility: [facility] Address: [address] [place] [address] Performed By: #### 2 132-9, 2276-4, 2284-8, 41021-7 #### [facility] CLIA [id number] [address] [place] [address] [place] ALP [Catalytic activity/Vol] 62 U/L Normal 38-113 [facility] Comment on above: Order Comment: Speci men Type: BLOOD SPECIMEN Ordering Facility: [facility] Address: [address] [place] [address] Performed By: #### 2 132-9, 2276-4, 2284-8, 11441-4 #### [facility] CLIA [id number] [address] [place] [address] [place] ALT [Catalytic activity/Vol] 27 U/L Normal 10-54 [facility] Comment on above: Order Comment: Speci men Type: BLOOD SPECIMEN Ordering Facility: [facility] Address: [address] [place] [address] Performed By: #### 2 132-9, 2276-4, 2284-8, 61821-6 #### [facility] CLIA [id number] [address] [place] [address] [place] Anion gap [Moles/Vol] 13 mmol/L Normal 9-18 [facility] Comment on above: Order Comment: Speci men Type: BLOOD SPECIMEN Ordering Facility: [facility] Address: [address] [place] [address] Performed By: #### 2 132-9, 2276-4, 2284-8, 83450-6 #### [facility] CLIA [id number] [address] [place] [address] [place] AST [Catalytic activity/Vol] 15 U/L Normal 14-40 [facility] Comment on above: Order Comment: Speci men Type: BLOOD SPECIMEN Ordering Facility: [facility] Address: [address] [place] [address] Performed By: #### 2 132-9, 2276-4, 2284-8, 43828-3 #### [facility] CLIA [id number] [address] [place] [address] [place] Bilirubin [Mass/Vol] 0.6 mg/dL Normal 0.2-1.3 [facility] Comment on above: Order Comment: Speci men Type: BLOOD SPECIMEN Ordering Facility: [facility] Address: [address] [place] [address] Performed By: #### 2 132-9, 2276-4, 2284-8, 54572-1 #### [facility] CLIA [id number] [address] [place] [address] [place] Calcium [Mass/Vol] 10.0 mg/dL Normal 8.5-10.2 [facility] Comment on above: Order Comment: Speci men Type: BLOOD SPECIMEN Ordering Facility: [facility] Address: [address] [place] [address] Performed By: #### 2 132-9, 2276-4, 2284-8, 45340-9 #### [facility] CLIA [id number] [address] [place] [address] [place] Chloride [Moles/Vol] 101 mmol/L Normal 97-105 [facility] Comment on above: Order Comment: Speci men Type: BLOOD SPECIMEN Ordering Facility: [facility] Address: [address] [place] [address] Performed By: #### 2 132-9, 2276-4, 2284-8, 41888-3 #### [facility] CLIA [id number] [address] [place] [address] [place] CO2 [Moles/Vol] 24 mmol/L Normal 22-30 [facility] Comment on above: Order Comment: Delmar cassidy Type: BLOOD SPECIMEN Ordering Facility: [facility] Address: [address] [place] [address] Performed By: #### 2 132-9, 2276-4, 2284-8, 77035-4 #### [facility] CLIA [id number] [address] [place] [address] [place] Creatinine [Mass/Vol] 1.62 mg/dL High 0.73-1.22 [facility] Comment on above: Order Comment: Delmar cassidy Type: BLOOD SPECIMEN Ordering Facility: [facility] Address: [address] [place] [address] Performed By: #### 2 132-9, 2276-4, 4-8, 40745-5 #### [facility] CLIA [id number] [address] [place] [address] [place] Creatinine and Glomerular filtration rate.predicted panel (S/P/Bld) 44 mL/min/1.73m??? Low >=60 [facility] Comment on above: Order Comment: Delmar cassidy Type: BLOOD SPECIMEN Ordering Facility: [facility] Address: [address] [place] [address] Result Comment: Bren mated Glomerular Filtration Rate [...] reflect actual GFR. Performed By: #### 2 132-9, 6-4, 4-8, 48481-8 #### [facility] CLIA [id number] [address] [place] [address] [place] Glucose [Mass/Vol] 248 mg/dL High 74-99 [facility] Comment on above: Order Comment: Delmar cassidy Type: BLOOD SPECIMEN Ordering Facility: [facility] Address: [address] [place] [address] Result Comment: The [place] Diabetes Association (ADA) provides guidance for cutoff [...] Standards of Medical Care in Diabetes 2016, [place] [employer]. Diabetes Care. 2016.39(Suppl 1). Performed By: #### 2 132-9, 6-4, 4-8, 82189-5 #### [facility] CLIA [id number] [address] [place] [address] [place] Potassium [Moles/Vol] 4.9 mmol/L Normal 3.7-5.1 [facility] Comment on above: Order Comment: Speci men Type: BLOOD SPECIMEN Ordering Facility: [facility] Address: [address] [place] [address] Performed By: #### 2 132-9, 6-4, 2283-8, 06640-4 #### [facility] CLIA [id number] [address] [place] [address] [place] Protein [Mass/Vol] 7.8 g/dL Normal 6.3-8.0 [facility] Comment on above: Order Comment: Speci men Type: BLOOD SPECIMEN Ordering Facility: [facility] Address: [address] [place] [address] Performed By: #### 2 132-9, 6-4, 2283-8, 02126-0 #### [facility] CLIA [id number] [address] [place] [address] [place] Sodium [Moles/Vol] 138 mmol/L Normal 136-144 [facility] Comment on above: Order Comment: Speci men Type: BLOOD SPECIMEN Ordering Facility: [facility] Address: [address] [place] [address] Performed By: #### 2 132-9, 2276-4, 2284-8, 40648-0 #### [facility] CLIA [id number] [address] [place] [address] [place] Urea nitrogen [Mass/Vol] 13 mg/dL Normal 9-24 [facility] Comment on above: Order Comment: Speci men Type: BLOOD SPECIMEN Ordering Facility: [facility] Address: [address] [place] [address] Performed By: #### 2 132-9, 2276-4, 2284-8, 17560-9 #### [facility] CLIA [id number] [address] [place] [address] [place] EPO SerPl-aCncon 10-10-2023 Erythropoietin (EPO) Qn 19.5 mIU/mL High 2.6-18.5 [facility] Comment on above: Order Comment: Speci men Type: BLOOD SPECIMEN Ordering Facility: [facility] Address: [address] [place] [address] Performed By: #### 2 132-9, 2276-4, 2284-8, 22403-7 #### [facility] CLIA [id number] [address] [place] [address] [place] Retics #on 10-10-2023 Reticulocytes (Bld) [#/Vol] 0.89902 10*3/uL High 0.018-0.100 [facility] Comment on above: Order Comment: Speci men Type: BLOOD SPECIMEN Ordering Facility: [facility] Address: [address] [place] [address] Performed By: #### 2 857-1 #### [facility] CLIA [id number] [address] [place] [address] [place] Reticulocytes (Bld) [#/Vol]o n 10-10-2023 Reticulocytes/100 RBC (Bld) 2.5 % High 0.4-2.0 [facility] Comment on above: Order Comment: Speci men Type: BLOOD SPECIMEN Ordering Facility: [facility] Address: [address] [place] [address] Performed By: #### 2 857-1 #### [facility] CLIA [id number] [address] [place] [address] [place] [address] [place] Prep for Procedureon 024 Prep for Procedure [id number] KekeGhassan huerta 1950 [facility] Provider Department Center 10/03/2023 [facility]iel[facility] HeartVAS Family History Problem Relation Age of Onset Heart attack Brother Family Status - Relation Status Age at Brother Normal [facility] Office Visiton 09-30-2023 Follow-up visit [id number] KekeGhassan huerta 1950 M Date Provider Department [facility] JE[facility] Modi Family History Problem Relation Age of Onset Heart attack Brother Family Status - Relation Status Age at Brother Level of Service:73037 AL OFFICE/OUTPATIENT ESTABLISHED HIGH MDM 40 MIN Normal [facility] Office Visiton 07-15-2023 Follow-up visit [id number] KekeGhassan huerta 1950 Date Provider Department Center 07/15/2023 OctaviaSHANE TURNER [facility] Family History Problem Relation Age of Onset Heart attack Brother Family Status - Relation Status Age at Brother Level of Service:67931 AL OFFICE/OUTPATIENT NEW MODERATE MDM 45-59 MINUTES Normal [facility] ECHOCARDIO M/2D COMPLETEon 0 12-03-2022 ECHOCARDIO M/2D COMPLETE Patient: MELVI DAVIES Exam Date: 12/03/2022 : 1950 Gender:M Ordering : DR PEARL NOBLES . Admission #: [id number] Family : Order #: [id number] CLICK HERE TO VIEW EXAM ECHOCARDIOGRAM REPORT [...] 3.09 cm Aortic Valve AoV Area (Peak Santhosh): 3.32 cm2, 3.32 cm2 AoV Area (VTI): [...] M.D. on 12/04/2022 at 09:55 Normal [facility] CBC AUTO DIFFon 11-15-2022 BASO # 0.1 103/ul Normal 0.0-0.1 [facility] Comment on above: Performed By: #### C VDTB #### [facility] [address] [address] [address] Jack Sapp Basophils/100 WBC (Bld) 0.6 % Normal 0.2-2.0 [facility] Comment on above: Performed By: #### C VDTBH #### [facility] [address] [address] [address] Jack Sapp EO # 0.5 103/ul Normal 0.0-0.7 [facility] Comment on above: Performed By: #### C VDTBH #### [facility] [address] [place] [address] Dr. Jack Sapp Eosinophils/100 WBC (Bld) 4.0 % Normal 0.9-7.0 [facility] Comment on above: Performed By: #### C VDTBH #### [facility] [address] [place] [address] Dr. Jack Sapp Erythrocyte distribution width (RBC) [Ratio] 16.6 % Critically high 11.0-15.0 [facility] Comment on above: Performed By: #### C VDTBH #### [facility] [address] [place] [address] Dr. Jack Sapp Hematocrit (Bld) [Volume fraction] 54.3 % Critically high 42.0-54.0 [facility] Comment on above: Performed By: #### C VDTBH #### [facility] [address] [place] [address] Dr. Jack Sapp Hemoglobin (Bld) [Mass/Vol] 18.2 g/dL Critically high 14.0-18.0 [facility] Comment on above: Performed By: #### C VDTBH #### [facility] [address] [place] [address] Dr. Jack Sapp IG # 0.07 10e3/ul Critically high 0.00-0.03 [facility] Comment on above: Performed By: #### C VDTBH #### [facility] [address] [place] [address] Dr. Jack Sapp IG % 0.6 % Critically high 0.0-0.5 [facility] Comment on above: Performed By: #### C VDTBH #### [facility] [address] [place] [address] Dr. Jack Sapp LYMPH # 1.3 103/ul Normal 1.2-3.8 [facility] Comment on above: Performed By: #### C VDTBH #### [facility] [address] [place] [address] Dr. Jack Sapp Lymphocytes/100 WBC (Bld) 10.9 % Critically low 20.5-60.0 [facility] Comment on above: Performed By: #### C VDTBH #### [facility] [address] [place] [address] Dr. Jack Sapp MANUAL DIFF REQ NO Normal [facility] Comment on above: Performed By: #### C VDTBH #### [facility] [address] [place] [address] Dr. Jack Sapp MCH (RBC) [Entitic mass] 29.3 pg Normal 25.9-34.0 [facility] Comment on above: Performed By: #### C VDTBH #### [facility] [address] [place] [address] Dr. Jack Sapp MCHC (RBC) [Mass/Vol] 33.5 g/dL Normal 29.9-35.2 [facility] Comment on above: Performed By: #### C VDTBH #### [facility] [address] [place] [address] Dr. Jack Sapp MCV (RBC) [Entitic vol] 87.4 fL Normal 80.0-94.0 [facility] Comment on above: Performed By: #### C VDTBH #### [facility] [address] [place] [address] Dr. Jack Sapp MONO # 0.9 103/ul Critically high 0.3-0.8 [facility] Comment on above: Performed By: #### C VDTBH #### [facility] [address] [place] [address] Dr. Jack Sapp Monocytes/100 WBC (Bld) 7.5 % Normal 1.7-12.0 [facility] Comment on above: Performed By: #### C VDTBH #### [facility] [address] [place] [address] Dr. Jack Spap NEUT # 9.4 103/ul Critically high 1.4-6.5 [facility] Comment on above: Performed By: #### C VDTBH #### [facility] [address] [place] [address] Dr. Jack Sapp Neutrophils/100 WBC (Bld) 76.4 % Critically high 43.0-75.0 [facility] Comment on above: Performed By: #### C VDTBH #### [facility] [address] [place] [address] Dr. Jack Sapp Platelet mean volume (Bld) [Entitic vol] 10.7 fL Normal 9.5-13.5 [facility] Comment on above: Performed By: #### C VDTBH #### [facility] [address] [place] [address] Dr. Jack Sapp PLT 273 103/ul Normal 150-450 [facility] Comment on above: Performed By: #### C VDTBH #### [facility] [address] [place] [address] Dr. Jack Sapp RBC 6.21 106/ul Critically high 4.70-6.10 [facility] Comment on above: Performed By: #### C VDTBH #### [facility] [address] [place] [address] Dr. Jack Sapp WBC 12.3 103/ul Critically high 4.0-11.0 [facility] Comment on above: Performed By: #### C VDTBH #### [facility] [address] [place] [address] Dr. Jack Sapp PROF 14(COMP METB)on 023 Albumin [Mass/Vol] 3.3 g/dL Critically low 3.4-5.0 [facility] Comment on above: Performed By: #### H STROPN #### [facility] [address] [place] [address] Dr. Jack Sapp Albumin/Globulin [Mass ratio] 0.7 {ratio} Normal [facility] Comment on above: Performed By: #### H STROPN #### [facility] [address] [place] [address] Dr. Jack Sapp ALP [Catalytic activity/Vol] 85 U/L Normal 46-116 [facility] Comment on above: Performed By: #### H STROPN #### [facility] [address] [address] [address] Jack Sapp ALT [Catalytic activity/Vol] 21 U/L Normal 16-63 [facility] Comment on above: Performed By: #### H STROPN #### [facility] [address] [address] [address] Jack Sapp Anion gap [Moles/Vol] 19.5 mmol/L Normal [facility] Comment on above: Performed By: #### H STROPN #### [facility] [address] [address] [address] Jack Sapp Bilirubin [Mass/Vol] 0.3 mg/dL Normal 0.2-1.0 [facility] Comment on above: Performed By: #### H STROPN #### [facility] [address] [place] [address] Dr. Jack Sapp Calcium [Mass/Vol] 9.1 mg/dL Normal 8.5-10.1 [facility] Comment on above: Performed By: #### H STROPN #### [facility] [address] [place] [address] Dr. Jack Sapp Chloride [Moles/Vol] 98 mmol/L Normal 98-107 [facility] Comment on above: Performed By: #### H STROPN #### [facility] [address] [place] [address] Dr. Jack Sapp CO2 [Moles/Vol] 20.7 mmol/L Critically low 21.0-32.0 [facility] Comment on above: Performed By: #### H STROPN #### [facility] [address] [place] [address] Dr. Jack Sapp Creatinine [Mass/Vol] 1.42 mg/dL Critically high 0.70-1.30 [facility] Comment on above: Performed By: #### H STROPN #### [facility] [address] [place] [address] Dr. Jack Sapp EGFR-AF ZAMBIAN 59 mL/min/1.73m2 Critically low >=60 [facility] Comment on above: Performed By: #### H STROPN #### [facility] [address] [address] [address] Jack Sapp EGFR-NON AF ZAMBIAN 49 mL/min/1.73m2 Critically low >=60 [facility] Comment on above: Performed By: #### H STROPN #### [facility] [address] [address] [address] Jack Sapp Globulin (S) [Mass/Vol] 5.0 g/dL Normal [facility] Comment on above: Performed By: #### H STROPN #### [facility] [address] [address] [address] Jack Sapp Glucose [Mass/Vol] 235 mg/dL Critically high 74-106 [facility] Comment on above: Performed By: #### H STROPN #### [facility] [address] [address] [address] Jcak Sapp Potassium [Moles/Vol] 4.2 mmol/L Normal 3.5-5.1 [facility] Comment on above: Performed By: #### H STROPN #### [facility] [address] [address] [address] Jack Sapp Protein [Mass/Vol] 8.3 g/dL Critically high 6.4-8.2 [facility] Comment on above: Performed By: #### H STROPN #### [facility] [address] [place] [address] Dr. Jack Sapp Sodium [Moles/Vol] 134 mmol/L Critically low 136-145 [facility] Comment on above: Performed By: #### H STROPN #### [facility] [address] [address] [address] Jack Sapp Urea nitrogen [Mass/Vol] 11.0 mg/dL Normal 7.0-18.0 [facility] Comment on above: Performed By: #### H STROPN #### [facility] [address] [address] [address] Jack Sapp Urea nitrogen/Creatinine [Mass ratio] 7.7 mg/mg Normal [facility] Comment on above: Performed By: #### H STROPN #### [facility] [address] [place] [address] Dr. Jack Sapp PROTIMEon 11-15-2022 INR Coag (PPP) [Relative time] 3.08 {INR} Normal [facility] Comment on above: Performed By: #### P T, PTT #### [facility] [address] [place] [address] Dr. Jack Sapp INR GUIDELINES SEE BELOW Normal [facility] Comment on above: Result Comment: MEDARDO RED INR: 2.0 - 3.0 CONDITIONS NOT LISTED BELOW 2.5 - 3.5 FOR PROSTHETIC HEART VALVE REPLACEMENT 2.5 - 3.5 RECURRENT THROMBOSIS Performed By: #### P T, PTT #### [facility] [address] [place] [address] Dr. Jack Sapp PT Coag (PPP) [Time] 30.6 s Critically high 9.0-11.6 [facility] Comment on above: Performed By: #### P T, PTT #### [facility] [address] [place] [address] Dr. Jack Sapp PTTon 11-15-2022 aPTT Coag (Bld) [Time] 44.1 s Critically high 22.3-36.2 [facility] Comment on above: Performed By: #### P T, PTT #### [facility] [address] [place] [address] Dr. Jack Sapp TROPONIN, HIGH SENSITIVITYon 11-15-2022 HSTROP 9.5 pg/mL Normal 4.0-76.1 [facility] Comment on above: Result Comment: CUT- OFF POINTS HAVE BEEN ESTABLISHED BASED ON THE FOURTH UNIVERSAL DEFINITIONS OF MYOCARDIAL INFARCTION. THE UPPER REFERENCE LIMIT (URL) OF TROPONIN, DEFINED THE 99TH PERCENTILE OF cTnI DISTRIBUTION IN A REFERENCE POPULATION, HAS BEEN CONFIRMED THE DECISION THRESHOLD FOR [place] DIAGNOSIS. Performed By: #### H STROPN #### [facility] [address] [place] [address] Dr. Jack Sapp INSULINon 09-12-2022 Insulin 69.3 uIU/mL Critically high 2.6-24.9 [facility] Comment on above: Performed By: #### I NSULIN #### [facility] [address] [address] [address] Jack Sapp CBC AUTO DIFFon 09-11-2022 BASO # 0.1 103/ul Normal 0.0-0.1 [facility] Comment on above: Performed By: #### H STROPN #### [facility] [address] [place] [address] Dr. Jack Sapp Basophils/100 WBC (Bld) 0.6 % Normal 0.2-2.0 [facility] Comment on above: Performed By: #### H STROPN #### [facility] [address] [place] [address] Dr. Jack Sapp EO # 0.3 103/ul Normal 0.0-0.7 [facility] Comment on above: Performed By: #### H STROPN #### [facility] [address] [place] [address] Dr. Jack Sapp Eosinophils/100 WBC (Bld) 3.3 % Normal 0.9-7.0 [facility] Comment on above: Performed By: #### H STROPN #### [facility] [address] [place] [address] Dr. Jack Sapp Erythrocyte distribution width (RBC) [Ratio] 16.2 % Critically high 11.0-15.0 [facility] Comment on above: Performed By: #### H STROPN #### [facility] [address] [place] [address] Dr. Jack Sapp Hematocrit (Bld) [Volume fraction] 52.7 % Normal 42.0-54.0 [facility] Comment on above: Performed By: #### H STROPN #### [facility] [address] [place] [address] Dr. Jack Sapp Hemoglobin (Bld) [Mass/Vol] 16.8 g/dL Normal 14.0-18.0 [facility] Comment on above: Performed By: #### H STROPN #### [facility] [address] [place] [address] Dr. Jack Sapp IG # 0.06 10e3/ul Critically high 0.00-0.03 [facility] Comment on above: Performed By: #### H STROPN #### [facility] [address] [address] [address] Jack Sapp IG % 0.7 % Critically high 0.0-0.5 [facility] Comment on above: Performed By: #### H STROPN #### [facility] [address] [address] [address] Jack Sapp LYMPH # 0.6 103/ul Critically low 1.2-3.8 [facility] Comment on above: Performed By: #### H STROPN #### [facility] [address] [address] [address] Jack Sapp Lymphocytes/100 WBC (Bld) 6.9 % Critically low 20.5-60.0 [facility] Comment on above: Performed By: #### H STROPN #### [facility] [address] [place] [address] Dr. Jack Sapp MANUAL DIFF REQ NO Normal [facility] Comment on above: Performed By: #### H STROPN #### [facility] [address] [address] [address] Jack Sapp MCH (RBC) [Entitic mass] 28.7 pg Normal 25.9-34.0 [facility] Comment on above: Performed By: #### H STROPN #### [facility] [address] [place] [address] Dr. Jack Sapp MCHC (RBC) [Mass/Vol] 31.9 g/dL Normal 29.9-35.2 [facility] Comment on above: Performed By: #### H STROPN #### [facility] [address] [place] [address] Dr. Jack Sapp MCV (RBC) [Entitic vol] 89.9 fL Normal 80.0-94.0 [facility] Comment on above: Performed By: #### H STROPN #### [facility] [address] [address] [address] Jack Sapp MONO # 0.5 103/ul Normal 0.3-0.8 [facility] Comment on above: Performed By: #### H STROPN #### [facility] [address] [address] [address] Jack Sapp Monocytes/100 WBC (Bld) 6.0 % Normal 1.7-12.0 [facility] Comment on above: Performed By: #### H STROPN #### [facility] [address] [address] [address] Jack Sapp NEUT # 7.4 103/ul Critically high 1.4-6.5 [facility] Comment on above: Performed By: #### H STROPN #### [facility] [address] [address] [address] Jack Sapp Neutrophils/100 WBC (Bld) 82.5 % Critically high 43.0-75.0 [facility] Comment on above: Performed By: #### H STROPN #### [facility] [address] [place] [address] Dr. Jack Sapp Platelet mean volume (Bld) [Entitic vol] 10.4 fL Normal 9.5-13.5 [facility] Comment on above: Performed By: #### H STROPN #### [facility] [address] [address] [address] Jack Sapp PLT 211 103/ul Normal 150-450 [facility] Comment on above: Performed By: #### H STROPN #### [facility] [address] [place] [address] Dr. Jack Sapp RBC 5.86 106/ul Normal 4.70-6.10 [facility] Comment on above: Performed By: #### H STROPN #### [facility] [address] [address] [address] Jack Sapp WBC 9.0 103/ul Normal 4.0-11.0 [facility] Comment on above: Performed By: #### H STROPN #### [facility] [address] [place] [address] Dr. Jack Sapp GLYCOHEMOGLOBIN A1Con 2022 ADA RECOMMENDATION SEE BELOW Normal [facility] Comment on above: Result Comment: ADA RECOMMENDED LIMIT 4.0 - 6.0 ADA THERAPEUTIC TARGET < 7.0 ACTION SUGGESTED > 7.0 Performed By: #### H STROPN #### [facility] [address] [address] [address] Jack Sapp Glucose [Mass/Vol] 163 mg/dL Normal [facility] Comment on above: Performed By: #### H STROPN #### [facility] [address] [address] [address] Jack Sapp HbA1c (Bld) [Mass fraction] 7.3 % Critically high 4.5-6.2 [facility] Comment on above: Performed By: #### H STROPN #### [facility] [address] [address] [address] Jack Sapp LIPID PROFILEon 09-11-2022 CHOL-HDL RATIO NORM SEE BELOW Normal [facility] Comment on above: Result Comment: 3.3 - 4.4 LOW RISK 4.4 - 7.1 AVERAGE RISK 7.1 - 11.0 MODERATE RISK >11.0 HIGH RISK Performed By: #### C VDTBH #### [facility] [address] [place] [address] Dr. Jack Sapp Cholesterol [Mass/Vol] 163 mg/dL Normal <=200 [facility] Comment on above: Performed By: #### C VDTBH #### [facility] [address] [place] [address] Dr. Jack Sapp Cholesterol in HDL [Mass/Vol] 32 mg/dL Critically low 40-60 [facility] Comment on above: Performed By: #### C VDTBH #### [facility] [address] [address] [address] Jack Sapp Cholesterol in LDL [Mass/Vol] 109.2 mg/dL Normal [facility] Comment on above: Performed By: #### C VDTBH #### [facility] [address] [address] [address] Jack Sapp Cholesterol.total/C holesterol in HDL [Mass ratio] 5.1 {ratio} Normal [facility] Comment on above: Performed By: #### C VDTBH #### [facility] [address] [address] [address] Jack Sapp HDL NORMAL > or = 60 mg/dl - LO W CARDIOVASCULAR RISK <40 mg/dl - HIGH CARDIOVASCULAR RISK Normal [facility] Comment on above: Performed By: #### C VDTBH #### [facility] [address] [address] [address] Jack Sapp LDL CALC NORMAL SEE BELOW Normal [facility] Comment on above: Result Comment: <100 mg/dl OPTIMAL 100 - 129 mg/dl NEAR OR ABOVE OPTIMAL 130 - 159 mg/dl BORDERLINE HIGH 160 - 189 mg/dl HIGH >190 mg/dl VERY HIGH Performed By: #### C VDTBH #### [facility] [address] [place] [address] Dr. Jack Sapp Triglyceride [Mass/Vol] 109 mg/dL Normal <=150 [facility] Comment on above: Performed By: #### C VDTBH #### [facility] [address] [place] [address] Dr. Jack Sapp VLDL CALC 21.8 mg/dL Normal [facility] Comment on above: Performed By: #### C VDTBH #### [facility] [address] [place] [address] Dr. Jack Sapp PROF 14(COMP METB)on 023 Albumin [Mass/Vol] 3.4 g/dL Normal 3.4-5.0 [facility] Comment on above: Performed By: #### C VDTBH #### [facility] [address] [place] [address] Dr. Jack Sapp Albumin/Globulin [Mass ratio] 0.7 {ratio} Normal [facility] Comment on above: Performed By: #### C VDTBH #### [facility] [address] [place] [address] Dr. Jack Sapp ALP [Catalytic activity/Vol] 58 U/L Normal 46-116 [facility] Comment on above: Performed By: #### C VDTBH #### [facility] [address] [address] [address] Jack Sapp ALT [Catalytic activity/Vol] 28 U/L Normal 16-63 [facility] Comment on above: Performed By: #### C VDTBH #### [facility] [address] [address] [address] Jack Sapp Anion gap [Moles/Vol] 15.6 mmol/L Normal [facility] Comment on above: Performed By: #### C VDTBH #### [facility] [address] [address] [address] Jack Sapp AST [Catalytic activity/Vol] 17 U/L Normal 15-37 [facility] Comment on above: Performed By: #### C VDTBH #### [facility] [address] [address] [address] Jack Sapp Bilirubin [Mass/Vol] 0.6 mg/dL Normal 0.2-1.0 [facility] Comment on above: Performed By: #### C VDTBH #### [facility] [address] [place] [address] Dr. Jack Sapp Calcium [Mass/Vol] 9.2 mg/dL Normal 8.5-10.1 [facility] Comment on above: Performed By: #### C VDTBH #### [facility] [address] [place] [address] Dr. Jack Sapp Chloride [Moles/Vol] 101 mmol/L Normal 98-107 [facility] Comment on above: Performed By: #### C VDTBH #### [facility] [address] [place] [address] Dr. Jack Sapp CO2 [Moles/Vol] 23.8 mmol/L Normal 21.0-32.0 [facility] Comment on above: Performed By: #### C VDTBH #### [facility] [address] [place] [address] Dr. Jack Sapp Creatinine [Mass/Vol] 1.39 mg/dL Critically high 0.70-1.30 [facility] Comment on above: Performed By: #### C VDTBH #### [facility] [address] [place] [address] Dr. Jack Sapp EGFR-AF ZAMBIAN >60 Normal >=60 [facility] Comment on above: Performed By: #### C VDTBH #### [facility] [address] [address] [address] Jack Sapp EGFR-NON AF ZAMBIAN 50 mL/min/1.73m2 Critically low >=60 [facility] Comment on above: Performed By: #### C VDTBH #### [facility] [address] [address] [address] Jack Sapp Globulin (S) [Mass/Vol] 4.6 g/dL Normal [facility] Comment on above: Performed By: #### C VDTBH #### [facility] [address] [address] [address] Jack Sapp Glucose [Mass/Vol] 142 mg/dL Critically high 74-106 [facility] Comment on above: Performed By: #### C VDTBH #### [facility] [address] [place] [address] Dr. Jack Sapp Potassium [Moles/Vol] 4.4 mmol/L Normal 3.5-5.1 [facility] Comment on above: Performed By: #### C VDTBH #### [facility] [address] [place] [address] Dr. Jack Sapp Protein [Mass/Vol] 8.0 g/dL Normal 6.4-8.2 [facility] Comment on above: Performed By: #### C VDTBH #### [facility] [address] [place] [address] Dr. Jack Sapp Sodium [Moles/Vol] 136 mmol/L Normal 136-[address] [facility] Comment on above: Performed By: #### C VDTBH #### [facility] [address] [address] [address] Jack Sapp Urea nitrogen [Mass/Vol] 16.0 mg/dL Normal 7.0-18.0 [facility] Comment on above: Performed By: #### C VDTBH #### [facility] [address] [place] [address] Dr. Jack Sapp Urea nitrogen/Creatinine [Mass ratio] 11.5 mg/mg Normal [facility] Comment on above: Performed By: #### C VDTBH #### [facility] [address] [place] [address] Dr. Jack Sapp URIC ACID SERUMon 09-11-2022 Urate [Mass/Vol] 6.2 mg/dL Normal 3.5-7.2 [facility] Comment on above: Performed By: #### C VDTBH #### [facility] [address] [place] [address] Dr. Jack Sapp ACETONE SERUMon 08-21-2022 ACETONE Negative Normal NEGATIVE [facility] Comment on above: Performed By: #### H STROPN #### [facility] [address] [place] [address] Dr. Jack Sapp BNPon 08-21-2022 Natriuretic peptide B (Bld) [Mass/Vol] 405.0 pg/mL Normal <=900.0 [facility] Comment on above: Performed By: #### C MP, CMADM, BNP, TSH #### [facility] [address] [place] [address] Dr. Jack Sapp CARDIAC LISSETH ADMITon 023 CK [Catalytic activity/Vol] 57 U/L Normal 39-308 [facility] Comment on above: Performed By: #### C MP, CMADM, BNP, TSH #### [facility] [address] [place] [address] Dr. Jack Sapp CK.MB [Mass/Vol] 1.12 ng/mL Normal <=3.60 [facility] Comment on above: Performed By: #### C MP, CMADM, BNP, TSH #### [facility] [address] [place] [address] Dr. Jack Sapp HSTROP 55.9 pg/mL Normal 4.0-76.1 [facility] Comment on above: Result Comment: CUT- OFF POINTS HAVE BEEN ESTABLISHED BASED ON THE FOURTH UNIVERSAL DEFINITIONS OF MYOCARDIAL INFARCTION. THE UPPER REFERENCE LIMIT (URL) OF TROPONIN, DEFINED THE 99TH PERCENTILE OF cTnI DISTRIBUTION IN A REFERENCE POPULATION, HAS BEEN CONFIRMED THE DECISION THRESHOLD FOR [place] DIAGNOSIS. Performed By: #### C MP, CMADM, BNP, TSH #### [facility] [address] [place] [address] Dr. Jack Sapp BELEN 79 ng/mL Normal 16-96 [facility] Comment on above: Performed By: #### C MP, CMADM, BNP, TSH #### [facility] [address] [place] [address] Dr. Jack Sapp CBC AUTO DIFFon 08-21-2022 BASO # 0.1 103/ul Normal 0.0-0.1 [facility] Comment on above: Performed By: #### C VDTBH #### [facility] [address] [place] [address] Dr. Jack Sapp Basophils/100 WBC (Bld) 0.5 % Normal 0.2-2.0 [facility] Comment on above: Performed By: #### C VDTBH #### [facility] [address] [place] [address] Dr. Jack Sapp EO # 0.2 103/ul Normal 0.0-0.7 [facility] Comment on above: Performed By: #### C VDTBH #### [facility] [address] [place] [address] Dr. Jack Sapp Eosinophils/100 WBC (Bld) 1.4 % Normal 0.9-7.0 [facility] Comment on above: Performed By: #### C VDTBH #### [facility] [address] [place] [address] Dr. Jack Sapp Erythrocyte distribution width (RBC) [Ratio] 17.2 % Critically high 11.0-15.0 [facility] Comment on above: Performed By: #### C VDTBH #### [facility] [address] [place] [address] Dr. Jack Sapp Hematocrit (Bld) [Volume fraction] 52.9 % Normal 42.0-54.0 [facility] Comment on above: Performed By: #### C VDTBH #### [facility] [address] [place] [address] Dr. Jack Sapp Hemoglobin (Bld) [Mass/Vol] 17.2 g/dL Normal 14.0-18.0 [facility] Comment on above: Performed By: #### C VDTBH #### [facility] [address] [place] [address] Dr. Jack Sapp IG # 0.10 10e3/ul Critically high 0.00-0.03 [facility] Comment on above: Performed By: #### C VDTBH #### [facility] [address] [place] [address] Dr. Jack Sapp IG % 0.9 % Critically high 0.0-0.5 [facility] Comment on above: Performed By: #### C VDTBH #### [facility] [address] [place] [address] Dr. Jack Sapp LYMPH # 0.9 103/ul Critically low 1.2-3.8 [facility] Comment on above: Performed By: #### C VDTBH #### [facility] [address] [place] [address] Dr. Jack Sapp Lymphocytes/100 WBC (Bld) 8.4 % Critically low 20.5-60.0 [facility] Comment on above: Performed By: #### C VDTBH #### [facility] [address] [place] [address] Dr. Jack Sapp MANUAL DIFF REQ NO Normal [facility] Comment on above: Performed By: #### C VDTBH #### [facility] [address] [place] [address] Dr. Jack Sapp MCH (RBC) [Entitic mass] 28.1 pg Normal 25.9-34.0 [facility] Comment on above: Performed By: #### C VDTBH #### [facility] [address] [place] [address] Dr. Jack Sapp MCHC (RBC) [Mass/Vol] 32.5 g/dL Normal 29.9-35.2 [facility] Comment on above: Performed By: #### C VDTBH #### [facility] [address] [place] [address] Dr. Jack Sapp MCV (RBC) [Entitic vol] 86.4 fL Normal 80.0-94.0 [facility] Comment on above: Performed By: #### C VDTB #### [facility] [address] [place] [address] Dr. Jack Sapp MONO # 0.7 103/ul Normal 0.3-0.8 [facility] Comment on above: Performed By: #### C VDTBH #### [facility] [address] [place] [address] Dr. Jack Sapp Monocytes/100 WBC (Bld) 5.9 % Normal 1.7-12.0 [facility] Comment on above: Performed By: #### C VDTBH #### [facility] [address] [place] [address] Dr. Jack Sapp NEUT # 9.2 103/ul Critically high 1.4-6.5 [facility] Comment on above: Performed By: #### C VDTB #### [facility] [address] [place] [address] Dr. Jack Sapp Neutrophils/100 WBC (Bld) 82.9 % Critically high 43.0-75.0 [facility] Comment on above: Performed By: #### C VDTB #### [facility] [address] [place] [address] Dr. Jack Sapp Platelet mean volume (Bld) [Entitic vol] 11.3 fL Normal 9.5-13.5 [facility] Comment on above: Performed By: #### C VDTBH #### [facility] [address] [place] [address] Dr. Jack Sapp PLT 243 103/ul Normal 150-450 [facility] Comment on above: Performed By: #### C VDTBH #### [facility] [address] [place] [address] Dr. Jack Sapp RBC 6.12 106/ul Critically high 4.70-6.10 [facility] Comment on above: Performed By: #### C VDTBH #### [facility] [address] [place] [address] Dr. Jack Sapp WBC 11.1 103/ul Critically high 4.0-11.0 [facility] Comment on above: Performed By: #### C VDTB #### [facility] [address] [place] [address] Dr. Jack Sapp Covid-19 PCR ([facility])on 08-11 SARS-CoV-2 (COVID-19) RNA NADINE+probe Ql (Unsp spec) Not detected Normal NOT DETECTED [facility] Comment on above: Result Comment: When [...] for this test is supported by the [place] of Health and Human Service's declaration that [...] used). Performed By: #### C VDTB #### [facility] [address] [place] [address] Dr. Jack Sapp INFLUENZA A AND B AGon 08-21 [facility] SEE BELOW Normal [facility] Comment on above: Result Comment: Nega tive for Flu A protein angiten. Infection due to Flu A cannot be ruled out. Flu A angiten in the sample may be below the detection limit of the test. Performed By: #### C VDTBH #### [facility] [address] [place] [address] Dr. Jack [facility] Normal [facility] Comment on above: Result Comment: Nega tive for Flu B protein antigen. Infection due to Flu B cannot be ruled out. Flu B antigen in the sample may be below the detection limit of the test. Performed By: #### C VDTBH #### [facility] [address] [place] [address] Dr. Jack Sapp INFLUENZA A AG Negative Normal NEGATIVE SEE COMMENT [facility] Comment on above: Performed By: #### C VDTBH #### [facility] [address] [place] [address] Dr. Jack Sapp INFLUENZA B AG Negative Normal NEGATIVE SEE COMMENT [facility] Comment on above: Performed By: #### C VDTBH #### [facility] [address] [place] [address] Dr. Jack Sapp POINT OF CARE GLUCOSEon 08-11 Glucose [Mass/Vol] 178 mg/dL Critically high 74-106 [facility] Comment on above: Performed By: #### C VDTBH #### [facility] [address] [place] [address] Dr. Jack Sapp PROF 14(COMP METB)on 023 Albumin [Mass/Vol] 3.3 g/dL Critically low 3.4-5.0 [facility] Comment on above: Performed By: #### C MP, CMADM, BNP, TSH #### [facility] [address] [place] [address] Dr. Jack Sapp Albumin/Globulin [Mass ratio] 0.8 {ratio} Normal [facility] Comment on above: Performed By: #### C MP, CMADM, BNP, TSH #### [facility] [address] [place] [address] Dr. Jack Sapp ALP [Catalytic activity/Vol] 64 U/L Normal 46-116 [facility] Comment on above: Performed By: #### C MP, CMADM, BNP, TSH #### [facility] [address] [place] [address] Dr. Jack Sapp ALT [Catalytic activity/Vol] 25 U/L Normal 16-63 [facility] Comment on above: Performed By: #### C MP, CMADM, BNP, TSH #### [facility] [address] [place] [address] Dr. Jack Sapp Anion gap [Moles/Vol] 17.1 mmol/L Normal [facility] Comment on above: Performed By: #### C MP, CMADM, BNP, TSH #### [facility] [address] [address] [address] Jack Sapp AST [Catalytic activity/Vol] 20 U/L Normal 15-37 [facility] Comment on above: Performed By: #### C MP, CMADM, BNP, TSH #### [facility] [address] [address] [address] Jack Sapp Bilirubin [Mass/Vol] 0.7 mg/dL Normal 0.2-1.0 [facility] Comment on above: Performed By: #### C MP, CMADM, BNP, TSH #### [facility] [address] [place] [address] Dr. Jack Sapp Calcium [Mass/Vol] 9.8 mg/dL Normal 8.5-10.1 [facility] Comment on above: Performed By: #### C MP, CMADM, BNP, TSH #### [facility] [address] [address] [address] Jack Sapp Chloride [Moles/Vol] 99 mmol/L Normal 98-107 [facility] Comment on above: Performed By: #### C MP, CMADM, BNP, TSH #### [facility] [address] [place] [address] Dr. Jack Sapp CO2 [Moles/Vol] 20.2 mmol/L Critically low 21.0-32.0 [facility] Comment on above: Performed By: #### C MP, CMADM, BNP, TSH #### [facility] [address] [place] [address] Dr. Jack Spap Creatinine [Mass/Vol] 1.46 mg/dL Critically high 0.70-1.30 [facility] Comment on above: Performed By: #### C MP, CMADM, BNP, TSH #### [facility] [address] [place] [address] Dr. Jack Sapp EGFR-AF ZAMBIAN 57 mL/min/1.73m2 Critically low >=60 [facility] Comment on above: Performed By: #### C MP, CMADM, BNP, TSH #### [facility] [address] [place] [address] Dr. Jack Sapp EGFR-NON AF ZAMBIAN 47 mL/min/1.73m2 Critically low >=60 [facility] Comment on above: Performed By: #### C MP, CMADM, BNP, TSH #### [facility] [address] [place] [address] Dr. Jack Sapp Globulin (S) [Mass/Vol] 4.4 g/dL Normal [facility] Comment on above: Performed By: #### C MP, CMADM, BNP, TSH #### [facility] [address] [place] [address] Dr. Jack Sapp Glucose [Mass/Vol] 184 mg/dL Critically high 74-106 [facility] Comment on above: Performed By: #### C MP, CMADM, BNP, TSH #### [facility] [address] [place] [address] Dr. Jack Sapp Potassium [Moles/Vol] 4.3 mmol/L Normal 3.5-5.1 [facility] Comment on above: Performed By: #### C MP, CMADM, BNP, TSH #### [facility] [address] [place] [address] Dr. Jack Sapp Protein [Mass/Vol] 7.7 g/dL Normal 6.4-8.2 [facility] Comment on above: Performed By: #### C MP, CMADM, BNP, TSH #### [facility] [address] [place] [address] Dr. Jack Sapp Sodium [Moles/Vol] 132 mmol/L Critically low 136-145 [facility] Comment on above: Performed By: #### C MP, CMADM, BNP, TSH #### [facility] [address] [place] [address] Dr. Jack Sapp Urea nitrogen [Mass/Vol] 16.0 mg/dL Normal 7.0-18.0 [facility] Comment on above: Performed By: #### C MP, CMADM, BNP, TSH #### [facility] [address] [place] [address] Dr. Jack Sapp Urea nitrogen/Creatinine [Mass ratio] 11.0 mg/mg Normal [facility] Comment on above: Performed By: #### C MP, CMADM, BNP, TSH #### [facility] [address] [place] [address] Dr. Jack Sapp PROTIMEon 08-21-2022 INR Coag (PPP) [Relative time] 2.34 {INR} Normal [facility] Comment on above: Performed By: #### C VDTBH #### [facility] [address] [place] [address] Dr. Jack Sapp INR GUIDELINES SEE BELOW Normal [facility] Comment on above: Result Comment: MEDARDO RED INR: 2.0 - 3.0 CONDITIONS NOT LISTED BELOW 2.5 - 3.5 FOR PROSTHETIC HEART VALVE REPLACEMENT 2.5 - 3.5 RECURRENT THROMBOSIS Performed By: #### C VDTBH #### [facility] [address] [place] [address] Dr. Jack Sapp PT Coag (PPP) [Time] 23.6 s Critically high 9.0-11.6 [facility] Comment on above: Performed By: #### C VDTBH #### [facility] [address] [place] [address] Dr. Jack Sapp PTTon 08-21-2022 aPTT Coag (Bld) [Time] 41.6 s Critically high 22.3-36.2 [facility] Comment on above: Performed By: #### C VDTBH #### [facility] [address] [place] [address] Dr. Jack Sapp TROPONIN, HIGH SENSITIVITYon 08-21-2022 HSTROP 136.8 pg/mL Critically high 4.0-76.1 [facility] Comment on above: Result Comment: CUT- OFF POINTS HAVE BEEN ESTABLISHED BASED ON THE FOURTH UNIVERSAL DEFINITIONS OF MYOCARDIAL INFARCTION. THE UPPER REFERENCE LIMIT (URL) OF TROPONIN, DEFINED THE 99TH PERCENTILE OF cTnI DISTRIBUTION IN A REFERENCE POPULATION, HAS BEEN CONFIRMED THE DECISION THRESHOLD FOR WI DIAGNOSIS. Performed By: #### H STROPN #### [facility] [address] [place], [place] [address] Dr. Jack Sapp TSHon 08-21-2022 TSH 6.745 uIU/mL Critically high 0.358-3.[address] [facility] Comment on above: Performed By: #### C MP, CMADM, BNP, TSH #### [facility] [address] [place], [place] [address] Dr. Jack Sapp XR CHEST 1 Von [...] FUAD TYLER Date: 2022-08-21 11:46 Normal [facility] Covid-19 PCR ([facility])on 06-13 SARS-CoV-2 (COVID-19) RNA NADINE+probe Ql (Unsp spec) Not detected Normal NOT DETECTED [facility] Comment on above: Result Comment: When [...] for this test is supported by the [place] of Health and Human Service's declaration that [...] longer be used). Performed By: #### C VDTBH #### [facility] [address] [address] [address] Jack Sapp INFLUENZA A AND B AGon 07-10 INFLUENZA A AG Negative Normal NEGATIVE SEE COMMENT [facility] Comment on above: Performed By: #### H STROPN #### [facility] [address] [address] [address] Jack Sapp INFLUENZA B AG Negative Normal NEGATIVE SEE COMMENT [facility] Comment on above: Performed By: #### H STROPN #### [facility] [address] [address] [address] Jack Sapp INTERNAL CONTROLS Within Normal Limits Normal Wi thin Normal Limits [facility] Comment on above: Performed By: #### H STROPN #### [facility] [address] [address] [address] Jack Sapp Consultation Noteon 02-21-20 Consultation Note [id number]#[id number]:127 Normal [facility] Consultation Noteon 11-14-19 Consultation Note [id number]#[id number]:127 Normal [facility] Provider Letteron 11-01-2020 Provider Letter (Inserted Image. Ivana ble to display) November 01, 2020 MELVI DAVIES [address] [place] [address] MELVI DAVIES 1950 Dear Melvi, This letter is to inform you due to non-compliance the providers of [facility], [facility]/ [facility] will no longer be responsible for your routine medical care. Emergency care only will be provided for the thirty (30) days following this letter. During this time period we suggest that you find another physician for your medical needs. A listing of area physicians can be found on [facility]'s website at [email or web address] or you may contact your health plan. We will be glad to forward your records to your new physician as long as we receive a signed release of records form. Sincerely, Dr. Melvi Kulkarni [facility] [address] [place] [address] [facility] Patient Correspondenceon Patient Correspondence [id number]#[id number]:127 [facility] Patient Letter FTon 2020 Patient Letter [facility] (Inserted Image. Ivana ble to display) August 24, 2020 MELVI DAVIES [address] [place] [address] MELVI DAVIES 1950 Dear Melvi, I am [...] Kulkarni [facility] [address] [place] [place] [address] [facility] Consultation Noteon 08-15-19 Consultation Note [id number]:127 [facility] Consultation Note [id number]#[id number]:127 [facility] Consultation Noteon 05-15-20 Consultation Note [id number]:127 [facility] CBC WITH AUTO DIFFERENTIALon 07-03-2019 Basophils (Bld) [#/Vol] 0.05 10*3/uL [facility], [place] Basophils/100 WBC (Bld) 1 % 0 - 2 % [facility] [place] Differential Type NOT REPORTED [place], [place] Eosinophils (Bld) [#/Vol] 0.12 10*3/uL [place] Eosinophils/100 WBC (Bld) 1 % 1 - 4 % [place] Erythrocyte distribution width (RBC) [Ratio] 12.8 % 11.8 - 14.4 % [place] Hematocrit (Bld) [Volume fraction] 46.6 % 40.7 - 50.3 % [place] Hemoglobin (Bld) [Mass/Vol] 15.4 g/dL 13 - 17 g/dL [place] Immature granulocytes (Bld) [#/Vol] 0.07 10*3/uL [place] Immature granulocytes (Bld) [#/Vol] 1 % High 0 [place] Interpretation and review of laboratory results Abnormal [place] Lymphocytes (Bld) [#/Vol] 1.06 10*3/uL [place] Lymphocytes/100 WBC (Bld) 10 % Low 24 - 43 % [place] MCH (RBC) [Entitic mass] 30.7 pg 25.2 - 33.5 pg [place] MCHC (RBC) [Mass/Vol] 33.0 g/dL 28.4 - 34.8 g/dL [place] MCV (RBC) [Entitic vol] 92.8 fL 82.6 - 102.9 fL [place] Monocytes (Bld) [#/Vol] 0.84 10*3/uL [place] Monocytes/100 WBC (Bld) 8 % 3 - 12 % [place] Platelet mean volume (Bld) [Entitic vol] 11.8 fL 8.1 - 13.5 fL [place] Platelets (Bld) [#/Vol] 216 10*3/uL [place] Platelets (Bld) [#/Vol] NOT REPORTED [place] RBC (Bld) [#/Vol] 5.02 10*6/uL 4.21 - 5.7 7 m/uL [place] RBC morphology finding Nom (Bld) NOT REPORTED [place] Segmented neutrophils/100 WBC (Bld) 79 % High 36 - 65 % [place] Segs Absolute 8.20 High [place] WBC (Bld) [#/Vol] 0.0 10*3/uL 0.0 per 10 0 WBC [place] WBC (Bld) [#/Vol] 10.3 10*3/uL [place] WBC Morphology NOT REPORTED [place] CBC with Diffon 07-03-2019 Abs. Basophil 0.05 k/uL Normal 0.00-0.20 [facility] Comment on above: Performed By: #### C DP, CP #### [address] [address] [employer]: Tramaine Proctor MD Abs.Imm.Granulocyte 0.07 k/uL Normal 0.00-0.30 [facility] Comment on above: Performed By: #### C DP, CP #### [place] [address] [employer]: Tramaine Proctor MD Abs.Neutrophil (Seg) 8.20 k/uL High 1.50-8.10 [facility] Comment on above: Performed By: #### C DP, CP #### [address] [address] [employer]: Tramaine Proctor MD Basophils/100 WBC (Bld) 1 % Normal 0-2 [facility] Comment on above: Performed By: #### C DP, CP #### [address] [address] [employer]: Tramaine Proctor MD Eosinophils (Bld) [#/Vol] 0.12 10*3/uL Normal 0.00-0.44 [facility] Comment on above: Performed By: #### C DP, CP #### [address] [address] [employer]: Tramaine Proctor MD Eosinophils/100 WBC (Bld) 1 % Normal 1-4 [facility] Comment on above: Performed By: #### C DP, CP #### [place] [address] [employer]: Tramaine Proctor MD Erythrocyte distribution width (RBC) [Ratio] 12.8 % Normal 11.8-14.4 [facility] Comment on above: Performed By: #### C DP, CP #### [place] [address] [employer]: Tramaine Proctor MD Hematocrit (Bld) [Volume fraction] 46.6 % Normal 40.7-50.3 [facility] Comment on above: Performed By: #### C DP, CP #### [place] [address] [employer]: Tramaine Proctor MD Hemoglobin (Bld) [Mass/Vol] 15.4 g/dL Normal 13.0-17.0 [facility] Comment on above: Performed By: #### C DP, CP #### [place] [address] [employer]: Tramaine Proctor MD Immature granulocytes (Bld) [#/Vol] 1 % High 0 [facility] Comment on above: Performed By: #### C DP, CP #### [place] [address] [employer]: Tramaine Proctor MD Lymphocytes (Bld) [#/Vol] 1.06 10*3/uL Low 1.10-3.70 [facility] Comment on above: Performed By: #### C DP, CP #### [address] [address] [employer]: Tramaine Proctor MD Lymphocytes/100 WBC (Bld) 10 % Low 24-43 [facility] Comment on above: Performed By: #### C DP, CP #### [address] [address] [employer]: Tramaine Proctor MD MCH (RBC) [Entitic mass] 30.7 pg Normal 25.2-33.5 [facility] Comment on above: Performed By: #### C DP, CP #### [address] [address] [employer]: Tramaine Proctor MD MCHC (RBC) [Mass/Vol] 33.0 g/dL Normal 28.4-34.8 [facility] Comment on above: Performed By: #### C DP, CP #### [address] [address] [employer]: Tramaine Proctor MD MCV (RBC) [Entitic vol] 92.8 fL Normal 82.6-102.9 [facility] Comment on above: Performed By: #### C DP, CP #### [address] [address] [employer]: Tramaine Proctor MD Monocytes (Bld) [#/Vol] 0.84 10*3/uL Normal 0.10-1.20 [facility] Comment on above: Performed By: #### C DP, CP #### [address] [address] [employer]: Tarmaine Proctor MD Monocytes/100 WBC (Bld) 8 % Normal 3-12 [facility] Comment on above: Performed By: #### C DP, CP #### [address] [address] [employer]: Tramaine Proctor MD Neutrophil (Seg) 79 % High 36-65 [facility] Comment on above: Performed By: #### C DP, CP #### [address] [address] [employer]: Tramaine Proctor MD NRBC Automated 0.0 per 100 WBC Normal 0.0 [facility] Comment on above: Performed By: #### C DP, CP #### [address] [address] [employer]: Tramaine Proctor MD Platelet mean volume (Bld) [Entitic vol] 11.8 fL Normal 8.1-13.5 [facility] Comment on above: Performed By: #### C DP, CP #### [address] [address] [employer]: Tramaine Proctor MD Platelets (Bld) [#/Vol] 216 10*3/uL Normal 138-453 [facility] Comment on above: Performed By: #### C DP, CP #### [address] [address] [employer]: Tramaine Proctor MD RBC (Bld) [#/Vol] 5.02 10*6/uL Normal 4.21-5.77 [facility] Comment on above: Performed By: #### C DP, CP #### [address] [address] [employer]: Tramaine Proctor MD WBC (Bld) [#/Vol] 10.3 10*3/uL Normal 3.5-11.3 [facility] Comment on above: Performed By: #### C DP, CP #### [address] [address] [employer]: Tramaine Proctor MD Auto Diff Performed NOT REPORTED Normal [facility] Comment on above: Performed By: #### C DP, CP #### [address] [address] [employer]: Tramaine Proctor MD Platelets (Bld) [#/Vol] NOT REPORTED Normal [facility] Comment on above: Performed By: #### C DP, CP #### [address] [place], [place] [id number] [employer]: Tramaine Proctor MD RBC morphology finding Nom (Bld) NOT REPORTED Normal [facility] Comment on above: Performed By: #### C DP, CP #### [address] [place], [place] [id number] [employer]: Tramaine Proctor MD WBC Morphology NOT REPORTED Normal [facility] Comment on above: Performed By: #### C DP, CP #### [address] [place], [place] [id number] [employer]: Tramaine Proctor MD CT HEAD WO CONTRASTon [...] Micki Butler MD 07/03/19 Final result Normal [facility] No acute intracrania l abnormality. [facility] [place], [place] EXAMINATION: CT OF T HE HEAD WITHOUT [...] of the visualized skull or soft tissues. [place], [place], [facility] Incoming R adiant Results From bounce.io/Pacs - 07/03/2019 11:35 AM EST EXAMINATION: CT [...] soft tissues. IMPRESSION: No acute intracranial abnormality. [place], [place] CTA HEAD NECK W CONTRASTon 1 09-02-2018 [...] stenosis at the origin of the left INSPECTOR [employer]ASSEMBLY. There is 30% focal stenosis in the P1 segment of the right INSPECTOR [employer]BL[employer]. No significant stenosis of the left vertebral, or basilar cerebral arteries. No aneurysm. OTHER: No dural venous sinus thrombosis on this non-dedicated study. BRAIN: No mass effect or midline shift. No extra-axial fluid collection. 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 The burnett-white differentiation is maintained. [facility] [place] Left dominance of th e vertebral arteries. 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 40% focal stenosis at the origin of the left INSPECTOR [employer]ASSEMBLY. 30% focal stenosis in the P1 segment of the right INSPECTOR [employer]ASSEMBLY. No acute abnormality or flow-limiting stenosis in the remainder of the major arteries of the head and neck. [facility], [place] Incoming R adiant Results From bounce.io/Better Walk - 07/03/2019 12:15 PM EST EXAMINATION: CTA [...] stenosis at the origin of the left INSPECTOR [employer]ASSEMBLY. There is 30% focal stenosis in the P1 segment of the right INSPECTOR [employer]ASSEMBLY. No significant stenosis of the left vertebral, [...] stenosis at the origin of the left INSPECTOR [employer]ASSEMBLY. 30% focal stenosis in the P1 segment of the right INSPECTOR [employer]ASSEMBLY. No acute abnormality or flow-limiting stenosis in the remainder of the major arteries of the head and neck. [place] CTA HEAD W CON AND CTA NECK [...] stenosis at the origin of the left INSPECTOR [employer]ASSEMBLY. There is 30% focal stenosis in the P1 segment of the right INSPECTOR [employer]ASSEMBLY. No significant stenosis of the left vertebral, [...] stenosis at the origin of the left INSPECTOR [employer]ASSEMBLY. 30% focal stenosis in the P1 segment of the right INSPECTOR [employer]ASSEMBLY. No acute abnormality or flow-limiting stenosis in the remainder of the major arteries of the head and neck. Interpreted by: Joselito Wagoner MD Signed by: Joselito Wagoner MD 07/03/19 Final result Normal [facility] Comp Metabolic Profon 2018 (cont.) Normal [facility] Comment on above: Result Comment: Aver age GFR for 70 or more years old: 75 mL/min/1.73sq m Chronic Kidney Disease: <60 mL/min/1.73sq m Kidney failure: <15 mL/min/1.73sq m eGFR calculated using average adult body mass. Additional eGFR calculator available at: http://www.[employer]/multiple_crcl_2012.htm Performed By: #### C DP, CP #### [address] [address] Seed [employer] Superintendent: Tramaine Proctor MD Albumin [Mass/Vol] 3.5 g/dL Normal 3.5-5.2 [facility] Comment on above: Performed By: #### C DP, CP #### [facility] [employer] [address] [place] [phone] [employer] Superintendent: Tramaine Proctor MD Albumin/Globulin [Mass ratio] 1.0 {ratio} Normal 1.0-2.5 [facility] Comment on above: Performed By: #### C DP, CP #### [facility] [employer] [address] [place] [address] [employer] Superintendent: Tramaine Proctor MD Alkaline Phos 54 U/L Normal 40-129 [facility] Comment on above: Performed By: #### C DP, CP #### [facility] [employer] [address] [place] [address] [employer] Superintendent: Tramaine Proctor MD ALT [Catalytic activity/Vol] 41 U/L Normal 5-41 [facility] Comment on above: Performed By: #### C DP, CP #### [facility] [employer] [address] [place] [address] [employer] Superintendent: Tramaine Proctor MD Anion gap [Moles/Vol] 14 mmol/L Normal 9-17 [facility] Comment on above: Performed By: #### C DP, CP #### [address] [address] [employer] Superintendent: Tramaine Proctor MD AST [Catalytic activity/Vol] 27 U/L Normal <40 [facility] Comment on above: Performed By: #### C DP, CP #### [address] [address] [employer] Superintendent: Tramaine Proctor MD Bilirubin Ql (U) 0.41 mg/dL Normal 0.3-1.2 [facility] Comment on above: Performed By: #### C DP, CP #### [address] [address] [employer] Superintendent: Tramaine Proctor MD Calcium [Mass/Vol] 9.2 mg/dL Normal 8.6-10.4 [facility] Comment on above: Performed By: #### C DP, CP #### [address] [address] [employer] Superintendent: Tramaine Proctor MD Chloride [Moles/Vol] 101 mmol/L Normal 98-107 [facility] Comment on above: Performed By: #### C DP, CP #### [address] [address] [employer] Superintendent: Tramaine Proctor MD CO2 [Moles/Vol] 19 mmol/L Low 20-31 [facility] Comment on above: Performed By: #### C DP, CP #### [address] [address] [employer] Superintendent: Tramaine Proctor MD Creatinine [Mass/Vol] 1.49 mg/dL High 0.70-1.20 [facility] Comment on above: Performed By: #### C DP, CP #### [address] [address] [employer] Superintendent: Tramaine Proctor MD GFR, Amer 57 mL/min Low >60 [facility] Comment on above: Performed By: #### C DP, CP #### [facility] [employer] [address] [place] [address] [employer] Superintendent: Traamine Proctor MD GFR,non Amer 47 mL/min Low >60 [facility] Comment on above: Performed By: #### C DP, CP #### [facility] [employer] [address] [place] [address] [employer] Superintendent: Tramaine Proctor MD Glucose [Mass/Vol] 260 mg/dL High 70-99 [facility] Comment on above: Performed By: #### C DP, CP #### [address] [address] [employer] Superintendent: Tramaine Proctor MD Potassium [Moles/Vol] 4.6 mmol/L Normal 3.7-5.3 [facility] Comment on above: Performed By: #### C DP, CP #### [address] [address] [employer] Superintendent: Tramaine Proctor MD Protein [Mass/Vol] 7.0 g/dL Normal 6.4-8.3 [facility] Comment on above: Performed By: #### C DP, CP #### [address] [address] [employer] Superintendent: Tramaine Proctor MD Sodium [Moles/Vol] 134 mmol/L Low 135-144 [facility] Comment on above: Performed By: #### C DP, CP #### [facility] [employer] [address] [place] [address] [employer] Superintendent: Tramaine Proctor MD Urea nitrogen [Mass/Vol] 17 mg/dL Normal 8-23 [facility] Comment on above: Performed By: #### C DP, CP #### [facility] [address] [place], [place] [phone] [employer] Superintendent: Tramaine Proctor MD BUN/CRE Ratio NOT REPORTED Normal - [facility] Comment on above: Performed By: #### C DP, CP #### [facility] [address] [place], [place] [phone] [employer] Superintendent: Tramaine Proctor MD Staging: NOT REPORTED Normal [facility] Comment on above: Performed By: #### C DP, CP #### [facility] [address] [place], [place] [phone] [employer] Superintendent: Tramaine Proctor MD Comprehensive [facility]abolic [facility] 07-03-2019 Albumin [Mass/Vol] 3.5 g/dL 3.5 - 5.2 g/dL [place] Albumin/Globulin [Mass ratio] 1.0 {ratio} [place] ALP [Catalytic activity/Vol] 54 U/L 40 - 129 U/L [place] ALT [Catalytic activity/Vol] 41 U/L 5 - 41 U/L [place] Anion gap [Moles/Vol] 14 mmol/L 9 - 17 mmol/L [place] AST [Catalytic activity/Vol] 27 U/L <40 [place] Bilirubin Ql (U) 0.41 mg/dL 0.3 - 1.2 mg/dL [place] Bun/Cre Ratio NOT REPORTED [place] Calcium [Mass/Vol] 9.2 mg/dL 8.6 - 10. 4 mg/dL [place] Chloride [Moles/Vol] 101 mmol/L 98 - 107 mmol/L [place] CO2 [Moles/Vol] 19 mmol/L Low 20 - 31 mmol/L [place] Creatinine [Mass/Vol] 1.49 mg/dL High 0.7 - 1.2 mg/dL [place] GFR 57 mL/min Low >60 [place] GFR Non- 47 mL/min Low >60 [place] GFR/1.73 sq M predicted among non-blacks MDRD (S/P/Bld) [Vol rate/Area] NOT REPORTED [place] GFR/1.73 sq M predicted among non-blacks MDRD (S/P/Bld) [Vol rate/Area] [place], [place] Comment on above: Average GFR for 70 o r more years old: 75 mL/min/1.73sq m Chronic Kidney Disease: <60 mL/min/1.73sq m Kidney failure: <15 mL/min/1.73sq m eGFR calculated using average adult body mass. Additional eGFR calculator available at: http://www.[employer]/multiple_crcl_2011.htm Glucose [Mass/Vol] 260 mg/dL High 70 - 99 mg/dL [place] Interpretation and review of laboratory results Abnormal [place] Potassium [Moles/Vol] 4.6 mmol/L 3.7 - 5.3 mmol/L [place] Protein [Mass/Vol] 7.0 g/dL 6.4 - 8.3 g/dL [place] Sodium [Moles/Vol] 134 mmol/L Low 135 - 144 mmol/L [place] Urea nitrogen [Mass/Vol] 17 mg/dL 8 - 23 mg/dL [place] MRI BRAIN WO CONTRASTon 06-12 MRI [...] Channing Brown MD 07/03/19 Final result Normal [facility] Mild involutional ch anges and chronic small ischemic disease. No acute stroke, midline shift or mass effect. 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 Loss of flow void right vertebral artery. [facility] [place] EXAMINATION: MRI OF THE BRAIN WITHOUT CONTRAST [...] The soft tissues demonstrate no acute abnormality. [facility] [place] [place] Incoming R adiant Results From bounce.io/Better Walk - 07/03/2019 6:07 PM EST EXAMINATION: MRI [...] flow void right vertebral artery. [facility] [place], [place] Urinalysis w/ Microon 2018 ----- Normal [facility] Comment on above: Performed By: #### U AMIC #### [employer] [address] [place] [phone] [employer] Superintendent: Tramaine Proctor MD Acetoacetic Acid,Ur Negative Normal NEG [facility] Comment on above: Performed By: #### U AMIC #### [employer] [address] [place] [address] [employer] Superintendent: Tramaine Proctor MD Bilirubin, SemiQt,Ur Negative Normal NEG [facility] Comment on above: Performed By: #### U AMIC #### [employer] [address] [place] [phone] [employer] Superintendent: MD Fawad Weldon .LPF (Urine sed) [#/Area] 2 TO 5 HYALINE Normal 0-8 [facility] Comment on above: Result Comment: Refe rence range defined for non-centrifuged specimen. Performed By: #### U AMIC #### [address] [address] [employer] Superintendent: Tramaine Proctor MD Color (U) YELLOW Normal YEL [facility] Comment on above: Performed By: #### U AMIC #### [address] [phone] [employer] Superintendent: Tramaine Proctor MD Epithelial cells LM.HPF (Urine sed) [#/Area] 0 TO 2 Normal 0-5 [facility] Comment on above: Performed By: #### U AMIC #### [address] [address] [employer] Superintendent: Tramaine Proctor MD Glucose Ql (U) TRACE Abnormal NEG [facility] Comment on above: Performed By: #### U AMIC #### [address] [address] [employer] Superintendent: Tramaine Proctor MD Hemoglobin, Ur Negative Normal NEG [facility] Comment on above: Performed By: #### U AMIC #### [address] [address] [employer] Superintendent: Tramaine Proctor MD Leukocyte esterase Test strip Ql (U) Negative Normal NEG [facility] Comment on above: Performed By: #### U AMIC #### [address] [address] [employer] Superintendent: Tramaine Proctor MD Nitrite,Ur Negative Normal NEG [facility] Comment on above: Performed By: #### U AMIC #### [address] [address] [employer] Superintendent: Tramaine Proctor MD pH (U) 5.0 [pH] Normal 5.0-8.0 [facility] Comment on above: Performed By: #### U AMIC #### [address] [address] [employer] Superintendent: Tramaine Proctor MD Protein Ql (U) Negative Normal NEG [facility] Comment on above: Performed By: #### U AMIC #### [address] [address] [employer] Superintendent: Tramaine Proctor MD RBC (U) [#/Vol] 2 TO 5 Normal 0-4 [facility] Comment on above: Result Comment: Refe rence range defined for non-centrifuged specimen. Performed By: #### U AMIC #### [address] [address] [employer] Superintendent: Tramaine Proctor MD Specific gravity (U) [Rel density] 1.043 High 1.005-1.030 [facility] Comment on above: Performed By: #### U AMIC #### [address] [address] [employer] Superintendent: Tramaine Proctor MD Turbidity CLEAR Normal CLEAR [facility] Comment on above: Performed By: #### U AMIC #### [address] [address] [employer] Superintendent: Tramaine Proctor MD Urobilinogen,Ur Normal Normal NORM [facility] Comment on above: Performed By: #### U AMIC #### [address] [address] [employer] Superintendent: Tramaine Proctor MD WBC (U) [#/Vol] 2 TO 5 Normal 0-5 [facility] Comment on above: Performed By: #### U AMIC #### [address] [address] [employer] Superintendent: Tramaine Proctor MD Amorphous sediment LM Ql (Urine sed) NOT REPORTED Normal NONE [facility] Comment on above: Performed By: #### U AMIC #### [address] [address] [employer] Superintendent: Tramaine Proctor MD Bacteria LM.HPF (Urine sed) [#/Area] NOT REPORTED Normal NONE [facility] Comment on above: Performed By: #### U AMIC #### [address] [address] [employer] Superintendent: Tramaine Proctor MD Crystals LM Nom (Urine sed) NOT REPORTED Normal NONE [facility] Comment on above: Performed By: #### U AMIC #### [address] [address] [employer] Superintendent: Tramaine Proctor MD Epithelial, Renal NOT REPORTED Normal 0 [facility] Comment on above: Performed By: #### U AMIC #### [address] [address] [employer] Superintendent: Tramaine Proctor MD Mucus Strands NOT REPORTED Normal [facility] Comment on above: Performed By: #### U AMIC #### [address] [address] [employer] Superintendent: Tramaine Proctor MD Other Observations NOT REPORTED Normal NREQ [facility] Comment on above: Performed By: #### U AMIC #### [address] [address] [employer] Superintendent: Tramaine Proctor MD Trichomonas NOT REPORTED Normal NONE [facility] Comment on above: Performed By: #### U AMIC #### [address] [address] [employer] Superintendent: Tramaine Proctor MD Yeast LM Ql (Urine sed) NOT REPORTED Normal [facility] Comment on above: Performed By: #### U AMIC #### [address] [address] [employer] Superintendent: Tramaine Proctor MD Urinalysis with microscopico n 07-03-2019 Amorphous, UA NOT REPORTED None [facility], [place] Bacteria, UA NOT REPORTED None [facility] Bilirubin Urine Negative NEGATIVE [facility] Casts UA 2 TO 5 HYALINE Refer ence range defined for non-centrifuged specimen. [facility] [place], [place] Color, UA YELLOW YELLOW [facility] Crystals UA NOT REPORTED None /HPF [facility], [place] Epithelial Cells UA 0 TO 2 [facility], [place] Glucose, Ur TRACE Abnormal NEGATIVE [place], [place] Interpretation and review of laboratory results Abnormal [place] Ketones Ql (U) Negative NEGATIVE [place] Leukocyte esterase Test strip Ql (U) Negative NEGATIVE [facility], [place] Mucus, UA NOT REPORTED None [facility] Nitrite, Urine Negative NEGATIVE [facility], [place] Other Observations UA NOT REPORTED NOT REQ. [facility], [place] pH, UA 5.0 [place] Protein (U) [Mass/Vol] Negative NEGATIVE [facility], [place] RBC (U) [#/Vol] 2 TO 5 [facility], [place] Comment on above: Reference range defi john for non-centrifuged specimen. Renal Epithelial, Urine NOT REPORTED 0 /HPF [facility], [place] Specific [place], UA 1.043 High [place], [place] Trichomonas, UA NOT REPORTED None [facility], [place] Turbidity UA CLEAR CLEAR [place] Urine Hgb Negative NEGATIVE [facility] Urobilinogen, Urine Normal Normal [place] WBC, UA 2 TO 5 [facility], [place] Yeast, UA NOT REPORTED None [facility], [place] - [facility] XR CHEST (2 VW)on 07-03-2019 XR CHEST [...] Micki Butler MD 07/03/19 Final result Normal [facility] XR CHEST STANDARD (2 VW)on 09-02-2018 No acute process. Mi ld cardiomegaly. [place], [place] Incoming R adiant Results From [employer]/Pacs - 07/03/2019 10:24 AM EST EXAMINATION: TWO [...] process. IMPRESSION: No acute process. Mild cardiomegaly. [place] EXAMINATION: TWO XRA Y VIEWS OF THE CHEST 07/03/2019 10:10 am COMPARISON: None. HISTORY: ORDERING SYSTEM PROVIDED HISTORY: trauma TECHNOLOGIST PROVIDED HISTORY: trauma Reason for Exam: passed out, no chest complaints FINDINGS: The lungs are without acute focal process. There is no effusion or pneumothorax. The cardiomediastinal silhouette is mildly enlarged. The osseous structures are without acute process. [place], [place] Vital Signs Date Time Vital Sign Value Performing Clinician Facility 10-06-2024 10:16-0500 Body mass index (BMI) [Ratio] 34.87 kg/m2 Apolinar Forrest MD Work Phone: [facility] 10-06-2024 10:16-0500 Body temperature 97.39 [degF] Apolinar Forrest MD Work Phone: [facility] 10-06-2024 10:16-0500 Body weight 101 kg Apolinar Forrest MD Work Phone: [facility] 10-06-2024 10:16-0500 Diastolic blood pressure 70 mm[Hg] Apolinar Forrest MD Work Phone: [facility] 10-06-2024 10:16-0500 Heart rate 87 /min Apolinar Forrest MD Work Phone: [facility] 10-06-2024 10:16-0500 Respiratory rate 16 /min Apolinar Forrest MD Work Phone: [facility] 10-06-2024 10:16-0500 SaO2% (BldA) [Mass fraction] 95 % Apolinar Forrest MD Work Phone: [facility] 10-06-2024 10:16-0500 Systolic blood pressure 113 mm[Hg] Apolinar Forrest MD Work Phone: [facility] 04-15-2024 13:03-0400 Body height 170.2 cm Amy Tena [employer] Work Phone: [facility] 04-15-2024 13:03-0400 Body mass index (BMI) [Ratio] 34.93 kg/m2 Amy Dangelor [employer] Work Phone: [facility] 04-15-2024 13:03-0400 Body weight 101.15 kg Amy Garciamor [employer] Work Phone: [facility] 04-15-2024 13:03-0400 Diastolic blood pressure 70 mm[Hg] Amy Radhamor [employer] Work Phone: [facility] 04-15-2024 13:03-0400 Heart rate 85 /min Amy Radhamor [employer] Work Phone: [facility] 04-15-2024 13:03-0400 SaO2% (BldA) [Mass fraction] 95 % Amy Garciamor [employer] Work Phone: [facility] 04-15-2024 13:03-0400 Systolic blood pressure 102 mm[Hg] Amy Tena [employer] Work Phone: [facility] 04-06-2024 10:14-0400 Body height 170.2 cm Apolinar Forrest MD Work Phone: [facility] 04-06-2024 10:14-0400 Body mass index (BMI) [Ratio] 34.9 kg/m2 Apolinar Forrest MD Work Phone: [facility] 04-06-2024 10:14-0400 Body temperature 97.11 [degF] Apolinar Forrest MD Work Phone: [facility] 04-06-2024 10:14-0400 Body weight 101.1 kg Apolinar Forrest MD Work Phone: [facility] 04-06-2024 10:14-0400 Diastolic blood pressure 71 mm[Hg] Apolinar Forrest MD Work Phone: [facility] 04-06-2024 10:14-0400 Heart rate 96 /min Apolinar Forrest MD Work Phone: [facility] 04-06-2024 10:14-0400 Respiratory rate 16 /min Apolinar Forrest MD Work Phone: [facility] 04-06-2024 10:14-0400 Systolic blood pressure 106 mm[Hg] Apolinar Forrest MD Work Phone: [facility] 10-10-2023 09:15-0500 Body height 170.2 cm Apolinar Forrest MD Work Phone: [facility] 10-10-2023 09:15-0500 Body temperature 97.39 [degF] Apolinar Forrest MD Work Phone: [facility] 10-10-2023 09:15-0500 Body weight 102.7 kg Apolinar Forrest MD Work Phone: [facility] 10-10-2023 09:15-0500 Diastolic blood pressure 58 mm[Hg] Apolinar Forrest MD Work Phone: [facility] 10-10-2023 09:15-0500 Heart rate 95 /min Apolinar Forrest MD Work Phone: [facility] 10-10-2023 09:15-0500 Respiratory rate 18 /min Apolinar Forrest MD Work Phone: [facility] 10-10-2023 09:15-0500 SaO2% (BldA) [Mass fraction] 95 % Apolinar Forrest MD Work Phone: [facility] 10-10-2023 09:15-0500 Systolic blood pressure 101 mm[Hg] Apolinar Forrest MD Work Phone: [facility] 06-23-2023 13:51-0500 Diastolic blood pressure 81 mm[Hg] Apolinar Forrest MD Work Phone: [facility] 06-23-2023 13:51-0500 Systolic blood pressure 133 mm[Hg] Apolinar Forrest MD Work Phone: [facility] 06-23-2023 13:47-0500 Body height 170.2 cm Apolinar Forrest MD Work Phone: [facility] 06-23-2023 13:47-0500 Body temperature 97 [degF] Apolinar Forrest MD Work Phone: [facility] 06-23-2023 13:47-0500 Body weight 104.87 kg Apolinar Forrest MD Work Phone: [facility] 06-23-2023 13:47-0500 Heart rate 98 /min Apolinar Forrest MD Work Phone: [facility] 06-23-2023 13:47-0500 Respiratory rate 16 /min Apolinar Forrest MD Work Phone: [facility] 06-23-2023 13:47-0500 SaO2% (BldA) [Mass fraction] 93 % Apolinar Forrest MD Work Phone: [facility] 01-20-2023 09:25-0400 Body temperature 97.59 [degF] Surinder Mckoy MD Work Phone: [facility] 01-20-2023 09:25-0400 Body weight 100.79 kg Surinder Mckoy MD Work Phone: [facility] 01-20-2023 09:25-0400 Diastolic blood pressure 84 mm[Hg] Surinder Mckoy MD Work Phone: [facility] 01-20-2023 09:25-0400 Heart rate 103 /min Surinder Mckoy MD Work Phone: [facility] 01-20-2023 09:25-0400 Respiratory rate 18 /min Surinder Mckoy MD Work Phone: [facility] 01-20-2023 09:25-0400 SaO2% (BldA) [Mass fraction] 97 % Surinder Mckoy MD Work Phone: [facility] 01-20-2023 09:25-0400 Systolic blood pressure 122 mm[Hg] Surinder Mckoy MD Work Phone: [facility] 06-24-2022 14:15-0500 Body height 170.2 cm Apolinar Forrest MD Work Phone: [facility] 06-24-2022 14:15-0500 Body temperature 97 [degF] Apolinar Forrest MD Work Phone: [facility] 06-24-2022 14:15-0500 Body weight 102.69 kg Apolinar Forrest MD Work Phone: [facility] 06-24-2022 14:15-0500 Diastolic blood pressure 96 mm[Hg] Apolinar Forrest MD Work Phone: [facility] 06-24-2022 14:15-0500 Heart rate 111 /min Apolinar Forrest MD Work Phone: [facility] 06-24-2022 14:15-0500 Respiratory rate 16 /min Apolinar Forrest MD Work Phone: [facility] 06-24-2022 14:15-0500 SaO2% (BldA) [Mass fraction] 97 % Apolinar Forrest MD Work Phone: [facility] 06-24-2022 14:15-0500 Systolic blood pressure 140 mm[Hg] Apolinar Forrest MD Work Phone: [facility] 12-24-2021 14:14-0400 Body temperature 97.59 [degF] Surinder Mckoy MD Work Phone: [facility] 12-24-2021 14:14-0400 Body weight 101.15 kg Surinder Mckoy MD Work Phone: [facility] 12-24-2021 14:14-0400 Diastolic blood pressure 78 mm[Hg] Surinder Mckoy MD Work Phone: [facility] 12-24-2021 14:14-0400 Heart rate 105 /min Surinder Mckoy MD Work Phone: [facility] 12-24-2021 14:14-0400 Respiratory rate 18 /min Surinder Mckoy MD Work Phone: [facility] 12-24-2021 14:14-0400 Systolic blood pressure 122 mm[Hg] Surinder Mckoy MD Work Phone: [facility] 12-24-2021 13:24-0400 Body height 170.2 cm Apolinar Forrest MD Work Phone: [facility] 12-24-2021 13:24-0400 Body temperature 97.59 [degF] Apolinar Forrest MD Work Phone: [facility] 12-24-2021 13:24-0400 Body weight 101.15 kg Apolinar Forrest MD Work Phone: [facility] 12-24-2021 13:24-0400 Diastolic blood pressure 78 mm[Hg] Apolinar Forrest MD Work Phone: [facility] 12-24-2021 13:24-0400 Heart rate 105 /min Apolinar Forrest MD Work Phone: [facility] 12-24-2021 13:24-0400 Respiratory rate 18 /min Apolinar Forrest MD Work Phone: [facility] 12-24-2021 13:24-0400 SaO2% (BldA) [Mass fraction] 96 % Apolinar Forrest MD Work Phone: [facility] 12-24-2021 13:24-0400 Systolic blood pressure 122 mm[Hg] Apolinar Forrest MD Work Phone: [facility] 07-03-2019 16:46-0500 BP Diastolic 86 mm[Hg] [facility] [place] [facility] [place] 07-03-2019 16:46-0500 BP Systolic 143 mm[Hg] [employer] [place], [place] 07-03-2019 16:46-0500 Pulse (Heart Rate) 87 /min [place] [employer] [place] 07-03-2019 16:46-0500 Pulse Oximetry 96 % [employer] [place] [employer] [place] 07-03-2019 09:07-0500 BMI (Body Mass Index) 33.45 kg/m2 [employer] [place], [place] 07-03-2019 09:07-0500 Body Temperature 98.29 [degF] [employer] [place] [employer] [place] 07-03-2019 09:07-0500 Body weight 99.79 kg [employer] [place] 07-03-2019 09:07-0500 Height 172.7 cm [employer] [place] 07-03-2019 09:07-0500 Respiratory Rate 18 /min [employer] [place] [employer] [place] Encounters Encounter Date Encounter Type Care Provider Facility Start: 10-06-2024 End: 10-07-2024 Telephone encounter [facility] Comment on [facility]: Results Start: 10-06-2024 End: 10-06-2024 Office outpatient visit 15 minutes Apolinar Forrest MD Work Phone: Hematology/Oncology Comment on above: Prostate cancer (HCC ) (Primary Dx); Secondary polycythemia; MELVIN (obstructive sleep apnea); Stage 3 chronic kidney disease, unspecified whether stage 3a or 3b CKD (HCC) Start: 10-06-2024 End: 10-06-2024 ambulatory PEARL NOBLES Facility:[facility] Start: 04-20-2024 End: 04-20-2024 ambulatory [facility] Start: 04-15-2024 End: 04-15-2024 Bamboo jessicaheet Amy Tena [employer] Work Phone: [facility] Start: 04-15-2024 End: 04-15-2024 Bamboo flowsheet Amy Tena [employer] Work Phone: [facility] Start: 04-15-2024 End: 04-15-2024 Office outpatient visit 25 minutes Amy Tena [employer] Work Phone: [facility] Comment on above: MELVIN (obstructive sle ep apnea) (Primary Dx); Hypoxia; Hypersomnia; Primary insomnia; Snoring Start: 04-15-2024 End: 04-15-2024 ambulatory AMY TENA Not Available Start: 04-06-2024 End: 04-07-2024 Telephone encounter Apolinar Forrest MD Work Phone: [facility] Comment on above: Results Start: 04-06-2024 End: 04-06-2024 Office outpatient visit 15 minutes Apolinar Forrest MD Work Phone: Hematology/Oncology Comment on above: Secondary polycythem ia (Primary Dx); Prostate cancer (HCC); Other abnormality of red blood cells Start: 04-06-2024 End: 04-06-2024 ambulatory APOLINAR FORREST Facility:[facility] Start: 01-29-2024 End: 01-29-2024 ambulatory MICHAEL ROBLEDO [facility] Start: 12-11-2023 ambulatory [facility] Start: 12-11-2023 End: 12-11-2023 ambulatory [facility] Start: 11-25-2023 End: 11-25-2023 ambulatory [facility] Start: 10-16-2023 End: 10-16-2023 ambulatory GILBERT MARTÍNEZ [facility] Start: 10-10-2023 End: 10-10-2023 Office outpatient visit 25 minutes Apolinar Forrest MD Work Phone: Hematology/Oncology Comment on above: Secondary polycythem ia (Primary Dx); Stage 3 chronic kidney disease, unspecified whether stage 3a or 3b CKD (HCC); MELVIN (obstructive sleep apnea); Prostate cancer (HCC) Start: 10-10-2023 End: 10-10-2023 ambulatory APOLINAR FORREST Facility:[facility] Start: 09-30-2023 End: 09-30-2023 ambulatory [facility] Start: 08-29-2023 End: 09-11-2023 ambulatory JOBST SERVICE [facility] Start: 08-28-2023 Telephone encounter Jobst Serv ice Work Phone: [facility] Start: 07-15-2023 End: 07-15-2023 ambulatory [facility] Start: 06-23-2023 End: 06-23-2023 Office outpatient visit 25 minutes Apolinar Forrest MD Work Phone: Hematology/Oncology Comment on above: Secondary polycythem ia (Primary Dx); MELVIN (obstructive sleep apnea); Prostate cancer (HCC) Start: 01-20-2023 End: 01-20-2023 Patient encounter procedure Surinder Mckoy MD Work Phone: Radiation Oncology Comment on above: Prostate cancer (HCC ) (Primary Dx) Start: 12-24-2022 End: 12-25-[address] PEARL NOBLES . Facility:[facility] Start: 12-03-2022 End: 12-04-[address] PEARL NOBLES . Facility:[facility] Start: 11-15-2022 End: 11-15-[address] MICHAEL GAMBINO . Facility:[facility] Start: 09-11-2022 End: 09-12-[address] PEARL NOBLES . Facility:[facility] Start: 08-21-2022 End: 08-21-2022 ambulatory JONATHAN PARK . Facility:[facility] Start: 07-10-2022 End: 07-10-[address] PEARL NOBLES . Facility: Start: 06-24-2022 End: 06-24-2022 ambulatory Apolinar Forrest MD Work Phone: Hematology/Oncology Comment on above: Prostate cancer (HCC ) (Primary Dx) Start: 06-24-2022 End: 06-24-2022 Patient encounter procedure Apolinar Forrest MD Work Phone: [facility] Start: 06-17-2022 Telephone encounter Apolinar massey MD Work Phone: Hematology/Oncology Comment on above: Lab Orders Start: 12-24-2021 End: 12-24-2021 ambulatory Apolinar Forrest MD Work Phone: Hematology/Oncology Comment on above: Prostate cancer (HCC ) (Primary Dx) Start: 12-24-2021 End: 12-24-2021 Patient encounter procedure Apolinar Forrest MD Work Phone: [facility] Comment on above: Prostate cancer (HCC ) (Primary Dx) Start: 07-03-2019 End: 07-03-2019 [facility] Start: 07-03-2019 End: 07-03-2019 Emergency department patient visit [facility] ED Comment on above: Syncope and collapse (Primary Dx) Procedures Date Procedure Procedure Detail Performing Clinician Start: 09-11-[address] MYRNA NOBLES . Comment on above: Performed By: #### H STROPN #### [facility] [address] [place] [address] Dr. Jack Sapp Start: 12-24-2021 Adult depression scr eening assessment Apolinar Forrest MD Work Phone: Start: 04-02-2021 Lipid 1996 panel - S jailene or Plasma Apolinar Forrest MD Work Phone: Start: 07-03-2019 Mri brain brain stem w/o contrast material SUBRAAYALA HARRIS Start: 07-03-2019 ORTHOSTATIC BLOOD AL ESSURE AND PULSE SUBRAHMANYAM STEVEN Start: 07-03-2019 IP CONSULT TO [facility] AL MEDICINE SUBRASILKEAM NIKOLASY Start: 07-03-2019 Mri brain brain stem w/o contrast material Sunshine Thomas Work Phone: Start: 07-03-2019 Urnls dip stick/tabl et reagent auto microscopy SUBRASILKEAM CHODISETTY Start: 07-03-2019 ORTHOSTATIC BLOOD AL ESSURE AND PULSE SUBRASILKEAM DEVINETTY Start: 07-03-2019 Urnls dip stick/tabl et reagent auto microscopy Ren Tao Work Phone: Start: 07-03-2019 IP CONSULT TO NEUROLOGY SUBRASILKEAM DEVINETTY Start: 07-03-2019 Ct angiography head w/contrast/noncontrast SUBRASILKEAM CHODISETTY Start: 07-03-2019 Ct head/brain w/o co ntrast material SUBMISAELAM CHODISETTY Start: 07-03-2019 Blood count complete auto&auto difrntl wbc SUBRASILKEAM CHOMARY GRACEETTY Start: 07-03-2019 Comprehensive metabo lic panel SUBZAHRA BELTRANETTVictor Manuel Start: 07-03-2019 Ecg routine ecg w/le ast 12 lds w/i&r SUBMISAELAM CHOMARY GRACEETTY Start: 07-03-2019 Ct angiography neck w/contrast/noncontrast Ren [...] Treatment Date Care Activity Detail Author Start: 10-06-2027 Diabetes Screening [facility] Start: 04-06-2027 Diabetes Screening Diabetes Screenin g [facility] Start: 10-09-2026 Diabetes Screening Diabetes Screenin g [facility] Start: 06-16-2026 Diabetes Screening Diabetes Screenin g [facility] Start: 04-02-2026 Lipid 1996 panel - S jailene or Plasma Lipid Screening [facility] Start: 04-02-2026 Lipid panel Lipid Screening [facility] Start: 04-02-2026 LIPID SCREEN LIPID SCREEN [facility] Start: 10-06-2025 Complete blood count Hemoglobin/Jm [facility] Start: 10-06-2025 Creatinine measurement Serum Creatin ine [facility] Start: 04-06-2025 Complete blood [facility] Start: 04-06-2025 Creatinine measurement Serum Creatin ine [facility] Start: 04-06-2025 End: 04-06-2025 Follow-up encounter 04/06/2025 10:00 AM EDT Visit (SP) Office Hematology/Oncology [address] [place] [address] Apolinar Forrest MD [address] [place] [address] 6 month follow up / lab 1 week prior Hematology/Oncology Comment on above: 6 month follow up / lab 1 week prior Start: 04-05-2025 End: 10-06-2025 CBC W Auto Differential panel - Blood COMPLETE BLOOD COUNT AND DIFFERENTIAL Lab Routine Secondary polycythemia Prostate cancer (HCC) MELVIN (obstructive sleep apnea) Stage 3 chronic kidney disease, unspecified whether stage 3a or 3b CKD (HCC) Expected: 04/05/2025 (Approximate), Expires: 10/06/2025 [facility] Comment on above: Expected: 04/05/2025 (Approximate), Expires: 10/06/2025 Start: 04-05-2025 End: 10-06-2025 Comprehensive metabolic 2000 panel - Serum or Plasma COMPREHENSIVE METABOLIC PANEL Lab Routine Secondary polycythemia Prostate cancer (HCC) MELVIN (obstructive sleep apnea) Stage 3 chronic kidney disease, unspecified whether stage 3a or 3b CKD (HCC) Expected: 04/05/2025 (Approximate), Expires: 10/06/2025 [facility] Comment on above: Expected: 04/05/2025 (Approximate), Expires: 10/06/2025 Start: 04-05-2025 End: 07-05-2025 Prostate specific Ag [Mass/volume] in Serum or Plasma PROSTATE-SPECIFIC ANTIGEN DIAGNOSTIC Lab Routine Secondary polycythemia Prostate cancer (HCC) MELVIN (obstructive sleep apnea) Stage 3 chronic kidney disease, unspecified whether stage 3a or 3b CKD (HCC) Expected: 04/05/2025 (Approximate), Expires: 07/05/2025 [facility] Work Phone: Comment on above: Expected: 04/05/2025 (Approximate), Expires: 07/05/2025 Start: 03-30-2025 End: 03-30-2025 Patient encounter procedure 03/30/2025 10:00 AM EDT Office Visit [facility] [address] [place] [address] [place] [address] 6 month follow up / lab 1 week prior [facility] Comment on above: 6 month follow up / lab 1 week prior Start: 12-20-2024 DIABETES SCREEN DIABETES SCREEN [facility] Start: 10-09-2024 Complete blood count Hemoglobin/Jm tocrit [facility] Start: 10-09-2024 Creatinine measurement Serum Creatin ine [facility] Start: 10-07-2024 End: 04-06-2025 CBC W Auto Differential panel - Blood COMPLETE BLOOD COUNT AND DIFFERENTIAL Lab Routine Secondary polycythemia Expected: 10/07/2024 (Approximate), Expires: 04/06/2025 [facility] Comment on above: Expected: 10/07/2024 (Approximate), Expires: 04/06/2025 Start: 10-07-2024 End: 04-06-2025 Comprehensive metabolic 2000 panel - Serum or Plasma COMPREHENSIVE METABOLIC PANEL Lab Routine Secondary polycythemia Expected: 10/07/2024 (Approximate), Expires: 04/06/2025 [facility] Comment on above: Expected: 10/07/2024 (Approximate), Expires: 04/06/2025 Start: 10-07-2024 End: 04-06-2025 Ferritin [Mass/volume] in Serum or Plasma FERRITIN Lab Routine Secondary polycythemia Other abnormality of red blood cells Expected: 10/07/2024 (Approximate), Expires: 04/06/2025 [facility] Comment on above: Expected: 10/07/2024 (Approximate), Expires: 04/06/2025 Start: 10-07-2024 End: 04-06-2025 Iron and Iron binding capacity panel - Serum or Plasma IRON AND TIBC Lab Routine Secondary polycythemia Other abnormality of red blood cells Expected: 10/07/2024 (Approximate), Expires: 04/06/2025 [facility] Comment on above: Expected: 10/07/2024 (Approximate), Expires: 04/06/2025 Start: 10-07-2024 End: 01-06-2025 Prostate specific Ag [Mass/volume] in Serum or Plasma PROSTATE-SPECIFIC ANTIGEN DIAGNOSTIC Lab Routine Prostate cancer (HCC) Expected: 10/07/2024 (Approximate), Expires: 01/06/2025 [facility] Work Phone: Comment on above: Expected: 10/07/2024 (Approximate), Expires: 01/06/2025 Start: 10-06-2024 End: 10-06-2024 Follow-up encounter 10/06/2024 10:30 AM EST Visit (SP) Office Hematology/Oncology [address] [place] [address] [place] [address] Apolinar Forrest MD [address] [place] [address] [place] [address] 6 month follow up lab Hematology/Oncology Comment on above: 6 month follow up la b Start: 10-06-2024 End: 10-06-2024 Patient encounter procedure 10/06/2024 10:15 AM EST Office Visit [facility] [address] [place] [address] [place] [address] 6 month follow up lab [facility] Comment on above: 6 month follow up la b Start: 08-30-2024 End: 08-30-2024 Patient encounter procedure 08/30/2024 1:00 PM EST Office Visit [facility] [place] [phone] Amy Tena, NEVAEH [address] [place] [address] [facility] Start: 08-11-2024 Advance Directive Discussion Advance Directive Discussion [facility] Start: 06-23-2024 End: 06-23-2024 CBC W Auto Differential panel - Blood CBC + DIFF Lab Routine Prostate cancer (HCC) Expected: 06/23/2024 (Approximate), Expires: 06/23/2024 [facility] Work Phone: Comment on above: Expected: 06/23/2024 (Approximate), Expires: 06/23/2024 Start: 06-23-2024 End: 06-23-2024 Comprehensive metabolic 2000 panel - Serum or Plasma COMP METABOLIC PANEL Lab Routine Prostate cancer (HCC) Expected: 06/23/2024 (Approximate), Expires: 06/23/2024 [facility] Work Phone: Comment on above: Expected: 06/23/2024 (Approximate), Expires: 06/23/2024 Start: 06-23-2024 End: 09-22-2024 Prostate specific Ag [Mass/volume] in Serum or Plasma PSA/PROSTSPECAG DIAG Lab Routine Prostate cancer (HCC) Expected: 06/23/2024 (Approximate), Expires: 09/22/2024 [facility] Work Phone: Comment on above: Expected: 06/23/2024 (Approximate), Expires: 09/22/2024 Start: 04-15-2024 End: 04-15-2025 Pulse oximetry, overnight Pulse oximetry, overnight Respiratory Care Routine Hypoxia Expected: 04/15/2024 (Approximate), Expires: 04/15/[address] [facility] Work Phone: Comment on above: Expected: 04/15/2024 (Approximate), Expires: 04/15/2025 Start: 04-15-2024 End: 04-15-2024 Patient encounter procedure 04/15/2024 1:00 PM EDT Office Visit [facility] [address] [place] [phone] Amy Tena NP [address] [place], [place] Arrived [facility] Comment on above: Arrived Start: 04-11-2024 End: 10-09-2024 CBC W Auto Differential panel - Blood CBC + DIFF Lab Routine Stage 3 chronic kidney disease, unspecified whether stage 3a or 3b CKD (HCC) Secondary polycythemia MELVIN (obstructive sleep apnea) Expected: 04/11/2024 (Approximate), Expires: 10/09/2024 [facility] Work Phone: Comment on above: Expected: 04/11/2024 (Approximate), Expires: 10/09/2024 Start: 04-11-2024 End: 10-09-2024 Cobalamin (Vitamin B12) [Mass/volume] in Serum or Plasma VITAMIN B12 BLOOD Lab Routine Stage 3 chronic kidney disease, unspecified whether stage 3a or 3b CKD (HCC) Secondary polycythemia MELVIN (obstructive sleep apnea) Expected: 04/11/2024 (Approximate), Expires: 10/09/2024 [facility] Work Phone: Comment on above: Expected: 04/11/2024 (Approximate), Expires: 10/09/2024 Start: 04-11-2024 End: 10-09-2024 Comprehensive metabolic 2000 panel - Serum or Plasma COMP METABOLIC PANEL Lab Routine Stage 3 chronic kidney disease, unspecified whether stage 3a or 3b CKD (HCC) Secondary polycythemia MELVIN (obstructive sleep apnea) Expected: 04/11/2024 (Approximate), Expires: 10/09/2024 [facility] Work Phone: Comment on above: Expected: 04/11/2024 (Approximate), Expires: 10/09/2024 Start: 04-11-2024 Covid-19 Vaccine () Covid-19 Vaccine () [facility] Start: 04-11-2024 End: 10-09-2024 Ferritin [Mass/volume] in Serum or Plasma FERRITIN BLD Lab Routine Stage 3 chronic kidney disease, unspecified whether stage 3a or 3b CKD (HCC) Secondary polycythemia MELVIN (obstructive sleep apnea) Expected: 04/11/2024 (Approximate), Expires: 10/09/2024 [facility] Work Phone: Comment on above: Expected: 04/11/2024 (Approximate), Expires: 10/09/2024 Start: 04-11-2024 End: 10-09-2024 Folate [Mass/volume] in Serum or Plasma FOLATE SERUM Lab Routine Stage 3 chronic kidney disease, unspecified whether stage 3a or 3b CKD (HCC) Secondary polycythemia MELVIN (obstructive sleep apnea) Expected: 04/11/2024 (Approximate), Expires: 10/09/2024 [facility] Work Phone: Comment on above: Expected: 04/11/2024 (Approximate), Expires: 10/09/2024 Start: 04-11-2024 Influenza vaccination Influenza Vacc ine (#1) [facility] Start: 04-11-2024 End: 10-09-2024 Iron and Iron binding capacity panel - Serum or Plasma IRON + TIBC Lab Routine Stage 3 chronic kidney disease, unspecified whether stage 3a or 3b CKD (HCC) Secondary polycythemia MELVIN (obstructive sleep apnea) Expected: 04/11/2024 (Approximate), Expires: 10/09/2024 [facility] Work Phone: Comment on above: Expected: 04/11/2024 (Approximate), Expires: 10/09/2024 Start: 04-11-2024 End: 07-11-2024 Prostate specific Ag [Mass/volume] in Serum or Plasma PSA/PROSTSPECAG DIAG Lab Routine Stage 3 chronic kidney disease, unspecified whether stage 3a or 3b CKD (HCC) Secondary polycythemia MELVIN (obstructive sleep apnea) Prostate cancer (HCC) Expected: 04/11/2024 (Approximate), Expires: 07/11/2024 [facility] Work Phone: Comment on above: Expected: 04/11/2024 (Approximate), Expires: 07/11/2024 Start: 11-15-2023 RSV Vaccine (1 - 1-d ose 75+ series) RSV Vaccine (1 - 1-dose 75+ series) [facility] Start: 09-23-2023 End: 06-23-2024 CBC W Auto Differential panel - Blood CBC + DIFF Lab Routine Secondary polycythemia MELVIN (obstructive sleep apnea) Expected: 09/23/2023 (Approximate), Expires: 06/23/2024 [facility] Work Phone: Comment on above: Expected: 09/23/2023 (Approximate), Expires: 06/23/2024 Start: 09-23-2023 End: 06-23-2024 Comprehensive metabolic 2000 panel - Serum or Plasma COMP METABOLIC PANEL Lab Routine Secondary polycythemia MELVIN (obstructive sleep apnea) Expected: 09/23/2023 (Approximate), Expires: 06/23/2024 [facility] Work Phone: Comment on above: Expected: 09/23/2023 (Approximate), Expires: 06/23/2024 Start: 09-23-2023 End: 12-23-2023 Erythropoietin (EPO) [Units/volume] in Serum or Plasma ERYTHROPOIETIN/EPO Lab Routine Secondary polycythemia MELVIN (obstructive sleep apnea) Expected: 09/23/2023 (Approximate), Expires: 12/23/2023 [facility] Work Phone: Comment on above: Expected: 09/23/2023 (Approximate), Expires: 12/23/2023 Start: 09-23-2023 End: 12-23-2023 RETIC COUNT RETIC COUNT Lab Routine Secondary polycythemia MELVIN (obstructive sleep apnea) Expected: 09/23/2023 (Approximate), Expires: 12/23/2023 [facility] Work Phone: Comment on above: Expected: 09/23/2023 (Approximate), Expires: 12/23/2023 Start: 08-11-2023 Advance Directive Discussion Advance Directive Discussion [facility] Start: 08-11-2023 Depression Assessment Depression Ass essment [facility] Start: 06-24-2023 End: 06-24-2023 CBC W Auto Differential panel - Blood CBC + DIFF Lab Routine Prostate cancer (HCC) Expected: 06/24/2023 (Approximate), Expires: 06/24/2023 [facility] Work Phone: Comment on above: Expected: 06/24/2023 (Approximate), Expires: 06/24/2023 Start: 06-24-2023 End: 06-24-2023 Comprehensive metabolic 2000 panel - Serum or Plasma COMP METABOLIC PANEL Lab Routine Prostate cancer (HCC) Expected: 06/24/2023 (Approximate), Expires: 06/24/2023 [facility] Work Phone: Comment on above: Expected: 06/24/2023 (Approximate), Expires: 06/24/2023 Start: 06-24-2023 End: 08-24-2023 Prostate specific Ag [Mass/volume] in Serum or Plasma PSA/PROSTSPECAG DIAG Lab Routine Prostate cancer (HCC) Expected: 06/24/2023 (Approximate), Expires: 08/24/2023 [facility] Work Phone: Comment on above: Expected: 06/24/2023 (Approximate), Expires: 08/24/2023 Start: 04-11-2023 Covid-19 Vaccine ( season) Covid-19 Vaccine ( season) [facility] Start: 04-11-2023 Covid-19 Vaccine ( season) Covid-19 Vaccine ( season) [facility] Start: 04-11-2023 Influenza vaccination Influenza Vacc ine (#1) [facility] Start: 01-31-2023 End: 04-02-2023 Prostate specific Ag [Mass/volume] in Serum or Plasma PSA/PROSTSPECAG DIAG Lab Routine Prostate cancer (HCC) Expected: 01/31/2023 (Approximate), Expires: 04/02/2023 [facility] Work Phone: Comment on above: Expected: 01/31/2023 (Approximate), Expires: 04/02/2023 Start: 12-24-2022 Adult depression screening assessment DEPRESSION SCREENING [facility] Start: 08-11-2022 ADVANCE DIRECTIVE DISCUSSION ADVANCE DIRECTIVE DISCUSSION [facility] Start: 08-11-2022 DEPRESSION ASSESSMENT DEPRESSION ASS ESSMENT [facility] Start: 04-25-2022 Adult BMI Screening Adult BMI Screen [facility] Start: 04-11-2022 Influenza vaccination INFLUENZ A (Season Ended) [facility] Start: 10-23-2021 COVID-19 VACCINE (4 - Booster for Moderna series) COVID-19 VACCINE (4 - Booster for Moderna series) [facility] Start: 08-20-2021 COVID-19 VACCINE (4 - Booster for Moderna series) COVID-19 VACCINE (4 - Booster for Moderna series) [facility] Start: 08-11-2021 ADVANCE DIRECTIVE DISCUSSION ADVANCE DIRECTIVE DISCUSSION [facility] Start: 08-11-2021 DEPRESSION ASSESSMENT DEPRESSION ASS ESSMENT [facility] Start: 07-03-2019 Annual Wellness Visi t (AWV) Annual Wellness Visit (AWV) [place], [place] Start: 04-11-2019 Influenza vaccination Flu vaccine (# 1) [place], [place] Start: 07-23-2018 Pneumococcal Vaccine : 50+ (2 of 2 - PPSV23) Pneumococcal Vaccine: 50+ (2 of 2 - PPSV23) [facility] Start: 07-23-2018 Pneumococcal Vaccine : 65+ (2 - PPSV23 or PCV20) Pneumococcal Vaccine: 65+ (2 - PPSV23 or PCV20) [facility] Start: 07-23-2018 Pneumococcal Vaccine : 65+ (2 of 2 - PPSV23 or PCV20) Pneumococcal Vaccine: 65+ (2 of 2 - PPSV23 or PCV20) [facility] Start: 07-23-2018 Pneumococcal Vaccine : 65+ Years (2 of 2 - PPSV23 or PCV20) Pneumococcal Vaccine: 65+ Years (2 of 2 - PPSV23 or PCV20) [facility] Start: 07-23-2018 PNEUMOCOCCAL: 65+ (2 - PPSV23 if available, else PCV20) PNEUMOCOCCAL: 65+ (2 - PPSV23 if available, else PCV20) [facility] Start: 07-23-2018 PNEUMOCOCCAL: 65+ (2 - PPSV23 or PCV20) PNEUMOCOCCAL: 65+ (2 - PPSV23 or PCV20) [facility] Start: 2013 Fall Risk Screening Fall Risk Screen [facility] Start: 2013 Pneumococcal 65+ yea rs Vaccine (1 of 1 - PPSV23) Pneumococcal 65+ years Vaccine (1 of 1 - PPSV23) [place], [place] Start: 2013 PNEUMOVAX AGE 65 AND OVER WITH 5YR LOOKBACK (#1) PNEUMOVAX AGE 65 AND OVER WITH 5YR LOOKBACK (#1) [facility] Start: 2008 RSV Vaccine (1 - 1-d ose 60+ series) RSV Vaccine (1 - 1-dose 60+ series) [facility] Start: 1998 Administration of varicella zoster vaccine Zoster (Shingles) Vaccine (1 of 2) [facility] Start: 1998 Colon cancer screen colonoscopy Colon cancer screen colonoscopy [place], [place] Start: 1998 Shingles Vaccine (1 of 2) Shingles Vaccine (1 of 2) [place], [place] Start: 1998 SHINGRIX VACCINE (1 of 2) SHINGRIX VACCINE (1 of 2) [facility] Start: 1993 COLOGUARD (FIT-DNA) COLOGUARD (FIT-D NA) [facility] Start: 1993 Colonoscopy COLONOSCOPY [facility] Start: 1993 COLORECTAL CANCER SCREENING COLORECTAL CANCER SCREENING [facility] Start: [address] COLONOGRAPHY [facility] Start: 1993 FECAL OCCULT BLOOD FECAL OCCULT BLOO D [facility] Start: 1993 Screening for malign ant neoplasm of colon [facility] Start: 1993 SIGMOIDOSCOPY SIGMOIDOSCOPY [facility] Start: 1988 Diabetes screen Diabetes screen [place], [place] Start: 1988 Lipid screen Lipid screen [place], [place] Start: 11-15-1967 DTaP,Tdap and Td Vaccines (1 - Tdap) DTaP,Tdap and Td Vaccines (1 - Tdap) [facility] Start: 11-15-1967 Urine microalbumin profile [facility] Start: 1966 Annual PCP Team Staff Forester yesy Disease Visit Annual PCP Team Chronic Disease Visit [facility] Start: 1966 Anxiety Screening Anxiety Screening [facility] Start: 1966 Depression Screening Depression Scre [facility] Start: 1966 HEPATITIS C SCREENING HEPATITIS C [facility] Start: 1966 Hepatitis C screening Hepatitis C [facility] Start: 1960 Depression Screening Depression Scre [facility] Start: 04-06-1961 Tobacco Screening Tobacco Screening [facility] Start: 11-15-1959 DTaP/Tdap/Td vaccine (1 - Tdap) DTaP/Tdap/Td vaccine (1 - Tdap) [place], [place] Start: 1948 ABDOMINAL AORTIC ANEURYSM SCREENING ABDOMINAL AORTIC ANEURYSM SCREENING [facility] Start: 1948 Abdominal aortic aneurysm screening Abdominal Aortic Aneurysm Screening [facility] Start: 1948 Creatinine monitoring Creatinine mon itoring [place], [place] Start: 1948 Hepatitis C screen Hepatitis C scree n [place], [place] Start: 1948 Medicare Annual Well ness Visit Medicare Annual Wellness Visit [facility] Start: 1948 Potassium monitoring [facility] [place] [place] Start: 1948 Screening for malign ant neoplasm of colon [facility] Immunizations Immunization Date Immunization Notes Care Provider Melia ji 06-12-2022 influenza (aIIV4) vaccine, age 65+ yr, quadrivalent, PF (FLUAD QUAD) Apolinar Forrest MD Work Phone: [facility] 06-12-2022 influenza virus vacc ine, unspecified formulation Apolinar Forrest MD Work Phone: [facility] 06-25-2021 COVID-19 vaccine, unspecified formulation Apolinar Forrest MD Work Phone: [facility] 11-01-2020 COVID-19 vaccine, fu ll dose (MODERNA) Apolinar Forrest MD Work Phone: [facility] 10-05-2020 COVID-19 vaccine, fu ll dose (MODERNA) Apolinar Forrest MD Work Phone: [facility] 05-31-2020 Seasonal trivalent influenza vaccine, adjuvanted, preservative free Apolinar Forrest MD Work Phone: [facility] 07-23-2017 influenza virus vacc ine, unspecified formulation Apolinar Forrest MD Work Phone: [facility] 07-23-2017 pneumococcal conjuga te vaccine, 13 keny Forrest MD Work Phone: [facility] Payers Date Payer Category Payer Medicare MEDICARE MEDICAR E PART A AND B xxxxxxxxxxx 2014-Present [phone] [place] [address] xxxxxxxxxxx [id number] 2013 Medicare MEDICARE MEDICAR E A AND B [id number] 2013-Present [phone] [place] [address] Medicare [id number] 2013 Medicare [id number] 1959 Medicare [id number] 1948 Unknown [id number] 1948 Unknown [id number] 1948 Unknown [id number] 1948 Unknown [id number] 1948 Unknown [id number] 1948 Unknown [id number] 1948 Unknown [id number] 1948 Unknown [id number] 6 1948 Unknown [id number] Social History Date Type Detail Facility Start: 07-03-2019 End: 04-15-2024 Tobacco [facility] status [facility] Sex Assigned At Not on file [facility] Start: 07-30-2018 End: 06-24-2022 Tobacco smoking status NHIS Ex-smoker [facility] Start: 07-30-2018 End: 06-24-2022 Tobacco use and exposure Smokeless tobacco non-user [facility] Start: 12-24-2021 End: 04-06-2024 Alcohol intake Current non-drinker of alcohol (finding) [facility] Start: 12-14-2021 End: 06-24-2022 Exposure to SARS-CoV-2 (event) Not sure [facility] History of tobacco use Current smoker [facility] History of tobacco use Passive smoker [facility] Start: 06-24-2022 End: 01-20-2023 History of Social function [facility] Start: 06-24-2022 End: 01-20-2023 Tobacco use panel [facility] Adult Depression Screening Assessment 0 [facility] Start: 04-13-2024 Tobacco smoking stat [facility] Tobacco smoking consumption unknown [facility] Start: 04-25-2021 Alcohol intake Ex-drinker (finding) [facility] Goals Date Patient Goal Desired Activity /State Personal health goal Comment on above: Formatting of this n ote might be different from the original. Evaluation of progress towards goal: Safe dc transition from hospital to home with family support. Clinical Notes 12-24-2021 to 10-07-2024 Telephone Encounter - Katya Hernandez RN - 10/07/2024 9:08 AM ESTTelephone Encounter - Katya Hernandez RN - 10/07/2024 9:08 AM ESTTelephone Encounter - Jolie Anand - 10/06/2024 10:56 AM EST Note Date & Type Note Facility 10-07-2024 Telephone encounter Note VM left with pt PSA result. Encouraged to call with any questions, concerns. We will see him back as scheduled in 6 months. Katya Hernandez RN [facility] 10-07-2024 Miscellaneous Notes VM left with pt PSA result. Encouraged to call with any questions, concerns. We will see him back as scheduled in 6 months. Katya Hernandez RN Please call Don with Today's PSA level per Dr CONKLIN. Thank you documented in this encounter [facility] 10-06-2024 Telephone encounter Note Please call Don with Today's PSA level per Dr CONKLIN. Thank you [facility] 10-06-2024 Instructions Joaquina Hall - 10/06/2024 10:51 AM EST Triage to call PSA results RTC in 6 months Labs 1 week prior documented in this encounter [facility] 10-06-2024 History of Present illness Narrative Images from the original note were not included. NAME: Melvi Davies CLINIC NO.: [id number] DATE OF SERVICE: October 06, 2024 () Some elements in this clinic note that are critical to medical decision making have been carefully reviewed and included from a prior clinic note dated: April 06, 2024 ([place]) Referring Provider: Pearl Nobles MD Additional Clinicians involved in Melvi Davies's care: Diagnosis: Prostate Cancer Polycythemia - secondary. ASSESSMENT: 73 year old gentleman with Prostatectomy for Carlos [...] and reflects regular use of CPAP. PLAN: Triage to call PSA results RTC in 6 months Labs 1 week prior Patient is not interested in Lupron due to side effects - Would consider Orgovyx in future if needed HPI: CASE HISTORY: Reverse Chronological Order 12/2023 - Cardiac ablation - now on Xarelto 08/2023 - Started Xarelto 03/2021-07/2023: Coumadin 03/2021 - Mild CVA - recovered 02/02/2021 - Completed salvage RT 06/2018-08/2018 - Lupron - stopped due to intolerance caused by arrhythmias and syncope 06/2018 - PSA Rising 1.57 05/2016 - Prostatectomy GL 7 (4+3) Updated Visit, October 06, 2024: Raulito returns for a follow up. H/H is stable within normal range. He remains compliant with his CPAP for 8-10 hours every night. PSA in 03/2024 was stable at <0.02 - today's result is pending. He denies any urinary complaints. He mentions he developed loose stools as a result of eating garlic while on Xarelto. His late had a heart transplant in 2001 at [facility], she in 2002. Updated Visit, April 06, 2024: Raulito did well with the ablation in December 2023. Continues to use his CPAP. H/H remains stable. Son is a [place] fan Interestingly his grandson is at [employer]. Updated Visit, October 10, 2023: Raulito returns today. He is due to have ablation, but is trying to find a [facility] location that works for him. He had PSA done on 2 days ago at [place], they called him to report it looks good. Daily CPAP use is apparent on his labs. 2 of his younger brothers have , another just had an WI. His nephew also passed of heart issues. He also spoke about his late 's passing many years ago but appreciated her care at [facility]. Updated Visit, June 23, 2023: Raulito returns [...] No needs for intervention. Follows with Dr. Nobles for kidney disease Continues coumadin - for [...] to my service. He has prostate cancer Tad's 4+3 = 7. He has had a [...] PERFORMANCE STATUS: 0 PHYSICAL EXAMINATION: Vitals: BP 113/70 Pulse 87 Temp (Src) 97.4 (Temporal) Resp 16 Wt 222 lb 10.6 oz (101.0kg) SpO2 95% Body surface area is 2.19 meters squared. [...] Mental Status Change Desonide Unknown Lactose Unknown Omujxge-Euu-Ely Red* Other: See Comments MEDICATIONS: rivaroxaban (XARELTO) 20 mg tablet Take 20 mg by mouth. dilTIAZem CD (CARDIZEM CD, CARTIA XT) 180 mg 24 hr capsule Take 1 capsule by mouth every afternoon. JARDIANCE 25 mg tablet Take 1 tablet by mouth every afternoon. flecainide (TAMBOCOR) 50 mg tablet Take 50 mg by mouth twice daily. isosorbide mononitrate ER (IMDUR) 30 mg 24 hr tablet Take 30 mg by mouth once daily. JANUVIA 100 mg tablet olmesartan (BENICAR) 20 mg tablet Take 20 mg by mouth once daily. glimepiride (AMARYL) 4 mg tablet hydrALAZINE (APRESOLINE) 50 mg tablet Take 50 mg by mouth three times daily. warfarin (COUMADIN) 5 mg tablet TAKE 1-1.5 TABLETS BY MOUTH DAILY As directed by Sharona VALADEZ.] LABORATORY VALUES: WBC (k/uL) Date Value 10/06/2024 10.59 RBC (m/uL) Date Value 10/06/2024 5.33 Hemoglobin (g/dL) Date Value 10/06/2024 15.5 Hematocrit (%) Date Value 10/06/2024 46.2 MCV (fL) Date Value 10/06/2024 86.7 MCH (pg) Date Value 10/06/2024 29.1 MCHC (g/dL) Date Value 10/06/2024 33.5 RDW-CV (%) Date Value 10/06/2024 15.4 (H) Platelet Count (k/uL) Date Value 10/06/2024 220 MPV (fL) Date Value 10/06/2024 10.5 Glucose (mg/dL) Date Value 10/06/2024 221 (H) BUN (mg/dL) Date Value 10/06/2024 21 Creatinine (mg/dL) Date Value 10/06/2024 1.44 (H) Sodium (mmol/L) Date Value 10/06/2024 129 (L) Potassium (mmol/L) Date Value 10/06/2024 4.1 Chloride (mmol/L) Date Value 10/06/2024 96 (L) CO2 (mmol/L) Date Value 10/06/2024 21 (L) Protein, Total (g/dL) Date Value 10/06/2024 7.4 Albumin (g/dL) Date Value 10/06/2024 3.8 (L) Calcium, Total (mg/dL) Date Value 10/06/2024 9.1 Alkaline Phosphatase (U/L) Date Value 10/06/2024 57 Bilirubin, Total (mg/dL) Date Value 10/06/2024 0.3 AST (U/L) Date Value 10/06/2024 14 ALT (U/L) Date Value 10/06/2024 19 PSA (ng/mL) Date Value 10/06/2024 <0.02 04/06/2024 <0.02 06/16/2023 <0.02 06/17/2022 <0.02 12/20/2021 <0.02 08/17/2021 <0.02 05/10/2021 0.04 12/06/2020 0.64 11/13/2020 0.58 09/07/2020 0.30 DIAGNOSIS: (C61) Prostate cancer (HCC) (primary encounter diagnosis) Plan: PROSTATE-SPECIFIC ANTIGEN DIAGNOSTIC, COMPLETE BLOOD COUNT AND DIFFERENTIAL, COMPREHENSIVE METABOLIC PANEL (D75.1) Secondary polycythemia Plan: PROSTATE-SPECIFIC ANTIGEN DIAGNOSTIC, COMPLETE BLOOD COUNT AND DIFFERENTIAL, COMPREHENSIVE METABOLIC PANEL (G47.33) MELVIN (obstructive sleep apnea) Plan: PROSTATE-SPECIFIC ANTIGEN DIAGNOSTIC, COMPLETE BLOOD COUNT AND DIFFERENTIAL, COMPREHENSIVE METABOLIC PANEL (N18.30) Stage 3 chronic kidney disease, unspecified whether stage 3a or 3b CKD (HCC) Plan: PROSTATE-SPECIFIC ANTIGEN DIAGNOSTIC, COMPLETE BLOOD COUNT AND DIFFERENTIAL, COMPREHENSIVE METABOLIC PANEL PAST MEDICAL HISTORY Diagnosis Date Cancer (HCC) Prostate Ca Diabetes (HCC) History of fractured vertebra Lactose intolerance PAST SURGICAL HISTORY Procedure Laterality Date RADICAL PROSTATECTOMY 06/2016 Social History Tobacco Use Smoking status: Former Passive exposure: Past Smokeless tobacco: Never Vaping Use Vaping status: Never Used Substance Use Topics Alcohol use: No Drug use: Not Currently FAMILY HISTORY Problem Relation Age of Onset Cancer Mother from lymphoma Cancer Paternal Uncle stomach cancer- cause of I spent a total of 20 minutes on the date of service which included preparing to see the patient, [id number] patient care, completing clinical documentation, performing a medically appropriate examination, counseling and educating the patient/family/caregiver, ordering medications, tests, or procedures, independently interpreting results (not separately reported), communicating results to the patient/family/caregiver, and care coordination (not separately reported). Apolinar Forrest MD, CPE Hematology and Oncology Services Provided at: [place], [place] Scribe Attestation: This note was scribed by Joaquina Hall on October 06, 2024 under the direction and supervision of Dr. Apolinar Forrest. I attest that all of the information documented is correct to the best of my knowledge. Provider Attestation: I, Apolinar Forrest MD, attest that all information documented by the above scribe is correct, and was supervised by me and under my direction. CC: MD Surinder Branch MD documented in this encounter [facility] 10-06-2024 Note HNO ID: [id number] Author: APOLINAR FORREST MD Service: ? Author Type: Physician Type: Progress Notes Filed: 10/07/2024 13:14 Note Text: NAME: Melvi Davies [facility] NO.: [id number] DATE OF SERVICE: October 06, 2024 ([place]) Some elements in this clinic note that are critical to medical decision making have been carefully reviewed and included from a prior clinic note dated: April 06, 2024 ([place]) Referring Provider: Pearl Nobles MD Additional Clinicians involved in Melvi Davies's care: Diagnosis: Prostate Cancer Polycythemia - secondary. ASSESSMENT: 73 year old gentleman with Prostatectomy for Carlos [...] and reflects regular use of CPAP. PLAN: Triage to call PSA results RTC in 6 months Labs 1 week prior Patient is not interested in Lupron due to side effects - Would consider Orgovyx in future if needed ___ HPI: CASE HISTORY: Reverse Chronological Order 12/2023 - Cardiac ablation - now on Xarelto 08/2023 - Started Xarelto 03/2021-07/2023: Coumadin 03/2021 - Mild CVA - recovered 02/02/2021 - Completed salvage RT 06/2018-08/2018 - Lupron - stopped due to intolerance caused by arrhythmias and syncope 06/2018 - PSA Rising 1.57 05/2016 - Prostatectomy GL 7 (4+3) Updated Visit, October 06, 2024: Raulito returns for a follow up. H/H is stable within normal range. He remains compliant with his CPAP for 8-10 hours every night. PSA in 03/2024 was stable at <0.02 - today's result is pending. He denies any urinary complaints. He mentions he developed loose stools as a result of eating garlic while on Xarelto. His late had a heart transplant in 2001 at [facility], she in 2002. Updated Visit, April 06, 2024: Raulito did well with the ablation in December 2023. Continues to use his CPAP. H/H remains stable. Son is a [place] fan Interestingly his grandson is at [employer]. Updated Visit, October 10, 2023: Raulito returns today. He is due to have ablation, but is trying to find a [facility] location that works for him. He had PSA done on 2 days ago at [place], they called him to report it looks good. Daily CPAP use is apparent on his labs. 2 of his younger brothers have , another just had an WI. His nephew also passed of heart issues. He also spoke about his late 's passing many years ago but appreciated her care at [facility]. Updated Visit, June 23, 2023: Raulito returns [...] No needs for intervention. Follows with Dr. Nobles for kidney disease Continues coumadin - for [...] normalized and he is doing well after discontinuin (more content not included)... [facility] 04-20-2024 Note [facility] Consult Note: Krystal Reason for visit: afib s/p PVI 04/20/24 Patient underwent A-fib ablation on 12/11/2023. Pt is here for a 3 month follow up. Pt has afib, and HTN. Pt says he has a little bleeding in his stool. 11/25/23 Patient here for H&P prior to afib ablation scheduled for 12/[address] Turner. Denies chest pain, SOB, palpitations, lightheadedness/syncope, and bleeding on Xarelto. 09/30/23 Patient here to discuss possible afib ablation per Kellen Robledo CNP. She saw him as inpatient consult recently when he was in Afib/flutter with RVR. Says he's taking flecainide once daily. Denies chest pain, SOB, palpitations, lightheadedness/syncope, and bleeding on Xarelto. HPI: Melvi Davies is a 73 y.o. year old with past medical history of prostate cancer, TIA.with recent A-fib from August 2022 went to [place] ER and was treated with Cardizem and [...] never been cardioverted. 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 Obesity BMI 34.93 Sleep apnea Stroke (CMS/HCC) Patient Active Problem List Diagnosis Increasing prostate specific antigen (PSA) level after treatment for malignant neoplasm of prostate assisted (current) use of anticoagulants Obesity (BMI 30-39.9) Persistent atrial fibrillation (CMS/HCC) Prostate cancer (CMS/HCC) TIA (transient ischemic attack) MELVIN (obstructive sleep apnea) Benign hypertensive heart disease without congestive heart failure Paroxysmal atrial fibrillation (CMS/HCC) Essential hypertension Atrial fibrillation (CMS/HCC) Secondary polycythemia Stage 3 chronic kidney disease (CMS/HCC) Type 2 diabetes mellitus, without long-term current use of insulin (CMS/HCC) PSH: Past Surgical History: Procedure Laterality Date PROSTATECTOMY SH: Social Determinants of Health Tobacco Use: Medium Risk (12/11/2023) Patient History Smoking Tobacco Use: Former Smokeless Tobacco Use: Never Passive Exposure: Not on file Alcohol Use: Not on file Financial Resource Strain: Not on file Food Insecurity: Not on file Transportation Needs: Not on file Physical Activity: Not on file Stress: Not on file Social Connections: Not on file Intimate Partner Violence: Unknown (10/02/2023) [place] Safety & Environment Fear of Current or Ex-Partner: Not on file Emotionally Abused: Not on file Physically Abused: Not on file Sexually Abused: Not on file Physically or Sexually Abused: Not on file Depression: Not on file Housing Stability: Not on file Utilities: Not on file Allergies: Allergies Allergen Reactions Adhesive Tape-Silicones Ciprofloxacin Other reaction(s): Mental Status Change Desonide Other reaction(s): Unknown Other reaction(s): Unknown Lactose Other reaction(s): Unknown Other reaction(s): Unknown Csokwtf-Tvf-Kgc Reductase Inhibitors Other Other reaction(s): Other (See Comments) Says right leg when numb with all statins Weight: 100kg Visit Vitals BP 103/71 (BP Location: Left arm, Patient Position: Sitting) Pulse 66 Ht 1.702 m (5' 7 ) Wt 100 kg (221 lb) SpO2 97% BMI 34.61 kg/m??? Smoking Status Former BSA 2.17 m??? Meds: Current Outpatient Medications on File Prior to Visit Medication Sig Dispense Refill dilTIAZem CD (Cardizem CD) 180 mg 24 hr capsule Take 180 mg by mouth in the morning. flecainide (Tambocor) 50 mg tablet Take 2 tablets (100 mg) by mouth in the morning and at bedtime. (Patient taking differently: Take 50 mg by mouth two times daily.) 360 tablet 3 glimepiride (Amaryl) 4 mg tablet Take 4 mg by mouth in the morning. hydrALAZINE (Apresoline) 50 mg tablet Take 100 mg by mouth in the morning and at bedtime. Januvia 100 mg tablet Take 100 mg by mouth in the morning. Jardiance 10 mg Take 10 mg by mouth in the morning. olmesartan (BENIcar) 20 mg tablet Take 20 mg by (more content not included)... [facility] 04-07-2024 Telephone encounter Note Pt called with <0.02 PSA result. Pt denies any questions, needs or concerns at this time. Katya Hernandez RN [facility] 04-07-2024 Miscellaneous Notes Pt called with <0.02 PSA result. Pt denies any questions, needs or concerns at this time. Katya Hernandez RN Images from the original note were not included. documented in this encounter [facility] 04-06-2024 Telephone encounter Note Images from the original note were not included. [facility] 04-06-2024 Instructions Apolinar Forrest MD - 04/06/2024 10:38 AM EDT Labs in 6 months, include PSA Triage to call PSA results documented in this encounter [facility] 04-06-2024 History of Present illness Narrative Images from the original note were not included. NAME: Melvi Davies CLINIC NO.: [id number] DATE OF SERVICE: April 06, 2024 ([place]ariangel) Some elements in this clinic note that are critical to medical decision making have been carefully reviewed and included from a prior clinic note dated: October 10, 2023 ([place]ariangel) Referring Provider: Pearl Nobles MD Additional Clinicians involved in Melvi Davies's care: Diagnosis: Prostate Cancer Polycythemia - secondary. ASSESSMENT: 73 year old gentleman with Prostatectomy for Tad 7 (4+3) prostate cancer 05/2016. Began Lupron [...] PLAN: Labs in 6 months, include PSA Triage to call PSA results Patient is not interested in Lupron due to side effects. - Would consider Orgovyx in future if needed. HPI: CASE HISTORY: Reverse Chronological Order December 2023 - cardiac ablation - now on Xarelto 08/2023 - started Xarelto 03/2021- 07/2023: Coumadin 03/2021 - Mild CVA - recovered 02/02/2021 - Completed salvage RT 06/2018 - 08/2018 Lupron - stopped due to intolerance caused by arrhythmias and syncope. 06/2018 - PSA Rising 1.57 05/2016 - prostatectomy GL 7 (4+3) Updated Visit, April 06, 2024: Raulito did well with the ablation in December 2023. Continues to use his CPAP. H/H remains stable. Son is a [place] fan Interestingly his grandson is at [employer]. Updated Visit, October 10, 2023: Raulito returns today. He is due to have ablation, but is trying to find a [facility] location that works for him. He had PSA done on 2 days ago at [place], they called him to report it looks good. Daily CPAP use is apparent on his labs. 2 of his younger brothers have , another just had an WI. His nephew also passed of heart issues. He also spoke about his late 's passing many years ago but appreciated her care at [facility]. Updated Visit, June 23, 2023: Raulito returns [...] No needs for intervention. Follows with Dr. Nobles for kidney disease Continues coumadin - for [...] to my service. He has prostate cancer Tad's 4+3 = 7. He has had a [...] PERFORMANCE STATUS: 0 PHYSICAL EXAMINATION: Vitals: BP 106/71 Pulse 96 Temp (Src) 97.1 (Temporal) Resp 16 Ht 5' 7.008 (1.70m) Wt 222 lb 14.2 oz (101.1kg) BMI 34.90 kg/(m^2). Body surface area is 2.19 meters [...] Mental Status Change Desonide Unknown Lactose Unknown Ubkkheh-Yjj-Qso Red* Other: See Comments MEDICATIONS: rivaroxaban (XARELTO) 20 mg tablet Take 20 mg by mouth. dilTIAZem CD (CARDIZEM CD, CARTIA XT) 180 mg 24 hr capsule Take 1 capsule by mouth every afternoon. JARDIANCE 25 mg tablet Take 1 tablet by mouth every afternoon. flecainide (TAMBOCOR) 50 mg tablet Take 50 mg by mouth twice daily. isosorbide mononitrate ER (IMDUR) 30 mg 24 hr tablet Take 30 mg by mouth once daily. JANUVIA 100 mg tablet olmesartan (BENICAR) 20 mg tablet Take 20 mg by mouth once daily. glimepiride (AMARYL) 4 mg tablet hydrALAZINE (APRESOLINE) 50 mg tablet Take 50 mg by mouth three times daily. warfarin (COUMADIN) 5 mg tablet TAKE 1-1.5 TABLETS BY MOUTH DAILY As directed by Sharona VALADEZ.] LABORATORY VALUES: WBC (k/uL) Date Value 04/06/2024 10.71 RBC (m/uL) Date Value 04/06/2024 5.67 Hemoglobin (g/dL) Date Value 04/06/2024 16.4 Hematocrit (%) Date Value 04/06/2024 48.6 MCV (fL) Date Value 04/06/2024 85.7 MCH (pg) Date Value 04/06/2024 28.9 MCHC (g/dL) Date Value 04/06/2024 33.7 RDW-CV (%) Date Value 04/06/2024 15.2 (H) Platelet Count (k/uL) Date Value 04/06/2024 216 MPV (fL) Date Value 04/06/2024 10.9 Glucose (mg/dL) Date Value 04/06/2024 172 (H) BUN (mg/dL) Date Value 04/06/2024 13 Creatinine (mg/dL) Date Value 04/06/2024 1.49 (H) Sodium (mmol/L) Date Value 04/06/2024 134 (L) Potassium (mmol/L) Date Value 04/06/2024 4.8 Chloride (mmol/L) Date Value 04/06/2024 100 CO2 (mmol/L) Date Value 04/06/2024 23 Protein, Total (g/dL) Date Value 04/06/2024 7.5 Albumin (g/dL) Date Value 04/06/2024 4.0 Calcium, Total (mg/dL) Date Value 04/06/2024 9.4 Alkaline Phosphatase (U/L) Date Value 04/06/2024 64 Bilirubin, Total (mg/dL) Date Value 04/06/2024 0.5 AST (U/L) Date Value 04/06/2024 14 ALT (U/L) Date Value 04/06/2024 20 PSA (ng/mL) Date Value 04/06/2024 <0.02 06/16/2023 <0.02 06/17/2022 <0.02 12/20/2021 <0.02 08/17/2021 <0.02 05/10/2021 0.04 12/06/2020 0.64 11/13/2020 0.58 09/07/2020 0.30 DIAGNOSIS: (D75.1) Secondary polycythemia (primary encounter diagnosis) Plan: COMPLETE BLOOD COUNT AND DIFFERENTIAL, COMPREHENSIVE METABOLIC PANEL, IRON AND TIBC, FERRITIN (C61) Prostate cancer (HCC) Plan: PROSTATE-SPECIFIC ANTIGEN DIAGNOSTIC (R71.8) Other abnormality of red blood cells Plan: IRON AND TIBC, FERRITIN PAST MEDICAL HISTORY No date: Cancer (HCC) Comment: Prostate Ca No date: Diabetes (HCC) No date: History of fractured vertebra No date: Lactose intolerance PAST SURGICAL HISTORY 06/2016: RADICAL PROSTATECTOMY Social History Tobacco Use Smoking status: Former Passive exposure: Past Smokeless tobacco: Never Vaping Use Vaping status: Never Used Substance Use Topics Alcohol use: No Drug use: Not Currently FAMILY HISTORY Problem Relation Age of Onset Cancer Mother from lymphoma Cancer Paternal Uncle stomach cancer- cause of I spent a total of 20 minutes on the date of service which included preparing to see the patient, [id number] patient care, completing clinical documentation, performing a medically appropriate examination, counseling and educating the patient/family/caregiver, ordering medications, tests, or procedures, independently interpreting results (not separately reported), communicating results to the patient/family/caregiver, and care coordination (not separately reported). Apolinar Forrest MD, CPE Hematology and Oncology Services Provided at: [place], [place] CC: MD Surinder Branch MD documented in this encounter [facility] 04-06-2024 Note HNO ID: [id number] Author: APOLINAR FORREST MD Service: ? Author Type: Physician Type: Progress Notes Filed: 04/08/2024 12:40 Note Text: NAME: Melvi Davies [facility] NO.: [id number] DATE OF SERVICE: April 06, 2024 ([place]) Some elements in this clinic note that are critical to medical decision making have been carefully reviewed and included from a prior clinic note dated: October 10, 2023 ([place]ariangel) Referring Provider: Pearl Nobles MD Additional Clinicians involved in Melvi Davies's care: Diagnosis: Prostate Cancer Polycythemia - secondary. ASSESSMENT: 73 year old gentleman with Prostatectomy for Tad 7 (4+3) prostate cancer 05/2016. Began Lupron [...] PLAN: Labs in 6 months, include PSA Triage to call PSA results Patient is not interested in Lupron due to side effects. - Would consider Orgovyx in future if needed. ___ HPI: CASE HISTORY: Reverse Chronological Order December 2023 - cardiac ablation - now on Xarelto 08/2023 - started Xarelto 03/2021- 07/2023: Coumadin 03/2021 - Mild CVA - recovered 02/02/2021 - Completed salvage RT 06/2018 - 08/2018 Lupron - stopped due to intolerance caused by arrhythmias and syncope. 06/2018 - PSA Rising 1.57 05/2016 - prostatectomy GL 7 (4+3) Updated Visit, April 06, 2024: Raulito did well with the ablation in December 2023. Continues to use his CPAP. H/H remains stable. Son is a [place] fan Interestingly his grandson is at [employer]. Updated Visit, October 10, 2023: Raulito returns today. He is due to have ablation, but is trying to find a [facility] location that works for him. He had PSA done on 2 days ago at [place], they called him to report it looks good. Daily CPAP use is apparent on his labs. 2 of his younger brothers have , another just had an WI. His nephew also passed of heart issues. He also spoke about his late 's passing many years ago but appreciated her care at [facility]. Updated Visit, June 23, 2023: Raulito returns [...] No needs for intervention. Follows with Dr. Nobles for kidney disease Continues coumadin - for [...] started on Lupron and had been on L (more content not included)... [facility] 01-29-2024 Note B/P 99/74- denied an y symptoms with labile b/p- no lightheadedness/dizziness or syncope. Continue all meds- hydralazine bid, olmesartan, diltiazem and monitor b/p at home and call for any concerns- lightheadedness/dizziness, syncope and goal B/P < 130/80 [facility] 01-29-2024 Note [id number]= 6- age , HTN, Stroke, DM S/P a fib ablation- per ECG today pt is in Sinus rhythm Denied any bleeding tendencies on xarelto anticoagulation Remains on flecanide and diltiazem- rate controlled [facility] 01-29-2024 Note Patient here for fol low up afib ablation performed on 12/11/[address] Turner. He denies chest pain, SOB, palpitations, lightheadedness/syncope, and bleeding on Xarelto. He is taking 50mg of flecainide bid, not 100mg bid. Review of Systems HENT: Positive for hearing loss. Respiratory: Positive for cough and snoring. All other systems reviewed and are negative. [facility] 01-29-2024 Note [facility] CARDIOLOGY PROGR ESS NOTE HPI: Melvi Davies is a 73 y.o. male here for f/U s/p afib ablation HPI pleasant 73 yo male presents to clinic with daughter for F/U after recent a fib ablation Denied chest pain, SOB, Orthopnea, difficulty swallowing, fever, chills, N/T or pain of legs. Denied any bleeding tendencies. Previous HPI- Per Kaylen Lozano NP Reason for visit: afib, on flecainide 50mg [...] recent A-fib from August 2022 went to [place] ER and was treated with Cardizem and [...] never been cardioverted. ECG today sinus rhythm. Visit Vitals BP 99/74 (BP Location: Right arm, Patient Position: Sitting) Pulse 87 Ht 1.702 m (5' 7 ) Wt 100 kg (221 lb) SpO2 93% BMI 34.61 kg/m??? Smoking Status Former BSA 2.17 m??? Allergies Allergen Reactions Adhesive Tape-Silicones Ciprofloxacin Other reaction(s): Mental Status Change Desonide Other reaction(s): Unknown Other reaction(s): Unknown Lactose Other reaction(s): Unknown Other reaction(s): Unknown Oqnmlft-Wvf-Dgm Reductase Inhibitors Other Other reaction(s): Other (See Comments) Says right leg when numb with all statins Medications: Current Outpatient Medications on File Prior to Visit Medication Sig Dispense Refill dilTIAZem CD (Cardizem CD) 180 mg 24 hr capsule Take 180 mg by mouth in the morning. flecainide (Tambocor) 50 mg tablet Take 2 tablets (100 mg) by mouth in the morning and at bedtime. (Patient taking differently: Take 50 mg by mouth in the morning and at bedtime.) 360 tablet 3 glimepiride (Amaryl) 4 mg tablet Take 4 [...] directed. Take with food. 100 tablet 3 famotidine (Pepcid) 20 mg tablet Take 1 tablet (20 mg) by mouth in the morning and at bedtime. 60 tablet 0 omeprazole (PriLOSEC) [address] capsule Take 1 capsule (40 mg) by mouth before breakfast. Do not crush or chew. 30 capsule 0 No current facility-administered medications on file prior to visit. Physical Exam: Constitutional: Appearance: Normal appearance. Without apparent distress HENT: Head: Normocephalic and atraumatic. Nose: Nose normal. Mouth/Throat: Mouth: Mucous membranes are moist. Eyes: Extraocular Movements: Extraocular movements intact. Conjunctiva/sclera: Conjunctivae normal. Neck: Vascular: No JVD. Cardiovascular: Rate and Rhythm: Normal rate and regular rhythm. Pulses: Rt femoral site C/D/I, no hematoma, ecchymosis or bruit noted. Femoral, and Dorsalis pedis pulses are 3 on the right side and 3on the left side. Posterior tibial pulses are 3 on the right side and 3 on the left side. Heart sounds: Normal heart sounds, S1 normal and S2 normal. Pulmonary: Effort: Pulmonary effort is normal. Breath sounds: Normal breath sounds. Abdominal: General: Bowel sounds are normal. Palpations: Abdomen is soft. Musculoskeletal: General: Normal range of motion. Cervical back: Normal range of motion. Right lower leg: No edema. Left lower leg: No edema. Skin: General: Skin is warm and dry. Capillary Refill: Capillary refill takes less than 2 seconds. Neurological: General: No focal deficit present. Mental Status: She is alert and oriented to person, place, and time. Psychiatric: Mood and Affect: Mood normal. Behavior: Behavior normal. Thought Content: Thought content normal. Judgment: Judgment normal. Labs: 12/10/23 CBC normal NA 133, K+ 4.1 BUN 13, Cr 1.62, GFR 42- elevated Last lab values have been reviewed CV Testing: Conclusion ATRIAL FIBRILLATION ABLATION PROCEDURE NOTE DATE OF PROCE (more content not included)... [facility] 12-11-2023 Note Patient: Melvi huerta Procedure Summary Date: 12/11/23 Room / Location: [facility] 1 EP / [facility] (Cath) Anesthesia Start: 827 Anesthesia Stop: 1138 Procedure: Ablation atrial fibrillation Diagnosis: Atrial fibrillation, unspecified type (CMS/HCC) (Atrial fibrillation, unspecified type (CMS/HCC) [I48.91]) Providers: Shane Turner MD Responsible Provider: Venkatesh Andrea MD Anesthesia Type: general ASA Status: 3 Anesthesia Type: general Vitals Value Taken Time BP 97/78 12/11/23 1450 Temp 36.1 ???C (97 ???F) 12/11/23 1140 Pulse 93 12/11/23 1533 Resp 16 12/11/23 1533 SpO2 93 % 12/11/23 1533 Vitals shown include unvalidated device data. Anesthesia Post Evaluation Patient location during evaluation: PACU Patient participation: complete - patient participated Level of consciousness: awake and alert Pain management: adequate There was medical reason for not using a multimodal analgesia pain management approach.Airway patency: patent Two or more strategies used to mitigate risk of obstructive sleep apnea Cardiovascular status: acceptable and hemodynamically stable Respiratory status: acceptable and room air Hydration status: acceptable Patient is hemodynamically stable and is able to be discharged from PACU per anesthesia protocol. There were no known notable events for this encounter. [facility] 12-11-2023 Note Patient: Melvi huerta Procedure Summary Date: 12/11/23 Room / Location: [facility] 1 EP / [facility] (Cath) Anesthesia Start: 827 Anesthesia Stop: 1138 Procedure: Ablation atrial fibrillation Diagnosis: Atrial fibrillation, unspecified type (CMS/HCC) (Atrial fibrillation, unspecified type (CMS/HCC) [I48.91]) Providers: Shane Turner MD Responsible Provider: Venkatesh Andrea MD Anesthesia Type: general ASA Status: 3 Anesthesia Post Transport Note Transport to: PACU O2 Route: face mask Oxygen Flow (L/min): 6 Patient Monitor: transport monitor Transport monitor type: ECG, NIBP and SpO2 Transport: uneventful Patient condition is: stable [facility] 12-11-2023 Note ATRIAL FIBRILLATION ABLATION PROCEDURE NOTE DATE OF PROCEDURE: 12/11/2023 PERFORMING PHYSICIAN: Dr. Shane Turner CONSENT: Patient NAME OF THE PROCEDURE: Pulmonary Vein Isolation and Comprehensive EP study. INDICATIONS FOR PROCEDURE: 1. Persistent atrial fibrillation. FLUROSCOPY: 3.3mins/53mGy. EBL: 15cc SPECIMEN REMOVED: None PROCEDURES PERFORMED: 1. Sonosite guided venous access as noted below and images stored in PACS. 2. Comprehensive EP study and catheter ablation for persistent atrial fibrillation through the pulmonary vein isolation technique. This includes right atrial recording and pacing, His bundle recording and right ventricular recording and pacing. 3. Intracardiac EP 3D mapping. 4. Intracardiac echocardiogram 5. Left atrial and coronary sinus recording and pacing to assess ablation results. 6. Left heart pressure measurements and LV pacing and recording. 7. Induction of arrhythmia and testing of ablation results using intravenous adenosine infusion. 8. Fluroscopy. 9. Arterial line placement. INDICATION: PROCEDURE NOTE: On the day of presentation, he was noted to be in sinus rhythm following which the TYREE was deferred. Risks, benefits and alternatives of the procedure were discussed with the patient and family who agreed to proceed. Please refer to my consult note for details of the discussion and of indications. The patient was prepped and draped following which four venous access was procured on right side as noted below. Ultrasound was used to determine the course and patency of the femoral veins on both sides and they were noted to be patent and the image stored in PACS. After infiltration with 1% lidocaine, 4 venous sheaths were placed in the right as noted below and a left femoral arterial line was placed by la. LFA: 4F for hemodynamic monitoring. RFV: 8Fx3, [employer] ThermoCool SF Bi-Directional over SL1/ Vizigo, SL1: Pentaravictor manuel, CS Catheter (EZ Steer). 9F: ICE catheter, Following venous access, heparin bolus was given followed by continuous intravenous drip to target ACT around 350. An intracardiac ultrasound catheter was inserted into the right atrium to examine the right atrial anatomy, atrial septum, pulmonary vein anatomy and to monitor for pericardial effusion and guide transseptal access. The LA and RA was only moderately dilated. At baseline, there was no pericardial effusion and no SAL clot but noted a very prominent Coumadin ridge. Pt had lipomatous hypertrophy with a septum that was 2.3cms thick. Esophagus was mapped using the CARTOSOUND 3D mapping software and noted to be towards the LIPV. Transeptal access was procured with ICE guidance using a SL-1 sheath and Maribel needle. LV pacing was performed and no VA conduction was seen. Following this, Octoray catheter was advanced and the multipolar mapping performed of the LA creating a geometry as well as bipolar voltage assessment was made. The LA was noted to be healthy. After FAM geometry was performed, a 2nd transseptal was performed with an SL1 sheath using a Maribel needle. Following transseptal, the SL1 sheath was removed and Vizigo sheath was advanced over which the ablation catheter ST-SF thermocol ablation catheter was advanced. Ablation was then performed. A temperature probe was advanced to the middle of the LA to monitor the temperature. Ablation was performed using 40 jhaveri for 10-12s in the anterior LA and 5-8seconds in the posterior wall and roof area. After completion of the left sided WACA, no signals were noted in the LSPV or LIPV and entrance and exit block was noted. After this, I proceeded to perform ablation of the right-sided vein. Catheter movement induced atrial flutter with Clof 280ms. Following right WACA, the veins were isolated. I ensured that on the anterior aspect of right WACA and in jarrod area, phrenic capture was ruled out before any ablation was performed. A temperature elevation was noted from a baseline of 36 to 37.7C. After this, perivenous pacing was performed around each individual vein, ensuring there was isolation. Adenosine was given a 12 mg dose and AV block and hypotension was noted. No reconnection was seen. I proceeded to perform CTI ablation. Using ICE, the His and IVC junctions were marked with 3D CARTO mapping software. ICE revealed a small subeustachian pouch. Vizigo sheath was renae to the right side. Ablation was performed on the CTI line starting at the tricuspid valve aspect. 40W was utilized and I extended the ablation from the TV to the IVC aspect. During ablation, flutter terminated to sinus rhythm. Following the completion of the line, the patient did have bidirectional block. Bidirectional block was noted with medial to lateral pacing with a timing of 189ms and from lateral to medial was 183ms. Differential pacing confirmed bidirectional block. EP study was then performed. Burst pacing from CS pacing down to 280ms was perf (more content not included)... [facility] 12-11-2023 Note Airway Date/Time: 12/11/2023 8:43 AM Urgency: elective Airway not difficult General Information and Staff Patient location during procedure: OR Anesthesiologist: Venkatesh Andrea MD Resident/CONSTRUCTION PROJECT COORDINATOR/CAA: Toby Thrasher DO Performed: resident/CONSTRUCTION PROJECT COORDINATOR/CAA Indications and Patient Condition Indications for airway management: anesthesia Spontaneous Ventilation: absent Sedation level: deep Preoxygenated: yes Patient position: sniffing Mask difficulty assessment: 2 - vent by mask + OA or adjuvant +/- NMBA Planned trial extubation Final Airway Details Final airway type: endotracheal airway Successful airway: ETT Cuffed: yes Successful intubation technique: video laryngoscopy Facilitating devices/methods: intubating stylet Endotracheal tube insertion site: oral Blade: Hinson Blade size: #3 ETT size (mm): 7.0 Cormack-Lehane Classification: grade I - full view of glottis Placement verified by: chest auscultation and capnometry Measured from: lips ETT to lips (cm): 22 Number of attempts at approach: 1 Number of other approaches attempted: 0 Additional Comments The patient's upper dentures were removed after mask ventilation but before laryngoscopy and stored in a denture container. [facility] 12-11-2023 Note Arterial Line: Date/Time: 12/11/2023 8:01 AM An arterial line was placed for the following indication(s): . Medications Administered Lidocaine (XYLOCAINE) 1 % SubQ, 2 mL Additional notes: Arterial line was attempted to be placed in preoperative holding area but unsuccessful. Right radial artery was attempted to be cannulated once via palpation and unsuccessful. Subsequently 2 attempts were made with ultrasound guidance, with pulsatile blood return and inability to advance the guidewire. A single final attempt was made under ultrasound guidance after re-preparing a slightly more proximal portion of the radial artery at the mid/distal forearm. Despite pulsatile blood return, the guidewire was unable to be advanced or visualized in the vessel lumen. Pressure was held and a pressure dressing was applied. Dr Yue ultimately placed a right femoral arterial catheter in the procedural suite. Staffing Performed: anesthesiologist and resident/CONSTRUCTION PROJECT COORDINATOR/CAA Anesthesiologist: Venkatesh Andrea MD Resident/CONSTRUCTION PROJECT COORDINATOR: Toby Thrasher DO Performed by: Toby Thrasher DO Authorized by: Venkatesh Andrea MD [facility] 12-11-2023 Note 5 units of insulin g iven Sub Q per ordering physician [facility] 11-25-2023 Note [place] Electrophysiology Consult Note: [place] Reason for visit: afib 11/25/23 Patient here for H&P prior to afib ablation scheduled for 12/[address] Turner. Denies chest pain, SOB, palpitations, lightheadedness/syncope, and bleeding on Xarelto. 09/30/23 Patient here to discuss possible afib ablation per Kellen Robledo CNP. She saw him as inpatient consult recently when he was in Afib/flutter with RVR. Says he's taking flecainide once daily. Denies chest pain, SOB, palpitations, lightheadedness/syncope, and bleeding on Xarelto. HPI: Melvi Davies is a 73 y.o. year old with past medical history of prostate cancer, TIA.with recent A-fib from August 2022 went to [place] ER and was treated with Cardizem and [...] never been cardioverted. 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 Paroxysmal atrial fibrillation (CMS/HCC) Essential hypertension Atrial fibrillation (CMS/HCC) Secondary polycythemia Stage 3 chronic kidney disease (CMS/HCC) PSH: Past Surgical History: Procedure Laterality Date [...] Connections: Not on file Intimate Partner Violence: Unknown (10/02/2023) [place] Safety & Environment Fear of Current or Ex-Partner: Not on file Emotionally Abused: Not on file Physically Abused: Not on file Sexually Abused: Not on file Physically or Sexually Abused: Not on file Depression: Not on file Housing Stability: Not on file Utilities: Not on file Allergies: Allergies Allergen Reactions Ciprofloxacin Other reaction(s): Mental Status Change Desonide Other reaction(s): Unknown Other reaction(s): Unknown Lactose Other reaction(s): Unknown Other reaction(s): Unknown Gpmunok-Hoy-Eue Reductase Inhibitors Other Other reaction(s): Other (See Comments) Says right leg when numb with all statins Weight: 101kg Visit Vitals BP 119/79 (BP Location: Left arm, Patient Position: Sitting) Pulse 88 Ht 1.702 m (5' 7 ) Wt 101 kg (223 lb) SpO2 96% BMI 34.93 kg/m??? Smoking Status Former BSA 2.19 m??? Meds: Current Outpatient Medications on File Prior to Visit Medication Sig Dispense Refill dilTIAZem CD (Cardizem CD) 180 mg 24 hr capsule Take 180 mg by mouth in the morning. flecainide (Tambocor) 50 mg tablet Take 2 tablets (100 mg) by mouth in the morning and at bedtime. 120 tablet 2 glimepiride (Amaryl) 4 mg tablet Take 4 [...] (120 mg) by mouth in the morning. (Patient not taking: Reported on 11/25/2023) 30 capsule 11 No current facility-administered medications on file prior to visit. ROS: Review of Systems HENT: Positive for hearing loss. Respiratory: Positive for cough and snoring. All other sy (more content not included)... [facility] 10-10-2023 Instructions Joaquina Maher - 10/10/2023 10:02 AM EST Labs in 6 months, include PSA RTC same day to assess polycythemia documented in this encounter [facility] 10-10-2023 History of Present illness Narrative Images from the original note were not included. NAME: Melvi Davies CLINIC NO.: [id number] DATE OF SERVICE: October 10, 2023 () Some elements in this clinic note that are critical to medical decision making have been carefully reviewed and included from a prior clinic note dated: June 23, 2023 ([place]) Referring Provider: Pearl Nobles MD Additional Clinicians involved in Melvi Davies's [...] Would consider Orgovyx in future if needed. HPI: CASE HISTORY: Reverse Chronological Order 03/2021 - current: Coumadin 03/2021 - Mild CVA - recovered 02/02/2021 - Completed salvage RT 06/2018 - 08/2018 Lupron - stopped due to intolerance caused by arrhythmias and syncope. 06/2018 - PSA Rising 1.57 05/2016 - prostatectomy GL 7 (4+3) Updated Visit, October 10, 2023: Don returns today. He is due to have ablation, but is trying to find a [facility] location that works for him. He had PSA done on 2 days ago at [place], they called him to report it looks good. Daily CPAP use is apparent on his labs. 2 of his younger brothers have , another just had an WI. His nephew also passed of heart issues. He also spoke about his late 's passing many years ago but appreciated her care at [facility]. Updated Visit, June 23, 2023: Don returns today for a follow up. He [...] No needs for intervention. Follows with Dr. Nobles for kidney disease Continues coumadin - for [...] PERFORMANCE STATUS: 0 PHYSICAL EXAMINATION: Vitals: BP 101/58 Pulse 95 Temp (Src) 97.4 (Temporal) Resp 18 Ht 5' 7.008 (1.70m) Wt 226 lb 6.6 oz (102.7kg) SpO2 95% BMI 35.45 kg/(m^2). Body surface area is [...] Mental Status Change Desonide Unknown Lactose Unknown Ehaljbz-Jki-Htc Red* Other: See Comments MEDICATIONS: rivaroxaban (XARELTO) 20 mg tablet Take 20 mg by mouth. dilTIAZem CD (CARDIZEM CD, CARTIA XT) 180 mg 24 hr capsule Take 1 capsule by mouth every afternoon. JARDIANCE 25 mg tablet Take 1 tablet by mouth every afternoon. flecainide (TAMBOCOR) 50 mg tablet Take 50 mg by mouth twice daily. isosorbide mononitrate ER (IMDUR) 30 mg 24 hr tablet Take 30 mg by mouth once daily. JANUVIA 100 mg tablet olmesartan (BENICAR) 20 mg tablet Take 20 mg by mouth once daily. glimepiride (AMARYL) 4 mg tablet hydrALAZINE (APRESOLINE) 50 mg tablet Take 50 mg by mouth three times daily. warfarin (COUMADIN) 5 mg tablet TAKE 1-1.5 TABLETS BY MOUTH DAILY [facility].] LABORATORY VALUES: WBC (k/uL) Date Value 10/10/2023 8.04 RBC (m/uL) Date Value 10/10/2023 5.67 Hemoglobin (g/dL) Date Value 10/10/2023 16.5 Hematocrit (%) Date Value 10/10/2023 50.4 MCV (fL) Date Value 10/10/2023 88.9 MCH (pg) Date Value 10/10/2023 29.1 MCHC (g/dL) Date Value 10/10/2023 32.7 RDW-CV (%) Date Value 10/10/2023 15.0 Platelet Count (k/uL) Date Value 10/10/2023 210 MPV (fL) Date Value 10/10/2023 10.9 Glucose (mg/dL) Date Value 10/10/2023 248 (H) BUN (mg/dL) Date Value 10/10/2023 13 Creatinine (mg/dL) Date Value 10/10/2023 1.62 (H) Sodium (mmol/L) Date Value 10/10/2023 138 Potassium (mmol/L) Date Value 10/10/2023 4.9 Chloride (mmol/L) Date Value 10/10/2023 101 CO2 (mmol/L) Date Value 10/10/2023 24 Protein, Total (g/dL) Date Value 10/10/2023 7.8 Albumin (g/dL) Date Value 10/10/2023 4.1 Calcium, Total (mg/dL) Date Value 10/10/2023 10.0 Alkaline Phosphatase (U/L) Date Value 10/10/2023 62 Bilirubin, Total (mg/dL) Date Value 10/10/2023 0.6 AST (U/L) Date Value 10/10/2023 15 ALT (U/L) Date Value 10/10/2023 27 PSA (ng/mL) Date Value 06/16/2023 <0.02 06/17/2022 <0.02 12/20/2021 <0.02 08/17/2021 <0.02 05/10/2021 0.04 12/06/2020 0.64 11/13/2020 0.58 09/07/2020 0.30 DIAGNOSIS: (D75.1) Secondary polycythemia (primary encounter diagnosis) Plan: CBC + DIFF, COMP METABOLIC PANEL, IRON + TIBC, FERRITIN BLD, VITAMIN B12 BLOOD, FOLATE SERUM, PSA/PROSTSPECAG DIAG (N18.30) Stage 3 chronic kidney disease, unspecified whether stage 3a or 3b CKD (HCC) Plan: CBC + DIFF, COMP METABOLIC PANEL, IRON + TIBC, FERRITIN BLD, VITAMIN B12 BLOOD, FOLATE SERUM, PSA/PROSTSPECAG DIAG (G47.33) MELVIN (obstructive sleep apnea) Plan: CBC + DIFF, COMP METABOLIC PANEL, IRON + TIBC, FERRITIN BLD, VITAMIN B12 BLOOD, FOLATE SERUM, PSA/PROSTSPECAG DIAG (C61) Prostate cancer (HCC) Plan: PSA/PROSTSPECAG DIAG PAST MEDICAL HISTORY Diagnosis Date Cancer (HCC) [...] of 30 minutes on the date of service which included preparing to see the patient, igqe-nr-vslo patient care, completing clinical documentation, performing a medically appropriate examination, counseling and educating the patient/family/caregiver, ordering medications, tests, or procedures, independently interpreting results (not separately reported), communicating results to the patient/family/caregiver, and care coordination (not separately reported). Apolinar Forrest MD, CPE Hematology and Oncology Services Provided at: [place], [place] Scribe Attestation: This note was scribed by Joauqina Maher on October 10, 2023 under the direction and supervision of Dr. Apolinar Forrest. I attest that all of the information documented is correct to the best of my knowledge. Provider Attestation: I, Apolinar Forrest MD, attest that all information documented by the above scribe is correct, and was supervised by me and under my direction. CC: MD Surinder Branch MD documented in this encounter [facility] 10-10-2023 Note HNO ID: [id number] Author: APOLINAR FORREST MD Service: ? Author Type: Physician Type: Progress Notes Filed: 10/11/2023 06:05 Note Text: NAME: KekeRaulito alanald CLINIC NO.: [id number] DATE OF SERVICE: October 10, 2023 (Abguerita) Some elements in this clinic note that are critical to medical decision making have been carefully reviewed and included from a prior clinic note dated: June 23, 2023 (Ebbryson) Referring Provider: Pearl Nobles MD Additional Clinicians involved in Melvi Davies's care: CC: here for follow up ASSESSMENT: 72 year old gentleman with Prostatectomy for Tad 7 (4+3) prostate cancer 05/2016. Began Lupron [...] 7 (4+3) Updated Visit, October 10, 2023: Don returns today. He is due to have ablation, but is trying to find a [facility] location that works for him. He had PSA done on 2 days ago at [place], they called him to report it looks good. Daily CPAP use is apparent on his labs. 2 of his younger brothers have , another just had an WI. His nephew also passed of heart issues. He also spoke about his late 's passing many years ago but appreciated her care at [facility]. Updated Visit, June 23, 2023: Raulito returns [...] No needs for intervention. Follows with Dr. Nobles for kidney disease Continues coumadin - for [...] a longer-term depot. (more content not included)... [facility] 09-30-2023 Note [facility] Electrophysiology Consult Note: Krystal Reason for visit: afib 09/30/23 Patient here to discuss possible afib ablation per Kellen Robledo CNP. She saw him as inpatient consult recently when he was in Afib/flutter with RVR. Says he's taking flecainide once daily. Denies chest pain, SOB, palpitations, lightheadedness/syncope, and bleeding on Xarelto. HPI: Melvi Davies is a 72 y.o. year old with past medical history of prostate cancer, TIA.with recent A-fib from August 2022 went to [place] ER and was treated with Cardizem and [...] never been cardioverted. 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 [facility] 08-28-2023 Miscellaneous Notes Patient called to inform that he is no longer taking Warfarin. He stopped the warfarin and started Xarelto on 08/07/23. Dr Shane Turner fire investigator [facility] stopped his warfarin and ordered the Xarelto on 07/15/23. Patient stated that his referring provider is aware as he saw him while he was admitted to [facility], he was discharged 08/28/23. Patient has an appt to see Dr Shane Turner the week of 09/01/23. Appt cancelled for 08/29/23, episode resolved. Noted. Reviewed cardiology note and patient was to switch to Xarelto when it arrived. No further f/u needed. documented in this encounter [facility] 08-28-2023 Telephone encounter Note Patient called to inform that he is no longer taking Warfarin. He stopped the warfarin and started Xarelto on 08/07/23. Dr Shane Turner fire investigator [facility] stopped his warfarin and ordered the Xarelto on 07/15/23. Patient stated that his referring provider is aware as he saw him while he was admitted to [facility], he was discharged 08/28/23. Patient has an appt to see Dr Shane Turner the week of 09/01/23. Appt cancelled for 08/29/23, episode resolved. [facility] 08-28-2023 Telephone encounter Note Noted. Reviewed cardiology note and patient was to switch to Xarelto when it arrived. No further f/u needed. [facility] 08-28-2023 Miscellaneous Notes Pt indicated on DALILA he wanted to cx appt tomorrow so video games storywriter lvm requesting return call to r/s if needed. documented in this encounter [facility] 08-28-2023 Telephone encounter Note Pt indicated on DALILA he wanted to cx appt tomorrow so video games storywriter lvm requesting return call to r/s if needed. [facility] 07-15-2023 Note [facility] Electrophysiology Consult Note: [place] Reason for visit: afib HPI: Melvi Davies is a 72 y.o. year old with past medical history of prostate cancer, TIA.with recent A-fib from August 2022 went to [facility] and was treated with Cardizem and started [...] cancer he was given Lupron for Ca 2018, then had afib, stopped lurpon and continued to be on Eliquis but continued to have breakthrough episodes of A-fib. He has never been on an antiarrhythmic and has never been cardioverted. 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 [facility] 06-23-2023 Instructions Adri Bray - 06/23/2023 2:22 PM EST 1. Labs in 3 months 2. RTC same day to assess polycythemia documented in this encounter [facility] 06-23-2023 History of Present illness Narrative Images from the original note were not included. NAME: Melvi Davies [facility] NO.: [id number] DATE OF SERVICE: June 23, 2023 (Mariangel) Some elements in this clinic note that are critical to medical decision making have been carefully reviewed and included from a prior clinic note dated: June 24, 2022 (Mariangel) Referring Provider: Pearl Nobles MD Additional Clinicians involved in Melvi Davies's care: CC: here for follow up ASSESSMENT: 72 year old gentleman with Prostatectomy for Tad 7 (4+3) prostate cancer 05/2016. Began Lupron [...] No needs for intervention. Follows with Dr. Nobles for kidney disease Continues coumadin - for [...] coumadin clinic. Updated Visit, December 14, 2020: aRulito is doing well and has started Radiation [...] to my service. He has prostate cancer Tad's 4+3 = 7. He has had a [...] Mental Status Change Desonide Unknown Lactose Unknown Zyzdiri-Tuz-Kzj Red* Other: See Comments MEDICATIONS: flecainide (TAMBOCOR) [...] TABLETS BY MOUTH DAILY [facility].] olmesartan (BENICAR) 20 mg tablet Take 20 [...] which included preparing to see the patient, tywj-bb-voiy patient care, completing clinical documentation, performing a medically appropriate examination, counseling and educating the patient/family/caregiver, ordering medications, tests, or procedures, independently interpreting results (not separately reported), communicating results to the patient/family/caregiver, and care coordination (not separately reported). Apolinar Forrest MD, [place], [place] Scribe Attestation: This note was scribed [...] Surinder Branch MD documented in this encounter [facility] 01-20-2023 History of Present illness Narrative Radiation Oncology - Follow Up Note PATIENT NAME: Melvi Davies PATIENT DIAGNOSIS/PATIENT IDENTIFICATION: Mr. Davies is a 71 year gentleman diagnosed with Stage IIC, [id number], adenocarcinoma of the prostate s/p RP; GS [...] Mental Status Change Desonide Unknown Lactose Unknown Wzscmri-Dqt-Sfb Red* Other: See Comments MEDICATIONS: Current Outpatient Medications: flecainide (TAMBOCOR) 50 mg tablet empagliflozin (JARDIANCE) 10 mg tablet isosorbide mononitrate ER (IMDUR) 30 mg 24 hr tablet JANUVIA 100 mg tablet warfarin (COUMADIN) 5 mg tablet olmesartan (BENICAR) 20 mg tablet diltiazem (CARDIZEM) 30 mg tablet glimepiride (AMARYL) 4 mg tablet hydrALAZINE (APRESOLINE) 50 mg tablet Glghngsngbphr-KT-Fhexyxtbtdjuh 1-5-160 mg/5 mL susp hyoscyamine sublingual (LEVSIN [...] 71 year gentleman diagnosed with Stage IIC, [id number], adenocarcinoma of the prostate s/p RP; GS [...] which included preparing to see the patient, umws-vg-pwnl patient care, and counseling and educating the patient/family/caregiver. This document has been created with the use of voice recognition technology. It may contain inaccuracies, misspellings, inaccurate syntax or inappropriate word context that are a result of the inadequacies/shortcomings of said technology/software. documented in this encounter [facility] 06-24-2022 Instructions Apolinar Forrest MD - 06/24/2022 2:30 PM EST 1. Labs in 12 months 2. RTC 1 week after to review 3. Patient is not interested in Lupron due to side effects. - Would consider Orgovyx in future if needed. documented in this encounter [facility] 06-24-2022 History of Present illness Narrative Images from the original note were not included. NAME: Melvi Davies [facility] NO.: [id number] DATE OF SERVICE: June 24, 2022 (jonobryson) Some elements in this clinic note that are critical to medical decision making have been carefully reviewed and included from a prior clinic note dated: December 24, 2021 (Mariangel) Referring Provider: Pearl Nobles MD Additional Clinicians involved in Melvi Davies's care: CC: here for follow up ASSESSMENT: 71 year old gentleman with Prostatectomy for Carlos [...] No needs for intervention. Follows with Dr. Nobles for kidney disease Continues coumadin - for [...] to my service. He has prostate cancer Tad's 4+3 = 7. He has had a [...] Mental Status Change Desonide Unknown Lactose Unknown Nmusbku-Isl-Kjt Red* Other: See Comments MEDICATIONS: empagliflozin (JARDIANCE) 10 mg tablet Take 10 mg by mouth daily with breakfast. isosorbide mononitrate ER (IMDUR) 30 mg 24 hr tablet Take 30 mg by mouth once daily. JANUVIA 100 mg tablet warfarin (COUMADIN) 5 mg tablet TAKE 1-1.5 TABLETS BY MOUTH DAILY As directed by [place] [facility].] Cswythpfdyxol-LO-Nnrdxqzqgtutt 1-5-160 mg/5 mL susp Take by mouth [...] which included preparing to see the patient, obff-vx-kjra patient care, completing clinical documentation, performing a medically appropriate examination, ordering medications, tests, or procedures, and independently interpreting results (not separately reported). Apolinar Forrest MD, CPE [place], [place] CC: MD Surinder Branch MD documented in this encounter [facility] 06-17-2022 Miscellaneous Notes Patient has a lab appointment today (this afternoon) for his appointment next week, if you would like labs please place orders. It looks like there is a PSA from Dr. Mckoy. Christen Rucker MA documented in this encounter [facility] 12-24-2021 History of Present illness Narrative Images from the original note were not included. Radiation Oncology - Follow Up Note PATIENT NAME: Melvi Davies PATIENT DIAGNOSIS/PATIENT IDENTIFICATION: Mr. Davies is a 71 year gentleman diagnosed with Stage IIC, [id number], adenocarcinoma of the prostate s/p RP; GS [...] Mental Status Change Desonide Unknown Lactose Unknown Pbrwsjr-Qvz-Ajg Red* Other: See Comments MEDICATIONS: Current Outpatient Medications: empagliflozin (JARDIANCE) 10 mg tablet isosorbide mononitrate ER (IMDUR) 30 mg 24 hr tablet JANUVIA 100 mg tablet warfarin (COUMADIN) 5 mg tablet Lzzukufrjvkis-KM-Egxeepbcuafbn 1-5-160 mg/5 mL susp olmesartan (BENICAR) 20 [...] 71 year gentleman diagnosed with Stage IIC, [id number], adenocarcinoma of the prostate s/p RP; GS [...] which included preparing to see the patient, smgw-ef-rxyl patient care and counseling and educating the patient/family/caregiver. This document has been created with the use of voice recognition technology. It may contain inaccuracies, misspellings, inaccurate syntax or inappropriate word context that are a result of the inadequacies/shortcomings of said technology/software. documented in this encounter [facility] 12-24-2021 History of Present illness Narrative Images from the original note were not included. NAME: Melvi Davies [facility] NO.: [id number] DATE OF SERVICE: December 24, 2021 Some elements in this clinic note that are critical to medical decision making have been carefully reviewed and included from a prior clinic note dated: August 25, 2021 Referring Provider: Pearl Nobles MD Additional Clinicians involved in Melvi Davies's care: CC: here for follow up ASSESSMENT: 70 yo gentleman with Prostatectomy for Tad 7 (4+3) prostate cancer 05/2016. Began Lupron [...] to my service. He has prostate cancer Calros's 4+3 = 7. He has had a [...] Mental Status Change Desonide Unknown Lactose Unknown Ksrvcdx-Ukg-Znd Red* Other: See Comments MEDICATIONS: empagliflozin (JARDIANCE) 10 mg tablet Take 10 mg by mouth daily with breakfast. isosorbide mononitrate ER (IMDUR) 30 mg 24 hr tablet Take 30 mg by mouth once daily. JANUVIA 100 mg tablet warfarin (COUMADIN) 5 mg tablet TAKE 1-1.5 TABLETS BY MOUTH DAILY As directed by [place] [facility].] olmesartan (BENICAR) 20 mg tablet Take 20 mg by mouth once daily. glimepiride (AMARYL) 4 mg tablet Cholecalciferol, Vitamin D3, (VITAMIN D) 1,000 unit cap Take 2,000 Units by mouth once daily. hydrALAZINE (APRESOLINE) 50 mg tablet Take 50 mg by mouth three times daily. Zuvpzuwaphmyx-PE-Yhhdaffcewbvc 1-5-160 mg/5 mL susp Take by mouth [...] stomach cancer- cause of Apolinar Forrest MD, [place], [place] CC: Pearl Nobles MD [address] [place] [address] documented in this encounter [facility] Evaluation note Diagnosis Prostate cancer (HCC)- Primary Malignant neoplasm of prostate [facility] Diagnosis Prostate cancer (HCC)- Primary Malignant neoplasm of prostate [facility] Diagnosis Prostate cancer (HCC)- Primary Malignant neoplasm of prostate [facility] Diagnosis Secondary polycythemia- Primary Polycythemia, secondary MELVIN (obstructive sleep apnea) Obstructive sleep apnea (adult) (pediatric) Prostate cancer (HCC) Malignant neoplasm of prostate [facility] Secondary polycythemia- Primary Polycythemia, secondary Prostate cancer (HCC) Malignant neoplasm of prostate Other abnormality of red blood cells [facility] Diagnosis Secondary polycythemia- Primary Polycythemia, secondary Stage 3 chronic kidney disease, unspecified whether stage 3a or 3b CKD (HCC) MELVIN (obstructive sleep apnea) Obstructive sleep apnea (adult) (pediatric) Prostate cancer (HCC) Malignant neoplasm of prostate [facility] Diagnosis MELVIN (obstructive sleep apnea)- Primary Obstructive sleep apnea (adult) (pediatric) Hypoxia Hypoxemia Hypersomnia Hypersomnia, unspecified Primary insomnia Persistent disorder of initiating or maintaining sleep Snoring Other dyspnea and respiratory abnormality documented in this encounter [facility]* Diagnosis Prostate cancer (HCC)- Primary Malignant neoplasm of prostate Secondary polycythemia Polycythemia, secondary MELVIN (obstructive sleep apnea) Obstructive sleep apnea (adult) (pediatric) Stage 3 chronic kidney disease, unspecified whether stage 3a or 3b CKD (HCC) documented in this encounter [facility] HospitalInstructionsNot on filedocumented in this encounterPro[facility] SystemInstructionsNot on filedocumented in this encounterPro[facility] Instructions * Instructions* Ren Burger [...] be sent through Care Everywhere. * Fainting (Monegasque) documented in this encounter Assessments Diagnosis Syncope and collapse- Primary Advance Directives No Advanced Directives Records FoundDocuments on File Type Date Recorded Patient Record Pressman Expl anation Advance Directives and Living Will Power of Wic Site Coordinator Latest Code Status on File Code Status Date Activated Date Inactivated Comments Full Code 04/01/2021 10:54 PM 04/02/2021 10:30 PM Summary Purpose Family History No Family History [...] Comments Prostate Cancer 1 year follow up Reason Comments Results Reason Comments Prostate Cancer Secondary polycythemia 6 month follow up Reason Comments Sleep Apnea (unrecognized sect ion and content) No Status Records FoundNo Status Records FoundNo Status Records FoundNo Status Records FoundNo Status Records FoundNo Status Records FoundNo Status Records Found INFORMATION SOURCE (unrecogn ized section and content) DATE CREATED AUTHOR 07/04/2019 [facility] DATE CREATED AUTHOR AUTHOR'S ORGANIZ ATION 02/21/2021 Ferny García [facility] DATE CREATED AUTHOR AUTHOR'S ORGANIZ ATION 12/25/2022 [facility] DATE CREATED AUTHOR AUTHOR'S ORGANIZ ATION 09/14/2023 [facility] DATE CREATED AUTHOR AUTHOR'S ORGANIZ ATION 04/17/2024 [facility] DATE CREATED AUTHOR AUTHOR'S ORGANIZ ATION 04/21/2024 [facility] DATE CREATED AUTHOR AUTHOR'S ORGANIZ ATION 10/08/2024 [facility] Source Comments (unrecognize d section and content) In the event this informatio n is protected by the Federal Confidentiality of Alcohol and Drug Abuse Patient Records regulations: The Federal rules restrict any use of the information to criminally investigate or prosecute any alcohol or drug abuse patient.[facility] the event this information is protected by the Federal Confidentiality of Alcohol and Drug Abuse Patient Records regulations: The Federal rules restrict any use of the information to criminally investigate or prosecute any alcohol or drug abuse patient.[facility] HospitalIn the event this information is protected by the Federal Confidentiality of Alcohol and Drug Abuse Patient Records regulations: The Federal rules restrict any use of the information to criminally investigate or prosecute any alcohol or drug abuse patient.[facility] Hospital[facility] the event this information is protected by the Federal Confidentiality of Alcohol and Drug Abuse Patient Records regulations: The Federal rules restrict any use of the information to criminally investigate or prosecute any alcohol or drug abuse patient.[facility] Hospital[facility] the event this information is protected by the Federal Confidentiality of Alcohol and Drug Abuse Patient Records regulations: The Federal rules restrict any use of the information to criminally investigate or prosecute any alcohol or drug abuse patient.[facility] HospitalIn the event this information is protected by the Federal Confidentiality of Alcohol and Drug Abuse Patient Records regulations: The Federal rules restrict any use of the information to criminally investigate or prosecute any alcohol or drug abuse patient.[facility] Hospital[facility] the event this information is protected by the Federal Confidentiality of Alcohol and Drug Abuse Patient Records regulations: The Federal rules restrict any use of the information to criminally investigate or prosecute any alcohol or drug abuse patient.[facility] HospitalIn the event this information is protected by the Federal Confidentiality of Alcohol and Drug Abuse Patient Records regulations: The Federal rules restrict any use of the information to criminally investigate or prosecute any alcohol or drug abuse patient.[facility] HospitalIn the event this information is protected by the Federal Confidentiality of Alcohol and Drug Abuse Patient Records regulations: The Federal rules restrict any use of the information to criminally investigate or prosecute any alcohol or drug abuse patient.[facility] HospitalIn the event this information is protected by the Federal Confidentiality of Alcohol and Drug Abuse Patient Records regulations: The Federal rules restrict any use of the information to criminally investigate or prosecute any alcohol or drug abuse patient.[facility] the event this information is protected by the Federal Confidentiality of Alcohol and Drug Abuse Patient Records regulations: The Federal rules restrict any use of the information to criminally investigate or prosecute any alcohol or drug abuse patient.[facility] Care Teams (unrecognized sec tion and content) Electrical Systems Engineer Relationship Specialty Start Date End Date Pearl Nobles MD [address] [place] [address] PCP - General Family Practice 07/23/18 Melvi Kulkarni Jr. [address] [place] [address] Roving Weight Gauger Urology 08/25/19 Surinder Mckoy MD [address] [place] [address] Radiation Oncology 06/15/20 Electrical Systems Engineer Relationship Specialty Start Date End Date Pearl Nobles MD [address] [place] [address] PCP - General Family Medicine 07/23/18 Melvi Kulkarni Jr. [address] [place] [address] Roving Weight Gauger Urology 08/25/19 Surinder Mckoy MD [address] [place] [address] Radiation Oncology 06/15/20 Electrical Systems Engineer Relationship Specialty Start Date End Date Pearl Nobles MD [address] [place] [address] PCP - General Family Medicine 07/23/18 Melvi Kulkarni Jr. [address] [place] [address] Roving Weight Gauger Urology 08/25/19 Surinder Mckoy MD [address] [place] [address] Radiation Oncology 06/15/20 Electrical Systems Engineer Relationship Specialty Start Date End Date Pearl Nobles MD PCP - General Family Medicine 07/23/18 Melvi Kulkarni Jr. [address] [place] [address] Roving Weight Gauger Urology 08/25/19 Surinder Mckoy MD [address] [place] [address] Radiation Oncology 06/15/20 Electrical Systems Engineer Relationship Specialty Start Date End Date Pearl Nobles MD PCP - General Family Medicine 07/23/18 Melvi Kulkarni Jr. [address] [place] [address] Roving Weight Gauger Urology 08/25/19 Surinder Mckoy MD [address] [place] [address] Radiation Oncology 06/15/20 Electrical Systems Engineer Relationship Specialty Start Date End Date Pearl Nobles MD PCP - General Family Medicine 07/23/18 Melvi Kulkarni Jr. [address] [place] [address] Roving Weight Gauger Urology 08/25/19 Surinder Mckoy MD [address] [place] [address] Radiation Oncology 06/15/20 Electrical Systems Engineer Relationship Specialty Start Date End Date Pearl Nobles MD PCP - General Family Medicine 07/23/18 Melvi Kulkarni Jr. [address] [place] [address] Roving Weight Gauger Urology 08/25/19 Surinder Mckoy MD [address] [place] [address] Radiation Oncology 06/15/20 Electrical Systems Engineer Relationship Specialty Start Date End Date Pearl Nobles MD PCP - General Family Medicine 07/23/18 Melvi Kulkarni Jr. [address] [place] [address] Roving Weight Gauger Urology 08/25/19 Surinder Mckoy MD [address] [facility] [place] [address] Radiation Oncology 06/15/20 Electrical Systems Engineer Relationship Specialty Start Date End Date Pearl Nobles MD [address] [place] [address] PCP - General Family Medicine 10/23/23 Electrical Systems Engineer Relationship Specialty Start Date End Date Pearl Nobles MD [address] [place] [address] PCP - General Family Medicine 10/23/23 Electrical Systems Engineer Relationship Specialty Start Date End Date Pearl Nobles MD [address] [place] [address] PCP - General Family Medicine 04/01/21 Electrical Systems Engineer Relationship Specialty Start Date End Date Pearl Nobles MD [address] [place] [address] PCP - General Family Medicine 8/22/21 Electrical Systems Engineer Relationship Specialty Start Date End Date Pearl Nobles MD PCP - General Family Medicine 07/23/18 Melvi Kulkarni Jr. [address] [place] [address] Roving Weight Gauger Urology 08/25/19 Surinder Mckoy MD [address] [place] [address] Radiation Oncology 06/15/20 Electrical Systems Engineer Relationship Specialty Start Date End Date Pearl Nobles MD PCP - General Family Medicine 07/23/18 Melvi Kulkarni Jr. [address] [place] [address] Roving Weight Gauger Urology 08/25/19 Surinder Mckoy MD [address] [place] [address] Radiation Oncology 06/15/20 FOR RECORDS PERTAINING TO [...] BE BASED ON THE PRIMARY CLINICAL RECORDS. [employer] [facility]. provides no warranty or guarantee of the accuracy or completeness of information in this document.
[2024-11-16 09:59] LABS: Basophils Absolute Auto 0.1 10^3/uL (0.0-0.1); Basophils Percent Auto 0.5 % (0.2-2.0); Eosinophils Absolute Auto 0.1 10^3/uL (0.0-0.7); Eosinophils Percent Auto 1.2 % (0.9-7.0); Hematocrit 48.8 % (42.0-54.0); Immature Granulocytes Abs Auto 0.05 10^3/uL (0.00-0.03); Immature Granulocytes Pct Auto 0.5 % (0.0-0.5); Lymphocytes Absolute Auto 0.7 10^3/uL (1.2-3.8); Lymphocytes Percent Auto 6.9 % (20.5-60.0); Mean Corpuscular HGB Conc 32.8 g/dL (29.9-35.2); Mean Corpuscular Hemoglobin 28.3 pg (25.9-34.0); Mean Corpuscular Volume 86.2 fL (80.0-94.0); Mean Platelet Volume 10.6 fL (9.5-13.5); Monocytes Absolute Auto 0.6 10^3/uL (0.3-0.8); Monocytes Percent Auto 5.9 % (1.7-12.0); Neutrophils Absolute Auto 8.8 10^3/uL (1.4-6.5); Platelet Count 203 10^3/uL (150-450); Red Blood Count 5.66 10^6/uL (4.70-6.10); Red Cell Distribution Width 15.3 % (11.0-15.0); White Blood Count 10.4 10^3/uL (4.0-11.0)
[2024-11-16 10:40] LABS: Alanine Aminotransferase 29 U/L (16-63); Albumin Globulin Ratio 0.7; Albumin Level 3.4 g/dL (3.4-5.0); Alkaline Phosphatase 58 U/L (46-116); Aspartate Amino Transferase 17 U/L (15-37); BUN Creatinine Ratio 11.7; Bilirubin Total 0.5 mg/dL (0.2-1.0); Calcium 9.4 mg/dL (8.5-10.1); Carbon Dioxide 22.9 mmol/L (21.0-32.0); Chloride 100 mmol/L (98-107); Chol HDL Ratio 4.8; Cholesterol 164 mg/dL (<=200); Estimated Average Glucose 163 mg/dL; Estimated GFR (African America 51 (>=60 mL/min/1.73m^2); Estimated GFR (Non-African Ame 42 (>=60 mL/min/1.73m^2); Free T3 2.26 pg/mL (2.18-3.98); Glucose 130 mg/dL (74-106); Glycohemoglobin A1C 7.3 % (4.5-6.2); HDL Cholesterol 34 mg/dL (40-60); Potassium 3.9 mmol/L (3.5-5.1); Sodium 134 mmol/L (136-145); Thyroid Stimulating Hormone 3.512 uIU/mL (0.358-3.740); Total Protein 8.4 g/dL (6.4-8.2); Triglycerides 108 mg/dL (<=150); VLDL CHOLESTEROL 21.6 mg/dL
[2024-11-16 11:45] LABS: Prostate Specific Antigen Scrn <0.13 ng/mL (<=4.00)
== END 2024-11-16 09:33 | disposition home or self-care (01) ==
LOC: LAB 09:34
PROVIDERS: PCP Family Medicine; Visit Provider Family Medicine
DX: G47.33 Obstructive sleep apnea (adult) (pediatric) (principal); N40.0 Benign prostatic hyperplasia without lower urinary tract symptoms; I48.0 Paroxysmal atrial fibrillation; E11.9 Type 2 diabetes mellitus without complications; I10 Essential (primary) hypertension; E78.5 Hyperlipidemia, unspecified; Z12.12 Encounter for screening for malignant neoplasm of rectum; Z12.5 Encounter for screening for malignant neoplasm of prostate
CPT/HCPCS: 36415; 80053; 80061; 83036; 84436; 84443; 84481; 85025; G0103

== ENCOUNTER 2024-11-16 19:07 | Emergency (ER) | payer MEDICARE, SELFPAY ==
[2024-11-16 19:10] VITALS: BP 145/76; PULSE 83; TEMP 36.6; O2SAT 98; BMI 34.6
--- NOTE | 2024-11-16 19:26 | ED.FALL1 ---
HPI HPI - Fall General Chief Complaint: Fall Stated Complaint: fall Time Seen by Provider: 11/16/24 19:12 Source: patient Mode of arrival: walk-in Limitations: no limitations History of Present Illness HPI Narrative: This 74-year-old male who is on blood thinners is brought to the emergency department by his son after he fell at home trying to walk up the stairs into his house. He states he did not get his foot up high enough and slipped striking the guardrail with his forehead where he sustained a superficial abrasion over his right eye and landed on his right shoulder. He is left-hand dominant. He has pain in his anterior right shoulder and refuses any range of motion. He denies any loss of consciousness. He also fell onto both knees and has abrasions over both knees. He has no neck or back pain. He denies any chest pain or shortness of breath. Related Data Home Medications ?Medication ?Instructions ?Recorded ?Confirmed diltiazem HCl 120 mg 120 mg PO QAM 04/30/23 08/27/23 capsule,extended release 24 hr empagliflozin 10 mg tablet 10 mg PO DAILY 04/30/23 08/27/23 (Jardiance) flecainide 50 mg tablet 50 mg PO BID 04/30/23 08/27/23 glimepiride 4 mg tablet 4 mg PO DAILY 04/30/23 08/27/23 hydralazine 50 mg tablet 100 mg PO BID 04/30/23 08/27/23 olmesartan 20 mg tablet 20 mg PO DAILY 04/30/23 08/27/23 sitagliptin phosphate 100 mg 100 mg PO DAILY 04/30/23 08/27/23 tablet (Januvia) rivaroxaban 20 mg tablet (Xarelto) 20 mg PO QPM 08/27/23 08/27/23 docusate sodium 100 mg capsule 100 mg PO BID 11/16/24 11/16/24 (Colace) hydrocodone 5 mg-acetaminophen 325 1 tab PO Q4H PRN pain 11/16/24 11/16/24 mg tablet ondansetron HCl 4 mg tablet 4 mg PO Q6H 11/16/24 11/16/24 Allergies Allergy/AdvReac Type Severity Reaction Status Date / Time ciprofloxacin (From Cipro) Allergy Severe Unknown Verified 11/16/24 19:17 Pegtklk-HDL-HcN Reductase Allergy Severe Numbness Verified 11/16/24 19:17 Inhibitor adhesive tape Allergy Mild Redness of Verified 11/16/24 19:17 Skin Opioid HPI Opioid Management Most Recent Pain and Opioid Data: Last Pain Scale 6 04/30/23 10:53 04/30/23 Review of Systems ROS Status of ROS 10 or more systems reviewed and unremarkable except as noted in history and below [facility] Medical History (Updated 11/16/24 @ 20:43 by Rebecca Crowe MD) Paroxysmal A-fib ?I48.0 - Paroxysmal atrial fibrillation (ICD-10) Dehydration ?E86.0 - Dehydration (ICD-10) Hypotension ?I95.9 - Hypotension, unspecified (ICD-10) Tachycardia ?R00.0 - Tachycardia, unspecified (ICD-10) Hypertension ?I10 - Essential (primary) hypertension (ICD-10) Diabetes ?E11.9 - Type 2 diabetes mellitus without complications (ICD-10) History of radiation therapy ?Z92.3 - Personal history of irradiation (ICD-10) Prostate cancer ?C61 - Malignant neoplasm of prostate (ICD-10) Afib ?I48.91 - Unspecified atrial fibrillation (ICD-10) TIA (transient ischemic attack) ?G45.9 - Transient cerebral ischemic attack, unspecified (ICD-10) Surgical History (Updated 08/27/23 @ 08:38 by Rina Aguilar RN) H/O prostatectomy ?Z90.79 - Acquired absence of other genital organ(s) (ICD-10) Social History Smoking status: Former smoker Highest level of school completed/degree received: Associate degree: occupational, technical, vocational program Little interest or pleasure in doing things: not at all Feeling down, depressed, or hopeless: not at all Exam Narrative Exam Narrative: Vital signs and Nursing Notes reviewed: Patient is afebrile with a normal pulse, blood pressure is elevated 145/76, he is not hypoxic with pulse ox of 98% on room air General: Awake, alert, oriented, nontoxic but uncomfortable appearing adult male, GCS 15, no respiratory distress HEENT: Normocephalic, superficial abrasion over the right eyebrow. No step-off or active bleeding, pupils are equal and reactive, multiple decayed and decaying teeth are noted. Neck: Supple, no midline bony vertebral tenderness or step-off Chest: Lungs are clear to auscultation with good air entry, there is no wheezing rhonchi or rales appreciated no accessory muscle use, patient is speaking in complete sentences-no chest wall tenderness to palpation CVS: Regular rate and rhythm S1-S2, no murmurs rubs or gallops, pulses are brisk and equal bilaterally ABD: Soft, nondistended, nontender, no rebound guarding or rigidity, bowel sounds are normal, no pulsatile masses appreciated Extremities: There is tenderness over the right anterior shoulder. Patient resists any range of motion of the right upper extremity but is able to wiggle his fingers. There is no tenderness to the hand, wrist, forearm elbow or humerus. Pulses are brisk. There are superficial abrasions over both knees without any bony deformity. Patient is able to flex at both hips and bend both knees without pain or dysfunction. Skin: Facial abrasion to the forehead and both knees Neuro: No focal deficits Constitutional Vital Signs, click to edit/add: Last Vital Signs Temp 97.8 F 11/16/24 19:10 Pulse 82 11/16/24 21:22 Resp 18 11/16/24 21:22 BP 124/75 11/16/24 21:22 Pulse Ox 97 11/16/24 21:22 O2 Del Method Room Air 11/16/24 19:10 Course Vital Signs Vital signs: Vital Signs Temperature 97.8 F 11/16/24 19:10 Pulse Rate 83 11/16/24 19:10 Respiratory Rate 18 11/16/24 19:10 Blood Pressure 145/76 H 11/16/24 19:10 Pulse Oximetry 98 11/16/24 19:10 Oxygen Delivery Method Room Air 11/16/24 19:10 Temperature 97.8 F 11/16/24 19:10 Pulse Rate 82 11/16/24 21:22 Respiratory Rate 18 11/16/24 21:22 Blood Pressure 124/75 11/16/24 21:22 Pulse Oximetry 97 11/16/24 21:22 Oxygen Delivery Method Room Air 11/16/24 19:10 MDM - Fall MDM Narrative Medical decision making narrative: This 74-year-old male who is on blood thinners presents for evaluation after he missed a step at home and fell onto his right shoulder. He has abrasions on both knees and right shoulder pain. He has a superficial abrasion over his right eyebrow. He denies any loss of consciousness neck or back pain. He was given a dose of [employer] [place] and Zofran for his pain and an ice pack was applied to the right shoulder area. He refuses any range of motion of the right upper extremity but does not have any tenderness to the hand, wrist, forearm elbow or humerus. He denies any chest pain or shortness of breath. He refused x-rays of the knees where he has bilateral abrasions. Bacitracin dressings were applied topically over the abrasions to the knees. CT scan of the brain and x-ray of the right shoulder was ordered. CT scan of the brain shows mild generalized brain volume loss with mild chronic small vessel ischemic type changes in the white matter with no acute intracranial hemorrhage mass infarct or edema. 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 Patient was agreeable to CT scan of the right shoulder. I explained to him he does not have to wait for the CT scan results and should be able to be discharged after the scan with referral to outpatient orthopedics. He was placed in a sling and given 2 [employer] [place] to take home and a prescription for [facility] will be provided to him at the time of discharge. CT scan of the right shoulder was reviewed by radiology. It shows a fracture of the surgical neck of the right humerus with valgus rotation and impaction with no fracture of the glenoid or AC joint with no dislocation. Discharge Plan Discharge Chief Complaint: Fall Clinical Impression: Fall from standing, Closed head injury, Forehead abrasion, Fracture of head of humerus Patient Disposition: Home, Self-Care Time of Disposition Decision: 20:54 Condition: Fair Mode of Transportation: Private Vehicle Prescriptions / Home Meds: No Action diltiazem HCl 120 mg capsule,extended release 24hr 120 mg PO QAM Jardiance 10 mg tablet 10 mg PO DAILY flecainide 50 mg tablet 50 mg PO BID glimepiride 4 mg tablet 4 mg PO DAILY hydralazine 50 mg tablet 100 mg PO BID olmesartan 20 mg tablet 20 mg PO DAILY Januvia 100 mg tablet 100 mg PO DAILY Xarelto 20 mg tablet 20 mg PO QPM Rx Instructions: must administer with evening meal ondansetron HCl 4 mg tablet 4 mg PO Q6H docusate sodium [Colace] 100 mg capsule 100 mg PO BID hydrocodone-acetaminophen 5-325 mg tablet 1 tab PO Q4H PRN (Reason: pain) Print Language: Gibraltarian Instructions: Arm Fracture in Adults (ED), Fall Prevention for Older Adults (ED), Head Injury (ED) Referrals: Robin Estevez MD [Primary Care Provider] - 1 week Luis Benjamin MD [Physician] - As soon as possible Discharge Date/Time: 11/16/24 21:26
--- NOTE | 2024-11-16 19:44 | PC.NURSE ---
pt will not move right arm/ shoulder for assessment. No bruising and skin intact at right shoulder
--- NOTE | 2024-11-16 19:46 | PC.NURSE ---
pt does not want his knees x rayed, states he does not need his knees x rayed.
[2024-11-16] MEDS: HYDROCODONE/ACET 5-325 MG TABLET 1 TAB PO (20:08)
[2024-11-16] MEDS: ONDANSETRON 4 MG RAPDIS TABLET SL (20:09)
[2024-11-16] MEDS: BACITRACIN OINTMENT 28.4 GM TUBE 1 APPLIC TOPICAL (21:05)
[2024-11-16] MEDS: HYDROCODONE/ACET 5-325 MG TABLET 2 TAB PO (21:06)
[2024-11-16 21:22] VITALS: BP 124/75; PULSE 82; O2SAT 97
== END 2024-11-16 21:26 | disposition home or self-care (01) ==
PROVIDERS: Emergency Provider Emergency Medicine; PCP Family Medicine
DX: S42.211A Unspecified displaced fracture of surgical neck of right humerus, initial encounter for closed fracture (principal); S09.8XXA Other specified injuries of head, initial encounter; S00.81XA Abrasion of other part of head, initial encounter; W10.8XXA Fall (on) (from) other stairs and steps, initial encounter; N40.0 Benign prostatic hyperplasia without lower urinary tract symptoms; I48.0 Paroxysmal atrial fibrillation; E11.9 Type 2 diabetes mellitus without complications; I10 Essential (primary) hypertension; E78.5 Hyperlipidemia, unspecified; Z12.12 Encounter for screening for malignant neoplasm of rectum; Z12.5 Encounter for screening for malignant neoplasm of prostate; S80.212A Abrasion, left knee, initial encounter; S80.211A Abrasion, right knee, initial encounter; Z79.01 Long term (current) use of anticoagulants; Z90.79 Acquired absence of other genital organ(s); Z87.891 Personal history of nicotine dependence
CPT/HCPCS: 36415; 70450; 73030; 73200; 80053; 80061; 83036; 84436; 84443; 84481; 85025; 99285; G0103; Q0162

== ENCOUNTER 2024-11-30 08:14 | Outpatient (OUT) | payer MEDICARE, SELFPAY ==
--- NOTE | 2024-11-30 08:00 | NM_ITS ---
Patient Name: MELVI DAVIES MR#: [id number] : 1950 Exam Date: 11/30/2024 Ordering Doctor: DR CIRILO ROTH M.D. RADIOLOGY REPORT PROCEDURE: NM BELEN PERF SPECT REST STR COMPARISON: None. INDICATIONS: DYSPNEA ON EXERTION, PRE PROCEDURE CARDIOVASCULAR EXAM TECHNIQUE: Exam Description: Rest/Stress one day protocol gated SPECT Rest Imagin.7 mCi Tc-99m Cardiolite IV on 11/30/2024 Stress Imaging 29.9 mCi Tc-99m Cardiolite IV on 11/30/2024 Exercise Protocol: 0.4 mg Lexiscan given IV Heart Rate (bpm): Rest: 86 Max: 106 PMHR: 73 Blood Pressure: Rest: 108/68 Max: 108/68 Symptoms: Rest and peak stress ECG findings were pending and the exercise portion of the study was pending per attending physician [facility] . For more details please see separate cardiac stress test report. FINDINGS: QUALITY OF STUDY: Good PERFUSION DEFECT: None LOCATION: SIZE: SEVERITY: TYPE: WALL MOTION: Normal LV SIZE: 48 mL. TID / TCD: 1.0 LVEF: Calculated EF 81%. SUMMARY: Normal Myocardial perfusion imaging study CONCLUSION: Normal myocardial perfusion stress test without ischemia or infarction Normal left ventricle systolic function, EF 81% No transient ischemic dilatation, TID 1.0 EKG stress test is reported separately. Dictated by: Yazmin Porter MD on 12/01/2024 at 12:14 Approved by: Yazmin Porter MD on 12/01/2024 at 12:18
[2024-11-30] MEDS: REGADENOSON 0.4 MG/5 ML SYRINGE IV (09:46)
--- NOTE | 2024-11-30 09:47 | PC.NURSE ---
Nursing Note Cardiac Stress Test Reviewed: Medication, allergies and patient history reviewed. Stress Test: [ x] Patient tolerated stress test well. [ ] Patient unable to tolerate walking on treadmill. Switched to Lexiscan stress test. [ x] No chest pain noted per patient [ ] Chest pain that resolved prior to leaving stress lab. [x ] No dyspnea noted. [ ] Dyspnea that resolved prior to leaving stress lab. [x ] Patient left stress lab asymptomatic and hemodynamically stable. [ ] Patient taken to the Emergency Room due to non-resolving symptoms following stress test. [ ] Patient achieved target heart rate. [ ] Patient unable to achieve target heart rate. [ ] Aminophylline administered as reversal agent to Lexiscan (Regadenoson). [ ] Nitro administered. Nursing Comments:Pt had Lexiscan test done. Tolerated well. NO issues noted. Pt was taken to cafeteria in for breakfast prior to second set of images.
--- NOTE | 2024-12-01 12:27 | P.STRESS_ITS ---
Stress Test Stress Test Allergies Allergy/AdvReac Type Severity Reaction Status Date / Time ciprofloxacin (From Cipro) Allergy Severe Unknown Verified 11/16/24 19:17 Gwomffb-YVH-HxZ Reductase Allergy Severe Numbness Verified 11/16/24 19:17 Inhibitor adhesive tape Allergy Mild Redness of Verified 11/16/24 19:17 Skin Requesting physician: DARON CHAMBERS Procedure: This was a Lexiscan stress test with myocardial perfusion imaging performed at the [facility] on 11/30/2024. Intravenous line was secured. The patient was attached to electrocardiographic monitoring. Baseline vital signs and ECG were obtained. Lexiscan 0.4 mg was administered intravenously followed by administration of Cardiolite. The patient then went on to obtain myocardial perfusion imaging. 86 bpm and peak heart rate was 106 bpm. Resting blood pressure was 108/68 and peak blood pressure was 108/68. General Information: Reason for Stress Test: Shortness of breath, preoperative evaluation. Cardiac History and Risk Factors: Hypertension, diabetes. Resting 12 - Lead Electrocardiogram: Normal sinus rhythm, nonspecific ST abnormality. Stress Test: Protocol: Lexiscan stress. Exercise Capacity: Not assessed. Blood Pressure Response: Resting normal blood pressure. Rhythm: Sinus rhythm with no arrhythmias. ST - Response: No ischemic ST changes. Patient Response: No symptoms. Interpretation: 1. No evidence of ischemic ECG changes seen following infusion of Lexiscan. 2. Myocardial perfusion images will be reported separately.
== END 2024-11-30 08:15 | disposition home or self-care (01) ==
LOC: NM 08:15
PROVIDERS: PCP Family Medicine; Visit Provider Internal Medicine Interventional Cardiology
DX: Z01.818 Encounter for other preprocedural examination (principal); R06.09 Other forms of dyspnea
CPT/HCPCS: 78452; 93017; A9500; J2785

== ENCOUNTER 2024-12-08 09:35 | Outpatient (OUT) | payer MEDICARE, SELFPAY ==
--- NOTE | 2024-12-08 10:00 | CA_ITS ---
Patient Name: MELVI DAVIES MR#: [id number] : 1950 Exam Date: 12/08/2024 Ordering Doctor: DARON CHAMBERS CNP ECHOCARDIOGRAM REPORT PROCEDURE: CA ECHO DOPPLER COMPLETE INDICATIONS: Dyspnea on exertion, pre-op evaluation, hypertension, diabetes COMPARISON: None. DESCRIPTION: COMPLETE ECHOCARDIOGRAM Real-time transthoracic echocardiography with 2D, M-mode, spectral and color flow Doppler performed. QUALITY: Technical quality was adequate. LEFT VENTRICLE: Normal chamber size. Proximal septal hypertrophy (sigmoid septum). LV EF: Normal left ventricular ejection fraction, (>55%). DIASTOLIC: Diastolic function is indeterminate. ATRIAL SEPTUM: Visually appears intact. LEFT ATRIUM: Normal chamber size. RIGHT ATRIUM: Normal chamber size. RIGHT VENTRICLE: Normal chamber size. Normal right ventricular systolic function. TRICUSPID VALVE: Normal mobility and thickness. No stenosis with no regurgitation. Unable to assess right-sided pressures due to lack of measurable tricuspid regurgitation. MITRAL VALVE: Normal mobility and thickness. No evidence of mitral valve stenosis. Mild mitral annular calcification. No mitral regurgitation. AORTIC VALVE: Normal trileaflet appearance. Heavily calcified aortic valve with significantly diminished mobility. Doppler velocity suggest mild aortic valve stenosis. DVI 0.46, AILYN 2.2 cm2. No aortic regurgitation. AORTIC ROOT: Mildly dilated measuring 4.0 cm. Ascending aorta is normal in size, measuring 3.2 cm. PULMONIC VALVE: Not well visualized. No stenosis. No regurgitation. PERICARDIUM: No evidence of pericardial effusion. IVC: IVC is normal in size, does not fully collapse. PLEURA: CONCLUSION: 1. Normal left ventricular size and systolic function. Estimated LVEF is 65%. 2. Normal right ventricular size and systolic function. 3. Heavily calcified aortic valve with significantly reduced mobility. At least mild aortic valve stenosis is seen by Doppler criteria. 4. Depending on the clinical picture, further evaluation by transesophageal echocardiogram could help better define the aortic stenosis. Adult Echocardiography Procedure Report Left Ventricle LVEDD (3.7 - 5.6 cm): 3.53 cm LVESD (2.2 - 4.0 cm): 2.75 cm LVIVS thickness (0.6 - 1.2 cm): 1.72 cm LVPW thickness (0.5 - 1.0 cm): 0.93 cm e': 0.09 m/s E - e': 6.41 LVOT Max Gradient: 2.98 mm[Hg] LVOT Area (cm2): 0.86 m/s Peak Velocity (LVOT): 0.86 m/s Mean Velocity (LVOT): 0.62 m/s LVOT Diameter 2.31 cm Left Atrium LA Volume Index (2D A2C): 20.83 ml/m2 Left Atrium Systolic Dimension: 3.44 cm Mitral Valve MV E to A Ratio: 0.95 Mitral Valve A-Wave Peak Velocity: 0.61 m/s Mitral Valve E-Wave Peak Velocity: 0.58 m/s Right Ventricle Aorta AO Root Diam: 4.02 cm Ascending Ao Diam: 3.23 cm Aortic Valve AoV Area (Peak Santhosh): 1.93 cm2, 2.21 cm2 AoV Area (VTI): 2.22 cm2, 2.53 cm2 Peak Velocity(Antegrade Flow): 1.63 m/s, 1.87 m/s Peak Gradient(Antegrade Flow): 10.66 mm[Hg], 13.98 mm[Hg] Mean Velocity(Antegrade Flow): 1.07 m/s, 1.20 m/s Mean Gradient(Antegrade Flow): 5.66 mm[Hg], 6.89 mm[Hg] Velocity Time Integral: 30.35 cm, 34.57 cm Tricuspid Valve Pulmonic Valve Mean Gradient: 1.94 mm[Hg] Mean Velocity: 0.65 m/s Peak Velocity: 0.94 m/s, 0.89 m/s Peak Gradient: 3.17 mm[Hg], 3.53 mm[Hg] Right Atrium Right Atrium Systolic Pressure: 43.74 ml, 43.74 ml Dictated by: Mak Chatterjee M.D. on 12/08/2024 at 18:45 Approved by: Mak Chatterjee M.D. on 12/08/2024 at 18:50
== END 2024-12-08 09:36 | disposition home or self-care (01) ==
LOC: CARD 09:35
PROVIDERS: PCP Family Medicine; Visit Provider Nurse Practitioner Family
DX: Z01.818 Encounter for other preprocedural examination (principal); R06.09 Other forms of dyspnea
CPT/HCPCS: 93306